=== PATIENT | female | born 1935 | race Caucasian/White ===

== ENCOUNTER 2019-02-26 06:39 | Day surgery (SDC) | payer MEDICARE, OTHER ==
[2019-02-26] MEDS ORDERED: MIDAZOLAM 2 MG/2 ML VIAL IVP ONE (06:40)
[2019-02-26] MEDS ORDERED: LACTATED RINGERS 500 ML IV ONE (06:55)
[2019-02-26] MEDS ORDERED: KETOROLAC 0.45% OPHTH DROPS RIGHTEYE ONE (07:00)
[2019-02-26] MEDS ORDERED: PROPARACAINE 0.5% OPHTH DROPS 15 ML RIGHTEYE ONE (07:00)
[2019-02-26] MEDS ORDERED: CYCLOPENTOLATE 1% OPHTH DROPS 2 ML RIGHTEYE ONE (07:00)
[2019-02-26] MEDS ORDERED: PHENYLEPHRINE 2.5% OPHTH 2 ML DROPS RIGHTEYE ONE (07:00)
[2019-02-26] MEDS ORDERED: KETOROLAC 0.45% OPHTH DROPS ONE (07:04)
[2019-02-26] MEDS ORDERED: CYCLOPENTOLATE 1% OPHTH DROPS 2 ML ONE (07:04)
[2019-02-26] MEDS ORDERED: PROPARACAINE 0.5% OPHTH DROPS 15 ML ONE (07:04)
[2019-02-26] MEDS ORDERED: PHENYLEPHRINE 2.5% OPHTH 2 ML DROPS ONE (07:04)
[2019-02-26] MEDS ORDERED: EPINEPHrine 1 MG/ML AMP ONE (07:25)
[2019-02-26] MEDS ORDERED: TRIAMCIN/MOXIFLOX OPHTHALMIC 0.6 ML VIAL IO ONE ×2 (07:25→09:46)
[2019-02-26] MEDS ORDERED: VANCOMYCIN OPHTHALMI 8MG/0.8ML 8 MG/0.8 ML SYRINGE IO ONE ×2 (07:26→09:47)
[2019-02-26] MEDS ORDERED: TIMOLOL 0.5% OPHTH DROPS ONE (07:26)
[2019-02-26] MEDS ORDERED: BRIMONIDINE 0.2% OPHTH DROPS 5 ML ONE (07:26)
[2019-02-26] MEDS ORDERED: BSS/LIDOCAINE/EPINEPHRINE 1 ML SYRINGE ONE (07:26)
--- NOTE | 2019-02-26 08:58 | ANESTHESIA ---
Pre-Anesthesia VS, & Labs - Diagnosis Right senile combined cataract - Procedure Right phaco with IOL implant Vital Signs: Temp Pulse Resp BP Pulse Ox 36.7 C 94 18 160/96 H 96 02/26/19 06:58 02/26/19 06:58 02/26/19 06:58 02/26/19 06:58 02/26/19 06:58 Height 5 ft 2 in Weight (kg) 92.5 kg - NPO >8 hours - Is Patient ?: Not Applicable - Lab Results Current Lab Results: Laboratory Tests 02/26/19 07:09: POC Whole Bld Glucose 129 H Lab results reviewed: No Home Medications and Allergies Home Medications: Ambulatory Orders Enalapril Maleate [Vasotec] 20 mg PO DAILY 02/25/19 Glipizide 5 mg PO BID 02/25/19 Metoprolol Succinate [Toprol Xl] 150 mg PO DAILY 02/25/19 Warfarin [Coumadin] 2 mg PO DAILY 02/25/19 Enalapril Maleate [Vasotec] 20 mg PO DAILY 02/25/19 Glipizide 5 mg PO BID 02/25/19 Metoprolol Succinate [Toprol Xl] 150 mg PO DAILY 02/25/19 Warfarin [Coumadin] 2 mg PO DAILY 02/25/19 Allergies/Adverse Reactions: Allergies Allergy/AdvReac Type Severity Reaction Status Date / Time aspirin AdvReac Unknown Verified 02/25/19 15:27 calcium carbonate AdvReac Unknown Verified 02/25/19 15:27 [From Bufferin] lidocaine AdvReac Rash Verified 02/25/19 15:27 magnesium [From Bufferin] AdvReac Unknown Verified 02/25/19 15:27 Anes History & Medical History - Anesthetic History Anesthesia Complications: reports: No previous complications Family history of Anesthesia Complications: Denies Family history of Malignant Hyperthermia: Denies - Medical History Cardiovascular: reports: Hypertension, High cholesterol, Atrial fibrillation Pulmonary: reports: None Gastrointestinal: reports: None Urinary: reports: Incontinence Neuro: reports: None Musculoskeletal: reports: Osteoarthritis Endocrine/Autoimmune: reports: Type 2 diabetes Blood Disorders: reports: None Skin: reports: None Smoking Status: Never smoker Psychosocial: reports: No issues indicated - Surgical History Eyes Ears Nose Throat (EENT): Cataracts, Tonsil/Adenoidectomy Exam General: Alert, Oriented x3 Dental: WNL Mouth Opening: Greater than 4 Fingerbreadths Neck Mobility: Normal Mallampati classification: II Thyromental Distance: greater than 6 cm Respiratory: Lungs clear Cardiovascular: Other (Irregular) Mental/Cognitive Status: Alert/Oriented X3 Cognitive Status: Within normal limits Plan Anesthesia Type: MAC Consent for Procedure(s) Verified and Reviewed: Yes Code Status: Attempt Resuscitation ASA classification: 3-Severe systemic disease Is this case an emergency?: No
[2019-02-26] MEDS ORDERED: EPINEPHrine 1 MG/ML AMP IVP ONE (09:45)
[2019-02-26] MEDS ORDERED: BRIMONIDINE 0.2% OPHTH DROPS 5 ML OPTH ONE (09:45)
[2019-02-26] MEDS ORDERED: BSS/LIDOCAINE/EPINEPHRINE 1 ML SYRINGE IO ONE (09:46)
[2019-02-26] MEDS ORDERED: TIMOLOL 0.5% OPHTH DROPS OPTH ONE (09:46)
[2019-02-26] MEDS ORDERED: CHONDR SULF/HYALURONATE SYRINGE IO ONE (09:46)
[2019-02-26 10:03] VITALS: BP 141/61
--- NOTE | 2019-02-26 10:43 | OPERATIVE REPORT ---
DATE OF SERVICE: 02/26/2019 Physician: Alen Ames MD PREOPERATIVE DIAGNOSIS: Visually significant cataract, right eye. Cataract surgery was performed on the left eye in 2018 elsewhere. POSTOPERATIVE DIAGNOSIS: Visually significant cataract, right eye. Cataract surgery was performed o n the left eye in 2018 elsewhere. PROCEDURE: Phacoemulsification with posterior chamber intraocular lens implant, right eye. SURGEON: Alen Ames MD ANESTHESIA: Monitored anesthesia care. COMPLICATIONS: None. OPERATIVE INDICATIONS: This is an 83-year-old woman with progressive vision loss in the right eye du e to 3-4+ nuclear sclerotic and 2+ cortical cataract. Best corrected visual acuity was 20/50 with gl are to 20/500 in the right eye. Indications for surgery are overall decrease in vision per patient. She was consented at length concerning risks and benefits of cataract surgery, after which she expre ssed a desire to proceed with surgery. OPERATIVE PROCEDURE: Patient was taken to OR #3 and placed under monitored anesthesia care. Surgica l timeout was conducted confirming correct patient, correct procedure, and correct surgical site. e was given topical anesthesia, and prepped and draped in the usual sterile fashion. The eye was ent ered at the 12 and 9 o'clock positions. Intracameral Shugarcaine was injected into the anterior nader kyaw, followed by Viscoat. A continuous-tear curvilinear capsulorrhexis was performed. The nucleus w as hydrodissected and phacoemulsified. The cortex was evacuated using automated infusion and aspirat ion. Provisc was injected in the capsular bag, and a 22.5 diopter intraocular lens inserted in the b ag. Approximately 0.8 mL of a mixture of triamcinolone, moxifloxacin and vancomycin was injected sub conjunctivally in the superior quadrant for infection and inflammation prophylaxis. I and A, was use d to evacuate the viscoelastic materials. The eye was inflated to physiologic pressure using balance d salt solution and found to be watertight. Patient was taken from the operating room in good condit ion and given postoperative instructions. TD: 02/26/2019 10:06
== END 2019-02-26 06:40 | disposition home or self-care (01) ==
LOC: SDS 06:39
PROVIDERS: ATTEND Ophthalmology
PROC: 08RJ3JZ Replacement of Right Lens with Synthetic Substitute, Percutaneous Approach (ICD-10-PCS; principal; 2019-02-26 08:00)
DX: H25.811 Combined forms of age-related cataract, right eye (principal); E11.9 Type 2 diabetes mellitus without complications; I10 Essential (primary) hypertension; I48.91 Unspecified atrial fibrillation
CPT/HCPCS: 66984; A9270; J3490; V2632

== ENCOUNTER 2021-06-15 11:49 | Outpatient (CLI) | payer MEDICARE | END 2021-06-15 11:50 | disposition EMS.NT | LOC: EMS 11:49 | DX: R53.1 Weakness (principal) ==

== ENCOUNTER 2021-07-01 12:44 | Outpatient (CLI) | payer MEDICARE ==
--- NOTE | 2021-07-01 13:55 | CT Report ---
PROCEDURE: HEAD WO INDICATIONS: ALTERED MENTAL STATUS TECHNIQUE: Noncontrast 4.5 mm thick angled axial sections acquired from the foramen magnum to the vertex. For r adiation dose reduction, the following was used: automated exposure control, adjustment of mA and/or kV according to patient size. COMPARISON: None. FINDINGS: Image quality: Excellent. CSF spaces: Basal cisterns are patent. No extra-axial fluid collections. Ventricles are normal in size and shape. Brain: No midline shift. No intracranial hemorrhage. In the region of the inferior medial right cere bellum, there may either be artifact or subtly calcified parenchyma or a mildly hyperdense mass measu ring approximately 2.0 x 2.5 cm. There is no associated vasogenic edema and no significant mass effec t. Henderson-white matter interface is otherwise normal. Skull and face: Calvarium and visualized facial bones are intact, without suspicious lesions. Sinuses: Visualized sinuses and mastoids are clear. IMPRESSION: 1. No evidence acute stroke or hemorrhage. 2. In the inferior medial right cerebellum, there may be artifact versus subtle parenchymal calcifica tions versus a mildly hyperdense mass measuring 2.0 x 2.5 cm. Comment: Recommend brain MRI with and without contrast for further evaluation. If the patient has a p acemaker, would recommend CT head with contrast. Reviewed by: Damian Morelos MD on 07/01/2021 1:54 PM PST Approved by: Damian Morelos MD on 07/01/2021 1:54 PM PST Station ID: [id number]
== END 2021-07-01 12:45 | disposition home or self-care (01) ==
LOC: DI 12:44
PROVIDERS: ATTEND Student in an Organized Health Care Education/Training Program
DX: R41.82 Altered mental status, unspecified (principal); R90.89 Other abnormal findings on diagnostic imaging of central nervous system

== ENCOUNTER 2021-08-07 12:33 | Outpatient (CLI) | payer MEDICARE, OTHER ==
[2021-08-07 13:56] LABS: ALBUMIN 3.7 g/dL (3.2-5.5); ALBUMIN/GLOBULIN RATIO 0.9 (1.0-2.2); BILIRUBIN,TOTAL 1.1 mg/dL (0.2-1.0); CALCIUM 9.1 mg/dL (8.5-10.3); CREATININE 1.3 mg/dL (0.4-1.0); POTASSIUM 4.4 mmol/L (3.5-5.0); TOTAL PROTEIN 7.6 g/dL (6.7-8.2)
[2021-08-07] MEDS ORDERED: GADOBUTROL 10 MMOL/10 ML VIAL ONE (14:45)
[2021-08-07] MEDS ORDERED: GADOBUTROL 10 MMOL/10 ML VIAL IVP ONE (16:20)
--- NOTE | 2021-08-07 17:10 | MRI Report ---
PROCEDURE: Brain W/WO INDICATIONS: AMS CONTRAST: IV CONTRAST: Gadavist ml: 8.1 TECHNIQUE: Noncontrast axial T1 spin echo, axial T2 fast spin echo, sagittal and axial FLAIR, coronal T2 fast sp in echo, axial gradient echo, axial diffusion and ADC through the brain. After the administration of contrast, axial and coronal T1 spin echo with fat saturation through the brain. COMPARISON: CT head dated 07/01/2021. FINDINGS: Image quality: Excellent. CSF spaces: Basal cisterns are patent. No extra-axial fluid collections. Ventricles are normal in size and shape. Brain: No midline shift. No intracranial bleeds or masses. No abnormal intracranial enhancement. There is cerebral volume loss for age. There is periventricular white matter chronic small vessel is chemic change. The brainstem appears normal. Diffusion-weighted images demonstrate no acute ischemi c insults. No chronic ischemic insults. Age-related volume loss and mild small vessel ischemic monroe e. The area in the inferior medial right cerebellum noted on CT represents artifact and not a subtle mass. There is no abnormal enhancement with gadolinium. Normal intravascular flow voids are present. Skull and face: Calvarial marrow is normal in signal. Orbits appear normal. Sinuses: Sinuses and mastoids appear clear. IMPRESSION: 1. On the previous CT, there is a question of artifact versus mass involving the inferior right cereb ellum. There is no evidence of a mass on brain MRI with and without contrast. This is felt to represe nt artifact. 2. Age-related volume loss and mild small vessel ischemic change. Reviewed by: Damian Morelos MD on 08/07/2021 5:08 PM PST Approved by: Damian Morelos MD on 08/07/2021 5:08 PM PST Station ID: [id number]
== END 2021-08-07 12:34 | disposition home or self-care (01) ==
LOC: DI 12:33
PROVIDERS: ATTEND Student in an Organized Health Care Education/Training Program
DX: R41.82 Altered mental status, unspecified (principal)
CPT/HCPCS: 36415; 70553; 80053; A9585

== ENCOUNTER 2021-08-23 10:01 | Outpatient (CLI) | payer MEDICARE, OTHER | END 2021-08-23 10:02 | disposition home or self-care (01) | LOC: DI 10:01 | PROVIDERS: ATTEND Student in an Organized Health Care Education/Training Program | DX: R06.00 Dyspnea, unspecified (principal); I48.91 Unspecified atrial fibrillation; I34.0 Nonrheumatic mitral (valve) insufficiency; I07.1 Rheumatic tricuspid insufficiency; I87.8 Other specified disorders of veins | CPT/HCPCS: 93306 ==

== ENCOUNTER 2022-12-01 23:15 | Outpatient (CLI) | payer MEDICARE, OTHER | END 2022-12-01 23:59 | disposition critical access hospital (66) | LOC: EMS 23:15 | DX: R41.0 Disorientation, unspecified (principal); R09.89 Other specified symptoms and signs involving the circulatory and respiratory systems; W19.XXXA Unspecified fall, initial encounter; Y92.003 Bedroom of unspecified non-institutional (private) residence as the place of occurrence of the external cause | CPT/HCPCS: A0425; A0429 ==

== ENCOUNTER 2022-12-01 23:29 | Inpatient (IN) | payer MEDICARE, OTHER ==
[2022-12-02] MEDS ORDERED: iohexoL-300 100 ML VIAL ONE (00:04)
[2022-12-02] MEDS ORDERED: SODIUM CHLORIDE 0.9% 500 ML IV STA ×2 (00:06→00:21)
[2022-12-02 00:07] LABS: BASOPHILS % (AUTO) 0.5 %; EOSINOPHILS % (AUTO) 4.3 %; HCT - HEMATOCRIT 38.5 % (37.0-47.0); HGB - HEMOGLOBIN 12.1 g/dL (12.0-16.0); LYMPHOCYTES % (AUTO) 4.5 %; MEAN CORPUSCULAR HEMOGLOBIN 28.2 pg (27.0-31.0); MEAN CORPUSCULAR HGB CONC 31.4 g/dL (32.0-36.0); MEAN CORPUSCULAR VOLUME 89.7 fL (81.0-99.0); MEAN PLATELET VOLUME 11.9 fL (7.9-10.8); MONOCYTES % (AUTO) 4.4 %; NEUTROPHILS % (AUTO) 85.4 %; PLT - PLATELET COUNT 128 10^3/uL (130-450); RED BLOOD COUNT 4.29 10^6/uL (4.20-5.40); RED CELL DISTRIBUTION WIDTH 15.1 % (12.0-15.0); WHITE BLOOD COUNT 10.1 x10^3/uL (4.8-10.8)
[2022-12-02 00:09] LABS: ABNORMAL LYMPHS % (MANUAL) 0 %
[2022-12-02 00:13] LABS: ALBUMIN 3.3 g/dL (3.2-5.5); ALBUMIN/GLOBULIN RATIO 0.8 (1.0-2.2); CALCIUM 8.8 mg/dL (8.5-10.3); CREATININE 1.9 mg/dL (0.4-1.0); POTASSIUM 3.7 mmol/L (3.5-5.0); TOTAL PROTEIN 7.4 g/dL (6.7-8.2)
[2022-12-02 00:14] LABS: PT - PROTHROMBIN TIME 30.5 secs (9.9-12.6)
[2022-12-02 00:32] LABS: BAND NEUTROPHILS % (MANUAL) 22 %; DIFFERENTIAL COMMENT MANUAL DIFFERENTIAL; LYMPHOCYTES # (MANUAL) 0.4 10^3/uL (1.5-3.5); LYMPHOCYTES % (MANUAL) 4 %; MONOCYTES # (MANUAL) 0.4 10^3/uL (0.0-1.0); NEUTROPHILS # (MANUAL) 9.3 10^3/uL (1.5-6.6); PLATELET ESTIMATE, MANUAL NORMAL (130-450,000) (NORMAL); RBC MORPHOLOGY (MULTIPLE) NORMAL APPEARANCE (NORMAL)
--- NOTE | 2022-12-02 00:42 | ED Physician Documentation ---
History of Present Illness - Stated complaint Stated Complaint: GLF FOUND DOWN - Chief complaint Chief Complaint: Trauma Abd - History obtained from History obtained from: Patient, Family - Additonal information Additional information: Patient is an 87-year-old female presenting for evaluation after an unwitnessed fall. Per family members they last spoke to her yesterday evening. This evening they went to check on her around 5 PM and found her laying on the ground. They thought her blood sugar was low and so went to the store to get her things to eat. However they noted that she seemed to be more confused than usual and thus called EMS. They were able to help her stand and ambulate with her walker which is what she normally does at baseline. She had reported to them that she was having some nausea and vomiting and abdominal pain the day prior. Per the daughter she is on warfarin for history of A-fib. Daughter denies that the patient has ever had any abdominal surgeries. Patient is oriented to person only. Review of Systems Unable to obtain: AMS PD PAST MEDICAL HISTORY - Past Medical History Cardiovascular: Hypertension, High cholesterol, Atrial fibrillation Respiratory: None Neuro: None Endocrine/Autoimmune: Type 2 diabetes GI: None : Incontinence HEENT: Chronic hearing loss Psych: None Musculoskeletal: Osteoarthritis Derm: None - Past Surgical History HEENT: Cataracts, Tonsil/Adenoidectomy - Present Medications Home Medications: Ambulatory Orders Medication Instructions Recorded Confirmed Enalapril Maleate [Vasotec] 20 mg PO DAILY 02/25/19 01/13/21 Metoprolol Succinate [Toprol Xl] 150 mg PO DAILY 02/25/19 01/13/21 Warfarin [Coumadin] 2 mg PO DAILY 02/25/19 01/13/21 glipiZIDE [Glipizide] 5 mg PO BID 02/25/19 01/13/21 - Allergies Allergies/Adverse Reactions: Allergies Allergy/AdvReac Type Severity Reaction Status Date / Time aspirin AdvReac Unknown Verified 12/01/22 23:39 calcium carbonate AdvReac Unknown Verified 12/01/22 23:39 [From Bufferin] lidocaine AdvReac Rash Verified 12/01/22 23:39 magnesium [From Bufferin] AdvReac Unknown Verified 12/01/22 23:39 - Social History Smoking Status: Never smoker PD ED PE NORMAL - General General: No acute distress, Well developed/nourished. 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 No: Alert and oriented X 3 Eye Opening: Spontaneous Motor: Obeys Commands Verbal: Confused GCS Score: 14 Results - Vitals Vitals: Vital Signs - 24 hr 12/01/22 12/02/22 12/02/22 23:34 00:06 01:00 Temperature 37.0 C Heart Rate 131 H 127 H 113 H Respiratory 28 H 28 H 34 H Rate Blood Pressure 161/112 H 171/82 H 185/116 H O2 Saturation 94 94 93 If not protocol : Oxygen Flow, liters/minute 12/02/22 12/02/22 12/02/22 02:49 02:50 02:56 Temperature Heart Rate 120 H 96 Respiratory 33 H 22 28 H Rate Blood Pressure 158/81 H 150/86 H O2 Saturation 86 L 96 93 If not protocol 2 : Oxygen Flow, liters/minute 12/02/22 12/02/22 03:03 03:09 Temperature Heart Rate 93 101 H Respiratory 27 H Rate Blood Pressure 151/72 H 165/77 H O2 Saturation 96 96 If not protocol 2 2 : Oxygen Flow, liters/minute Oxygen O2 Source Nasal cannula - EKG (time done) 1204 EKG releavant findings:: EKG personally interpreted by author of this note. Relevant findings are: Rate 121, atrial fibrillation, no STEMI, Right bundle branch block, no prior for comparison Rate: Rate (enter#) (121) Rhythm: Atrial fibrillation Intervals: RBBB Ischemia: T wave inversion Compare to prior EKG: Old EKG unavailable - Labs Labs: Laboratory Tests 12/01/22 12/01/22 12/01/22 23:41 23:41 23:41 WBC 10.1 RBC 4.29 Hgb 12.1 Hct 38.5 MCV 89.7 MCH 28.2 MCHC 31.4 L RDW 15.1 H Plt Count 128 L MPV 11.9 H Neut # (Auto) Not Reportable Lymph # (Auto) Not Reportable Dolores # (Auto) Not Reportable Eos # (Auto) Not Reportable Baso # (Auto) Not Reportable Absolute Nucleated RBC Not Reportable Total Counted 100 Band Neuts % (Manual) 22 H Abnorm Lymph % (Manual) 0 Nucleated RBC % Not Reportable Neutrophils # (Manual) 9.3 H Lymphocytes # (Manual) 0.4 L Monocytes # (Manual) 0.4 Eosinophils # (Manual) 0.0 Basophils # (Manual) 0.0 Differential Comment MANUAL DIFFERENTIAL Platelet Estimate NORMAL (130-450,000) RBC Morph Micro Appear NORMAL APPEARANCE PT 30.5 H INR 3.0 H Sodium 132 L Potassium 3.7 Chloride 99 L Carbon Dioxide 22 Anion Gap 11.0 BUN 51 H Creatinine 1.9 H Estimated GFR (MDRD) 25 L Glucose 228 H POC Whole Bld Glucose Lactic Acid Calcium 8.8 Total Bilirubin 3.0 H AST 28 ALT 19 Alkaline Phosphatase 77 Total Creatine Kinase 199 Troponin I High Sens Total Protein 7.4 Albumin 3.3 Globulin 4.1 Albumin/Globulin Ratio 0.8 L Lipase 18 L Urine Color Urine Clarity Urine pH Ur Specific [place] Urine Protein Urine Glucose (UA) Urine Ketones Urine Occult Blood Urine Nitrite Urine Bilirubin Urine Urobilinogen Ur Leukocyte Esterase Urine RBC Urine WBC Ur Squamous Epith Cells Urine Bacteria Urine Casts Ur Microscopic Review Urine Culture Comments 12/01/22 12/01/22 12/01/22 23:41 23:41 23:59 WBC RBC Hgb Hct MCV MCH MCHC RDW Plt Count MPV Neut # (Auto) Lymph # (Auto) Dolores # (Auto) Eos # (Auto) Baso # (Auto) Absolute Nucleated RBC Total Counted Band Neuts % (Manual) Abnorm Lymph % (Manual) Nucleated RBC % Neutrophils # (Manual) Lymphocytes # (Manual) Monocytes # (Manual) Eosinophils # (Manual) Basophils # (Manual) Differential Comment Platelet Estimate RBC Morph Micro Appear PT INR Sodium Potassium Chloride Carbon Dioxide Anion Gap BUN Creatinine Estimated GFR (MDRD) Glucose POC Whole Bld Glucose 214 H Lactic Acid 2.3 H Calcium Total Bilirubin AST ALT Alkaline Phosphatase Total Creatine Kinase Troponin I High Sens 77.2 H* Total Protein Albumin Globulin Albumin/Globulin Ratio Lipase Urine Color Urine Clarity Urine pH Ur Specific [place] Urine Protein Urine Glucose (UA) Urine Ketones Urine Occult Blood Urine Nitrite Urine Bilirubin Urine Urobilinogen Ur Leukocyte Esterase Urine RBC Urine WBC Ur Squamous Epith Cells Urine Bacteria Urine Casts Ur Microscopic Review Urine Culture Comments 12/02/22 12/02/22 12/02/22 00:53 00:53 01:22 WBC RBC Hgb Hct MCV MCH MCHC RDW Plt Count MPV Neut # (Auto) Lymph # (Auto) Dolores # (Auto) Eos # (Auto) Baso # (Auto) Absolute Nucleated RBC Total Counted Band Neuts % (Manual) Abnorm Lymph % (Manual) Nucleated RBC % Neutrophils # (Manual) Lymphocytes # (Manual) Monocytes # (Manual) Eosinophils # (Manual) Basophils # (Manual) Differential Comment Platelet Estimate RBC Morph Micro Appear PT INR Sodium Potassium Chloride Carbon Dioxide Anion Gap BUN Creatinine Estimated GFR (MDRD) Glucose POC Whole Bld Glucose Lactic Acid Calcium Total Bilirubin AST ALT Alkaline Phosphatase Total Creatine Kinase 192 Troponin I High Sens 69.5 H* Total Protein Albumin Globulin Albumin/Globulin Ratio Lipase Urine Color DARK YELLOW Urine Clarity HAZY Urine pH 5.0 Ur Specific [place] >=1.030 H Urine Protein 100 H Urine Glucose (UA) NEGATIVE Urine Ketones TRACE Urine Occult Blood MODERATE H Urine Nitrite NEGATIVE Urine Bilirubin SMALL H Urine Urobilinogen 1 (NORMAL) Ur Leukocyte Esterase NEGATIVE Urine RBC 0-5 Urine WBC 0-3 Ur Squamous Epith Cells RARE Squamous Urine Bacteria Rare Urine Casts 3-5 Hyaline Casts Ur Microscopic Review INDICATED Urine Culture Comments NOT INDICATED PD Medical Decision Making - ED course Complexity details: reviewed results, re-evaluated patient, d/w patient, d/w family ED course: Patient presenting for evaluation of unwitnessed fall versus syncope and altered mental status. She is noted to be tachycardic and in A-fib with RVR. Patient does have a history of this and is anticoagulated on warfarin. Due to unclear history regarding the fall head CT was obtained along with a cervical spine CT. These were reviewed by me and I do not see signs of any acute injuries. Labs obtained including CBC, lactic, chemistries, troponin, urine analysis were all reviewed.Significant for elevated bands of 22%, creatinine of 1.9 (previously 1.3 last year), lactic greater than 2, bilirubin 3. INR is therapeutic at 3.Chest x-ray reveals left-sided pneumonia. A CT scan of the abdomen pelvis was also obtained due to reported history of nausea and vomiting. No acute findings in the abdomen and pelvis but again pneumonia is seen. Urine analysis does not suggest infection.Patient was started on azithromycin and Rocephin. She was given 1 dose of IV diltiazem for A-fib and also 1 L of IV fluids with improvement in her rate. She did desaturate to 86% on room air which improved with oxygen via nasal cannula.Discussed the case with hospitalist who will admit the patient for further management. Daughter had been at the bedside and was also updated regarding the plan of care. Departure - Departure Disposition: 66 [facility] DC/Xfer Clinical Impression: CAP (community acquired pneumonia), Atrial fibrillation with RVR, LOYDA (acute kidney injury), Hypoxia, AMS (altered mental status) Condition: Stable
--- NOTE | 2022-12-02 01:10 | XRAY Report ---
PROCEDURE: Chest 1 View X-Ray INDICATIONS: syncope TECHNIQUE: One view of the chest was acquired. COMPARISON: None. FINDINGS: Limited by rotation. Dense left upper lobe infiltrate present. Pleural spaces are clear. Heart size is enlarged, there is mild vascular congestion present. Osseous structures unremarkable. IMPRESSION: Left upper pulmonary infiltrate, consistent with pneumonia. Cardiomegaly and mild vascular congestion Reviewed by: Fidel Vazquez MD on 12/02/2022 12:09 AM ELGIN Approved by: Fidel Vazquez MD on 12/02/2022 12:09 AM AKDT Station ID: [id number]
--- NOTE | 2022-12-02 01:26 | CT Report ---
PROCEDURE: CT brain without contrast INDICATIONS: fall on warfarin TECHNIQUE: Noncontrast 4.5 mm thick angled axial sections acquired from the foramen magnum to the vertex. For r adiation dose reduction, the following was used: automated exposure control, adjustment of mA and/or kV according to patient size. COMPARISON: None. FINDINGS: Image quality: Excellent. CSF spaces: Basal cisterns are patent. No extra-axial fluid collections. Ventricles are normal in size and shape. Brain: No midline shift. No intracranial masses or hemorrhage. Henderson-white matter interface is norm al. Moderate atrophy and multifocal white matter chronic ischemic change noted. Atherosclerotic vasc ular calcification noted in the cavernous segments of both internal carotid arteries as well as the i ntradural vertebral arteries. Skull and face: Calvarium and visualized facial bones are intact, without suspicious lesions. Sinuses: Visualized sinuses and mastoids are clear. IMPRESSION: Atrophy and chronic ischemic change without acute hemorrhage or mass effect Reviewed by: Fidel Vazquez MD on 12/02/2022 12:24 AM AKDT Approved by: Fidel Vazquez MD on 12/02/2022 12:24 AM AKDT Station ID: [id number]
--- NOTE | 2022-12-02 01:31 | CT Report ---
PROCEDURE: CERVICAL SPINE WO INDICATIONS: fall/confusion TECHNIQUE: Noncontrast 3 mm thick sections acquired from the skull base to the T4 level. Sagittal and coronal r eformats were then constructed. For radiation dose reduction, the following was used: automated exp osure control, adjustment of mA and/or kV according to patient size. COMPARISON: None. FINDINGS: Image quality: Excellent. Bones: No fractures or dislocations. Visualized superior ribs are intact. Disc space narrowing and hypertrophic facet joints noted at the C2-3 sulci lower cervical spine. Soft tissues: Prevertebral soft tissues are normal in thickness. No paravertebral hematomas. Partia lly imaged left upper lobe pulmonary infiltrate or contusion IMPRESSION: Degenerative disc disease and arthropathy without fracture or traumatic malalignment. Partially imaged left upper lobe pulmonary infiltrate or contusion. No pneumothorax Reviewed by: Fidel Vazquez MD on 12/02/2022 12:29 AM AKDT Approved by: Fidel Vazquez MD on 12/02/2022 12:29 AM AKDT Station ID: [id number]
--- NOTE | 2022-12-02 01:36 | CT Report ---
PROCEDURE: CT abdomen and pelvis without contrast INDICATIONS: abd pain/vomiting/syncope TECHNIQUE: A CT scan of the abdomen and pelvis was performed without the use of intravenous contrast. Images we re recorded and evaluated at appropriate window settings. Reformats: coronal and sagittal. For radiat ion dose reduction, the following was used: automated exposure control, adjustment of mA and/or kV ac cording to patient size. COMPARISON: None. FINDINGS: Image quality: Excellent. Lung bases and heart: Left lower lobe pulmonary infiltrate with consolidation. Right lung base clear Liver: No solid mass. Gallbladder and biliary tree: Cholecystectomy Spleen: Calcified splenic granulomas Pancreas: No pancreatic ductal dilation. Adrenals: No adrenal nodule. Kidneys and ureters: Left renal atrophy. No hydronephrosis bilaterally. Bowel and peritoneum: No bowel distension. No pathologic free fluid. Lymph nodes: No central or retroperitoneal adenopathy. Vessels: Aortic atherosclerotic vascular calcification without aneurysm PELVIS Reproductive organs: Calcified uterine fibroid Bladder: No wall thickness, accounting for underdistention. Pelvic lymph nodes: No pelvic adenopathy by size criteria. Bones: No aggressive osseous abnormality. Other: No significant ventral or inguinal hernia. IMPRESSION: Left lower lobe pulmonary infiltrate with consolidation. No acute CT findings in the abdomen and pelvis Reviewed by: Fidel Vazquez MD on 12/02/2022 12:35 AM ELGIN Approved by: Fidel Vazquez MD on 12/02/2022 12:35 AM AKDT Station ID: [id number]
[2022-12-02 01:47] LABS: GLUCOSE, URINE (UA) NEGATIVE (NEGATIVE); KETONES,URINE (UA) TRACE mg/dL (NEGATIVE); LEUKOCYTE ESTERASE, URINE NEGATIVE (NEGATIVE); NITRITE,URINE NEGATIVE (NEGATIVE); OCCULT BLOOD,URINE MODERATE (NEGATIVE); PROTEIN,URINE 100 mg/dL (NEGATIVE); UROBILINOGEN,URINE 1 (NORMAL) E.U./dL (NORMAL)
[2022-12-02 01:52] LABS: BILIRUBIN,URINE SMALL (NEGATIVE); CLARITY,URINE HAZY (CLEAR); ICTOTEST,URINE POSITIVE
[2022-12-02 01:54] LABS: WBC,URINE 0-3 /HPF (0-5)
[2022-12-02 01:55] LABS: BACTERIA,URINE Rare /HPF (None Seen); RBC,URINE 0-5 /HPF (0-5); SQUAMOUS EPITHELIAL CELL,UR RARE Squamous (<= Few)
[2022-12-02] MEDS ORDERED: diltiaZEM INJ 5 MG/ML VIAL IVP STA (02:14)
[2022-12-02] MEDS ORDERED: AZITHROMYCIN INJ 500 MG in SODIUM CHLORIDE 0.9% 250 ML IV STA (02:15)
[2022-12-02] MEDS ORDERED: cefTRIAXone 1 GM in SODIUM CHLORIDE 0.9% MINIBAG 100 ML IV STA (02:15)
[2022-12-02] MEDS ORDERED: cefTRIAXone 1 GM VIAL ONE (02:50)
[2022-12-02] MEDS ORDERED: SODIUM CHLORIDE FLUSH 0.9% 10 ML SYRINGE IVP PRN (03:20)
--- NOTE | 2022-12-02 03:34 | HISTORY & PHYSICAL EXAMINATION ---
History of Present Illness - History of Present Illness HPI Comment/Other: 87 Y old female with PMH HTN, DM2, Atrial fib on coumadin BIBA due to AMS. Pt is confused so most of history is from the daughter present at bed side. As per pt, patient had nausea and she vomitied yesterday. Patient was found on the floor at about 4 pm yesterday. Daughter helped her and she waspatient was able to walk with the walker. As per daughter, her mom was breathing hard. Denies chest pain, fever, CORRIGAN, symptoms On presentaion, she was afebrile, hypoxic. Her Sao2 dropped to 86% while in the ER. Labs showed normal WBC , bands 22 INR 3.0, Vegetable Tier 1.9 CXR showed left lung infiltrate CT head and c spine showed no acute abnormalities IN ER, she was given IVF, Cardizem 10 mg IVP X 1 and IV rocephin and zithromax Patient is admitted due to PNA, AMS, Acute encephalopathy, dehydartion, LOYDA History - Past Medical History Cardiovascular: reports: Hypertension, High cholesterol, Atrial fibrillation Respiratory: reports: None Neuro: reports: None Endocrine/Autoimmune: reports: Type 2 diabetes GI: reports: None : reports: Incontinence HEENT: reports: Chronic hearing loss Psych: reports: None Musculoskeletal: reports: Osteoarthritis Derm: reports: None MRSA Hx?: No - Past Surgical History HEENT: reports: Cataracts, Tonsil/Adenoidectomy - Substance History Use: Uses substance without health or social issues: NONE Meds/Allgy - Home Medications Home Medications: Ambulatory Orders Medication Instructions Recorded Confirmed Enalapril Maleate [Vasotec] 20 mg PO DAILY 02/25/19 01/13/21 Metoprolol Succinate [Toprol Xl] 150 mg PO DAILY 02/25/19 01/13/21 Warfarin [Coumadin] 2 mg PO DAILY 02/25/19 01/13/21 glipiZIDE [Glipizide] 5 mg PO BID 02/25/19 01/13/21 - Allergies Allergies/Adverse Reactions: Allergies Allergy/AdvReac Type Severity Reaction Status Date / Time aspirin AdvReac Unknown Verified 12/01/22 23:39 calcium carbonate AdvReac Unknown Verified 12/01/22 23:39 [From Bufferin] lidocaine AdvReac Rash Verified 06/24/23 23:39 magnesium [From Bufferin] AdvReac Unknown Verified 12/01/22 23:39 Review of Systems - Constitutional Constitutional: reports: Weakness (10 point systems were reviewed and were negat chad except mentioned in HPI) Exam - Vital Signs Vital Signs: Vital Signs x48h Temp Pulse Resp BP Pulse Ox O2 Flow Rate 12/02/22 03:09 101 H 165/77 H 96 2 12/02/22 03:03 93 27 H 151/72 H 96 2 12/02/22 02:56 96 28 H 150/86 H 93 2 12/02/22 02:50 120 H 22 158/81 H 96 12/02/22 02:49 33 H 86 L 12/02/22 01:00 113 H 34 H 185/116 H 93 12/02/22 00:06 127 H 28 H 171/82 H 94 12/01/22 23:34 37.0 C 131 H 28 H 161/112 H 94 - Physical Exam General Appearance: positive: No acute distress, Alert Eyes Bilateral: positive: Normal inspection ENT: positive: ENT inspection nml Respiratory: positive: No respiratory distress, Breath sounds nml Cardiovascular: positive: Irregularly irregular Conclusion/Plan - Lab Results Fish Bones: 12/01/22 23:41 12/01/22 23:41 - Other Other Results/Comments: A: AMS acute encephalopathy pneumonia hypoxia bandemia LOYDA HTN DM2 Atrial fib on coumadin Plan; Admit in tele NPO Swallow eval NS @ 100 cc/h monitor mental status neurochecks q4h follow cx start iv rocephin and zithromax duo nebs q6h oxygen via NC to keep Sao2 > 95% Monitor i/o, electrolytes check CPK metoprolol 50 mg po bid cont coumadin monitor PT/INR Sliding scale insulin DVT prophylaxic: on coumadin SCD Full code patient is admitted as inpatient as more than 2 midnight stay is expected
[2022-12-02] MEDS: SODIUM CHLORIDE 0.9% 1,000 ML IV SCH ×2 (04:58→15:48)
[2022-12-02] MEDS ORDERED: IPRATROPIUM/ALBUTEROL 3 ML NEB INH SCH (07:00)
[2022-12-02] MEDS: INSULIN LISPRO 300 UNIT/3 ML PEN SUBQ SCH ×4 (08:09→21:27)
[2022-12-02] MEDS: METOPROLOL TARTRATE 50 MG TABLET PO SCH ×2 (08:18→21:21)
[2022-12-02] MEDS: SODIUM CHLORIDE FLUSH 0.9% 10 ML SYRINGE IVP SCH ×2 (08:19→17:05)
[2022-12-02] MEDS: NYSTATIN POWDER 15 GM TOP SCH ×2 (08:24→21:27)
[2022-12-02] MEDS: NYSTATIN CREAM 15 GM TUBE TOP SCH ×2 (08:24→21:27)
[2022-12-02 08:38] LABS: BASOPHILS % (AUTO) 0.8 %; EOSINOPHILS % (AUTO) 3.2 %; HCT - HEMATOCRIT 36.5 % (37.0-47.0); HGB - HEMOGLOBIN 11.8 g/dL (12.0-16.0); LYMPHOCYTES % (AUTO) 3.8 %; MEAN CORPUSCULAR HGB CONC 32.3 g/dL (32.0-36.0); MEAN CORPUSCULAR VOLUME 89.7 fL (81.0-99.0); MEAN PLATELET VOLUME 11.4 fL (7.9-10.8); MONOCYTES % (AUTO) 6.7 %; NEUTROPHILS % (AUTO) 85.2 %; PLT - PLATELET COUNT 108 10^3/uL (130-450); RED BLOOD COUNT 4.07 10^6/uL (4.20-5.40); WHITE BLOOD COUNT 6.3 x10^3/uL (4.8-10.8)
[2022-12-02 08:43] LABS: CALCIUM 8.2 mg/dL (8.5-10.3); CREATININE 1.6 mg/dL (0.4-1.0); POTASSIUM 3.5 mmol/L (3.5-5.0)
[2022-12-02 08:44] LABS: ABNORMAL LYMPHS % (MANUAL) 0 %
[2022-12-02 08:54] LABS: BAND NEUTROPHILS % (MANUAL) 27 %; LYMPHOCYTES # (MANUAL) 0.3 10^3/uL (1.5-3.5); LYMPHOCYTES % (MANUAL) 4 %; METAMYELOCYTES % (MANUAL) 1 %; MONOCYTES # (MANUAL) 0.4 10^3/uL (0.0-1.0); NEUTROPHILS # (MANUAL) 5.6 10^3/uL (1.5-6.6)
[2022-12-02 08:55] LABS: DIFFERENTIAL COMMENT MANUAL DIFFERENTIAL; PLATELET ESTIMATE, MANUAL DECREASED (<130,000) (NORMAL); PLATELET MORPHOLOGY NORMAL APPEARANCE (NORMAL); RBC MORPHOLOGY (MULTIPLE) NORMAL APPEARANCE (NORMAL)
--- NOTE | 2022-12-02 10:40 | XRAY Report ---
PROCEDURE: Knee 2 View LT INDICATIONS: fall at home, painful, can't wt bear TECHNIQUE: 2 views of the left knee(s) were acquired. COMPARISON: None. FINDINGS: Bones: No fractures or dislocations. No suspicious bony lesions. Soft tissues: No knee joint effusion. No suspicious soft tissue calcifications or masses. IMPRESSION: No acute fracture. No osseous lesion. If symptoms and/or clinical suspicion for pathology continue, f urther assessment with repeat plain films, or advanced imaging (e.g., CT, MRI, or bone scan) is recom mended for further assessment. Reviewed by: Ricky Manuel MD on 12/02/2022 10:39 AM PDT Approved by: Ricky Manuel MD on 12/02/2022 10:39 AM PDT Station ID: [id number]
--- NOTE | 2022-12-02 12:08 | PHARMACY PROGRESS NOTE ---
- Best Possible Medication History Admit Date and Time: 12/02/22 0320 Processed by: Pharmacy Medication History completed: Yes Patient Interview: Pt unable to participate Secondary Source(s): Pharmacy records, Insurance records As the person ultimately responsible for medication therapy, providers are able to order a medication from an existing home medication list in [facility] via the "Reconcile Routine" prior to Confirmation of that medication by customer support associate. Such practice is discouraged except when the physician, in their clinical judgment, deems that a medical need exists for a medication without regard to previous use.
[2022-12-02] MEDS: DICLOFENAC SODIUM 1% GEL 50 GM TUBE TOP PRN (13:05)
[2022-12-02 13:25] LABS: ESTIMATED AVERAGE GLUCOSE 146 mg/dL (70-100); HEMOGLOBIN A1c% 6.7 % (4.27-6.07)
[2022-12-02] MEDS: WARFARIN 1 MG TABLET PO SCH (15:48)
--- NOTE | 2022-12-02 16:47 | PROVIDER PROGRESS NOTE ---
Hospitalist Cross-cover Note - Cross-Cover Note Cross-Cover Note: Patient was admitted in the [facility] hours. H&P done at 330. She has been admitted for acute encephalopathy due to pneumonia and hypoxemia. This patient is described as alert, oriented, still able to take care of herself at her assisted living facility. She still even drives. What I am seeing is at a confused elderly female who can even remember where she was born and raised. She does not know why she is here. But she is valiantly trying to be cheerful and cooperative. Her main complaint is left knee pain. She cannot remember if she fell and hit her knee. She does remember that she fell against the metal bed railings in her room and she hit herself somehow. She just appears very weak, frail, slightly tremulous. Lungs have coarse upper airway sounds with rhonchi and a very slight cough that is nonproductive. No shortness of breath. The left knee that hurts does not have redness or heat. But she does not want it to be flexed or extended. She says it hurts too much. Medications are azithromycin, ceftriaxone, sliding scale insulin, metoprolol 50 twice daily, nystatin, normal saline at 100 an hour and her Coumadin. White cell count was 10.3 in the ER last night, 6.3 this morning. Creatinine was 1.9 in the ER and is now 1.6. BUN was 51 and is now 47. A1c is 6.7%. INR 3.0 Blood cultures were done and are pending Assessment/plan 1. Community-acquired pneumonia in an elderly female who lives at an assisted living facility. Continue antibiotics for 3 days of azithromycin, 5 days of Rocephin and then reassess. Adjust on the basis of blood culture results if they become positive. 2. Left knee pain. No history of trauma. Check knee films 3. Chronic atrial fibrillation for which she is on Coumadin. Pharmacy and I discussed and it is okay for her to get her Coumadin today. But she is on antibiotics and her INR will need to be watched carefully to make sure it does not get too prolonged.
[2022-12-02] MEDS: cefTRIAXone 1 GM in SODIUM CHLORIDE 0.9% MINIBAG 100 ML IV SCH (21:21)
[2022-12-02] MEDS: AZITHROMYCIN INJ 500 MG in SODIUM CHLORIDE 0.9% 250 ML IV SCH (22:06)
[2022-12-03] MEDS: SODIUM CHLORIDE FLUSH 0.9% 10 ML SYRINGE IVP SCH ×3 (01:06→17:23)
[2022-12-03] MEDS: SODIUM CHLORIDE 0.9% 1,000 ML IV SCH ×2 (03:30→12:04)
[2022-12-03 06:03] LABS: BASOPHILS % (AUTO) 0.7 %; EOSINOPHILS % (AUTO) 0.9 %; HCT - HEMATOCRIT 33.5 % (37.0-47.0); HGB - HEMOGLOBIN 10.7 g/dL (12.0-16.0); LYMPHOCYTES % (AUTO) 4.6 %; MEAN CORPUSCULAR HGB CONC 31.9 g/dL (32.0-36.0); MEAN CORPUSCULAR VOLUME 90.8 fL (81.0-99.0); MEAN PLATELET VOLUME 12.8 fL (7.9-10.8); MONOCYTES % (AUTO) 9.1 %; NEUTROPHILS % (AUTO) 84.3 %; PLT - PLATELET COUNT 111 10^3/uL (130-450); RED BLOOD COUNT 3.69 10^6/uL (4.20-5.40); RED CELL DISTRIBUTION WIDTH 15.2 % (12.0-15.0); WHITE BLOOD COUNT 7.4 x10^3/uL (4.8-10.8)
[2022-12-03 06:07] LABS: CALCIUM 8.2 mg/dL (8.5-10.3); CREATININE 1.5 mg/dL (0.4-1.0); POTASSIUM 3.8 mmol/L (3.5-5.0)
[2022-12-03 06:13] LABS: ABNORMAL LYMPHS % (MANUAL) 0 %
[2022-12-03 06:22] LABS: BAND NEUTROPHILS % (MANUAL) 8 %; DIFFERENTIAL COMMENT MANUAL DIFFERENTIAL; LYMPHOCYTES # (MANUAL) 0.4 10^3/uL (1.5-3.5); LYMPHOCYTES % (MANUAL) 5 %; MONOCYTES # (MANUAL) 0.5 10^3/uL (0.0-1.0); NEUTROPHILS # (MANUAL) 6.5 10^3/uL (1.5-6.6); PLATELET ESTIMATE, MANUAL DECREASED (<130,000) (NORMAL); PLATELET MORPHOLOGY NORMAL APPEARANCE (NORMAL); RBC MORPHOLOGY (MULTIPLE) NORMAL APPEARANCE (NORMAL); WBC MORPHOLOGY (MULTIPLE) NORMAL APPEARANCE (NORMAL)
[2022-12-03] MEDS: METOPROLOL TARTRATE 50 MG TABLET PO SCH ×2 (07:43→20:49)
[2022-12-03] MEDS: NYSTATIN CREAM 15 GM TUBE TOP SCH ×2 (07:44→20:48)
[2022-12-03] MEDS: DICLOFENAC SODIUM 1% GEL 50 GM TUBE TOP PRN ×3 (07:45→20:48)
[2022-12-03] MEDS: INSULIN LISPRO 300 UNIT/3 ML PEN SUBQ SCH ×4 (07:45→20:48)
[2022-12-03] MEDS: NYSTATIN POWDER 15 GM TOP SCH ×2 (07:45→20:48)
--- NOTE | 2022-12-03 08:23 | PROVIDER PROGRESS NOTE ---
Subjective - Prog Note Date Prog Note Date: 12/03/22 Prog Note Time: 08:21 - Subjective Pt reports feeling: Improved Subjective: She feels better but she feels "weak as a noodle". The hardest part is to get up out of bed. And to get back in bed. When she is going she is okay. The limiting factor is mild shortness of breath but more than anything except left knee pain. I done a left knee film yesterday and there is no acute fracture. I started her on Voltaren cream for it. Mental status seems to be returning. Some word finding difficulties, still with memory issues but improved from yesterday Current Medications - Current Medications Current Medications: Active Medications Diclofenac Sodium (Diclofenac Sodium 1% Gel 50 Gm Tube) 2 gm TOP QID PRN PRN Reason: Mild Pain (Level 1-3) Last Admin: 12/03/22 07:45 Dose: 2 gm Sodium Chloride (Normal Saline 0.9%) 1,000 mls @ 100 mls/hr IV .Q10H [facility] Last Admin: 12/03/22 03:30 Dose: 100 mls/hr Ceftriaxone Sodium 1 gm/ (Sodium Chloride) 100 mls @ 200 mls/hr IV HS [facility] Last Infusion: 12/02/22 21:51 Dose: Infused Azithromycin 500 mg/ Sodium (Chloride) 250 mls @ 250 mls/hr IV [facility] Last Infusion: 12/02/22 23:06 Dose: Infused Insulin Human Lispro (Insulin Lispro 300 Unit/3 Ml Pen) 1 - 5 unit SUBQ 0800,1200,1700,2100 [facility]; Protocol Last Admin: 12/03/22 07:45 Dose: Not Given Metoprolol Tartrate (Metoprolol Tartrate 50 Mg Tablet) 50 mg PO BID [facility] Last Admin: 12/03/22 07:43 Dose: 50 mg Nystatin (Nystatin Cream 15 Gm Tube) 1 applic TOP BID [facility] Last Admin: 12/03/22 07:44 Dose: 1 applic Nystatin (Nystatin Powder 15 Gm) 1 applic TOP BID [facility] Last Admin: 12/03/22 07:45 Dose: 1 applic Sodium Chloride (Sodium Chloride Flush 0.9% 10 Ml Syringe) 10 ml IVP PRN PRN PRN Reason: NEEDED PER PROVIDER ORDERS Sodium Chloride (Sodium Chloride Flush 0.9% 10 Ml Syringe) 10 ml IVP 0100,0900,1700 [facility] Last Admin: 12/03/22 07:45 Dose: 10 ml Warfarin Sodium (Warfarin 1 Mg Tablet) 2 mg PO QDWARFARIN [facility] Last Admin: 12/02/22 15:48 Dose: 2 mg Enalapril Maleate [Vasotec] 20 mg PO DAILY 02/25/19 Metoprolol Succinate [Toprol Xl] 150 mg PO DAILY 02/25/19 Warfarin [Coumadin] 2 mg PO SUMOTUWETHFR 02/25/19 glipiZIDE [Glipizide] 5 mg PO BID 02/25/19 Warfarin Sodium [Coumadin] 1 mg PO SA 12/02/22 metFORMIN [Glucophage] 500 mg PO DAILY 12/02/22 Objective - Vital Signs/Intake & Output Reviewed Vital Signs: Yes Vital Signs: Vital Signs x48h Temp Pulse Resp BP BP Pulse Ox O2 Flow Rate 12/03/22 07:43 139/67 H 12/03/22 07:32 35 C L 92 18 139/67 H 99 1.5 12/03/22 02:00 20 Intake & Output: Intake & Output 11/30/22 12/01/22 12/02/22 12/03/22 23:59 23:59 23:59 23:59 Intake Total 2690 1125 Output Total 150 150 Balance 2540 975 - Objective General Appearance: positive: No acute distress, Alert, Other (Elderly white f emale, sitting up in her chair, feeding herself breakfast, and watching the news) Eyes Bilateral: positive: PERRL, EOMI ENT: positive: No signs of dehydration Neck: positive: No JVD. negative: Stiff neck Respiratory: positive: No respiratory distress, Rhonchi. negative: Wheezes, Rales Cardiovascular: positive: Irregularly irregular, Systolic murmur Abdomen: positive: Non-tender, No organomegaly, Nml bowel sounds, No distention Extremities: positive: Pedal edema. negative: Full ROM (She cannot flex or fully extend her left knee. It is boggy, slightly warm but there is no redness or heat.) Neurologic/Psychiatric: positive: CN's nml (2-12), Motor nml (Motor restriction is because of the left knee pain. Otherwise moving all extremities without focal deficit. She is using her hands to bring food to her mouth. Nursing got the tray ready and put the pepper on her eggs.), Disoriented to time - Lab Results Fish Bones: 12/03/22 04:49 12/03/22 04:49 Other Labs: Lab Results x24hrs 12/03/22 12/03/22 12/03/22 Range/Units 07:45 04:49 04:49 WBC 7.4 (4.8-10.8) x10^3/uL RBC 3.69 L (4.20-5.40) 10^6/uL Hgb 10.7 L (12.0-16.0) g/dL Hct 33.5 L (37.0-47.0) % MCV 90.8 (81.0-99.0) fL MCH 29.0 (27.0-31.0) pg MCHC 31.9 L (32.0-36.0) g/dL RDW 15.2 H (12.0-15.0) % Plt Count 111 L (130-450) 10^3/uL MPV 12.8 H (7.9-10.8) fL Neut # (Auto) Not Reportable Lymph # (Auto) Not Reportable [place]kin # (Auto) Not Reportable Eos # (Auto) Not Reportable Baso # (Auto) Not Reportable Absolute Nucleated RBC Not Reportable Total Counted 100 Band Neuts % (Manual) 8 (0 - 10) % Abnorm Lymph % (Manual) 0 % Metamyelocytes % ( - 0) % Nucleated RBC % Not Reportable Neutrophils # (Manual) 6.5 (1.5-6.6) 10^3/uL Lymphocytes # (Manual) 0.4 L (1.5-3.5) 10^3/uL Monocytes # (Manual) 0.5 (0.0-1.0) 10^3/uL Eosinophils # (Manual) 0.0 (0-0.7) 10^3/uL Basophils # (Manual) 0.0 (0-0.1) 10^3/uL Differential Comment MANUAL DIFFERENTIAL WBC Morphology NORMAL APPEARANCE (NORMAL) Platelet Estimate DECREASED (<130,000) (NORMAL) Platelet Morphology NORMAL APPEARANCE (NORMAL) RBC Morph Micro Appear NORMAL APPEARANCE (NORMAL) Sodium 139 (135-145) mmol/L Potassium 3.8 (3.5-5.0) mmol/L Chloride 105 (101-111) mmol/L Carbon Dioxide 26 (21-32) mmol/L Anion Gap 8.0 (6-13) BUN 48 H (6-20) mg/dL Creatinine 1.5 H (0.4-1.0) mg/dL Estimated GFR (MDRD) 33 L (>89) Glucose 123 H (70-100) mg/dL POC Whole Bld Glucose 113 H (70 - 100) mg/dL Estimat Average Glucose (70-100) mg/dL Hemoglobin A1c % (4.27-6.07) % Calcium 8.2 L (8.5-10.3) mg/dL 12/02/22 12/02/22 12/02/22 Range/Units 20:13 16:52 11:23 WBC (4.8-10.8) x10^3/uL RBC (4.20-5.40) 10^6/uL Hgb (12.0-16.0) g/dL Hct (37.0-47.0) % MCV (81.0-99.0) fL MCH (27.0-31.0) pg MCHC (32.0-36.0) g/dL RDW (12.0-15.0) % Plt Count (130-450) 10^3/uL MPV (7.9-10.8) fL Neut # (Auto) Lymph # (Auto) L[place]kin # (Auto) Eos # (Auto) Baso # (Auto) Absolute Nucleated RBC Total Counted Band Neuts % (Manual) (0 - 10) % Abnorm Lymph % (Manual) % Metamyelocytes % ( - 0) % Nucleated RBC % Neutrophils # (Manual) (1.5-6.6) 10^3/uL Lymphocytes # (Manual) (1.5-3.5) 10^3/uL Monocytes # (Manual) (0.0-1.0) 10^3/uL Eosinophils # (Manual) (0-0.7) 10^3/uL Basophils # (Manual) (0-0.1) 10^3/uL Differential Comment WBC Morphology (NORMAL) Platelet Estimate (NORMAL) Platelet Morphology (NORMAL) RBC Morph Micro Appear (NORMAL) Sodium (135-145) mmol/L Potassium (3.5-5.0) mmol/L Chloride (101-111) mmol/L Carbon Dioxide (21-32) mmol/L Anion Gap (6-13) BUN (6-20) mg/dL Creatinine (0.4-1.0) mg/dL Estimated GFR (MDRD) (>89) Glucose (70-100) mg/dL POC Whole Bld Glucose 149 H 173 H 85 (70 - 100) mg/dL Estimat Average Glucose (70-100) mg/dL Hemoglobin A1c % (4.27-6.07) % Calcium (8.5-10.3) mg/dL 12/02/22 12/02/22 12/02/22 Range/Units 08:29 08:29 08:29 WBC 6.3 (4.8-10.8) x10^3/uL RBC 4.07 L (4.20-5.40) 10^6/uL Hgb 11.8 L (12.0-16.0) g/dL Hct 36.5 L (37.0-47.0) % MCV 89.7 (81.0-99.0) fL MCH 29.0 (27.0-31.0) pg MCHC 32.3 (32.0-36.0) g/dL RDW 15.0 (12.0-15.0) % Plt Count 108 L (130-450) 10^3/uL MPV 11.4 H (7.9-10.8) fL Neut # (Auto) Not Reportable Lymph # (Auto) Not Reportable [place] # (Auto) Not Reportable Eos # (Auto) Not Reportable Baso # (Auto) Not Reportable Absolute Nucleated RBC Not Reportable Total Counted 100 Band Neuts % (Manual) 27 H (0 - 10) % Abnorm Lymph % (Manual) 0 % Metamyelocytes % 1 H ( - 0) % Nucleated RBC % Not Reportable Neutrophils # (Manual) 5.6 (1.5-6.6) 10^3/uL Lymphocytes # (Manual) 0.3 L (1.5-3.5) 10^3/uL Monocytes # (Manual) 0.4 (0.0-1.0) 10^3/uL Eosinophils # (Manual) 0.0 (0-0.7) 10^3/uL Basophils # (Manual) 0.0 (0-0.1) 10^3/uL Differential Comment MANUAL DIFFERENTIAL WBC Morphology (NORMAL) Platelet Estimate DECREASED (<130,000) (NORMAL) Platelet Morphology NORMAL APPEARANCE (NORMAL) RBC Morph Micro Appear NORMAL APPEARANCE (NORMAL) Sodium 136 (135-145) mmol/L Potassium 3.5 (3.5-5.0) mmol/L Chloride 104 (101-111) mmol/L Carbon Dioxide 24 (21-32) mmol/L Anion Gap 8.0 (6-13) BUN 47 H (6-20) mg/dL Creatinine 1.6 H (0.4-1.0) mg/dL Estimated GFR (MDRD) 31 L (>89) Glucose 105 H (70-100) mg/dL POC Whole Bld Glucose (70 - 100) mg/dL Estimat Average Glucose 146 H (70-100) mg/dL Hemoglobin A1c % 6.7 H (4.27-6.07) % Calcium 8.2 L (8.5-10.3) mg/dL ABX Reporting Has patient been on IV antibiotics over the past 48 hours?: Yes Assessment/Plan - Problem List (1) CAP (community acquired pneumonia) Impression: Elderly female who lives in an assisted living facility, at an [facility]. Presents with cough, confusion and chest x-ray shows left upper lobe pneumonia. She does not have an elevated white cell count. She has not had a fever here. Her main manifestation has been confusion and hypoxia. She was needing 2 L nasal cannula since admission. Starting around 10 this morning she has been able to come off oxygen and have an O2 sat of 95% on room air. However she still coughing, fatigue. Not moving well. Blood cultures positive for haemophilus influenza. Says she has a new diagnosis of haemophilus influenza bacteremia. Plan: Today's day #2. Continue antibiotics for 3 days of azithromycin, 7 days of Rocephin Since the blood cultures are positive. Stop IV fluids. Qualifiers: Laterality: unspecified laterality Qualified Code(s): J18.9 - Pneumonia, unspecified organism (2) LOYDA (acute kidney injury) Impression: On admission she appeared dehydrated. Baseline creatinine is 1.3 and she was 1.9. After hydration and antibiotics today's creatinine is 1.5. Continue to monitor, avoid nephrotoxic drugs, avoid fluid overload (3) Hypoxia Impression: Present on admission. As of today, down to room air. Continue to monitor O2 sats, encourage incentive spirometry, and aim for Saturations over 90%. If she needs oxygen again we will resume it (4) Left knee pain Impression: She thinks is because she hit her knee on the metal stand of the bed when she rolled out of bed and hit the floor. Knee x-ray done last night shows no acute fracture, no osseous lesions. She does not have an effusion. I started Voltaren cream yesterday. She says helps a little bit. Since her mobility is markedly limited because of the left knee pain, I am asking PT and OT to see her in evaluation. I will add Tylenol. It is interesting that her pneumonia is not was knocking her down or her hypoxia. Is the knee pain. [facility] in [facility] in an assisted living facility. Her status is changed and will need to be reevaluated to return to the facility. My suspicion is that she will need rehab to get stronger to be ab le to return to the [facility]. We are going to ask local nursing homes to evaluate her for transfer when she is done with her acute care stay. Qualifiers: Chronicity: acute Qualified Code(s): M25.562 - Pain in left knee (5) AMS (altered mental status) Impression: She was confused, and illness superimposed on chronic baseline cognitive deficits is the problem. She is actually been clearing for the last 2 days. Very calm, lucid lady this morning. I had initially ordered a swallow eval uation on admission. I will discontinue that today since she is demonstrated good swallowing. Qualifiers: Altered mental status type: delirium Qualified Code(s): R41.0 - Disorientation, unspecified (6) Chronic atrial fibrillation Impression: Heart rate is 105 today. 108-110 yesterday. At home she is on metoprolol. We resume that here. She is on 50 mg p.o. twice daily. Will increase metoprolol to 75 mg p.o. twice daily She is on Coumadin, chronic anticoagulation. I will order daily INRs. Adjust on the basis of the results. Keeping in mind that antibiotic therapy usually prolongs INR in patients. (7) Hypertension Impression: Home meds are metoprolol XL 150 a day, and Vasotec 20 mg a day. She is with elevated blood pressures of 140s to 150s. I will increase her metoprolol to 75 twice daily and resume An TAMIKA inhibitor. Our formulary does not have Vasotec so I will substitute lisinopril 20 mg a day
[2022-12-03] MEDS: polyethylene glycoL 3350 17 GM PACKET PO SCH (12:13)
[2022-12-03] MEDS: WARFARIN 1 MG TABLET PO SCH (13:40)
[2022-12-03] MEDS: MULTIVITAMIN W/MINERALS TABLET PO SCH (17:23)
[2022-12-03] MEDS: cefTRIAXone 1 GM in SODIUM CHLORIDE 0.9% MINIBAG 100 ML IV SCH (20:47)
[2022-12-03] MEDS: lisinopriL 20 MG TABLET PO SCH (21:02)
[2022-12-03] MEDS: AZITHROMYCIN INJ 500 MG in SODIUM CHLORIDE 0.9% 250 ML IV SCH (21:35)
[2022-12-03] MEDS: ACETAMINOPHEN 325 MG TABLET PO PRN (22:44)
[2022-12-04] MEDS: SODIUM CHLORIDE FLUSH 0.9% 10 ML SYRINGE IVP SCH ×4 (00:29→21:24)
[2022-12-04 05:51] LABS: BASOPHILS # (AUTO) 0.1 10^3/uL (0.0-0.1); BASOPHILS % (AUTO) 0.7 %; EOSINOPHILS % (AUTO) 0.1 %; HCT - HEMATOCRIT 34.5 % (37.0-47.0); HGB - HEMOGLOBIN 10.8 g/dL (12.0-16.0); LYMPHOCYTES # (AUTO) 0.4 10^3/uL (1.5-3.5); LYMPHOCYTES % (AUTO) 3.9 %; MEAN CORPUSCULAR HEMOGLOBIN 28.1 pg (27.0-31.0); MEAN CORPUSCULAR HGB CONC 31.3 g/dL (32.0-36.0); MEAN CORPUSCULAR VOLUME 89.8 fL (81.0-99.0); MEAN PLATELET VOLUME 12.7 fL (7.9-10.8); MONOCYTES % (AUTO) 9.1 %; NEUTROPHILS # (AUTO) 8.9 10^3/uL (1.5-6.6); NEUTROPHILS % (AUTO) 85.2 %; NRBC ABSOLUTE COUNT (AUTO) 0.03 x10^3/uL; NUCLEATED RED BLOOD CELLS AUTO 0.3 /100WBC; PLT - PLATELET COUNT 127 10^3/uL (130-450); RED BLOOD COUNT 3.84 10^6/uL (4.20-5.40); RED CELL DISTRIBUTION WIDTH 15.1 % (12.0-15.0); WHITE BLOOD COUNT 10.4 x10^3/uL (4.8-10.8)
[2022-12-04 05:56] LABS: INR 4.2 (0.8-1.2); PT - PROTHROMBIN TIME 42.2 secs (9.9-12.6)
[2022-12-04 06:05] LABS: CALCIUM 8.3 mg/dL (8.5-10.3); CREATININE 1.3 mg/dL (0.4-1.0); POTASSIUM 3.7 mmol/L (3.5-5.0)
[2022-12-04] MEDS: lisinopriL 20 MG TABLET PO SCH (07:44)
[2022-12-04] MEDS: METOPROLOL TARTRATE 50 MG TABLET PO SCH ×2 (07:44→21:23)
[2022-12-04] MEDS: NYSTATIN POWDER 15 GM TOP SCH ×2 (07:45→21:21)
[2022-12-04] MEDS: INSULIN LISPRO 300 UNIT/3 ML PEN SUBQ SCH ×4 (07:45→22:04)
[2022-12-04] MEDS: MULTIVITAMIN W/MINERALS TABLET PO SCH (07:45)
[2022-12-04] MEDS: polyethylene glycoL 3350 17 GM PACKET PO SCH (07:46)
[2022-12-04] MEDS: NYSTATIN CREAM 15 GM TUBE TOP SCH ×2 (07:57→21:21)
[2022-12-04] MEDS ORDERED: WARFARIN 1 MG TABLET PO SCH (08:12)
--- NOTE | 2022-12-04 10:44 | PROVIDER PROGRESS NOTE ---
Assessment/Plan - Problem List (1) CAP (community acquired pneumonia) Qualifiers: Laterality: unspecified laterality Qualified Code(s): J18.9 - Pneumonia, unspecified organism Assessment/Plan: Elderly female who lives in an assisted living facility, at an [facility]. Presented with cough, confusion and chest x-ray shows left upper lobe pneumonia. She did not have an elevated white cell count. She has not had a fever here. Her main manifestation has been confusion and hypoxia. She was needing 2 L nasal cannula since admission. She still coughing, fatigue. Not moving well. Blood cultures returned positive for haemophilus influenza. Plan: Today is day #3 of antibx. Continue antibiotics for 3 days of azithromycin, and plan 7 days of Rocephin since the blood cultures are positive. Stop IV fluids. Qualifiers: Laterality: unspecified laterality Qualified Code(s): J18.9 - Pneumonia, unspecified organism (2) Bacteremia Impression: Her bld cx grew Haemophilus influenza A. Today is day #3 of antibx. Plan: 7 days of IV antibiotics as planned since the blood cultures are positive. (3) LOYDA (acute kidney injury) Impression: On admission she appeared dehydrated. Baseline creatinine is 1.3 and she was 1.9. After hydration and antibiotics today's creatinine is 1.3. All labs were reviewed. Plan: Continue to monitor, avoid nephrotoxic drugs, avoid fluid overload (4) Fall at home Impression: She was admitted after a fall at home and also had AMS, hypoxia and pneumonia. The patient does have diabetes and takes both glipizide and metformin. It could be that she is hypoglycemic which could be adding to the falls, since her A1c came back low at 6.7 Plan: Will order orthostatic vital sign checks Because her A1c came back low at 6.7, I will stop glipizide as she is being discharged. Here she is just getting sliding scale insulin coverage and we are following her her serum glucoses closely. (5) Left knee pain Impression: She thinks is because she hit her knee on the metal stand of the bed when she r olled out of bed and hit the floor. Knee x-ray done last night shows no acute fracture, no osseous lesions. She does not have an effusion. We started Voltaren cream which helps she said. Plan; Since her mobility is markedly limited because of the left knee pain, I am asking PT and OT to see her in evaluation. I will add Tylenol. It is interesting that her pneumonia is not was knocking her down or her hypoxia. Is the knee pain. [place] [facility]. Her status is changed and will need to be reevaluated to return to the facility. My suspicion is that she will need rehab to get stronger to be able to [place] [facility] We are going to ask local nursing homes to evaluate her for transfer when she is done with her acute care stay. Qualifiers: Chronicity: acute Qualified Code(s): M25.562 - Pain in left knee (6) DM Type 2 Impression: Because her A1c came back low at 6.7, we will stop glipizide as she is being discharged. Here she is just getting sliding scale insulin coverage and we are following her her serum glucose is closely. (7) Chronic atrial fibrillation Impression: Heart rate is 105 today. 108-110 yesterday. At home she is on metoprolol. We resume that here. She is on 50 mg p.o. twice daily. Plan: Will increase metoprolol to 75 mg p.o. twice daily Cont Coumadin chronic anticoagulation. Hold if INR>3 Follow daily INRs. Adjust on the basis of the results. Keeping in mind that antibiotic therapy usually prolongs INR in patients. (8) Hypertension Impression: Home meds are metoprolol XL 150 a day, and Vasotec 20 mg a day. She had el evated blood pressures here. Plan: B-willard dose being adjusted and we resumed an TAMIKA inhibitor. Our formulary does not have Vasotec so we substituted lisinopril 20 mg a day (9) Hypoxia Impression: Present on admission. As of 12/03 she is down to room air. Plan: Continue to monitor O2 sats, encourage incentive spirometry, and aim for Saturations over 90%. If she needs oxygen again we will resume it (10) AMS (altered mental status) Impression: She was confused, and illness superimposed on chronic baseline cognitive deficits is the problem. She has been improving slowly for the last 2 days. Very calm, lucid lady now Qualifiers: Altered mental status type: delirium Qualified Code(s): R41.0 - Disorientation, unspecified - Current Meds Current Meds: Current Medications Generic Name Dose Route Start Last Admin Trade Name Freq PRN Reason Stop Dose Admin Acetaminophen 650 mg 12/03/22 12:33 12/03/22 22:44 Acetaminophen 325 Mg Tablet PO 650 mg Q4HR PRN Administration Pain or Fever > 38C (100.4F) Diclofenac Sodium 2 gm 12/02/22 12:55 12/03/22 20:48 Diclofenac Sodium 1% Gel 50 Gm Tube TOP 2 gm QID PRN Administration Mild Pain (Level 1-3) Ceftriaxone Sodium 1 gm/ 100 mls @ 200 mls/hr 12/02/22 21:00 12/03/22 21:20 Sodium Chloride IV Infused HS IWONA Infusion Azithromycin 500 mg/ Sodium 250 mls @ 250 mls/hr 12/02/22 21:00 12/03/22 22:35 Chloride IV Infused HS IWONA Infusion Insulin Human Lispro 1 - 5 unit 12/02/22 08:00 12/04/22 07:45 Insulin Lispro 300 Unit/3 Ml Pen SUBQ 1 unit 0800,1200,1700,2100 IWONA Administration Protocol Lisinopril 20 mg 12/03/22 09:00 12/04/22 07:44 Lisinopril 20 Mg Tablet PO 20 mg DAILY IWONA Administration Metoprolol Tartrate 50 mg 12/02/22 09:00 12/04/22 07:44 Metoprolol Tartrate 50 Mg Tablet PO 50 mg BID IWONA Administration Multivitamins/Minerals 1 tab 12/03/22 17:00 12/04/22 07:45 Multivitamin W/Minerals Tablet PO 1 tab DAILYWM IWONA Administration Nystatin 1 applic 12/02/22 09:00 12/04/22 07:57 Nystatin Cream 15 Gm Tube TOP 1 applic BID I[facility]ONA Administration Nystatin 1 applic 12/02/22 09:00 12/04/22 07:45 Nystatin Powder 15 Gm TOP 1 applic BID IWONA Administration Polyethylene Glycol 17 gm 12/03/22 12:00 12/04/22 07:46 Polyethylene Glycol 3350 17 Gm Packet PO Not Given DAILY IWONA Sodium Chloride 10 ml 12/02/22 09:00 12/04/22 07:46 Sodium Chloride Flush 0.9% 10 Ml Syringe IVP 10 ml 0100,0900,1700 IWONA Administration - Lab Result Fish Bone Diagrams: 12/04/22 04:44 12/04/22 04:44 - Additional Planning My Orders: My Active Orders 12/04/22 14:00 Warfarin [Coumadin] 2 mg PO QDWARFARIN Subjective - Subjective Patient Reports: Resting Comfortably Objective Vital Signs: Vital Signs - 24 hr 12/03/22 12/03/22 12/03/22 12:32 12:34 15:44 Temperature 36.0 C L Heart Rate [ 105 H 105 H Activity] Heart Rate [ 100 Brachial] Heart Rate [ 98 98 Sitting] Respiratory 18 Rate Blood Pressure Blood Pressure 151/85 H 151/85 H [Activity] Blood Pressure 149/85 H [Right Brachial artery] Blood Pressure 134/67 H 134/67 H [Sitting] O2 Saturation 94 O2 Saturation [ 97 Activity] O2 Saturation [ 92 Sitting] If not protocol : Oxygen Flow, liters/minute 12/03/22 12/04/22 12/04/22 20:49 00:00 00:34 Temperature 36.6 C Heart Rate [ Activity] Heart Rate [ 98 Brachial] Heart Rate [ Sitting] Respiratory 20 Rate Blood Pressure 173/92 H Blood Pressure [Activity] Blood Pressure 129/86 H [Right Brachial artery] Blood Pressure [Sitting] O2 Saturation 92 99 O2 Saturation [ Activity] O2 Saturation [ Sitting] If not protocol 2 : Oxygen Flow, liters/minute 12/04/22 12/04/22 07:28 07:44 Temperature Heart Rate [ Activity] Heart Rate [ 90 Brachial] Heart Rate [ Sitting] Respiratory 18 Rate Blood Pressure 148/89 H Blood Pressure [Activity] Blood Pressure 148/89 H [Right Brachial artery] Blood Pressure [Sitting] O2 Saturation 98 O2 Saturation [ Activity] O2 Saturation [ Sitting] If not protocol 1.5 : Oxygen Flow, liters/minute Oxygen O2 Source Nasal cannula I&O (Last 24 Hrs): Intake and Output Totals x24h 12/02/22 12/03/22 12/04/22 23:59 23:59 23:59 Intake Total 2690 3535 450 Output Total 150 150 50 Balance 2540 3385 400 General: Alert, Oriented x3 HEENT: Mucous membr. moist/pink Neck: Supple Neuro: Alert Cardiovascular: No murmurs Respiratory: No respiratory distress Abdomen: No tenderness Extremities: No clubbing - Results Results: Laboratory Results WBC 10.4 x10^3/uL (4.8-10.8) 12/04/22 04:44 RBC 3.84 10^6/uL (4.20-5.40) L 12/04/22 04:44 Hgb 10.8 g/dL (12.0-16.0) L 12/04/22 04:44 Hct 34.5 % (37.0-47.0) L 12/04/22 04:44 MCV 89.8 fL (81.0-99.0) 12/04/22 04:44 MCH 28.1 pg (27.0-31.0) 12/04/22 04:44 MCHC 31.3 g/dL (32.0-36.0) L 12/04/22 04:44 RDW 15.1 % (12.0-15.0) H 12/04/22 04:44 Plt Count 127 10^3/uL (130-450) L 12/04/22 04:44 MPV 12.7 fL (7.9-10.8) H 12/04/22 04:44 Neut # (Auto) 8.9 10^3/uL (1.5-6.6) H 12/04/22 04:44 Lymph # (Auto) 0.4 10^3/uL (1.5-3.5) L 12/04/22 04:44 [place] # (Auto) 1.0 10^3/uL (0.0-1.0) 12/04/22 04:44 Eos # (Auto) 0.0 10^3/uL (0.0-0.7) 12/04/22 04:44 Baso # (Auto) 0.1 10^3/uL (0.0-0.1) 12/04/22 04:44 Absolute Nucleated RBC 0.03 x10^3/uL 12/04/22 04:44 Total Counted 100 12/03/22 04:49 Band Neuts % (Manual) 8 % (0-10) 12/03/22 04:49 Abnorm Lymph % (Manual) 0 % 12/03/22 04:49 Metamyelocytes % 1 % (-0) H 12/02/22 08:29 Nucleated RBC % 0.3 /100WBC 12/04/22 04:44 Neutrophils # (Manual) 6.5 10^3/uL (1.5-6.6) 12/03/22 04:49 Lymphocytes # (Manual) 0.4 10^3/uL (1.5-3.5) L 12/03/22 04:49 Monocytes # (Manual) 0.5 10^3/uL (0.0-1.0) 12/03/22 04:49 Eosinophils # (Manual) 0.0 10^3/uL (0-0.7) 12/03/22 04:49 Basophils # (Manual) 0.0 10^3/uL (0-0.1) 12/03/22 04:49 Differential Comment MANUAL DIFFERENTIAL 12/03/22 04:49 WBC Morphology NORMAL APPEARANCE (NORMAL) 12/03/22 04:49 Platelet Estimate DECREASED (<130,000) (NORMAL) 12/03/22 04:49 Platelet Morphology NORMAL APPEARANCE (NORMAL) 12/03/22 04:49 RBC Morph Micro Appear NORMAL APPEARANCE (NORMAL) 12/03/22 04:49 PT 42.2 secs (9.9-12.6) H 12/04/22 04:44 INR 4.2 (0.8-1.2) H 12/04/22 04:44 Sodium 138 mmol/L (135-145) 12/04/22 04:44 Potassium 3.7 mmol/L (3.5-5.0) 12/04/22 04:44 Chloride 107 mmol/L (101-111) 12/04/22 04:44 Carbon Dioxide 24 mmol/L (21-32) 12/04/22 04:44 Anion Gap 7.0 (6-13) 12/04/22 04:44 BUN 51 mg/dL (6-20) H 12/04/22 04:44 Creatinine 1.3 mg/dL (0.4-1.0) H 12/04/22 04:44 Estimated GFR (MDRD) 39 (>89) L 12/04/22 04:44 Glucose 167 mg/dL (70-100) H 12/04/22 04:44 POC Whole Bld Glucose 146 mg/dL (70 - 100) H 12/04/22 07:39 Estimat Average Glucose 146 mg/dL (70-100) H 12/02/22 08:29 Hemoglobin A1c % 6.7 % (4.27-6.07) H 12/02/22 08:29 Lactic Acid 2.3 mmol/L (0.5-2.2) H 12/01/22 23:41 Calcium 8.3 mg/dL (8.5-10.3) L 12/04/22 04:44 Total Bilirubin 3.0 mg/dL (0.2-1.0) H 12/01/22 23:41 AST 28 IU/L (10-42) 12/01/22 23:41 ALT 19 IU/L (10-60) 12/01/22 23:41 Alkaline Phosphatase 77 IU/L (42-121) 12/01/22 23:41 Total Creatine Kinase 192 IU/L (22-269) 12/02/22 00:53 Troponin I High Sens 69.5 ng/L (2.3-14.8) H* 12/02/22 00:53 Total Protein 7.4 g/dL (6.7-8.2) 12/01/22 23:41 Albumin 3.3 g/dL (3.2-5.5) 12/01/22 23:41 Globulin 4.1 g/dL (2.1-4.2) 12/01/22 23:41 Albumin/Globulin Ratio 0.8 (1.0-2.2) L 12/01/22 23:41 Lipase 18 U/L (22-51) L 12/01/22 23:41 Vitamin B12 1216 pg/mL (180-914) H 12/04/22 04:44 Urine Color DARK YELLOW 12/02/22 01:22 Urine Clarity HAZY (CLEAR) 12/02/22 01:22 Urine pH 5.0 PH (5.0-7.5) 12/02/22 01:22 Ur Specific [place] >=1.030 (1.002-1.030) H 12/02/22 01:22 Urine Protein 100 mg/dL (NEGATIVE) H 12/02/22 01:22 Urine Glucose (UA) NEGATIVE mg/dL (NEGATIVE) 12/02/22 01:22 Urine Ketones TRACE mg/dL (NEGATIVE) 12/02/22 01:22 Urine Occult Blood MODERATE (NEGATIVE) H 12/02/22 01:22 Urine Nitrite NEGATIVE (NEGATIVE) 12/02/22 01:22 Urine Bilirubin SMALL (NEGATIVE) H 12/02/22 01:22 Urine Urobilinogen 1 (NORMAL) E.U./dL (NORMAL) 12/02/22 01:22 Ur Leukocyte Esterase NEGATIVE (NEGATIVE) 12/02/22 01:22 Urine RBC 0-5 /HPF (0-5) 12/02/22 01:22 Urine WBC 0-3 /HPF (0-5) 12/02/22 01:22 Ur Squamous Epith Cells RARE Squamous (<= Few) 12/02/22 01:22 Urine Bacteria Rare /HPF (None Seen) 12/02/22 01:22 Urine Casts 6-10 Course Granular /LPF3-5 Hyaline Casts /LPF 12/02/22 01:22 Urine Casts 6-10 Course Granular /LPF3-5 Hyaline Casts /LPF 12/02/22 01:22 Ur Microscopic Review INDICATED 12/02/22 01:22 Urine Culture Comments NOT INDICATED 12/02/22 01:22 - Procedures Procedures: Procedures REPLACEMENT OF RIGHT LENS WITH SYNTH SUB, PERC APPROACH (02/26/19)
[2022-12-04] MEDS: cefTRIAXone 1 GM in SODIUM CHLORIDE 0.9% MINIBAG 100 ML IV SCH (21:15)
[2022-12-04] MEDS: AZITHROMYCIN INJ 500 MG in SODIUM CHLORIDE 0.9% 250 ML IV SCH (22:03)
[2022-12-05 05:55] LABS: BASOPHILS # (AUTO) 0.1 10^3/uL (0.0-0.1); BASOPHILS % (AUTO) 0.5 %; EOSINOPHILS # (AUTO) 0.1 10^3/uL (0.0-0.7); EOSINOPHILS % (AUTO) 0.5 %; HCT - HEMATOCRIT 35.2 % (37.0-47.0); HGB - HEMOGLOBIN 11.1 g/dL (12.0-16.0); LYMPHOCYTES # (AUTO) 0.4 10^3/uL (1.5-3.5); MEAN CORPUSCULAR HEMOGLOBIN 28.6 pg (27.0-31.0); MEAN CORPUSCULAR HGB CONC 31.5 g/dL (32.0-36.0); MEAN CORPUSCULAR VOLUME 90.7 fL (81.0-99.0); MEAN PLATELET VOLUME 11.6 fL (7.9-10.8); MONOCYTES # (AUTO) 1.3 10^3/uL (0.0-1.0); MONOCYTES % (AUTO) 13.2 %; NEUTROPHILS # (AUTO) 7.7 10^3/uL (1.5-6.6); NEUTROPHILS % (AUTO) 79.6 %; NRBC ABSOLUTE COUNT (AUTO) 0.03 x10^3/uL; NUCLEATED RED BLOOD CELLS AUTO 0.3 /100WBC; PLT - PLATELET COUNT 132 10^3/uL (130-450); RED BLOOD COUNT 3.88 10^6/uL (4.20-5.40); RED CELL DISTRIBUTION WIDTH 15.4 % (12.0-15.0); WHITE BLOOD COUNT 9.7 x10^3/uL (4.8-10.8)
[2022-12-05 06:03] LABS: CALCIUM 8.4 mg/dL (8.5-10.3); CREATININE 1.1 mg/dL (0.4-1.0); POTASSIUM 3.8 mmol/L (3.5-5.0)
[2022-12-05 06:06] LABS: INR 6.5 (0.8-1.2)
[2022-12-05] MEDS: MULTIVITAMIN W/MINERALS TABLET PO SCH (07:51)
[2022-12-05] MEDS: METOPROLOL TARTRATE 50 MG TABLET PO SCH ×2 (07:51→20:55)
[2022-12-05] MEDS: NYSTATIN CREAM 15 GM TUBE TOP SCH ×2 (07:51→21:04)
[2022-12-05] MEDS: lisinopriL 20 MG TABLET PO SCH (07:51)
[2022-12-05] MEDS: SODIUM CHLORIDE FLUSH 0.9% 10 ML SYRINGE IVP SCH ×3 (07:51→23:38)
[2022-12-05] MEDS: DICLOFENAC SODIUM 1% GEL 50 GM TUBE TOP PRN ×2 (07:52→16:00)
[2022-12-05] MEDS: NYSTATIN POWDER 15 GM TOP SCH ×2 (07:52→21:04)
[2022-12-05] MEDS: INSULIN LISPRO 300 UNIT/3 ML PEN SUBQ SCH ×4 (07:54→20:54)
[2022-12-05] MEDS: polyethylene glycoL 3350 17 GM PACKET PO SCH (07:56)
[2022-12-05] MEDS ORDERED: WARFARIN 1 MG TABLET PO SCH (14:00)
--- NOTE | 2022-12-05 16:54 | PROVIDER PROGRESS NOTE ---
Assessment/Plan - Problem List (1) CAP (community acquired pneumonia) Qualifiers: Laterality: unspecified laterality Qualified Code(s): J18.9 - Pneumonia, unspecified organism Assessment/Plan: Elderly female who lives in an assisted living facility, at an [facility]. Presented with cough, confusion and chest x-ray shows left upper lobe pneumonia. She did not have an elevated white cell count. She has not had a fever here. Her main manifestation has been confusion and hypoxia. She was needing 2 L nasal cannula since admission. She still coughing, fatigue. Blood cultures returned positive for haemophilus influenza. Plan: Today is day #4 of antibx. Continue antibiotics for 3 days of azithromycin, and plan 7 days of Rocephin since the blood cultures are positive. Stop IV fluids. Qualifiers: Laterality: unspecified laterality Qualified Code(s): J18.9 - Pneumonia, unspecified organism (2) Haemophilus influenza infection Impression: Her bld cx grew Haemophilus influenza A. Today is day #4 of antibx. Plan: 7 days of IV antibiotics as planned since the blood cultures are positive. (3) LOYDA (acute kidney injury) Impression: On admission she appeared dehydrated. Baseline creatinine is 1.3 and she was 1.9. After hydration and antibiotics today's creatinine is 1.3. All labs were reviewed. Plan: Continue to monitor, avoid nephrotoxic drugs, avoid fluid overload (4) Fall at home Impression: She was admitted after a fall at home and also had AMS, hypoxia and pneumonia. The patient does have diabetes and takes both glipizide and metformin. It could be that she is hypoglycemic which could be adding to the falls, since her A1c came back low at 6.7 Plan: Will order orthostatic vital sign checks Because her A1c came back low at 6.7, I will stop glipizide as she is being discharged. Here she is just getting sliding scale insulin coverage and we are following her her serum glucoses closely. (5) Left knee pain Impression: She thinks is because she hit her knee on the metal stand of the bed when she rolled out of bed and hit the floor. Knee x-ray done showed no acute fracture, no osseous lesions. She does not have an effusion. We started Voltaren cream which helps she said. Plan; Since her mobility is markedly limited because of the left knee pain, I am asking PT and OT to see her in evaluation. I will add Tylenol. It is interesting that her pneumonia is not was knocking her down or her hypoxia, it is her knee pain. [place] [facility] [place]. Her status is changed and will need to be reevaluated to return to the facility. We suspect that she will need rehab to get stronger to be able to return to the [place] [facility]. Will choice her for a SNF. Qualifiers: Chronicity: acute Qualified Code(s): M25.562 - Pain in left knee (6) DM Type 2 Impression: Because her A1c came back low at 6.7, we will stop glipizide as she is being discharged. Here she is just getting sliding scale insulin coverage and we are following her her serum glucose is closely. (7) Chronic atrial fibrillation Impression: Heart rate is 105 today. 108-110 yesterday. At home she is on metoprolol. We resume that here. She is on 50 mg p.o. twice daily. Plan: Will increase metoprolol to 75 mg p.o. twice daily Cont Coumadin chronic anticoagulation. Hold if INR>3 Follow daily INRs. Adjust on the basis of the results. Keeping in mind that antibiotic therapy usually prolongs INR in patients. (8) Supratherapeutic INR Her INR today came back at 6.3. This is likely from being on antibiotics Plan: The telemedicine doctor already stopped the daily warfarin dose entirely (9) Hypertension Impression: Home meds are metoprolol XL 150 a day, and Vasotec 20 mg a day. She had elevated blood pressures here. Plan: B-willard dose being adjusted and we resumed an TAMIKA inhibitor. Our formulary does not have Vasotec so we substituted lisinopril 20 mg a day (10) Hypoxia Impression: Present on admission. As of 12/03 she is down to room air. Plan: Continue to monitor O2 sats, encourage incentive spirometry, and aim for Saturations over 90%. If she needs oxygen again we will resume it (11) AMS (altered mental status) Impression: RESOLVED She was confused, and illness superimposed on chronic baseline cognitive deficits is the problem. She has been improving slowly for the last 2 days. Very calm, lucid lady now Qualifiers: Altered mental status type: delirium Qualified Code(s): R41.0 - Disorientation, unspecified - Current Meds Current Meds: Current Medications Generic Name Dose Route Start Last Admin Trade Name Freeliana PRN Reason Stop Dose Admin Acetaminophen 650 mg 12/03/22 12:33 12/03/22 22:44 Acetaminophen 325 Mg Tablet PO 650 mg Q4HR PRN Administration Pain or Fever > 38C (100.4F) Diclofenac Sodium 2 gm 12/02/22 12:55 12/05/22 16:00 Diclofenac Sodium 1% Gel 50 Gm Tube TOP 2 gm QID PRN Administration Mild Pain (Level 1-3) Ceftriaxone Sodium 1 gm/ 100 mls @ 200 mls/hr 12/02/22 21:00 12/04/22 22:07 Sodium Chloride IV Infused HS IWONA Infusion Azithromycin 500 mg/ Sodium 250 mls @ 250 mls/hr 12/02/22 21:00 12/04/22 23:07 Chloride IV Infused HS I[facility]ONA Infusion Insulin Human Lispro 1 - 9 unit 12/04/22 21:00 12/05/22 12:06 Insulin Lispro 300 Unit/3 Ml Pen SUBQ 7 unit 0800,1200,1700,2100 IWONA Administration Protocol Lisinopril 20 mg 12/03/22 09:00 12/05/22 07:51 Lisinopril 20 Mg Tablet PO 20 mg DAILY IWONA Administration Metoprolol Tartrate 50 mg 12/02/22 09:00 12/05/22 07:51 Metoprolol Tartrate 50 Mg Tablet PO 50 mg BID IWONA Administration Multivitamins/Minerals 1 tab 12/03/22 17:00 12/05/22 07:51 Multivitamin W/Minerals Tablet PO 1 tab DAILYWM I[facility]ONA Administration Nystatin 1 applic 12/02/22 09:00 12/05/22 07:51 Nystatin Cream 15 Gm Tube TOP 1 applic BID IWONA Administration Nystatin 1 applic 12/02/22 09:00 12/05/22 07:52 Nystatin Powder 15 Gm TOP 1 applic BID IWONA Administration Polyethylene Glycol 17 gm 12/03/22 12:00 12/05/22 07:56 Polyethylene Glycol 3350 17 Gm Packet PO Not Given DAILY IWONA Sodium Chloride 10 ml 12/02/22 09:00 12/05/22 07:51 Sodium Chloride Flush 0.9% 10 Ml Syringe IVP 10 ml 0100,0900,1700 IWONA Administration - Lab Result Fish Bone Diagrams: 12/07/22 06:12 07/01/23 04:56 - Additional Planning My Orders: My Active Orders 12/04/22 Dinner Soft Mechanical Diet [DIET] 12/05/22 17:00 metFORMIN [Glucophage] 500 mg PO BIDWM Subjective - Subjective Patient Reports: Resting Comfortably, No Complaints Nursing Reports: Other (Progressing with PT, less O2 need per RN) Objective Vital Signs: Vital Signs - 24 hr 12/04/22 12/04/22 12/04/22 19:35 21:23 21:24 Temperature Heart Rate [ 115 H Brachial] Respiratory 20 Rate Blood Pressure 161/78 H Blood Pressure 161/78 H [Left Brachial artery] Blood Pressure [Right Brachial artery] O2 Saturation 99 If not protocol 1 1 : Oxygen Flow, liters/minute 12/05/22 12/05/22 12/05/22 00:44 07:34 07:51 Temperature 36.7 C 36.6 C Heart Rate [ 97 105 H Brachial] Respiratory 24 20 Rate Blood Pressure 148/66 H Blood Pressure [Left Brachial artery] Blood Pressure 132/68 H 148/66 H [Right Brachial artery] O2 Saturation 96 98 If not protocol 1.5 1 : Oxygen Flow, liters/minute Oxygen O2 Source Nasal cannula I&O (Last 24 Hrs): Intake and Output Totals x24h 12/03/22 12/04/22 12/05/22 23:59 23:59 23:59 Intake Total 3535 2230 790 Output Total 150 250 201 Balance 3385 5449 589 General: Other (Lethargic, awakens and is alert and oriented) HEENT: Mucous membr. moist/pink, Other (Obese) Neck: Supple, No JVD Neuro: Alert, Non Focal Cardiovascular: No murmurs Respiratory: No respiratory distress, Breath sounds nml Abdomen: Soft Extremities: No clubbing, No edema - Results Results: Laboratory Results WBC 9.7 x10^3/uL (4.8-10.8) 12/05/22 05:24 RBC 3.88 10^6/uL (4.20-5.40) L 12/05/22 05:24 Hgb 11.1 g/dL (12.0-16.0) L 12/05/22 05:24 Hct 35.2 % (37.0-47.0) L 12/05/22 05:24 MCV 90.7 fL (81.0-99.0) 12/05/22 05:24 MCH 28.6 pg (27.0-31.0) 12/05/22 05:24 MCHC 31.5 g/dL (32.0-36.0) L 12/05/22 05:24 RDW 15.4 % (12.0-15.0) H 12/05/22 05:24 Plt Count 132 10^3/uL (130-450) 12/05/22 05:24 MPV 11.6 fL (7.9-10.8) H 12/05/22 05:24 Neut # (Auto) 7.7 10^3/uL (1.5-6.6) H 12/05/22 05:24 Lymph # (Auto) 0.4 10^3/uL (1.5-3.5) L 12/05/22 05:24 [place] # (Auto) 1.3 10^3/uL (0.0-1.0) H 12/05/22 05:24 Eos # (Auto) 0.1 10^3/uL (0.0-0.7) 12/05/22 05:24 Baso # (Auto) 0.1 10^3/uL (0.0-0.1) 12/05/22 05:24 Absolute Nucleated RBC 0.03 x10^3/uL 12/05/22 05:24 Total Counted 100 12/03/22 04:49 Band Neuts % (Manual) 8 % (0-10) 12/03/22 04:49 Abnorm Lymph % (Manual) 0 % 12/03/22 04:49 Metamyelocytes % 1 % (-0) H 12/02/22 08:29 Nucleated RBC % 0.3 /100WBC 12/05/22 05:24 Neutrophils # (Manual) 6.5 10^3/uL (1.5-6.6) 12/03/22 04:49 Lymphocytes # (Manual) 0.4 10^3/uL (1.5-3.5) L 12/03/22 04:49 Monocytes # (Manual) 0.5 10^3/uL (0.0-1.0) 12/03/22 04:49 Eosinophils # (Manual) 0.0 10^3/uL (0-0.7) 12/03/22 04:49 Basophils # (Manual) 0.0 10^3/uL (0-0.1) 12/03/22 04:49 Differential Comment MANUAL DIFFERENTIAL 12/03/22 04:49 WBC Morphology NORMAL APPEARANCE (NORMAL) 12/03/22 04:49 Platelet Estimate DECREASED (<130,000) (NORMAL) 12/03/22 04:49 Platelet Morphology NORMAL APPEARANCE (NORMAL) 12/03/22 04:49 RBC Morph Micro Appear NORMAL APPEARANCE (NORMAL) 12/03/22 04:49 PT 63.0 secs (9.9-12.6) H 12/05/22 05:24 INR 6.5 (0.8-1.2) H* 12/05/22 05:24 Sodium 140 mmol/L (135-145) 12/05/22 05:24 Potassium 3.8 mmol/L (3.5-5.0) 12/05/22 05:24 Chloride 107 mmol/L (101-111) 12/05/22 05:24 Carbon Dioxide 27 mmol/L (21-32) 12/05/22 05:24 Anion Gap 6.0 (6-13) 12/05/22 05:24 BUN 37 mg/dL (6-20) H 12/05/22 05:24 Creatinine 1.1 mg/dL (0.4-1.0) H 12/05/22 05:24 Estimated GFR (MDRD) 47 (>89) L 12/05/22 05:24 Glucose 163 mg/dL (70-100) H 12/05/22 05:24 POC Whole Bld Glucose 211 mg/dL (70 - 100) H 12/05/22 16:29 Estimat Average Glucose 146 mg/dL (70-100) H 12/02/22 08:29 Hemoglobin A1c % 6.7 % (4.27-6.07) H 12/02/22 08:29 Lactic Acid 2.3 mmol/L (0.5-2.2) H 12/01/22 23:41 Calcium 8.4 mg/dL (8.5-10.3) L 12/05/22 05:24 Total Bilirubin 3.0 mg/dL (0.2-1.0) H 12/01/22 23:41 AST 28 IU/L (10-42) 12/01/22 23:41 ALT 19 IU/L (10-60) 12/01/22 23:41 Alkaline Phosphatase 77 IU/L (42-121) 12/01/22 23:41 Total Creatine Kinase 192 IU/L (22-269) 12/02/22 00:53 Troponin I High Sens 69.5 ng/L (2.3-14.8) H* 12/02/22 00:53 Total Protein 7.4 g/dL (6.7-8.2) 12/01/22 23:41 Albumin 3.3 g/dL (3.2-5.5) 12/01/22 23:41 Globulin 4.1 g/dL (2.1-4.2) 12/01/22 23:41 Albumin/Globulin Ratio 0.8 (1.0-2.2) L 12/01/22 23:41 Lipase 18 U/L (22-51) L 12/01/22 23:41 Vitamin B12 1216 pg/mL (180-914) H 12/04/22 04:44 Urine Color DARK YELLOW 12/02/22 01:22 Urine Clarity HAZY (CLEAR) 12/02/22 01:22 Urine pH 5.0 PH (5.0-7.5) 12/02/22 01:22 Ur Specific [place] >=1.030 (1.002-1.030) H 12/02/22 01:22 Urine Protein 100 mg/dL (NEGATIVE) H 12/02/22 01:22 Urine Glucose (UA) NEGATIVE mg/dL (NEGATIVE) 12/02/22 01:22 Urine Ketones TRACE mg/dL (NEGATIVE) 12/02/22 01:22 Urine Occult Blood MODERATE (NEGATIVE) H 12/02/22 01:22 Urine Nitrite NEGATIVE (NEGATIVE) 12/02/22 01:22 Urine Bilirubin SMALL (NEGATIVE) H 12/02/22 01:22 Urine Urobilinogen 1 (NORMAL) E.U./dL (NORMAL) 12/02/22 01:22 Ur Leukocyte Esterase NEGATIVE (NEGATIVE) 12/02/22 01:22 Urine RBC 0-5 /HPF (0-5) 12/02/22 01:22 Urine WBC 0-3 /HPF (0-5) 12/02/22 01:22 Ur Squamous Epith Cells RARE Squamous (<= Few) 12/02/22 01:22 Urine Bacteria Rare /HPF (None Seen) 12/02/22 01:22 Urine Casts 6-10 Course Granular /LPF3-5 Hyaline Casts /LPF 12/02/22 01:22 Urine Casts 6-10 Course Granular /LPF3-5 Hyaline Casts /LPF 12/02/22 01:22 Ur Microscopic Review INDICATED 12/02/22 01:22 Urine Culture Comments NOT INDICATED 12/02/22 01:22 - Procedures Procedures: Procedures REPLACEMENT OF RIGHT LENS WITH SYNTH SUB, PERC APPROACH (02/26/19)
[2022-12-05] MEDS: metFORMIN 500 MG TABLET PO SCH (16:59)
[2022-12-05] MEDS: cefTRIAXone 1 GM in SODIUM CHLORIDE 0.9% MINIBAG 100 ML IV SCH (20:55)
[2022-12-05] MEDS: ACETAMINOPHEN 325 MG TABLET PO PRN (21:11)
[2022-12-05] MEDS: AZITHROMYCIN INJ 500 MG in SODIUM CHLORIDE 0.9% 250 ML IV SCH (21:45)
[2022-12-06 05:48] LABS: BASOPHILS % (AUTO) 0.4 %; EOSINOPHILS # (AUTO) 0.1 10^3/uL (0.0-0.7); EOSINOPHILS % (AUTO) 1.3 %; HCT - HEMATOCRIT 35.2 % (37.0-47.0); HGB - HEMOGLOBIN 11.1 g/dL (12.0-16.0); LYMPHOCYTES # (AUTO) 0.4 10^3/uL (1.5-3.5); LYMPHOCYTES % (AUTO) 5.5 %; MEAN CORPUSCULAR HEMOGLOBIN 28.7 pg (27.0-31.0); MEAN CORPUSCULAR HGB CONC 31.5 g/dL (32.0-36.0); MONOCYTES % (AUTO) 12.2 %; NEUTROPHILS # (AUTO) 6.1 10^3/uL (1.5-6.6); PLT - PLATELET COUNT 149 10^3/uL (130-450); RED BLOOD COUNT 3.87 10^6/uL (4.20-5.40); RED CELL DISTRIBUTION WIDTH 15.6 % (12.0-15.0)
[2022-12-06 05:56] LABS: PT - PROTHROMBIN TIME 58.3 secs (9.9-12.6)
[2022-12-06 06:00] LABS: CALCIUM 8.2 mg/dL (8.5-10.3); CREATININE 1.1 mg/dL (0.4-1.0); POTASSIUM 3.7 mmol/L (3.5-5.0)
[2022-12-06 06:06] LABS: INR 5.8 (0.8-1.2)
[2022-12-06] MEDS: INSULIN LISPRO 300 UNIT/3 ML PEN SUBQ SCH ×4 (08:41→20:48)
[2022-12-06] MEDS: MULTIVITAMIN W/MINERALS TABLET PO SCH (08:50)
[2022-12-06] MEDS: lisinopriL 20 MG TABLET PO SCH (08:50)
[2022-12-06] MEDS: NYSTATIN CREAM 15 GM TUBE TOP SCH ×2 (08:50→20:44)
[2022-12-06] MEDS: NYSTATIN POWDER 15 GM TOP SCH ×2 (08:50→20:44)
[2022-12-06] MEDS: METOPROLOL TARTRATE 50 MG TABLET PO SCH ×2 (08:51→20:43)
[2022-12-06] MEDS: polyethylene glycoL 3350 17 GM PACKET PO SCH (08:51)
[2022-12-06] MEDS: SODIUM CHLORIDE FLUSH 0.9% 10 ML SYRINGE IVP SCH ×2 (08:51→20:43)
[2022-12-06] MEDS: metFORMIN 500 MG TABLET PO SCH ×2 (08:51→17:17)
--- NOTE | 2022-12-06 16:09 | PROVIDER PROGRESS NOTE ---
Assessment/Plan - Problem List (1) CAP (community acquired pneumonia) Qualifiers: Laterality: unspecified laterality Qualified Code(s): J18.9 - Pneumonia, unspecified organism Assessment/Plan: Elderly female who lives in an assisted living facility, at an [facility]. Presented with cough, confusion and chest x-ray shows left upper lobe pneumonia. She did not have an elevated white cell count. She has not had a fever here. Her main manifestation has been confusion and hypoxia. She was needing 2 L nasal cannula, which has decreased down to room air, at rest. She has less coughing, but is fatigued. She finished 3 days of azithromycin . Blood cultures returned positive for Haemophilus influenza. The Rocephin that was started for her pneumonia covers this Haemophilus Plan: Today is day #5 of antibx. Continue 7 days of Rocephin since the blood cultures are positive. Qualifiers: Laterality: unspecified laterality Qualified Code(s): J18.9 - Pneumonia, unspecified organism (2) Haemophilus influenza infection Impression: Her bld cx grew Haemophilus influenza A. Today is day #5 of antibx. Plan: 7 days of IV antibiotics as planned since the blood cultures are positive. (3) LOYDA (acute kidney injury) Impression: On admission she appeared dehydrated. Baseline creatinine is 1.3 and she was 1.9. After hydration and antibiotics creatinine has improved. All labs were reviewed. Plan: Continue to monitor, avoid nephrotoxic drugs, avoid fluid overload (4) Fall at home Impression: She was admitted after a fall at home and also had AMS, hypoxia and pneumonia. The patient does have diabetes and takes both glipizide and metformin. It could be that she is hypoglycemic which could be adding to the falls, since her A1c came back low at 6.7 Plan: Monitor orthostatic vital sign checks Because her A1c came back low at 6.7, I will stop glipizide as she is being discharged. Here she is just getting sliding scale insulin coverage and we are following her her serum glucoses closely. (5) Left knee pain Impression: She thinks is because she hit her knee on the metal stand of the bed when she rolled out of bed and hit the floor. Knee x-ray done showed no acute fracture, no osseous lesions. She does not have an effusion. We started Voltaren cream which helps she said. I also added Tylenol. Plan; Since her mobility is markedly limited because of the left knee pain, I am asking PT and OT to see her in evaluation. It is interesting that her pneumonia is not was knocking her down or her hypoxia, it is her knee pain. She [place] in [place] [facility] [place] living [place]. Her status is changed and will need to be reevaluated to return to the facility. We suspected that she will need rehab to get stronger to be able to return to the [place] [facility]. Plan will be to go to a SNF. Cont pain meds Qualifiers: Chronicity: acute Qualified Code(s): M25.562 - Pain in left knee (6) DM Type 2 Impression: Because her A1c came back low at 6.7, we will stop glipizide as she is being discharged. Here she is just getting sliding scale insulin coverage and we are following her her serum glucose is closely. (7) Chronic atrial fibrillation Impression: Heart rate has improved on higher dose Metoprolol. HR was 100-110 yesterday. At home she was on metoprolol 50 mg p.o. twice daily. Plan: Cont the increased metoprolol to 75 mg p.o. twice daily Cont Coumadin chronic anticoagulation. Hold if INR>3 Follow daily INRs. Adjust on the basis of the results. Keeping in mind that antibiotic therapy usually prolongs INR in patients. (8) Supratherapeutic INR Her INR today came back at >3 again. This is likely from being on antibiotics Plan: The telemedicine doctor already stopped the daily warfarin dose entirely (9) Hypertension Impression: Home meds were metoprolol XL 150 a day, and Vasotec 20 mg a day. She had elevated blood pressures here. Plan: B-willard dose being adjusted and we resumed an TAMIKA inhibitor. Our formulary does not have Vasotec so we substituted lisinopril 20 mg a day (10) Hypoxia Impression: RESOLVED Present on admission. As of 12/03 she is down to room air at rest. Plan: Continue to monitor O2 sats, encourage incentive spirometry, and aim for Saturations over 90%. If she needs oxygen again we will resume it (11) AMS (altered mental status) Impression: RESOLVED She was confused, and illness superimposed on chronic baseline cognitive deficits is the problem. She has been improving slowly for the last 2 days. Very calm, lucid lady now Qualifiers: Altered mental status type: delirium Qualified Code(s): R41.0 - Diso rientation, unspecified - Current Meds Current Meds: Current Medications Generic Name Dose Route Start Last Admin Trade Name Freq PRN Reason Stop Dose Admin Acetaminophen 650 mg 12/03/22 12:33 12/05/22 21:11 Acetaminophen 325 Mg Tablet PO 650 mg Q4HR PRN Administration Pain or Fever > 38C (100.4F) Diclofenac Sodium 2 gm 12/02/22 12:55 12/05/22 16:00 Diclofenac Sodium 1% Gel 50 Gm Tube TOP 2 gm QID PRN Administration Mild Pain (Level 1-3) Ceftriaxone Sodium 1 gm/ 100 mls @ 200 mls/hr 12/02/22 21:00 12/05/22 21:25 Sodium Chloride IV Infused HS I[facility]ONA Infusion Azithromycin 500 mg/ Sodium 250 mls @ 250 mls/hr 12/02/22 21:00 12/05/22 22:52 Chloride IV Infused HS I[facility]ONA Infusion Insulin Human Lispro 2 - 10 unit 12/06/22 08:00 12/06/22 12:06 Insulin Lispro 300 Unit/3 Ml Pen SUBQ 6 unit 0800,1200,1700,2100 IWONA Administration Protocol Lisinopril 20 mg 12/03/22 09:00 12/06/22 08:50 Lisinopril 20 Mg Tablet PO 20 mg DAILY IWONA Administration Metformin HCl 500 mg 12/05/22 17:00 12/06/22 08:51 Metformin 500 Mg Tablet PO 500 mg BIDWM IWONA Administration Metoprolol Tartrate 50 mg 12/02/22 09:00 12/06/22 08:51 Metoprolol Tartrate 50 Mg Tablet PO 50 mg BID I[facility]ONA Administration Multivitamins/Minerals 1 tab 12/03/22 17:00 12/06/22 08:50 Multivitamin W/Minerals Tablet PO 1 tab DAILYWM I[facility]ONA Administration Nystatin 1 applic 12/02/22 09:00 12/06/22 08:50 Nystatin Cream 15 Gm Tube TOP 1 applic BID I[facility]ONA Administration Nystatin 1 applic 12/02/22 09:00 12/06/22 08:50 Nystatin Powder 15 Gm TOP 1 applic BID I[facility]ONA Administration Polyethylene Glycol 17 gm 12/03/22 12:00 12/06/22 08:51 Polyethylene Glycol 3350 17 Gm Packet PO 17 gm DAILY IWONA Administration Sodium Chloride 10 ml 06/25/23 09:00 12/06/22 08:51 Sodium Chloride Flush 0.9% 10 Ml Syringe IVP 10 ml 0100,0900,1700 IWONA Administration - Lab Result Fish Bone Diagrams: 12/07/22 06:12 12/08/22 04:56 - Additional Planning My Orders: My Active Orders 12/05/22 17:00 metFORMIN [Glucophage] 500 mg PO BIDWM Subjective - Subjective Patient Reports: Pain (Has severe pain in both hips when working with PT and when standing at sink brushing teeth with OT) Objective Vital Signs: Vital Signs - 24 hr 12/05/22 12/05/22 12/05/22 20:55 22:30 23:36 Temperature 36.4 C L Heart Rate [ 90 Brachial] Respiratory 20 Rate Blood Pressure 147/75 H Blood Pressure 125/62 [Right Brachial artery] O2 Saturation 97 If not protocol 1 1.5 : Oxygen Flow, liters/minute 12/06/22 12/06/22 12/06/22 07:00 07:13 08:51 Temperature 36.4 C L Heart Rate [ 101 H Brachial] Respiratory 21 Rate Blood Pressure 148/74 H Blood Pressure 145/65 H [Right Brachial artery] O2 Saturation 99 If not protocol 2 1.5 : Oxygen Flow, liters/minute 12/06/22 12/06/22 12/06/22 08:55 10:09 16:00 Temperature 36.3 C L Heart Rate [ 104 H 107 H Brachial] Respiratory 18 24 Rate Blood Pressure Blood Pressure 148/74 H 150/91 H [Right Brachial artery] O2 Saturation 96 95 If not protocol 1 : Oxygen Flow, liters/minute Oxygen O2 Source Room air I&O (Last 24 Hrs): Intake and Output Totals x24h 12/04/22 12/05/22 12/06/22 23:59 23:59 23:59 Intake Total 2230 1760 990 Output Total 250 401 100 Balance 1980 1359 890 General: Alert, Oriented x3 HEENT: Mucous membr. moist/pink, Other (Obese) Neck: Supple, No JVD Neuro: Alert, Non Focal Cardiovascular: No murmurs Respiratory: No respiratory distress, Breath sounds nml Abdomen: Soft, No tenderness Extremities: No clubbing, No edema - Results Results: Laboratory Results WBC 8.0 x10^3/uL (4.8-10.8) 12/06/22 05:34 RBC 3.87 10^6/uL (4.20-5.40) L 12/06/22 05:34 Hgb 11.1 g/dL (12.0-16.0) L 12/06/22 05:34 Hct 35.2 % (37.0-47.0) L 12/06/22 05:34 MCV 91.0 fL (81.0-99.0) 12/06/22 05:34 MCH 28.7 pg (27.0-31.0) 12/06/22 05:34 MCHC 31.5 g/dL (32.0-36.0) L 12/06/22 05:34 RDW 15.6 % (12.0-15.0) H 12/06/22 05:34 Plt Count 149 10^3/uL (130-450) 12/06/22 05:34 MPV 11.0 fL (7.9-10.8) H 12/06/22 05:34 Neut # (Auto) 6.1 10^3/uL (1.5-6.6) 12/06/22 05:34 Lymph # (Auto) 0.4 10^3/uL (1.5-3.5) L 12/06/22 05:34 [place] # (Auto) 1.0 10^3/uL (0.0-1.0) 12/06/22 05:34 Eos # (Auto) 0.1 10^3/uL (0.0-0.7) 12/06/22 05:34 Baso # (Auto) 0.0 10^3/uL (0.0-0.1) 12/06/22 05:34 Absolute Nucleated RBC 0.00 x10^3/uL 12/06/22 05:34 Total Counted 100 12/03/22 04:49 Band Neuts % (Manual) 8 % (0-10) 12/03/22 04:49 Abnorm Lymph % (Manual) 0 % 12/03/22 04:49 Metamyelocytes % 1 % (-0) H 12/02/22 08:29 Nucleated RBC % 0.0 /100WBC 12/06/22 05:34 Neutrophils # (Manual) 6.5 10^3/uL (1.5-6.6) 12/03/22 04:49 Lymphocytes # (Manual) 0.4 10^3/uL (1.5-3.5) L 12/03/22 04:49 Monocytes # (Manual) 0.5 10^3/uL (0.0-1.0) 12/03/22 04:49 Eosinophils # (Manual) 0.0 10^3/uL (0-0.7) 12/03/22 04:49 Basophils # (Manual) 0.0 10^3/uL (0-0.1) 12/03/22 04:49 Differential Comment MANUAL DIFFERENTIAL 12/03/22 04:49 WBC Morphology NORMAL APPEARANCE (NORMAL) 12/03/22 04:49 Platelet Estimate DECREASED (<130,000) (NORMAL) 12/03/22 04:49 Platelet Morphology NORMAL APPEARANCE (NORMAL) 12/03/22 04:49 RBC Morph Micro Appear NORMAL APPEARANCE (NORMAL) 12/03/22 04:49 PT 58.3 secs (9.9-12.6) H 12/06/22 05:34 INR 5.8 (0.8-1.2) H* 12/06/22 05:34 Sodium 140 mmol/L (135-145) 12/06/22 05:34 Potassium 3.7 mmol/L (3.5-5.0) 12/06/22 05:34 Chloride 105 mmol/L (101-111) 12/06/22 05:34 Carbon Dioxide 29 mmol/L (21-32) 12/06/22 05:34 Anion Gap 6.0 (6-13) 12/06/22 05:34 BUN 31 mg/dL (6-20) H 12/06/22 05:34 Creatinine 1.1 mg/dL (0.4-1.0) H 12/06/22 05:34 Estimated GFR (MDRD) 47 (>89) L 12/06/22 05:34 Glucose 165 mg/dL (70-100) H 12/06/22 05:34 POC Whole Bld Glucose 241 mg/dL (70 - 100) H 12/06/22 11:32 Estimat Average Glucose 146 mg/dL (70-100) H 12/02/22 08:29 Hemoglobin A1c % 6.7 % (4.27-6.07) H 12/02/22 08:29 Lactic Acid 2.3 mmol/L (0.5-2.2) H 12/01/22 23:41 Calcium 8.2 mg/dL (8.5-10.3) L 12/06/22 05:34 Total Bilirubin 3.0 mg/dL (0.2-1.0) H 12/01/22 23:41 AST 28 IU/L (10-42) 12/01/22 23:41 ALT 19 IU/L (10-60) 12/01/22 23:41 Alkaline Phosphatase 77 IU/L (42-121) 12/01/22 23:41 Total Creatine Kinase 192 IU/L (22-269) 12/02/22 00:53 Troponin I High Sens 69.5 ng/L (2.3-14.8) H* 12/02/22 00:53 Total Protein 7.4 g/dL (6.7-8.2) 12/01/22 23:41 Albumin 3.3 g/dL (3.2-5.5) 12/01/22 23:41 Globulin 4.1 g/dL (2.1-4.2) 12/01/22 23:41 Albumin/Globulin Ratio 0.8 (1.0-2.2) L 12/01/22 23:41 Lipase 18 U/L (22-51) L 12/01/22 23:41 Vitamin B12 1216 pg/mL (180-914) H 12/04/22 04:44 Urine Color DARK YELLOW 12/02/22 01:22 Urine Clarity HAZY (CLEAR) 12/02/22 01:22 Urine pH 5.0 PH (5.0-7.5) 12/02/22 01:22 Ur Specific [place] >=1.030 (1.002-1.030) H 12/02/22 01:22 Urine Protein 100 mg/dL (NEGATIVE) H 12/02/22 01:22 Urine Glucose (UA) NEGATIVE mg/dL (NEGATIVE) 12/02/22 01:22 Urine Ketones TRACE mg/dL (NEGATIVE) 12/02/22 01:22 Urine Occult Blood MODERATE (NEGATIVE) H 12/02/22 01:22 Urine Nitrite NEGATIVE (NEGATIVE) 12/02/22 01:22 Urine Bilirubin SMALL (NEGATIVE) H 12/02/22 01:22 Urine Urobilinogen 1 (NORMAL) E.U./dL (NORMAL) 12/02/22 01:22 Ur Leukocyte Esterase NEGATIVE (NEGATIVE) 12/02/22 01:22 Urine RBC 0-5 /HPF (0-5) 12/02/22 01:22 Urine WBC 0-3 /HPF (0-5) 12/02/22 01:22 Ur Squamous Epith Cells RARE Squamous (<= Few) 12/02/22 01:22 Urine Bacteria Rare /HPF (None Seen) 12/02/22 01:22 Urine Casts 6-10 Course Granular /LPF3-5 Hyaline Casts /LPF 12/02/22 01:22 Urine Casts 6-10 Course Granular /LPF3-5 Hyaline Casts /LPF 12/02/22 01:22 Ur Microscopic Review INDICATED 12/02/22 01:22 Urine Culture Comments NOT INDICATED 12/02/22 01:22 - Procedures Procedures: Procedures REPLACEMENT OF RIGHT LENS WITH SYNTH SUB, PERC APPROACH (02/26/19)
[2022-12-06] MEDS: cefTRIAXone 1 GM in SODIUM CHLORIDE 0.9% MINIBAG 100 ML IV SCH (20:43)
[2022-12-06] MEDS: AZITHROMYCIN INJ 500 MG in SODIUM CHLORIDE 0.9% 250 ML IV SCH (21:36)
[2022-12-07] MEDS: SODIUM CHLORIDE FLUSH 0.9% 10 ML SYRINGE IVP SCH ×4 (00:16→21:21)
[2022-12-07 06:19] LABS: BASOPHILS % (AUTO) 0.3 %; EOSINOPHILS # (AUTO) 0.1 10^3/uL (0.0-0.7); EOSINOPHILS % (AUTO) 1.2 %; HCT - HEMATOCRIT 35.8 % (37.0-47.0); HGB - HEMOGLOBIN 11.1 g/dL (12.0-16.0); LYMPHOCYTES # (AUTO) 0.6 10^3/uL (1.5-3.5); LYMPHOCYTES % (AUTO) 6.7 %; MEAN CORPUSCULAR HEMOGLOBIN 28.2 pg (27.0-31.0); MEAN CORPUSCULAR VOLUME 91.1 fL (81.0-99.0); MEAN PLATELET VOLUME 10.9 fL (7.9-10.8); MONOCYTES # (AUTO) 0.9 10^3/uL (0.0-1.0); MONOCYTES % (AUTO) 9.6 %; NEUTROPHILS # (AUTO) 7.3 10^3/uL (1.5-6.6); NEUTROPHILS % (AUTO) 77.8 %; PLT - PLATELET COUNT 186 10^3/uL (130-450); RED BLOOD COUNT 3.93 10^6/uL (4.20-5.40); RED CELL DISTRIBUTION WIDTH 15.7 % (12.0-15.0); WHITE BLOOD COUNT 9.4 x10^3/uL (4.8-10.8)
[2022-12-07 06:29] LABS: CALCIUM 8.1 mg/dL (8.5-10.3); POTASSIUM 3.7 mmol/L (3.5-5.0)
[2022-12-07 06:36] LABS: PT - PROTHROMBIN TIME 48.1 secs (9.9-12.6)
[2022-12-07 06:52] LABS: INR 4.9 (0.8-1.2)
[2022-12-07] MEDS: polyethylene glycoL 3350 17 GM PACKET PO SCH (08:02)
[2022-12-07] MEDS: METOPROLOL TARTRATE 50 MG TABLET PO SCH ×2 (08:03→21:20)
[2022-12-07] MEDS: MULTIVITAMIN W/MINERALS TABLET PO SCH (08:03)
[2022-12-07] MEDS: metFORMIN 500 MG TABLET PO SCH ×2 (08:04→16:56)
[2022-12-07] MEDS: lisinopriL 20 MG TABLET PO SCH (08:04)
[2022-12-07] MEDS: INSULIN LISPRO 300 UNIT/3 ML PEN SUBQ SCH ×4 (08:04→21:20)
[2022-12-07] MEDS: NYSTATIN POWDER 15 GM TOP SCH ×2 (08:05→21:21)
[2022-12-07] MEDS: NYSTATIN CREAM 15 GM TUBE TOP SCH ×2 (08:05→21:21)
--- NOTE | 2022-12-07 13:36 | PROVIDER PROGRESS NOTE ---
Assessment/Plan - Problem List (1) Hip pain, bilateral Assessment/Plan: Yesterday and today the patient reports worse hip pain. She can also hear a pop when she moves the hip and this was witnessed by the OT and the LINUX SYSTEM ENGINEER. She presented after an unwitnessed fall. She had CT spine and head but only had images of the pelvis at admission, not the hips. Plan: We will obtain 23 views of left and right hips with pelvis. If these are negative we will proceed to a CT scan to assure there is no fracture. Continue to give pain meds as needed (2) Haemophilus influenza infection Impression: Her bld cx grew Haemophilus influenza A. Today is day #6 of antibx. Plan: 7 days of IV antibiotics as planned since the blood cultures are positive. (3) CAP (community acquired pneumonia) Qualifiers: Laterality: unspecified laterality Qualified Code(s): J18.9 - Pneumonia, unspecified organism Assessment/Plan: Elderly female who lives in an assisted living facility, at an [facility]. Presented with cough, confusion and chest x-ray shows left upper lobe pneumonia. She did not have an elevated white cell count. She has not had a fever here. Her main manifestation has been confusion and hypoxia. She was needing 2 L nasal cannula, which has decreased down to room air, at rest. She has less coughing, but is fatigued. She finished 3 days of azithromycin . Blood cultures returned positive for Haemophilus influenza. The Rocephin that was started for her pneumonia covers this Haemophilus Plan: Today is day #6 of antibx. Continue 7 days of Rocephin because her blood cultures were positive. Qualifiers: Laterality: unspecified laterality Qualified Code(s): J18.9 - Pneumonia, unspecified organism (4) LOYDA (acute kidney injury) Impression: On admission she appeared dehydrated. Baseline creatinine is 1.3 and she was 1.9. After hydration and antibiotics creatinine has improved to 1.0 All labs were reviewed. Plan: Continue to monitor, avoid nephrotoxic drugs, avoid fluid overload (5) Fall at home Impression: She was admitted after a fall at home and also had AMS, hypoxia and pneumonia. The patient does have diabetes and takes both glipizide and metformin. It could be that she is hypoglycemic which could be adding to the falls, since her A1c came back low at 6.7 Plan: Monitor orthostatic vital sign checks Because her A1c came back low at 6.7, I will stop glipizide as she is being discharged. Here she is just getting sliding scale insulin coverage and we are following her her serum glucoses closely. (6) Left knee pain Impression: She thinks is because she hit her knee on the metal stand of the bed when she rolled out of bed and hit the floor. Knee x-ray done showed no acute fracture, no osseous lesions. She does not have an effusion. We started Voltaren cream which helps she said. I also added Tylenol. Plan; Since her mobility is markedly limited because of the left knee pain, I am asking PT and OT to see her in evaluation. It is interesting that her pneumonia is not was knocking her down or her hypoxia, it is her knee pain. She lives in a [facility] in an assisted living facility. Her status is changed and will need to be reevaluated to return to [facility] facility. We suspected that she will need rehab to get stronger to be able to return to the independent [facility]. Plan will be to go to a SNF. Cont pain meds Qualifiers: Chronicity: acute Qualified Code(s): M25.562 - Pain in left knee (7) DM Type 2 Impression: Because her A1c came back low at 6.7, we will stop glipizide as she is being discharged. Here she is just getting sliding scale insulin coverage and we are following her her serum glucose is closely. (8) Chronic atrial fibrillation Impression: Heart rate has improved, but is still not at 60 at rest, on higher dose Metoprolol. VS were reviewed. At home she was not on metoprolol 50 mg p.o. twice daily, it was metoprolol XL 150 a day. Plan: I will further increase the metoprolol BID and switch back to her dose tomorrow Cont Coumadin chronic anticoagulation. Hold if INR>3 Follow daily INRs. Adjust on the basis of the results, realizing that antibiotic therapy usually prolongs INR in patients. (9) Supratherapeutic INR Her INR today came back at >3 again. This is likely from being on antibiotics Plan: The telemedicine doctor already stopped the daily warfarin dose entirely several days ago (10) Hypertension Impression: Home meds were metoprolol XL 150 a day, and Vasotec 20 mg a day. She had elevated blood pressures here. Plan: B-willard dose being adjusted and we resumed an TAMIKA inhibitor. Our formulary does not have Vasotec so we substituted lisinopril 20 mg a day (11) Hypoxia Impression: RESOLVED Present on admission. As of 12/03 she is down to room air at rest. As of today, her O2 sat with activity was 95% on room air. Plan: Continue to monitor O2 sats, encourage incentive spirometry, and aim for Saturations over 90%. If she needs oxygen again we will resume it (12) AMS (altered mental status) Impression: RESOLVED She was confused, and illness superimposed on chronic baseline cognitive deficits is the problem. She has been improving slowly for the last 2 days. Very calm, lucid lady now Qualifiers: Altered mental status type: delirium Qualified Code(s): R41.0 - Disorientation, unspecified - Current Meds Current Meds: Current Medications Generic Name Dose Route Start Last Admin Trade Name Freq PRN Reason Stop Dose Admin Acetaminophen 650 mg 12/03/22 12:33 12/05/22 21:11 Acetaminophen 325 Mg Tablet PO 650 mg Q4HR PRN Administration Pain or Fever > 38C (100.4F) Diclofenac Sodium 2 gm 12/02/22 12:55 12/05/22 16:00 Diclofenac Sodium 1% Gel 50 Gm Tube TOP 2 gm QID PRN Administration Mild Pain (Level 1-3) Ceftriaxone Sodium 1 gm/ 100 mls @ 200 mls/hr 12/02/22 21:00 12/06/22 21:20 Sodium Chloride IV Infused HS IWONA Infusion Insulin Human Lispro 2 - 10 unit 12/06/22 08:00 12/07/22 12:10 Insulin Lispro 300 Unit/3 Ml Pen SUBQ 4 unit 0800,1200,1700,2100 IWONA Administration Protocol Lisinopril 20 mg 12/03/22 09:00 12/07/22 08:04 Lisinopril 20 Mg Tablet PO 20 mg DAILY IWONA Administration Metformin HCl 500 mg 12/05/22 17:00 12/07/22 08:04 Metformin 500 Mg Tablet PO 500 mg BIDWM IWONA Administration Metoprolol Tartrate 50 mg 12/02/22 09:00 12/07/22 08:03 Metoprolol Tartrate 50 Mg Tablet PO 50 mg BID IWONA Administration Multivitamins/Minerals 1 tab 12/03/22 17:00 12/07/22 08:03 Multivitamin W/Minerals Tablet PO 1 tab DAILYWM IWONA Administration Nystatin 1 applic 12/02/22 09:00 12/07/22 08:05 Nystatin Cream 15 Gm Tube TOP 1 applic BID IWONA Administration Nystatin 1 applic 12/02/22 09:00 12/07/22 08:05 Nystatin Powder 15 Gm TOP 1 applic BID IWONA Administration Polyethylene Glycol 17 gm 12/03/22 12:00 12/07/22 08:02 Polyethylene Glycol 3350 17 Gm Packet PO 17 gm DAILY IWONA Administration Sodium Chloride 10 ml 12/02/22 09:00 12/07/22 08:03 Sodium Chloride Flush 0.9% 10 Ml Syringe IVP 10 ml 0100,0900,1700 IWONA Administration - Lab Result Fish Bone Diagrams: 12/07/22 06:12 12/08/22 04:56 - Additional Planning My Orders: My Active Orders 12/07/22 13:32 Hip w/Pelvis 2-3V LT [XR] Stat Hip w/Pelvis 2-3V RT [XR] Stat 12/08/22 05:00 BMP - BASIC METABOLIC PANEL [CHEM] DAILYLAB Subjective - Subjective Patient Reports: Pain (LINUX SYSTEM ENGINEER and PT reported that she had severe pain in both hipswhen upright and with walking, and hears popping in her hips) Objective Vital Signs: Vital Signs - 24 hr 12/06/22 12/06/22 12/07/22 16:00 20:43 00:12 Temperature 36.3 C L 36.6 C Heart Rate [ 107 H Brachial] Respiratory 24 16 Rate Blood Pressure 141/69 H Blood Pressure 150/91 H 144/61 H [Right Brachial artery] O2 Saturation 95 95 12/07/22 12/07/22 08:00 08:03 Temperature 36.4 C L Heart Rate [ 116 H Brachial] Respiratory 18 Rate Blood Pressure 141/59 H Blood Pressure 141/59 H [Right Brachial artery] O2 Saturation 94 Oxygen O2 Source Room air I&O (Last 24 Hrs): Intake and Output Totals x24h 12/05/22 12/06/22 12/07/22 23:59 23:59 23:59 Intake Total 1760 1790 195 Output Total 401 100 300 Balance 1359 1690 -105 General: Alert, Oriented x3 HEENT: Mucous membr. moist/pink, Other (obese) Neck: Supple Neuro: Alert, Non Focal Cardiovascular: No murmurs Respiratory: No respiratory distress, Breath sounds nml Abdomen: Soft, No tenderness Extremities: No clubbing, No edema - Results Results: Laboratory Results WBC 9.4 x10^3/uL (4.8-10.8) 12/07/22 06:12 RBC 3.93 10^6/uL (4.20-5.40) L 12/07/22 06:12 Hgb 11.1 g/dL (12.0-16.0) L 12/07/22 06:12 Hct 35.8 % (37.0-47.0) L 12/07/22 06:12 MCV 91.1 fL (81.0-99.0) 12/07/22 06:12 MCH 28.2 pg (27.0-31.0) 12/07/22 06:12 MCHC 31.0 g/dL (32.0-36.0) L 12/07/22 06:12 RDW 15.7 % (12.0-15.0) H 12/07/22 06:12 Plt Count 186 10^3/uL (130-450) 12/07/22 06:12 MPV 10.9 fL (7.9-10.8) H 12/07/22 06:12 Neut # (Auto) 7.3 10^3/uL (1.5-6.6) H 12/07/22 06:12 Lymph # (Auto) 0.6 10^3/uL (1.5-3.5) L 12/07/22 06:12 [place] # (Auto) 0.9 10^3/uL (0.0-1.0) 12/07/22 06:12 Eos # (Auto) 0.1 10^3/uL (0.0-0.7) 12/07/22 06:12 Baso # (Auto) 0.0 10^3/uL (0.0-0.1) 12/07/22 06:12 Absolute Nucleated RBC 0.00 x10^3/uL 12/07/22 06:12 Total Counted 100 12/03/22 04:49 Band Neuts % (Manual) 8 % (0-10) 12/03/22 04:49 Abnorm Lymph % (Manual) 0 % 12/03/22 04:49 Metamyelocytes % 1 % (-0) H 12/02/22 08:29 Nucleated RBC % 0.0 /100WBC 12/07/22 06:12 Neutrophils # (Manual) 6.5 10^3/uL (1.5-6.6) 12/03/22 04:49 Lymphocytes # (Manual) 0.4 10^3/uL (1.5-3.5) L 12/03/22 04:49 Monocytes # (Manual) 0.5 10^3/uL (0.0-1.0) 12/03/22 04:49 Eosinophils # (Manual) 0.0 10^3/uL (0-0.7) 12/03/22 04:49 Basophils # (Manual) 0.0 10^3/uL (0-0.1) 12/03/22 04:49 Differential Comment MANUAL DIFFERENTIAL 12/03/22 04:49 WBC Morphology NORMAL APPEARANCE (NORMAL) 12/03/22 04:49 Platelet Estimate DECREASED (<130,000) (NORMAL) 12/03/22 04:49 Platelet Morphology NORMAL APPEARANCE (NORMAL) 12/03/22 04:49 RBC Morph Micro Appear NORMAL APPEARANCE (NORMAL) 12/03/22 04:49 PT 48.1 secs (9.9-12.6) H 12/07/22 06:12 INR 4.9 (0.8-1.2) H* 12/07/22 06:12 Sodium 137 mmol/L (135-145) 12/07/22 06:12 Potassium 3.7 mmol/L (3.5-5.0) 12/07/22 06:12 Chloride 102 mmol/L (101-111) 12/07/22 06:12 Carbon Dioxide 28 mmol/L (21-32) 12/07/22 06:12 Anion Gap 7.0 (6-13) 12/07/22 06:12 BUN 26 mg/dL (6-20) H 12/07/22 06:12 Creatinine 1.0 mg/dL (0.4-1.0) 12/07/22 06:12 Estimated GFR (MDRD) 53 (>89) L 12/07/22 06:12 Glucose 122 mg/dL (70-100) H 12/07/22 06:12 POC Whole Bld Glucose 197 mg/dL (70 - 100) H 12/07/22 11:43 Estimat Average Glucose 146 mg/dL (70-100) H 12/02/22 08:29 Hemoglobin A1c % 6.7 % (4.27-6.07) H 12/02/22 08:29 Lactic Acid 2.3 mmol/L (0.5-2.2) H 12/01/22 23:41 Calcium 8.1 mg/dL (8.5-10.3) L 12/07/22 06:12 Total Bilirubin 3.0 mg/dL (0.2-1.0) H 12/01/22 23:41 AST 28 IU/L (10-42) 12/01/22 23:41 ALT 19 IU/L (10-60) 12/01/22 23:41 Alkaline Phosphatase 77 IU/L (42-121) 12/01/22 23:41 Total Creatine Kinase 192 IU/L (22-269) 12/02/22 00:53 Troponin I High Sens 69.5 ng/L (2.3-14.8) H* 12/02/22 00:53 Total Protein 7.4 g/dL (6.7-8.2) 12/01/22 23:41 Albumin 3.3 g/dL (3.2-5.5) 12/01/22 23:41 Globulin 4.1 g/dL (2.1-4.2) 12/01/22 23:41 Albumin/Globulin Ratio 0.8 (1.0-2.2) L 12/01/22 23:41 Lipase 18 U/L (22-51) L 12/01/22 23:41 Vitamin B12 1216 pg/mL (180-914) H 12/04/22 04:44 Urine Color DARK YELLOW 12/02/22 01:22 Urine Clarity HAZY (CLEAR) 12/02/22 01:22 Urine pH 5.0 PH (5.0-7.5) 12/02/22 01:22 Ur Specific [place] >=1.030 (1.002-1.030) H 12/02/22 01:22 Urine Protein 100 mg/dL (NEGATIVE) H 12/02/22 01:22 Urine Glucose (UA) NEGATIVE mg/dL (NEGATIVE) 12/02/22 01:22 Urine Ketones TRACE mg/dL (NEGATIVE) 12/02/22 01:22 Urine Occult Blood MODERATE (NEGATIVE) H 12/02/22 01:22 Urine Nitrite NEGATIVE (NEGATIVE) 12/02/22 01:22 Urine Bilirubin SMALL (NEGATIVE) H 12/02/22 01:22 Urine Urobilinogen 1 (NORMAL) E.U./dL (NORMAL) 12/02/22 01:22 Ur Leukocyte Esterase NEGATIVE (NEGATIVE) 12/02/22 01:22 Urine RBC 0-5 /HPF (0-5) 12/02/22 01:22 Urine WBC 0-3 /HPF (0-5) 12/02/22 01:22 Ur Squamous Epith Cells RARE Squamous (<= Few) 12/02/22 01:22 Urine Bacteria Rare /HPF (None Seen) 12/02/22 01:22 Urine Casts 6-10 Course Granular /LPF3-5 Hyaline Casts /LPF 12/02/22 01:22 Urine Casts 6-10 Course Granular /LPF3-5 Hyaline Casts /LPF 12/02/22 01:22 Ur Microscopic Review INDICATED 12/02/22 01:22 Urine Culture Comments NOT INDICATED 12/02/22 01:22 - Procedures Procedures: Procedures REPLACEMENT OF RIGHT LENS WITH SYNTH SUB, PERC APPROACH (02/26/19)
[2022-12-07] MEDS: ACETAMINOPHEN 325 MG TABLET PO PRN (13:57)
--- NOTE | 2022-12-07 14:23 | XRAY Report ---
PROCEDURE: Hips 2V BILAT INDICATIONS: Fell sev days ago, now pain "popping" in hip TECHNIQUE: An AP view the pelvis and lateral views of the bilateral hips were acquired. COMPARISON: None. FINDINGS: Bones: No fractures or dislocations. No suspicious bony lesions. 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 Mild right hip degenerative change. Soft tissues: No suspicious soft tissue calcifications or masses. Incidental note made of calcifie d uterine fibroid. IMPRESSION: 1. 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 2. No fractures identified. If clinically suspect occult fracture, consider CT Reviewed by: Damian Morelos MD on 12/07/2022 2:22 PM PDT Approved by: Damian Morelos MD on 12/07/2022 2:22 PM PDT Station ID: [id number]
--- NOTE | 2022-12-07 19:10 | CT Report ---
PROCEDURE: Lower Extremity Bilat W/O INDICATIONS: Recent fall, worsening pain "popping" both hips TECHNIQUE: CT imaging of the pelvis. This spans from above the iliac crests to the level of the proxi mal thighs. Coronal and sagittal reformats were performed. Additionally reformats were performed of b oth hips. COMPARISON: Hip radiographs performed earlier today. CT abdomen pelvis 12/02/2022. FINDINGS: No fracture or dislocation. Severe end-stage left hip DJD. Moderate right hip DJD. No suspicious lesi on. Calcified fibroid. Anteverted uterus. Arteriovascular calcifications. Subcutaneous edema at the lower flanks. Diverticulosis. No free fluid. IMPRESSION: No fracture or dislocation. Severe left hip DJD. Reviewed by: Dimitris Aviles MD on 12/07/2022 7:08 PM PDT Approved by: Dimitris Aviles MD on 12/07/2022 7:08 PM PDT Station ID: [id number]
[2022-12-07] MEDS: cefTRIAXone 1 GM in SODIUM CHLORIDE 0.9% MINIBAG 100 ML IV SCH (21:20)
[2022-12-08 05:35] LABS: INR 3.5 (0.8-1.2); PT - PROTHROMBIN TIME 36.2 secs (9.9-12.6)
[2022-12-08 05:40] LABS: CALCIUM 8.5 mg/dL (8.5-10.3); POTASSIUM 4.2 mmol/L (3.5-5.0)
[2022-12-08] MEDS: INSULIN LISPRO 300 UNIT/3 ML PEN SUBQ SCH ×4 (09:02→21:20)
[2022-12-08] MEDS: METOPROLOL TARTRATE 50 MG TABLET PO SCH (09:03)
[2022-12-08] MEDS: MULTIVITAMIN W/MINERALS TABLET PO SCH (09:03)
[2022-12-08] MEDS: lisinopriL 20 MG TABLET PO SCH (09:03)
[2022-12-08] MEDS: NYSTATIN POWDER 15 GM TOP SCH ×2 (09:04→20:00)
[2022-12-08] MEDS: metFORMIN 500 MG TABLET PO SCH ×2 (09:04→17:07)
[2022-12-08] MEDS: polyethylene glycoL 3350 17 GM PACKET PO SCH (09:04)
[2022-12-08] MEDS: NYSTATIN CREAM 15 GM TUBE TOP SCH ×2 (09:04→20:00)
[2022-12-08] MEDS: SODIUM CHLORIDE FLUSH 0.9% 10 ML SYRINGE IVP SCH ×3 (09:04→23:41)
[2022-12-08] MEDS: ACETAMINOPHEN 325 MG TABLET PO SCH ×2 (10:22→21:19)
[2022-12-08] MEDS ORDERED: METOPROLOL SUCCINATE 50 MG TABLET PO ONE (12:00)
[2022-12-08] MEDS: IBUPROFEN 600 MG TABLET PO SCH ×2 (12:39→17:07)
--- NOTE | 2022-12-08 14:30 | PROVIDER PROGRESS NOTE ---
Assessment/Plan - Problem List (1) Arthritis pain of hip Assessment/Plan: For the last 2 days the patient reported worse bilateral hip pain. She can also hear a pop when she moves the hip and this was witnessed by the OT and the AIR BRAKE MECHANIC. She presented after an unwitnessed fall. She had CT spine and head but only had images of the pelvis at admission, not the hips. On 12/07 I obtained 23 views of left and right hips with pelvis and these showed DJD, no frature or dislocation. Since these were negative, we got a CT scan to assure there is no fracture. There was no fracture. 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 I reported the results of the hip pain work-up to the patient today. We also discussed use of NSAIDs to help with this. (The patient had an aspirin allergy listed so she has not gotten any NSAIDs. When asked about her allergic reaction to aspirin, she said this was her daughter who had the allergy not her. The pt disclosed that her youngest daughter has the exact same name as her, creating mistakes elsewhere too). Plan: I made Tylenol scheduled twice daily not as needed The patient had an aspirin allergy listed so she has not gotten any NSAIDs. When asked about her allergic reaction to aspirin, she said this was her daughter who had the allergy not her. (She also told me that her youngest daughter has the exact same name as her, creating mistakes elsewhere too). Therefore Motrin 600 3 times daily with meals will be ordered. I will plan to give this as scheduled treatment for 1 week, and then just use Motrin as needed Plan will be to go to a SNF tomorrow for PT and OT rehab. (2) Haemophilus influenza infection Impression: Her bld cx grew Haemophilus influenza A. Today is day #7 of antibx. Plan: 7 days of IV antibiotics as planned since the blood cultures are positive. Our plan is for her to be discharged tomorrow to SNF (3) CAP (community acquired pneumonia) Qualifiers: Laterality: unspecified laterality Qualified Code(s): J18.9 - Pneumonia, unspecified organism Assessment/Plan: Elderly female who lives in an assisted living facility, at an [facility]. Presented with cough, confusion and chest x-ray shows left upper lobe pneumonia. She did not have an elevated white cell count. She has not had a fever here. Her main manifestation has been confusion and hypoxia. She was needing 2 L nasal cannula, which has decreased down to room air, at rest. She has less coughing, but is fatigued. She already finished 3 days of azithromycin . Blood cultures returned positive for Haemophilus influenza. The Rocephin that was started for her pneumonia covers this Haemophilus Plan: Today is day #7 of Ceftriaxone antibx. Continue 7 days of Rocephin because her blood cultures were positive. Qualifiers: Laterality: unspecified laterality Qualified Code(s): J18.9 - Pneumonia, unspecified organism (4) LOYDA (acute kidney injury) Impression: On admission she appeared dehydrated. Baseline creatinine is 1.3 and she was 1.9. After hydration and antibiotics creatinine has improved to 1.0 yesterday and today. All labs were reviewed. Plan: Continue to avoid nephrotoxic drugs, avoid fluid overload (5) Fall at home Impression: She was admitted after a fall at home and also had AMS, hypoxia and pneumonia. The patient does have diabetes and takes both glipizide and metformin. It could be that she is hypoglycemic which could be adding to the falls, since her A1c came back low at 6.7. Orthostatic vital signs have been normal for this patient Plan: Because her A1c came back low at 6.7, I will stop glipizide as she is being discharged. Here she is just getting sliding scale insulin coverage and we are following her her serum glucoses closely. (6) Left knee pain Impression: She thinks is because she hit her knee on the metal stand of the bed when she rolled out of bed and hit the floor. Knee x-ray done showed no acute fracture, no osseous lesions. She does not have an effusion. We started Voltaren cream which helps she said. I also added Tylenol. Plan; Since her mobility is markedly limited because of the left knee pain, I am asking PT and OT to see her in evaluation. It is interesting that her pneumonia is not was knocking her down or her hypoxia, it is her knee pain. She lives in a [facility] in an assisted living facility. Her status is changed and will need to be reevaluated to return to the facility. We suspected that she will need rehab to get stronger to be able to return to the independent [facility]. Plan will be to go to a SNF. Cont pain meds Qualifiers: Chronicity: acute Qualified Code(s): M25.562 - Pain in left knee (7) DM Type 2 Impression: Because her A1c came back low at 6.7, we will stop glipizide as she is being discharged. Here she is just getting sliding scale insulin coverage and we are following her her serum glucose is closely. (8) Chronic atrial fibrillation Impression: Heart rate has improved, but is still not at 60 at rest, on higher dose Metoprolol. VS were reviewed. At home she was not on metoprolol 50 mg p.o. twice daily, it was metoprolol XL 150 a day. Plan: I will further increase the metoprolol BID and switch back to her usual dose tomorrow Cont Coumadin chronic anticoagulation. Hold if INR>3 Follow daily INRs. Adjust on the basis of the results, realizing that antibiotic therapy usually prolongs INR in patients. (9) Supratherapeutic INR Her INR today came back at >3 again. This is likely from being on antibiotics Plan: The telemedicine doctor already stopped the daily warfarin dose entirely several days ago (10) Hypertension Impression: Home meds were metoprolol XL 150 a day, and Vasotec 20 mg a day. She had elevated blood pressures here. Plan: B-willard dose being adjusted and we resumed an TAMIKA inhibitor. Our formulary does not have Vasotec so we substituted lisinopril 20 mg a day (11) Hypoxia Impression: RESOLVED Present on admission. As of 12/03 she is down to room air at rest. As of today, her O2 sat with activity was 95% on room air. Plan: Continue to monitor O2 sats, encourage incentive spirometry, and aim for Saturations over 90%. If she needs oxygen again we will resume it (12) AMS (altered mental status) Impression: RESOLVED She was confused, and illness superimposed on chronic baseline cognitive de ficits is the problem. She has been improving slowly for the last 2 days. Very calm, lucid lady now Qualifiers: Altered mental status type: delirium Qualified Code(s): R41.0 - Disorientation, unspecified - Current Meds Current Meds: Current Medications Generic Name Dose Route Start Last Admin Trade Name Freq PRN Reason Stop Dose Admin Acetaminophen 650 mg 12/08/22 09:26 12/08/22 10:22 Acetaminophen 325 Mg Tablet PO 650 mg BID IWONA Administration Diclofenac Sodium 2 gm 12/02/22 12:55 12/05/22 16:00 Diclofenac Sodium 1% Gel 50 Gm Tube TOP 2 gm QID PRN Administration Mild Pain (Level 1-3) Ceftriaxone Sodium 1 gm/ 100 mls @ 200 mls/hr 12/02/22 21:00 12/07/22 21:52 Sodium Chloride IV Infused HS IWONA Infusion Ibuprofen 600 mg 12/08/22 12:03 12/08/22 12:39 Ibuprofen 600 Mg Tablet PO 600 mg TIDWM IWONA Administration Insulin Human Lispro 2 - 10 unit 12/06/22 08:00 12/08/22 11:27 Insulin Lispro 300 Unit/3 Ml Pen SUBQ 6 unit 0800,1200,1700,2100 IWONA Administration Protocol Lisinopril 20 mg 12/03/22 09:00 12/08/22 09:03 Lisinopril 20 Mg Tablet PO 20 mg DAILY IWONA Administration Metformin HCl 500 mg 12/05/22 17:00 12/08/22 09:04 Metformin 500 Mg Tablet PO 500 mg BIDWM IWONA Administration Multivitamins/Minerals 1 tab 12/03/22 17:00 12/08/22 09:03 Multivitamin W/Minerals Tablet PO 1 tab DAILYWM IWONA Administration Nystatin 1 applic 12/02/22 09:00 12/08/22 09:04 Nystatin Cream 15 Gm Tube TOP 1 applic BID IWONA Administration Nystatin 1 applic 12/02/22 09:00 12/08/22 09:04 Nystatin Powder 15 Gm TOP 1 applic BID IWONA Administration Polyethylene Glycol 17 gm 12/03/22 12:00 12/08/22 09:04 Polyethylene Glycol 3350 17 Gm Packet PO Not Given DAILY IWONA Sodium Chloride 10 ml 12/02/22 09:00 12/08/22 09:04 Sodium Chloride Flush 0.9% 10 Ml Syringe IVP 10 ml 0100,0900,1700 IWONA Administration - Lab Result Fish Bone Diagrams: 12/07/22 06:12 12/08/22 04:56 - Additional Planning My Orders: My Active Orders 12/08/22 09:26 Acetaminophen [Tylenol] 650 mg PO BID 12/08/22 12:03 Ibuprofen [Motrin] 600 mg PO TIDWM 12/08/22 20:00 Metoprolol Succinate [Toprol Xl] 25 mg PO ONCE ONE 12/09/22 09:00 Metoprolol Succinate [Toprol Xl] 150 mg PO DAILY Subjective - Subjective Patient Reports: Feeling Better (Not as fatigued), Resting Comfortably, Pain (Scheduled Tylenol helped her pain) Objective Vital Signs: Vital Signs - 24 hr 12/07/22 12/07/22 12/08/22 15:49 21:20 00:00 Temperature 36.4 C L 36.3 C L Heart Rate [ 99 86 Brachial] Respiratory 18 16 Rate Blood Pressure 151/81 H Blood Pressure 163/80 H 148/76 H [Right Brachial artery] O2 Saturation 95 94 12/08/22 12/08/22 07:21 09:03 Temperature 36.8 C Heart Rate [ 107 H Brachial] Respiratory 20 Rate Blood Pressure 149/68 H Blood Pressure 149/68 H [Right Brachial artery] O2 Saturation 93 Oxygen O2 Source Room air I&O (Last 24 Hrs): Intake and Output Totals x24h 12/06/22 12/07/22 12/08/22 23:59 23:59 23:59 Intake Total 1790 1625 560 Output Total 100 300 500 Balance 1690 1325 60 General: Alert, Oriented x3 HEENT: Mucous membr. moist/pink Neck: Supple, No JVD Neuro: Alert, Non Focal Cardiovascular: No murmurs Respiratory: No respiratory distress, Breath sounds nml Abdomen: Soft Extremities: No clubbing, No edema - Results Results: Laboratory Results WBC 9.4 x10^3/uL (4.8-10.8) 12/07/22 06:12 RBC 3.93 10^6/uL (4.20-5.40) L 12/07/22 06:12 Hgb 11.1 g/dL (12.0-16.0) L 12/07/22 06:12 Hct 35.8 % (37.0-47.0) L 12/07/22 06:12 MCV 91.1 fL (81.0-99.0) 12/07/22 06:12 MCH 28.2 pg (27.0-31.0) 12/07/22 06:12 MCHC 31.0 g/dL (32.0-36.0) L 12/07/22 06:12 RDW 15.7 % (12.0-15.0) H 12/07/22 06:12 Plt Count 186 10^3/uL (130-450) 12/07/22 06:12 MPV 10.9 fL (7.9-10.8) H 12/07/22 06:12 Neut # (Auto) 7.3 10^3/uL (1.5-6.6) H 12/07/22 06:12 Lymph # (Auto) 0.6 10^3/uL (1.5-3.5) L 12/07/22 06:12 [place] # (Auto) 0.9 10^3/uL (0.0-1.0) 12/07/22 06:12 Eos # (Auto) 0.1 10^3/uL (0.0-0.7) 12/07/22 06:12 Baso # (Auto) 0.0 10^3/uL (0.0-0.1) 12/07/22 06:12 Absolute Nucleated RBC 0.00 x10^3/uL 12/07/22 06:12 Total Counted 100 12/03/22 04:49 Band Neuts % (Manual) 8 % (0-10) 12/03/22 04:49 Abnorm Lymph % (Manual) 0 % 12/03/22 04:49 Metamyelocytes % 1 % (-0) H 12/02/22 08:29 Nucleated RBC % 0.0 /100WBC 12/07/22 06:12 Neutrophils # (Manual) 6.5 10^3/uL (1.5-6.6) 12/03/22 04:49 Lymphocytes # (Manual) 0.4 10^3/uL (1.5-3.5) L 12/03/22 04:49 Monocytes # (Manual) 0.5 10^3/uL (0.0-1.0) 12/03/22 04:49 Eosinophils # (Manual) 0.0 10^3/uL (0-0.7) 12/03/22 04:49 Basophils # (Manual) 0.0 10^3/uL (0-0.1) 12/03/22 04:49 Differential Comment MANUAL DIFFERENTIAL 12/03/22 04:49 WBC Morphology NORMAL APPEARANCE (NORMAL) 12/03/22 04:49 Platelet Estimate DECREASED (<130,000) (NORMAL) 12/03/22 04:49 Platelet Morphology NORMAL APPEARANCE (NORMAL) 12/03/22 04:49 RBC Morph Micro Appear NORMAL APPEARANCE (NORMAL) 12/03/22 04:49 PT 36.2 secs (9.9-12.6) H 12/08/22 04:56 INR 3.5 (0.8-1.2) H 12/08/22 04:56 Sodium 139 mmol/L (135-145) 12/08/22 04:56 Potassium 4.2 mmol/L (3.5-5.0) 12/08/22 04:56 Chloride 102 mmol/L (101-111) 12/08/22 04:56 Carbon Dioxide 30 mmol/L (21-32) 12/08/22 04:56 Anion Gap 7.0 (6-13) 12/08/22 04:56 BUN 26 mg/dL (6-20) H 12/08/22 04:56 Creatinine 1.0 mg/dL (0.4-1.0) 12/08/22 04:56 Estimated GFR (MDRD) 53 (>89) L 12/08/22 04:56 Glucose 190 mg/dL (70-100) H 12/08/22 04:56 POC Whole Bld Glucose 254 mg/dL (70 - 100) H 12/08/22 11:04 Estimat Average Glucose 146 mg/dL (70-100) H 12/02/22 08:29 Hemoglobin A1c % 6.7 % (4.27-6.07) H 12/02/22 08:29 Lactic Acid 2.3 mmol/L (0.5-2.2) H 12/01/22 23:41 Calcium 8.5 mg/dL (8.5-10.3) 12/08/22 04:56 Total Bilirubin 3.0 mg/dL (0.2-1.0) H 12/01/22 23:41 AST 28 IU/L (10-42) 12/01/22 23:41 ALT 19 IU/L (10-60) 12/01/22 23:41 Alkaline Phosphatase 77 IU/L (42-121) 12/01/22 23:41 Total Creatine Kinase 192 IU/L (22-269) 12/02/22 00:53 Troponin I High Sens 69.5 ng/L (2.3-14.8) H* 12/02/22 00:53 Total Protein 7.4 g/dL (6.7-8.2) 12/01/22 23:41 Albumin 3.3 g/dL (3.2-5.5) 12/01/22 23:41 Globulin 4.1 g/dL (2.1-4.2) 12/01/22 23:41 Albumin/Globulin Ratio 0.8 (1.0-2.2) L 12/01/22 23:41 Lipase 18 U/L (22-51) L 12/01/22 23:41 Vitamin B12 1216 pg/mL (180-914) H 12/04/22 04:44 Urine Color DARK YELLOW 12/02/22 01:22 Urine Clarity HAZY (CLEAR) 12/02/22 01:22 Urine pH 5.0 PH (5.0-7.5) 12/02/22 01:22 Ur Specific [place] >=1.030 (1.002-1.030) H 12/02/22 01:22 Urine Protein 100 mg/dL (NEGATIVE) H 12/02/22 01:22 Urine Glucose (UA) NEGATIVE mg/dL (NEGATIVE) 12/02/22 01:22 Urine Ketones TRACE mg/dL (NEGATIVE) 12/02/22 01:22 Urine Occult Blood MODERATE (NEGATIVE) H 12/02/22 01:22 Urine Nitrite NEGATIVE (NEGATIVE) 12/02/22 01:22 Urine Bilirubin SMALL (NEGATIVE) H 12/02/22 01:22 Urine Urobilinogen 1 (NORMAL) E.U./dL (NORMAL) 12/02/22 01:22 Ur Leukocyte Esterase NEGATIVE (NEGATIVE) 12/02/22 01:22 Urine RBC 0-5 /HPF (0-5) 12/02/22 01:22 Urine WBC 0-3 /HPF (0-5) 12/02/22 01:22 Ur Squamous Epith Cells RARE Squamous (<= Few) 12/02/22 01:22 Urine Bacteria Rare /HPF (None Seen) 12/02/22 01:22 Urine Casts 6-10 Course Granular /LPF3-5 Hyaline Casts /LPF 12/02/22 01:22 Urine Casts 6-10 Course Granular /LPF3-5 Hyaline Casts /LPF 12/02/22 01:22 Ur Microscopic Review INDICATED 06/25/23 01:22 Urine Culture Comments NOT INDICATED 12/02/22 01:22 - Procedures Procedures: Procedures REPLACEMENT OF RIGHT LENS WITH SYNTH SUB, PERC APPROACH (02/26/19)
[2022-12-08] MEDS ORDERED: METOPROLOL SUCCINATE 25 MG TABLET PO ONE (20:00)
[2022-12-08] MEDS: cefTRIAXone 1 GM in SODIUM CHLORIDE 0.9% MINIBAG 100 ML IV SCH (21:16)
--- NOTE | 2022-12-09 07:56 | Discharge Plan ---
"Discharge Plan for SNF / [facility] - Discharge Plan And Transition Orders Problem Reviewed?: Yes Disposition: 03 SNF DC/Xfer Condition: Stable Allergies and Adverse Reactions: Allergies Allergy/AdvReac Type Severity Reaction Status Date / Time calcium carbonate AdvReac Unknown Verified 12/01/22 23:39 [From Bufferin] lidocaine AdvReac Rash Verified 12/01/22 23:39 magnesium [From Bufferin] AdvReac Unknown Verified 12/01/22 23:39 Health Concerns: The patient was hospitalized to treat pneumonia and we found she had bacteremia growing haemophilus influenza. She needed 7 days of IV antibiotics. She had presented with weakness which caused her to fall. X-ray showed no fractures anywhere. Her main pain is in both hips and knees. This is from DJD. The patient is being discharged to SNF for more PT and OT rehab before returning to live in her [place] in [facility]. She initially had aspirin written as an allergy. The patient corrected this and said that the aspirin allergy is for her DAUGHTER who HAS THE EXACT SAME NAME THIS PATIENT. Please be aware of this. Therefore, aspirin is not this patient's allergy. She is able to take Motrin. The plan is to have her take Motrin 3 times daily with meals, for about a week, and then Motrin as needed. Plan of Treatment: Daily or twice daily PT and OT rehab. Care Goals: Improvement in symptoms and stabilization are the goals. Assessment: The patient understands and is agreeable with the plan. - SNF / [facility] Transition Orders Admit to (Facility): [facility] Under the care of (Name): CHIOMA De Paz Discharge Diagnosis: (1) Haemophilus influenza infection Entire course of iv antibiotics was completed while here. (2) CAP (community acquired pneumonia) Course of antibiotics completed while here. (3) LOYDA (acute kidney injury) Resolved with iv fluids (4) Fall at home Unwitnessed fall. Probably related to her infection and being dehydrated. Orthostatic vital signs are normal. (5) Left knee pain She thinks she hit her knee when she rolled out of bed and hit the floor. X- Rays showed no fracture or effusion. Voltaren cream helps. (6) Arthritis pain of hip No fractures on XRay or CT imaging. New Motrin started. (7) DM Type 2 Her A1c came back low at 6.7. We stopped her Glipizide but continued Metformin. (8) Chronic atrial fibrillation She is on a B-willard and on normally is on Coumadin (9) Supratherapeutic INR Her INR has been supratherapeutic during her entire hospitalization, due to being on antibiotics. She needs daily INRs checked until they are stable between 23, then weekly or monthly INRs. (10) Hypertension Stable BP on meds (11) Hypoxia Resolved with treatment of the pneumonia (12) AMS (altered mental status) Resolved with treatment of the pneumonia Medicare Certification Statement: I certify that [facility] care is medically necessary on a continuing basis for any of the conditions for which she/he is receiving care during hospitalization. Notify PCP of admission and forward orders to primary provider for signature. Weight on admission and: Weekly Call PCP immediately if weight increases by: 5 kg Other Notification Orders: Call PCP immediately if patient develops dyspnea, chest pain/tightness or edema. House Bowel Program: Yes Additional Bowel Program Orders: If no BM after 2 days, nurse may give M.O.M. 30ml PO PRN and/or ducolax Supp 1 ID and/or TAN 250mg P.O., and/or senna 1-2 tabs PO. On day 3 nurse may give repeat above order until residents constipation is resolved. Annual Influenza Vaccine (between Feb 08 and September 07): Yes Two-step PPD per [facility] [id number] or approved exception documents: Yes Treatments & Other Orders: Daily or twice daily PT and OT Lab Tests or X-ray Orders: Daily INR. Target INR is 2-3. Once her INR is in that range, INR is can be checked weekly or monthly. Medication Orders: PLEASE REFER TO THE DISCHARGE MEDICATION LIST. Insulin Orders?: No - Medications New Prescriptions: metFORMIN [Glucophage] 500 mg PO BID #60 tab Ibuprofen [Motrin] 600 mg PO TIDWM PRN #30 tab PRN Reason: As Needed Per Provider Orders Diclofenac Sodium 1% Gel [Voltaren Gel] 2 gm TOP QID PRN #1 each PRN Reason: Mild Pain (Level 1-3) - Diet Type: Geriatric (Diabetic diet) Texture: Regular Liquids: Thin May have monthly special meal: Yes - Therapies | Activity Therapy: Evaluation | Treat if indicated: PT, OT Rehabilitation Potential: Maximize functional status Activity: Activity as Tolerated Weight Bearing: Full Weight Assistance Devices: Walker Follow Up: See PCP after discharge from SNF."
[2022-12-09] MEDS: metFORMIN 500 MG TABLET PO SCH (08:07)
[2022-12-09] MEDS: MULTIVITAMIN W/MINERALS TABLET PO SCH (08:07)
[2022-12-09] MEDS: INSULIN LISPRO 300 UNIT/3 ML PEN SUBQ SCH (08:07)
[2022-12-09] MEDS: IBUPROFEN 600 MG TABLET PO SCH (08:10)
[2022-12-09] MEDS: ACETAMINOPHEN 325 MG TABLET PO SCH (08:11)
[2022-12-09] MEDS: NYSTATIN POWDER 15 GM TOP SCH (08:11)
[2022-12-09] MEDS: lisinopriL 20 MG TABLET PO SCH (08:11)
[2022-12-09] MEDS: SODIUM CHLORIDE FLUSH 0.9% 10 ML SYRINGE IVP SCH (08:11)
[2022-12-09] MEDS: NYSTATIN CREAM 15 GM TUBE TOP SCH (08:11)
[2022-12-09] MEDS: polyethylene glycoL 3350 17 GM PACKET PO SCH (08:11)
[2022-12-09] MEDS ORDERED: metFORMIN 500 MG TABLET PO SCH (09:00)
[2022-12-09] MEDS ORDERED: METOPROLOL SUCCINATE 50 MG TABLET PO SCH (09:00)
--- NOTE | 2022-12-09 09:24 | DISCHARGE SUMMARY ---
Discharge Summary Admit Date: 12/02/22 Discharge Date: 12/09/22 Discharging Provider: Dr Shi Burnett Primary Care Provider: CHIOMA De Paz Condition at Discharge: Stable Discharge Disposition: SNF DC/Xfer Discharge Facility Name: [facility] History of Present Illness: 87 Y old female, lives alone in [place], with PMH HTN, DM2, Atrial fib on coumadin, BIBA due to AMS. Pt is confused so most of history is from the daughter present at bed side. As per pt, patient had nausea and she vomitied yesterday. Patient was found on the floor at about 4 pm yesterday. Daughter helped her and she said patient was able to walk with the walker. As per daughter, her mom was "breathing hard". Denies chest pain, fever, CORRIGAN, symptoms On presentaion, she was tachycardic at 121 in Afib, afebrile, hypoxic. Her Sao2 dropped to 86% while in the ER. Obtunded female, BMI 34. Labs showed normal WBC of 10.1, but had Bandemia of 22%, INR 3.0, Commercial Artist 1.9 (baseline creat is 1). CXR showed left lung infiltrate. CT head and c spine showed no acute abnormalities. IN ER, she was given IVF, Cardizem 10 mg IVP X 1 and IV rocephin and iv zithromax aftyer culture drawn. Patient is admitted due to PNA, AMS, Acute encephalopathy, dehydration, LOYDA, Afib with RVR. - HOSPITAL COURSE Hospital Course: (1) CAP (community acquired pneumonia) She was put on supplemental oxygen, Mucinex, IV Zithromax and IV ceftriaxone. She completed her course of antibiotics while here. (2) Hypoxia She was given supplemental O2 via nasal cannula. Her hypoxia resolved with treatment of the pneumonia (3) Haemophilus influenza infection The blood culture drawn in ER quickly grew H. Influenza. She was given her entire course of 7 days of iv antibiotic Ceftriaxione while here. (4) AMS (altered mental status) Resolved with treatment of the pneumonia and bacteremia. She started working with PT and OT. It was advised she have more PT and OT rehab at SNF, to where she was discharged. (5) LOYDA (acute kidney injury) The elevated BUN/creat of 51/1.9 resolved with iv fluids. Her BUN/creat were 26/1.0, on the day before discharge. (6) Fall at home Unwitnessed fall. Probably related to her infection and being dehydrated. Orthostatic vital signs were normal. (7) Left knee pain She thought she hit her knee when she described rolling out of bed and hit the floor. X-Rays showed no fracture or effusion. Voltaren cream helped and was continued. (8) Arthritis pain of hip As she started working with PT and OT daily, she developed worsening daily bilateral hip pain and could hear "popping". She had imaging with XRay and CT imaging, and no fractures or dislocation seen. Severe DJD was reported. New Motrin TID with meals was started. (9) DM Type 2 Her A1c came back low at 6.7. We stopped her Glipizide but continued Metformin. (10) Chronic atrial fibrillation Her rapid A-fib required adjustment of her beta-willard. She was normally on Coumadin. Throughout her hospitalization, her INR was greater than 3, due to being on antibiotics. The Coumadin was put on hold. She was ordered to get daily INR's when at the SNF, and to treat with Coumadin again to achieve a target ONR of 2-3. (11) Supratherapeutic INR Her INR has been supratherapeutic during her entire hospitalization, due to being on antibiotics. She needs daily INRs checked until INR is stable between 23, then weekly or monthly INRs. (12) Hypertension Stable BP on meds - ALLERGIES Allergies/Adverse Reactions: Allergies Allergy/AdvReac Type Severity Reaction Status Date / Time calcium carbonate AdvReac Unknown Verified 12/01/22 23:39 [From Bufferin] lidocaine AdvReac Rash Verified 12/01/22 23:39 magnesium [From Bufferin] AdvReac Unknown Verified 12/01/22 23:39 - MEDICATIONS Home Medications: Ambulatory Orders Medication Instructions Recorded Confirmed Enalapril Maleate [Vasotec] 20 mg PO DAILY 02/25/19 12/02/22 Metoprolol Succinate [Toprol Xl] 150 mg PO DAILY 02/25/19 12/02/22 Warfarin [Coumadin] 2 mg PO SUMOTUWETHFR 02/25/19 01/13/21 Warfarin Sodium [Coumadin] 1 mg PO SA 12/02/22 12/02/22 Acetaminophen [Tylenol] 650 mg PO BID tab 12/09/22 Diclofenac Sodium 1% Gel [Voltaren 2 gm TOP QID PRN #1 each 12/09/22 Gel] Ibuprofen [Motrin] 600 mg PO TIDWM PRN #30 tab 12/09/22 metFORMIN [Glucophage] 500 mg PO BID #60 tab 12/09/22 - PHYSICAL EXAM AT DISCHARGE General Appearance: positive: No acute distress, Alert (Sleepy) Eyes Bilateral: positive: Normal inspection, EOMI ENT: positive: ENT inspection nml, No signs of dehydration Neck: positive: Nml inspection, No JVD Respiratory: positive: No respiratory distress, Breath sounds nml Cardiovascular: positive: No murmur (Distant heart sounds due to obesity), Irregularly irregular Abdomen: positive: Non-tender, No distention, Other (Obese with a pannus) Skin: positive: Warm, Dry Extremities: positive: No pedal edema Neurologic/Psychiatric: positive: Oriented x3, Motor nml - LABS Result Diagrams: 12/07/22 06:12 12/08/22 04:56 - DIAGNOSTIC IMAGING Diagnostic Imaging Results: Final report reviewed - FOLLOW UP Follow Up: See PCP after discharge from SNF. - TIME SPENT Time Spent in Discharge (Minutes): 50
[2022-12-09 11:20] VITALS: BP 150/77
== END 2022-12-09 12:46 | DRG 194 ==
LOC: EDBD → EDUNIT# → ED 23:29 → MS2 12-02 03:20
PROVIDERS: ADMIT Internal Medicine; ATTEND Internal Medicine
DX: J18.9 Pneumonia, unspecified organism (principal); G93.40 Encephalopathy, unspecified; I48.20 Chronic atrial fibrillation, unspecified; I45.10 Unspecified right bundle-branch block; I48.91 Unspecified atrial fibrillation; N17.9 Acute kidney failure, unspecified; R78.81 Bacteremia; I10 Essential (primary) hypertension; E11.9 Type 2 diabetes mellitus without complications; R55 Syncope and collapse; E66.9 Obesity, unspecified; E78.00 Pure hypercholesterolemia, unspecified; E86.0 Dehydration; M16.0 Bilateral primary osteoarthritis of hip; M25.562 Pain in left knee; H91.90 Unspecified hearing loss, unspecified ear; R09.02 Hypoxemia; R11.2 Nausea with vomiting, unspecified; R32 Unspecified urinary incontinence; R41.82 Altered mental status, unspecified; Z68.34 Body mass index [BMI] 34.0-34.9, adult; Z79.01 Long term (current) use of anticoagulants; Z79.84 Long term (current) use of oral hypoglycemic drugs; Z79.899 Other long term (current) drug therapy; Z91.81 History of falling
CPT/HCPCS: 36415; 51701; 70450; 71045; 72125; 73521; 73560; 73700; 74176; 80048; 80053; 81001; 82550; 82607; 83036; 83605; 83690; 84484; 85025; 85610; 87040; 87150; 93005; 96361; 96365; 96375; 97110; 97116; 97162; 97166; 97530; 97535; 99285; A9270; 81003; 87086

== ENCOUNTER 2022-12-09 12:22 | Outpatient (CLI) | payer MEDICARE, OTHER | END 2022-12-09 23:59 | disposition home or self-care (01) | LOC: EMS 12:22 | PROVIDERS: ATTEND Internal Medicine | DX: R53.1 Weakness (principal); M19.90 Unspecified osteoarthritis, unspecified site; E11.9 Type 2 diabetes mellitus without complications; Z74.01 Bed confinement status | CPT/HCPCS: A0425; A0428 ==

== ENCOUNTER 2023-01-01 12:52 | Outpatient (CLI) | payer MEDICARE, OTHER | END 2023-01-01 12:53 | disposition home or self-care (01) | LOC: LAB.R 12:52 | PROVIDERS: ATTEND Registered Nurse | DX: Z53.9 Procedure and treatment not carried out, unspecified reason (principal) | CPT/HCPCS: 85610 ==

== ENCOUNTER 2023-04-17 06:56 | Outpatient (CLI) | payer MEDICARE, OTHER | END 2023-04-17 06:57 | disposition critical access hospital (66) | LOC: EMS 06:56 | DX: M25.552 Pain in left hip (principal); W18.39XA Other fall on same level, initial encounter; Y92.013 Bedroom of single-family (private) house as the place of occurrence of the external cause; Z79.01 Long term (current) use of anticoagulants | CPT/HCPCS: A0425; A0429 ==

== ENCOUNTER 2023-04-17 07:11 | Inpatient (IN) | payer MEDICARE, OTHER ==
[2023-04-17] MEDS ORDERED: ONDANSETRON 4 MG/2 ML VIAL IVP STA (07:30)
[2023-04-17] MEDS ORDERED: MORPHINE 2 MG/ML CARPUJECT IVP STA (07:30)
[2023-04-17] MEDS ORDERED: SODIUM CHLORIDE 0.9% 500 ML IV STA ×2 (07:30→08:02)
[2023-04-17 07:45] LABS: BASOPHILS % (AUTO) 0.5 %; EOSINOPHILS # (AUTO) 0.1 10^3/uL (0.0-0.7); EOSINOPHILS % (AUTO) 1.6 %; HCT - HEMATOCRIT 39.1 % (37.0-47.0); HGB - HEMOGLOBIN 11.9 g/dL (12.0-16.0); LYMPHOCYTES # (AUTO) 0.5 10^3/uL (1.5-3.5); LYMPHOCYTES % (AUTO) 6.8 %; MEAN CORPUSCULAR HEMOGLOBIN 29.8 pg (27.0-31.0); MEAN CORPUSCULAR HGB CONC 30.4 g/dL (32.0-36.0); MEAN CORPUSCULAR VOLUME 97.8 fL (81.0-99.0); MEAN PLATELET VOLUME 10.1 fL (7.9-10.8); MONOCYTES # (AUTO) 0.8 10^3/uL (0.0-1.0); NEUTROPHILS # (AUTO) 5.9 10^3/uL (1.5-6.6); NEUTROPHILS % (AUTO) 79.8 %; PLT - PLATELET COUNT 140 10^3/uL (130-450); RED CELL DISTRIBUTION WIDTH 18.6 % (12.0-15.0); WHITE BLOOD COUNT 7.4 x10^3/uL (4.8-10.8)
[2023-04-17 07:48] LABS: INR 3.5 (0.8-1.2); PT - PROTHROMBIN TIME 35.1 secs (9.9-12.6)
[2023-04-17 07:51] LABS: ALBUMIN 3.6 g/dL (3.2-5.5)
[2023-04-17 07:54] LABS: CALCIUM 9.3 mg/dL (8.5-10.3); CREATININE 2.4 mg/dL (0.6-1.3); POTASSIUM 4.4 mmol/L (3.5-4.5); TOTAL PROTEIN 7.2 g/dL (6.4-8.9)
--- NOTE | 2023-04-17 08:11 | ED Physician Documentation ---
History of Present Illness - Stated complaint Stated Complaint: HIP PX/FALL - Chief complaint Chief Complaint: Trauma Ext - History obtained from History obtained from: Patient, EMS - Additonal information Additional information: Patient is an 87-year-old female with a history of A-fib on warfarin presenting for evaluation of a ground-level fall this morning around 130. Patient states that she was getting up to go to get a drink of water when her left knee gave out on her and she fell. She states that she did hit her head but there was no LOC. She reports pain primarily to the left hip which she does have a history of chronic pain in it. Denies feeling weak, dizzy, having chest pain or shortness of air. Review of Systems Constitutional: denies: Fever Cardiac: denies: Chest pain / pressure Respiratory: denies: Dyspnea GI: denies: Abdominal Pain Musculoskeletal: reports: Extremity pain Neurologic: reports: Head injury. denies: Syncope PD PAST MEDICAL HISTORY - Past Medical History Cardiovascular: Hypertension, High cholesterol, Atrial fibrillation Respiratory: None Neuro: Tremors Endocrine/Autoimmune: Type 1 diabetes, Type 2 diabetes GI: None : Incontinence HEENT: Chronic hearing loss Psych: None Musculoskeletal: Osteoarthritis Derm: None - Past Surgical History Past Surgical History: Yes HEENT: Cataracts, Detached retina repair, Tonsil/Adenoidectomy Derm: Debridement - Present Medications Home Medications: Ambulatory Orders Medication Instructions Recorded Confirmed Enalapril Maleate [Vasotec] 20 mg PO DAILY 02/25/19 04/17/23 Metoprolol Succinate [Toprol Xl] 150 mg PO DAILY 02/25/19 04/17/23 Warfarin [Coumadin] 2 mg PO [id number] 02/25/19 04/17/23 Warfarin Sodium [Coumadin] 1 mg PO SA 12/02/22 04/17/23 metFORMIN [Glucophage] 500 mg PO BID #60 tab 12/09/22 04/17/23 - Allergies Allergies/Adverse Reactions: Allergies Allergy/AdvReac Type Severity Reaction Status Date / Time calcium carbonate AdvReac Unknown Verified 12/01/22 23:39 [From Bufferin] lidocaine AdvReac Rash Verified 12/01/22 23:39 magnesium [From Bufferin] AdvReac Unknown Verified 12/01/22 23:39 - Social History Does the pt smoke?: No Smoking Status: Never smoker PD ED PE NORMAL - General General: Alert and oriented X 3, No acute distress, Well developed/nourished - HEENT HEENT: Atraumatic, Moist mucous membranes, Pharynx benign - Neck Neck: Supple, no meningeal sign, Other (Cervical collar left in place) - Cardiac Cardiac: Other (Tachycardic in the low 100s, irregularly irregular) - Respiratory Respiratory: No respiratory distress, Clear bilaterally - Abdomen Abdomen: Soft, Non tender, Non distended - Extremities Extremities: No deformity, Other (Tenderness to left hip with no visible deformity or leg shortening, pain to left knee) - Neuro Neuro: Alert and oriented X 3, wash test checker 2-12 intact, No motor deficit, No sensory deficit, Normal speech Eye Opening: Spontaneous Motor: Obeys Commands Verbal: Oriented GCS Score: 15 Results - Vitals Vitals: Vital Signs - 24 hr 04/17/23 04/17/23 07:19 10:00 Temperature 36.6 C Heart Rate 110 H 105 H Respiratory 20 14 Rate Blood Pressure 157/92 H 141/88 H O2 Saturation 99 96 Oxygen O2 Source Room air - EKG (time done) 0803 EKG releavant findings:: EKG personally interpreted by author of this note. Relevant findings are: Rate 104, atrial fibrillation, right bundle branch block, inverted T waves and depressions in several leads which is similar to prior EKG from December 02, 2022 - Labs Labs: Laboratory Tests 04/17/23 04/17/23 04/17/23 07:19 07:32 07:32 WBC 7.4 RBC 4.00 L Hgb 11.9 L Hct 39.1 MCV 97.8 MCH 29.8 MCHC 30.4 L RDW 18.6 H Plt Count 140 MPV 10.1 Neut # (Auto) 5.9 Lymph # (Auto) 0.5 L [place] # (Auto) 0.8 Eos # (Auto) 0.1 Baso # (Auto) 0.0 Absolute Nucleated RBC 0.00 Nucleated RBC % 0.0 PT 35.1 H INR 3.5 H Sodium Potassium Chloride Carbon Dioxide Anion Gap BUN Creatinine Estimated GFR (MDRD) Glucose POC Whole Bld Glucose 129 H Calcium Total Bilirubin AST ALT Alkaline Phosphatase Total Protein Albumin Globulin Albumin/Globulin Ratio Urine Color Urine Clarity Urine pH Ur Specific [place] Urine Protein Urine Glucose (UA) Urine Ketones Urine Occult Blood Urine Nitrite Urine Bilirubin Urine Urobilinogen Ur Leukocyte Esterase Urine RBC Urine WBC Urine WBC Clumps Ur Squamous Epith Cells Urine Bacteria Ur Microscopic Review Urine Culture Comments 04/17/23 04/17/23 07:32 09:50 WBC RBC Hgb Hct MCV MCH MCHC RDW Plt Count MPV Neut # (Auto) Lymph # (Auto) [place] # (Auto) Eos # (Auto) Baso # (Auto) Absolute Nucleated RBC Nucleated RBC % PT INR Sodium 143 Potassium 4.4 Chloride 109 Carbon Dioxide 25 Anion Gap 9.0 BUN 81 H* Creatinine 2.4 H Estimated GFR (MDRD) 19 L Glucose 131 H POC Whole Bld Glucose Calcium 9.3 Total Bilirubin 2.0 H AST 21 ALT 17 Alkaline Phosphatase 105 Total Protein 7.2 Albumin 3.6 Globulin 3.6 Albumin/Globulin Ratio 1.0 Urine Color RED/BLOODY Urine Clarity CLOUDY Urine pH 5.0 Ur Specific [place] 1.020 Urine Protein >=300 H Urine Glucose (UA) NEGATIVE Urine Ketones TRACE Urine Occult Blood LARGE H Urine Nitrite POSITIVE H Urine Bilirubin NEGATIVE Urine Urobilinogen 2 H Ur Leukocyte Esterase LARGE H Urine RBC TNTC H Urine WBC >25 H Urine WBC Clumps PRESENT Ur Squamous Epith Cells NONE SEEN Urine Bacteria Moderate H Ur Microscopic Review INDICATED Urine Culture Comments INDICATED PD Medical Decision Making - ED course Complexity details: reviewed results, re-evaluated patient, d/w patient, d/w family ED course: Patient is an 87-year-old female with a history of A-fib on warfarin presenting for evaluation after a fall. Reports feeling weak and her leg gave out on her. She did hit her head but there was no LOC. CT head and cervical spine were obtained and without any significant findings. Chest x-ray, left hip x-ray, left knee x-ray were also reviewed and without findings of acute injury. CT of the abdomen and pelvis was also obtained in part to evaluate for causes of her LOYDA as well as another evaluation of her left hip pain. There is no fracture. No obstructive process. In review of her labs she does have baseline mild anemia which is unchanged. She does have significant elevation in her renal function with a creatinine of 2.4. Prior labs from the summer show a creatinine around 1 when she was admitted in November. Per primary nurse when they cathed for her urine and there was pus as well as blood that came out with a straight cath. Her urine is concerning for an infection. I started her on IV antibiotics. She also received IV morphine for pain control for left hip pain. She does have significant osteoarthritis to this left hip. Given her renal impairment I do think she warrants admission to the hospital and have discussed with Dr. Rodriguez who will place admission orders. Departure - Departure Disposition: [facility] DC/Xfer Clinical Impression: LOYDA (acute kidney injury), UTI (urinary tract infection), Anticoagulant long- term use, Chronic atrial fibrillation, Left hip pain Condition: Stable Discharge Date/Time: 04/17/23 12:07
--- NOTE | 2023-04-17 08:29 | XRAY Report ---
PROCEDURE: Chest 1 View X-Ray INDICATIONS: fall on warfarin TECHNIQUE: One view of the chest was acquired. COMPARISON: None. FINDINGS: Surgical changes and devices: None. Lungs and pleura: No pleural effusions or pneumothorax. Lungs are clear. Cephalized pulmonary ves sels. Mediastinum: Mediastinal contours appear normal. Heart size is mildly enlarged. Bones and chest wall: No suspicious bony lesions. Overlying soft tissues appear unremarkable. IMPRESSION: Cephalized pulmonary vessels, suggestive of mild pulmonary edema. Reviewed by: Silverio Walker on 04/17/2023 8:28 AM [facility] Approved by: Silverio Walker on 04/17/2023 8:28 AM [facility] Station ID: [id number]
--- NOTE | 2023-04-17 08:31 | XRAY Report ---
PROCEDURE: Hip w/Pelvis 2-3V LT INDICATIONS: fall on warfarin TECHNIQUE: AP pelvis with lateral view(s) of the left hip(s). COMPARISON: None. FINDINGS: Bones: No fractures or dislocations. No suspicious bony lesions. Nonuniform joint space narrowing of the left hip, with subchondral cystic change, early bony deformity and osteophytosis. Soft tissues: No suspicious soft tissue calcifications or masses. Calcified fibroids. IMPRESSION: No acute bony abnormality. If there remains a high clinical concern for fracture, including inability to bear weight, consider cross-sectional imaging to exclude an occult fracture. Findings are concordant with preliminary interpretation provided by [facility]. Reviewed by: Silverio Walker on 04/17/2023 8:30 AM [facility] Approved by: Silverio Walker on 04/17/2023 8:30 AM [facility] Station ID: [id number]
--- NOTE | 2023-04-17 08:32 | XRAY Report ---
PROCEDURE: Knee 3 View LT INDICATIONS: fall on warfarin TECHNIQUE: 3 views of the knee(s) were acquired. COMPARISON: None. FINDINGS: Bones: No fractures or dislocations. No suspicious bony lesions. Tricompartmental joint space saurabh rowing with associated osteophytosis. Soft tissues: Moderate knee joint effusion. No suspicious soft tissue calcifications or masses. IMPRESSION: Moderate knee joint effusion, without acute bony abnormality. If there remains a high clinical concer n for fracture, including inability to bear weight, consider cross-sectional imaging to exclude an oc cult fracture. Reviewed by: Silverio Walker on 04/17/2023 8:31 AM [facility] Approved by: Silverio Walker on 04/17/2023 8:31 AM [facility] Station ID: [id number]
--- NOTE | 2023-04-17 09:03 | CT Report ---
PROCEDURE: HEAD WO INDICATIONS: fall on warfarin TECHNIQUE: Noncontrast 4.5 mm thick angled axial sections acquired from the foramen magnum to the vertex. For r adiation dose reduction, the following was used: automated exposure control, adjustment of mA and/or kV according to patient size. COMPARISON: CT head 12/02/2022 FINDINGS: Image quality: Excellent. The ventricular system and cortical sulci demonstrate atrophy, consistent for patient's stated age. There are areas of hypodensity in the periventricular and subcortical white matter. There is no acut e intra or extra-axial fluid collection. No acute hemorrhage, mass lesion or midline shift. Brainst em is unremarkable. Globes are symmetrical. Sinuses demonstrate trace scattered mucosal thickening. Osseous structures ar e intact. IMPRESSION: 1. No acute intracranial process. 2. Moderate atrophy and chronic microvascular ischemic changes. Reviewed by: Delia Clement MD on 04/17/2023 9:01 AM PST Approved by: Delia Clement MD on 04/17/2023 9:01 AM PST Station ID: [id number]
--- NOTE | 2023-04-17 09:05 | CT Report ---
PROCEDURE: CERVICAL SPINE WO INDICATIONS: fall on warfarin TECHNIQUE: Noncontrast 3 mm thick sections acquired from the skull base to the T4 level. Sagittal and coronal r eformats were then constructed. For radiation dose reduction, the following was used: automated exp osure control, adjustment of mA and/or kV according to patient size. COMPARISON: CT cervical spine 12/02/2022 FINDINGS: Image quality: Excellent. Bones: No fractures or dislocations. Visualized superior ribs are intact. There is trace retrolist hesis of C2 on C3 as well as trace anterolisthesis of C4 on C5. These are unchanged. Multilevel degen erative disc space narrowing and anterior osteophytes are present most severe from C5 through C7. Soft tissues: Prevertebral soft tissues are normal in thickness. No paravertebral hematomas. No ap ical pneumothoraces. Minimal right effusion. IMPRESSION: Multilevel degenerative changes without visualized fracture. Reviewed by: Delia Clement MD on 04/17/2023 9:04 AM PST Approved by: Delia Clement MD on 04/17/2023 9:04 AM PST Station ID: [id number]
--- NOTE | 2023-04-17 09:17 | CT Report ---
PROCEDURE: ABDOMEN/PELVIS WO INDICATIONS: LOYDA / L hip pain TECHNIQUE: A CT scan of the abdomen and pelvis was performed without the use of intravenous contrast. Images we re recorded and evaluated at appropriate window settings. Reformats: coronal and sagittal. For radiat ion dose reduction, the following was used: automated exposure control, adjustment of mA and/or kV ac cording to patient size. COMPARISON: CT abdomen pelvis 01/01/2023 FINDINGS: Image quality: Excellent. Lung bases and heart: Mild right effusion. Liver: No solid mass. There is a very slight scalloped appearance of the liver margins. Gallbladder and biliary tree: Not visualized Spleen: Splenic calcifications are present. Pancreas: Prominent pancreatic atrophy. Adrenals: No adrenal nodule. Kidneys and ureters: No hydronephrosis. No renal cystic lesion which requires follow up. No solid mas s. Bilateral renal atrophy. Bowel and peritoneum: No bowel distension. Mild perihepatic and perisplenic fluid are present. In add ition, scattered ascites is noted within the abdomen and pelvis. Colonic diverticula are present with out visualized inflammatory change. Lymph nodes: No central or retroperitoneal adenopathy. Vessels: No infrarenal aortic aneurysm. PELVIS Reproductive organs: 3.1 cm calcification is present along the superior margin of the uterus suggesti ve of pedunculated calcified fibroid. Bladder: No wall thickness, accounting for underdistention. Pelvic lymph nodes: No pelvic adenopathy by size criteria. Bones: No aggressive osseous abnormality. Prominent arthritic changes are present bilaterally. It is most severe on the left with subchondral sclerosis and periarticular osteophytes. Other: No significant ventral or inguinal hernia. IMPRESSION: Abdominal and pelvic ascites with slight scalloped appearance of the liver suggestive of potential ea rly cirrhosis. Mild right effusion. Diverticulosis. Prominent left hip arthritic change. Reviewed by: Delia Clement MD on 04/17/2023 9:16 AM [facility] Approved by: Delia Clement MD on 04/17/2023 9:16 AM PST Station ID: [id number]
[2023-04-17 10:06] LABS: GLUCOSE, URINE (UA) NEGATIVE (NEGATIVE); KETONES,URINE (UA) TRACE mg/dL (NEGATIVE); LEUKOCYTE ESTERASE, URINE LARGE (NEGATIVE); NITRITE,URINE POSITIVE (NEGATIVE); OCCULT BLOOD,URINE LARGE (NEGATIVE); PROTEIN,URINE >=300 mg/dL (NEGATIVE); UROBILINOGEN,URINE 2 E.U./dL (NORMAL)
[2023-04-17 10:26] LABS: CLARITY,URINE CLOUDY (CLEAR)
[2023-04-17 10:27] LABS: BACTERIA,URINE Moderate /HPF (None Seen); RBC,URINE TNTC /HPF (0-5); SQUAMOUS EPITHELIAL CELL,UR NONE SEEN (<= Few); WBC CLUMPS,URINE PRESENT; WBC,URINE >25 /HPF (0-5)
[2023-04-17 10:28] LABS: BILIRUBIN,URINE NEGATIVE (NEGATIVE); ICTOTEST,URINE NEGATIVE
[2023-04-17] MEDS ORDERED: cefTRIAXone 1 GM in SODIUM CHLORIDE 0.9% MINIBAG 100 ML IV STA (10:28)
[2023-04-17] MEDS ORDERED: ONDANSETRON ODT 4 MG TABLET TL PRN (11:31)
[2023-04-17] MEDS ORDERED: SODIUM CHLORIDE FLUSH 0.9% 10 ML SYRINGE IVP PRN (11:31)
--- NOTE | 2023-04-17 12:34 | PHARMACY PROGRESS NOTE ---
- Best Possible Medication History Admit Date and Time: 04/17/23 1131 Processed by: Pharmacy Medication History completed: Yes Patient Interview: Completed Secondary Source(s): Other family member, Pharmacy records, Insurance records As the person ultimately responsible for medication therapy, providers are able to order a medication from an existing home medication list in [facility] via the "Reconcile Routine" prior to Confirmation of that medication by cryptologic support specialist. Such practice is discouraged except when the physician, in their clinical judgment, deems that a medical need exists for a medication without regard to previous use.
[2023-04-17] MEDS: LACTATED RINGERS 1,000 ML IV SCH ×2 (12:35→23:12)
--- NOTE | 2023-04-17 13:27 | HISTORY & PHYSICAL EXAMINATION ---
Chief Complaint - Chief Complaint Chief Complaint: Fall History of Present Illness - Admitted From Admitted From:: ED - History Obtained From Records Reviewed: Yes History obtained from: Patient and family Exam Limitations: None - History of Present Illness HPI Comment/Other: Patient is an 87-year-old female with a past medical history of chronic atrial fibrillation on warfarin, type 2 diabetes, hypertension, and arthritis who presented to the ED after sustaining a fall at home early this morning. Patient reports that her fall was mechanical in nature and that she was getting up to go get a drink of water and her left knee gave out resulting in a fall with head strike and no loss of consciousness. Upon presentation to the ED, she was noted to have a supratherapeutic INR of 3.5. CT head was performed showing no evidence of an intracranial bleed. There was evidence of chronic microvascular ischemic changes. X-rays were also performed of her knee and pelvis which did not show any obvious fractures. CT abdomen/pelvis did show evidence of potential early cirrhosis without any hip fractures. Lab work also showed an LOYDA with a creatinine of 2.4 with her baseline being near 1 as well as a UA suggestive of UTI. She was given a dose of IV ceftriaxone and IV fluids. During my evaluation, patient was nontoxic-appearing. Her daughter was at bedside. We did discuss CODE STATUS and she was listed as DNR. She denied any fever or chills. She states she has been having a lower appetite. No chest pain or shortness of breath. History - Past Medical History Cardiovascular: reports: Hypertension, High cholesterol, Atrial fibrillation Respiratory: reports: None Neuro: reports: Tremors Endocrine/Autoimmune: reports: Type 2 diabetes GI: reports: None : reports: Incontinence HEENT: reports: Chronic hearing loss Psych: reports: None Musculoskeletal: reports: Osteoarthritis Derm: reports: None MRSA Hx?: No - Past Surgical History HEENT: reports: Cataracts, Detached retina repair, Tonsil/Adenoidectomy Derm: reports: Debridement - Substance History Use: Uses substance without health or social issues: NONE Meds/Allgy - Home Medications Home Medications: Ambulatory Orders Medication Instructions Recorded Confirmed Enalapril Maleate [Vasotec] 20 mg PO DAILY 02/25/19 04/17/23 Metoprolol Succinate [Toprol Xl] 150 mg PO DAILY 02/25/19 04/17/23 Warfarin [Coumadin] 2 mg PO UD 02/25/19 04/17/23 Warfarin Sodium [Coumadin] 0.5 mg PO UD 12/02/22 04/17/23 metFORMIN [Glucophage] 500 mg PO BID #60 tab 12/09/22 04/17/23 Acetaminophen with Codeine 1 tab PO DAILY PRN 04/17/23 04/17/23 [Acetaminophen-Cod #3 Tablet] Ibuprofen [Motrin] 400 mg PO Q6H 04/17/23 04/17/23 glipiZIDE [Glucotrol] 5 mg PO BID 04/17/23 04/17/23 - Allergies Allergies/Adverse Reactions: Allergies Allergy/AdvReac Type Severity Reaction Status Date / Time calcium carbonate AdvReac Unknown Verified 12/01/22 23:39 [From Bufferin] lidocaine AdvReac Rash Verified 12/01/22 23:39 magnesium [From Bufferin] AdvReac Unknown Verified 12/01/22 23:39 Review of Systems - All Other Systems All Other Systems: reports: Reviewed and negative Prior Level of Functionality: Independent at home. Exam - Vital Signs Reviewed Vital Signs: Yes Vital Signs: Vital Signs x48h Temp Pulse Pulse Resp BP BP Pulse Ox 04/17/23 12:43 115 H 18 122/58 L 99 04/17/23 10:00 105 H 14 141/88 H 96 04/17/23 07:19 36.6 C 110 H 20 157/92 H 99 - Physical Exam General Appearance: positive: No acute distress, Alert, Mild distress Eyes Bilateral: positive: Normal inspection, PERRL ENT: positive: ENT inspection nml, Pharynx nml, No signs of dehydration Neck: positive: Nml inspection, Thyroid nml, No JVD, Trachea midline Respiratory: positive: Chest non-tender, No respiratory distress, Breath sounds nml Cardiovascular: positive: No murmur, No gallop, Irregularly irregular Peripheral Pulses: positive: 2+ Abdomen: positive: Non-tender, No organomegaly, Nml bowel sounds, No distention Back: positive: Nml inspection Skin: positive: Color nml, No rash, Warm, Dry Extremities: positive: Non-tender, Full ROM, Nml appearance Neurologic/Psychiatric: positive: Oriented x3, Mood/affect nml Comments/Other: Mild tenderness to palpation of left hip. Sepsis Event Note (H) - Evaluation Current Stage of Sepsis: Ruled out Conclusion/Plan - Problem List (1) UTI (urinary tract infection) Conclusion/Plan: --Continue with IV ceftriaxone. --Blood and urine cultures pending. (2) LOYDA (acute kidney injury) Conclusion/Plan: --Baseline creatinine is near 1. We will continue with IV fluids. CT abdomen/p marii did not show any evidence of obstruction. This is likely prerenal in nature. -- Holding all nephrotoxic agents including home enalapril and metformin. Can likely resume when renal function returns to normal. (3) Anticoagulant long-term use Conclusion/Plan: --INR is elevated at 3.5. Patient reports that she does not check her INR regularly. We will consult pharmacy to help manage her warfarin. Goal INR is between 2 and 3 for chronic atrial fibrillation. (4) Chronic atrial fibrillation Conclusion/Plan: --Continue home metoprolol for chronic atrial fibrillation. As mentioned above her INR is supratherapeutic. We will bring down to a goal of 2-3. (5) Left hip pain Conclusion/Plan: --CT abdomen/pelvis not show any evidence of fracture. We will consult physical therapy and Occupational Therapy given patient had a fall at home. (6) Cirrhosis Conclusion/Plan: --Unclear exact etiology. CT abdomen/pelvis does show evidence of early cirrhosis which is not present on previous abdominal imaging studies. Patient does not have a history of alcohol use. Possibly related to metabolic disease given her type 2 diabetes. (7) Type 2 diabetes mellitus Conclusion/Plan: -- A1c is currently pending. -- We will start her on sliding scale insulin. --Glipizide and metformin have been held while inpatient. - Lab Results Lab results reviewed: Yes Fish Bones: 04/17/23 07:32 04/17/23 07:32 - Diagnostic Imaging Results Diagnostic Imaging Results: positive: Final report reviewed Core Measures - DVT/VTE - Prophylaxis VTE/DVT Device ordered at admit?: No Not Ordered - Medical Reason: Not indicated (Already on Warfarin)
[2023-04-17] MEDS: HYDROcod/ACETAM 5/325 MG TABLET PO PRN (14:15)
[2023-04-17] MEDS: INSULIN LISPRO 300 UNIT/3 ML PEN SUBQ SCH ×2 (19:00→21:44)
[2023-04-17] MEDS: SODIUM CHLORIDE FLUSH 0.9% 10 ML SYRINGE IVP SCH (19:02)
[2023-04-17] MEDS: HEPARIN 5,000 UNIT/ML VIAL SUBQ SCH (21:44)
[2023-04-17] MEDS: NYSTATIN CREAM 15 GM TUBE TOP SCH (21:48)
[2023-04-18 05:17] LABS: BASOPHILS % (AUTO) 0.7 %; EOSINOPHILS # (AUTO) 0.2 10^3/uL (0.0-0.7); EOSINOPHILS % (AUTO) 2.7 %; HCT - HEMATOCRIT 35.7 % (37.0-47.0); HGB - HEMOGLOBIN 10.8 g/dL (12.0-16.0); LYMPHOCYTES # (AUTO) 0.5 10^3/uL (1.5-3.5); LYMPHOCYTES % (AUTO) 8.3 %; MEAN CORPUSCULAR HGB CONC 30.3 g/dL (32.0-36.0); MEAN CORPUSCULAR VOLUME 99.2 fL (81.0-99.0); MEAN PLATELET VOLUME 10.4 fL (7.9-10.8); MONOCYTES # (AUTO) 0.7 10^3/uL (0.0-1.0); MONOCYTES % (AUTO) 11.9 %; NEUTROPHILS # (AUTO) 4.5 10^3/uL (1.5-6.6); NEUTROPHILS % (AUTO) 76.1 %; PLT - PLATELET COUNT 114 10^3/uL (130-450); RED CELL DISTRIBUTION WIDTH 19.3 % (12.0-15.0); WHITE BLOOD COUNT 5.9 x10^3/uL (4.8-10.8)
[2023-04-18 05:38] LABS: CALCIUM 8.7 mg/dL (8.5-10.3); CREATININE 2.4 mg/dL (0.6-1.3); POTASSIUM 4.6 mmol/L (3.5-4.5)
[2023-04-18] MEDS: SODIUM CHLORIDE FLUSH 0.9% 10 ML SYRINGE IVP SCH ×3 (05:53→16:38)
[2023-04-18] MEDS: INSULIN LISPRO 300 UNIT/3 ML PEN SUBQ SCH ×4 (08:26→21:59)
[2023-04-18] MEDS: METOPROLOL SUCCINATE 50 MG TABLET PO SCH (08:28)
[2023-04-18] MEDS: SODIUM CHLORIDE 0.9% 1,000 ML IV SCH ×2 (08:38→20:17)
[2023-04-18] MEDS: cefTRIAXone 2 GM in SODIUM CHLORIDE 0.9% MINIBAG 100 ML IV SCH (08:38)
[2023-04-18] MEDS: HEPARIN 5,000 UNIT/ML VIAL SUBQ SCH ×2 (08:49→20:37)
--- NOTE | 2023-04-18 11:13 | PROVIDER PROGRESS NOTE ---
Assessment/Plan - Problem List (1) UTI (urinary tract infection) Assessment/Plan: (1) UTI (urinary tract infection) Conclusion/Plan: --Continue with IV ceftriaxone. --Urine culture showing E. coli (2) LOYDA (acute kidney injury) Conclusion/Plan: --Baseline creatinine is near 1. We will continue with IV fluids. CT abdomen/pelvis did not show any evidence of obstruction. This is likely prerenal in nature. -- Holding all nephrotoxic agents including home enalapril and metformin. Can likely resume when renal function returns to normal. --Low UOP overnight. Bladder scan showed 90 mL. She is oliguric thus far. (3) Anticoagulant long-term use Conclusion/Plan: --INR is elevated at 3.5. Patient reports that she does not check her INR regularly. We will consult pharmacy to help manage her warfarin. Goal INR is between 2 and 3 for chronic atrial fibrillation. (4) Chronic atrial fibrillation Conclusion/Plan: --Continue home metoprolol for chronic atrial fibrillation. As mentioned above her INR is supratherapeutic. We will bring down to a goal of 2-3. (5) Left hip pain Conclusion/Plan: --CT abdomen/pelvis not show any evidence of fracture. We will consult physical therapy and Occupational Therapy given patient had a fall at home. (6) Cirrhosis Conclusion/Plan: --Unclear exact etiology. CT abdomen/pelvis does show evidence of early cirrhosis which is not present on previous abdominal imaging studies. Patient does not have a history of alcohol use. Possibly related to metabolic disease given her type 2 diabetes. (7) Type 2 diabetes mellitus Conclusion/Plan: -- A1c is currently pending. -- We will start her on sliding scale insulin. --Glipizide and metformin have been held while inpatient. (8) Blister Assessment/Plan: --Blistering on the bottom of her feet. This was wrapped. Will arrange for an outpatient wound care referral on discharge. - Current Meds Current Meds: Current Medications Generic Name Dose Route Start Last Admin Trade Name Freq PRN Reason Stop Dose Admin Hydrocodone Bitart/Acetaminophen 1 tab 04/17/23 11:31 04/17/23 14:15 Hydrocod/Acetam 5/325 Mg Tablet PO 1 tab Q4HR PRN Administration Pain 5 to 7 Heparin Sodium (Porcine) 5,000 unit 04/17/23 21:00 11/09/23 08:49 Heparin 5,000 Unit/Ml Vial SUBQ 5,000 unit BID IWONA Administration Ceftriaxone Sodium 2 gm/ 100 mls @ 200 mls/hr 04/18/23 09:00 04/18/23 11:09 Sodium Chloride IV 04/21/23 09:29 Infused DAILY IWONA Infusion Sodium Chloride 1,000 mls @ 100 mls/hr 04/18/23 08:00 04/18/23 08:38 Normal Saline 0.9% IV 04/18/23 19:59 100 mls/hr .Q10H IWONA Administration Insulin Human Lispro 1 - 5 unit 04/17/23 17:00 04/18/23 11:10 Insulin Lispro 300 Unit/3 Ml Pen SUBQ Not Given 0800,1200,1700,2100 [facility] Protocol Metoprolol Succinate 150 mg 04/18/23 09:00 04/18/23 08:28 Metoprolol Succinate 50 Mg Tablet PO 150 mg DAILY IWONA Administration Nystatin 1 applic 04/17/23 21:00 04/17/23 21:48 Nystatin Cream 15 Gm Tube TOP 1 applic BID IWONA Administration Sodium Chloride 10 ml 04/17/23 17:00 04/18/23 08:28 Sodium Chloride Flush 0.9% 10 Ml Syringe IVP 10 ml 0100,0900,1700 IWONA Administration - Lab Result Fish Bone Diagrams: 04/18/23 04:46 04/18/23 04:46 - Additional Planning My Orders: My Active Orders 04/17/23 Lunch Regular Diet [DIET] 04/17/23 11:31 Activity Orders [RC] Q2HR IO [RC] IOSHIFT Initiate Bowel Care Protocol [RC] .protocol Initiate Line Care Protocol [RC] QSHIFT Initiate Personal Care Protoco [RC] .protocol Vital Signs [RC] 0800,1600,0000 Acetaminophen [Tylenol] 650 mg PO Q4HR PRN HYDROcod/ACETAM 5/325 [[place] 5/325] 1 tab PO Q4HR PRN Ondansetron Odt [Zofran Odt] 4 mg TL Q6HR PRN Sodium Chloride Flush 0.9% [Normal Saline Flush 0.9%] 10 ml IVP PRN PRN Code Status [OTHERS] Routine Condition of Patient [OTHERS] Routine DVT Prophylaxis [OTHERS] Routine 04/17/23 11:33 Evaluate and Treat OT [OT] Routine Evaluate and Treat PT [PT] Routine 04/17/23 11:54 CULTURE, BLOOD #1 [RM] Stat 04/17/23 11:56 CULTURE, BLOOD #2 [RM] Stat 04/17/23 12:55 Blood Glucose Checks - Eating [RC] 0800,1200,1700,2100 Initiate Hypoglycemia Protocol [RC] .protocol 04/17/23 13:12 Code Status [OTHERS] Routine 04/17/23 17:00 Insulin Lispro [Humalog Kwikpen U-100] 1 - 5 unit SUBQ 0800,1200,1700,2100 Sodium Chloride Flush 0.9% [Normal Saline Flush 0.9%] 10 ml IVP 0100,0900,1700 04/17/23 21:00 Heparin [Heparin Sodium (Porcine)] 5,000 unit SUBQ BID Nystatin Cream [Mycostatin Cream] 1 applic TOP BID 04/18/23 07:20 Bladder Scan [RC] ONCE 04/18/23 08:00 Sodium Chloride 0.9% [Normal Saline 0.9%] 1,000 ml IV 100 mls/hr 04/18/23 09:00 Metoprolol Succinate [Toprol Xl] 150 mg PO DAILY cefTRIAXone [Rocephin] 2 gm Sodium Chloride 0.9% Minibag [Normal Saline 0.9% Minibag] 100 ml IV DAILY 04/19/23 05:00 BMP - BASIC METABOLIC PANEL [CHEM] DAILYLAB CBC [CBC - COMP BLD CT W/AUTO DIFF] [HEME] DAILYLAB 04/20/23 05:00 BMP - BASIC METABOLIC PANEL [CHEM] DAILYLAB CBC [CBC - COMP BLD CT W/AUTO DIFF] [HEME] DAILYLAB 04/21/23 05:00 BMP - BASIC METABOLIC PANEL [CHEM] DAILYLAB CBC [CBC - COMP BLD CT W/AUTO DIFF] [HEME] DAILYLAB 04/22/23 05:00 BMP - BASIC METABOLIC PANEL [CHEM] DAILYLAB CBC [CBC - COMP BLD CT W/AUTO DIFF] [HEME] DAILYLAB Subjective - Subjective Patient Reports: Feeling Better, Resting Comfortably, No Complaints (Low urine output. We did a bladder scan for 90 mL. She was able to urinate however likely needs continued IV hydration. No fever or chills.) Objective Vital Signs: Vital Signs - 24 hr 04/17/23 04/17/23 04/17/23 12:43 14:57 15:00 Temperature Heart Rate [ 140 H 140 H Activity] Heart Rate [ Brachial] Heart Rate [ 115 H Monitoring electrodes] Heart Rate [ 93 93 Supine] Respiratory 18 Rate Blood Pressure 151/129 H 151/129 H [Activity] Blood Pressure 122/58 L [Right Brachial artery] Blood Pressure 129/55 L 129/55 L [Supine] O2 Saturation 99 O2 Saturation [ 95 Activity] O2 Saturation [ 96 Supine] 04/17/23 04/17/23 04/18/23 21:33 23:47 04:20 Temperature 36.3 C L 36.4 C L 36.4 C L Heart Rate [ Activity] Heart Rate [ 110 H 115 H Brachial] Heart Rate [ 115 H Monitoring electrodes] Heart Rate [ Supine] Respiratory 22 18 20 Rate Blood Pressure [Activity] Blood Pressure 175/64 H 145/54 H 136/57 H [Right Brachial artery] Blood Pressure [Supine] O2 Saturation 97 97 95 O2 Saturation [ Activity] O2 Saturation [ Supine] 04/18/23 07:30 Temperature 36.3 C L Heart Rate [ Activity] Heart Rate [ 123 H Brachial] Heart Rate [ Monitoring electrodes] Heart Rate [ Supine] Respiratory 18 Rate Blood Pressure [Activity] Blood Pressure 134/52 H [Right Brachial artery] Blood Pressure [Supine] O2 Saturation 97 O2 Saturation [ Activity] O2 Saturation [ Supine] Oxygen O2 Source Room air I&O (Last 24 Hrs): Intake and Output Totals x24h 04/16/23 04/17/23 04/18/23 23:59 23:59 23:59 Intake Total 3180 220 Output Total 200 60 Balance 2980 160 General: Alert, Oriented x3, Cooperative, No acute distress Neuro: Alert, CN 2-12 Grossly Intact, Oriented Times 3 Cardiovascular: Normal S1, Normal S2, No murmurs Respiratory: Chest non-tender, No respiratory distress, Breath sounds nml Abdomen: Normal bowel sounds, Soft, No tenderness, No hepatospenomegaly, No masses Skin: No rashes (Blistering on her feet. They are wrapped.) - Results Results: Laboratory Results WBC 5.9 x10^3/uL (4.8-10.8) 04/18/23 04:46 RBC 3.60 10^6/uL (4.20-5.40) L 04/18/23 04:46 Hgb 10.8 g/dL (12.0-16.0) L 04/18/23 04:46 Hct 35.7 % (37.0-47.0) L 04/18/23 04:46 MCV 99.2 fL (81.0-99.0) H 04/18/23 04:46 MCH 30.0 pg (27.0-31.0) 04/18/23 04:46 MCHC 30.3 g/dL (32.0-36.0) L 04/18/23 04:46 RDW 19.3 % (12.0-15.0) H 04/18/23 04:46 Plt Count 114 10^3/uL (130-450) L 04/18/23 04:46 MPV 10.4 fL (7.9-10.8) 04/18/23 04:46 Neut # (Auto) 4.5 10^3/uL (1.5-6.6) 04/18/23 04:46 Lymph # (Auto) 0.5 10^3/uL (1.5-3.5) L 04/18/23 04:46 [place] # (Auto) 0.7 10^3/uL (0.0-1.0) 04/18/23 04:46 Eos # (Auto) 0.2 10^3/uL (0.0-0.7) 04/18/23 04:46 Baso # (Auto) 0.0 10^3/uL (0.0-0.1) 04/18/23 04:46 Absolute Nucleated RBC 0.00 x10^3/uL 04/18/23 04:46 Nucleated RBC % 0.0 /100WBC 04/18/23 04:46 PT 35.1 secs (9.9-12.6) H 04/17/23 07:32 INR 3.5 (0.8-1.2) H 04/17/23 07:32 Sodium 141 mmol/L (135-145) 04/18/23 04:46 Potassium 4.6 mmol/L (3.5-4.5) H 04/18/23 04:46 Chloride 111 mmol/L (101-111) 04/18/23 04:46 Carbon Dioxide 23 mmol/L (21-32) 04/18/23 04:46 Anion Gap 7.0 (6-13) 04/18/23 04:46 BUN 82 mg/dL (6-20) H* 04/18/23 04:46 Creatinine 2.4 mg/dL (0.6-1.3) H 04/18/23 04:46 Estimated GFR (MDRD) 19 (>89) L 04/18/23 04:46 Glucose 106 mg/dL (74-104) H 04/18/23 04:46 POC Whole Bld Glucose 114 mg/dL (70 - 100) H 04/18/23 11:02 Calcium 8.7 mg/dL (8.5-10.3) 04/18/23 04:46 Total Bilirubin 2.0 mg/dL (0.2-1.0) H 04/17/23 07:32 AST 21 IU/L (10-42) 04/17/23 07:32 ALT 17 IU/L (10-60) 04/17/23 07:32 Alkaline Phosphatase 105 IU/L (42-121) 04/17/23 07:32 Total Protein 7.2 g/dL (6.4-8.9) 04/17/23 07:32 Albumin 3.6 g/dL (3.2-5.5) 04/17/23 07:32 Globulin 3.6 g/dL (2.1-4.2) 04/17/23 07:32 Albumin/Globulin Ratio 1.0 (1.0-2.2) 04/17/23 07:32 Urine Color RED/BLOODY 04/17/23 09:50 Urine Clarity CLOUDY (CLEAR) 04/17/23 09:50 Urine pH 5.0 PH (5.0-7.5) 04/17/23 09:50 Ur Specific [place] 1.020 (1.002-1.030) 04/17/23 09:50 Urine Protein >=300 mg/dL (NEGATIVE) H 04/17/23 09:50 Urine Glucose (UA) NEGATIVE mg/dL (NEGATIVE) 04/17/23 09:50 Urine Ketones TRACE mg/dL (NEGATIVE) 04/17/23 09:50 Urine Occult Blood LARGE (NEGATIVE) H 04/17/23 09:50 Urine Nitrite POSITIVE (NEGATIVE) H 04/17/23 09:50 Urine Bilirubin NEGATIVE (NEGATIVE) 04/17/23 09:50 Urine Urobilinogen 2 E.U./dL (NORMAL) H 04/17/23 09:50 Ur Leukocyte Esterase LARGE (NEGATIVE) H 04/17/23 09:50 Urine RBC TNTC /HPF (0-5) H 04/17/23 09:50 Urine WBC >25 /HPF (0-5) H 04/17/23 09:50 Urine WBC Clumps PRESENT 04/17/23 09:50 Ur Squamous Epith Cells NONE SEEN (<= Few) 04/17/23 09:50 Urine Bacteria Moderate /HPF (None Seen) H 04/17/23 09:50 Ur Microscopic Review INDICATED 04/17/23 09:50 Urine Culture Comments INDICATED 04/17/23 09:50 - Procedures Procedures: Procedures REPLACEMENT OF RIGHT LENS WITH SYNTH SUB, PERC APPROACH (02/26/19) Sepsis Event Note (H) - Evaluation Current Stage of Sepsis: Ruled out Current Medications - Current Medications Current Medications: Active Medications Generic Name Dose Route Start Last Admin Trade Name Freq PRN Reason Stop Dose Admin Acetaminophen 650 mg 04/17/23 11:31 Acetaminophen 325 Mg Tablet PO Q4HR PRN Pain 1 to 4, or Fever Hydrocodone Bitart/Acetaminophen 1 tab 04/17/23 11:31 04/17/23 14:15 Hydrocod/Acetam 5/325 Mg Tablet PO 1 tab Q4HR PRN Administration Pain 5 to 7 Heparin Sodium (Porcine) 5,000 unit 04/17/23 21:00 04/18/23 08:49 Heparin 5,000 Unit/Ml Vial SUBQ 5,000 unit BID IWONA Administration Ceftriaxone Sodium 2 gm/ 100 mls @ 200 mls/hr 04/18/23 09:00 04/18/23 11:09 Sodium Chloride IV 04/21/23 09:29 Infused DAILY IWONA Infusion Sodium Chloride 1,000 mls @ 100 mls/hr 04/18/23 08:00 04/18/23 08:38 Normal Saline 0.9% IV 04/18/23 19:59 100 mls/hr .Q10H IWONA Administration Insulin Human Lispro 1 - 5 unit 04/17/23 17:00 04/18/23 11:10 Insulin Lispro 300 Unit/3 Ml Pen SUBQ Not Given 0800,1200,1700,2100 [facility] Protocol Metoprolol Succinate 150 mg 04/18/23 09:00 04/18/23 08:28 Metoprolol Succinate 50 Mg Tablet PO 150 mg DAILY IWONA Administration Nystatin 1 applic 04/17/23 21:00 04/17/23 21:48 Nystatin Cream 15 Gm Tube TOP 1 applic BID IWONA Administration Ondansetron HCl 4 mg 04/17/23 11:31 Ondansetron Odt 4 Mg Tablet TL Q6HR PRN Nausea / Vomiting Sodium Chloride 10 ml 04/17/23 11:31 Sodium Chloride Flush 0.9% 10 Ml Syringe IVP PRN PRN NEEDED PER PROVIDER ORDERS Sodium Chloride 10 ml 04/17/23 17:00 04/18/23 08:28 Sodium Chloride Flush 0.9% 10 Ml Syringe IVP 10 ml 0100,0900,1700 IWONA Administration Enalapril Maleate [Vasotec] 20 mg PO DAILY 02/25/19 Metoprolol Succinate [Toprol Xl] 150 mg PO DAILY 02/25/19 Warfarin [Coumadin] 2 mg PO UD 02/25/19 Warfarin Sodium [Coumadin] 0.5 mg PO UD 12/02/22 Acetaminophen with Codeine [Acetaminophen-Cod #3 Tablet] 1 tab PO DAILY PRN 04/17/23 Ibuprofen [Motrin] 400 mg PO Q6H 04/17/23 glipiZIDE [Glucotrol] 5 mg PO BID 04/17/23
[2023-04-18] MEDS: NYSTATIN CREAM 15 GM TUBE TOP SCH ×2 (14:49→20:38)
[2023-04-18] MEDS: MULTIVITAMIN W/MINERALS TABLET PO SCH (16:38)
[2023-04-18] MEDS: ACETAMINOPHEN 325 MG TABLET PO PRN (20:37)
[2023-04-19] MEDS: SODIUM CHLORIDE FLUSH 0.9% 10 ML SYRINGE IVP SCH ×3 (01:16→16:55)
[2023-04-19 05:05] LABS: BASOPHILS # (AUTO) 0.1 10^3/uL (0.0-0.1); BASOPHILS % (AUTO) 0.9 %; EOSINOPHILS # (AUTO) 0.2 10^3/uL (0.0-0.7); EOSINOPHILS % (AUTO) 3.1 %; HCT - HEMATOCRIT 37.9 % (37.0-47.0); HGB - HEMOGLOBIN 11.3 g/dL (12.0-16.0); LYMPHOCYTES # (AUTO) 0.5 10^3/uL (1.5-3.5); LYMPHOCYTES % (AUTO) 9.2 %; MEAN CORPUSCULAR HEMOGLOBIN 30.1 pg (27.0-31.0); MEAN CORPUSCULAR HGB CONC 29.8 g/dL (32.0-36.0); MEAN CORPUSCULAR VOLUME 101.1 fL (81.0-99.0); MEAN PLATELET VOLUME 10.4 fL (7.9-10.8); MONOCYTES # (AUTO) 0.8 10^3/uL (0.0-1.0); MONOCYTES % (AUTO) 13.8 %; NEUTROPHILS % (AUTO) 72.6 %; NRBC ABSOLUTE COUNT (AUTO) 0.02 x10^3/uL; NUCLEATED RED BLOOD CELLS AUTO 0.4 /100WBC; PLT - PLATELET COUNT 109 10^3/uL (130-450); RED BLOOD COUNT 3.75 10^6/uL (4.20-5.40); RED CELL DISTRIBUTION WIDTH 19.3 % (12.0-15.0); WHITE BLOOD COUNT 5.5 x10^3/uL (4.8-10.8)
[2023-04-19 05:31] LABS: CALCIUM 8.4 mg/dL (8.5-10.3); CREATININE 2.5 mg/dL (0.6-1.3)
[2023-04-19] MEDS ORDERED: SODIUM ZIRCONIUM CYCLOSILICATE 5 GM PACKET PO ONE (08:00)
[2023-04-19] MEDS: INSULIN LISPRO 300 UNIT/3 ML PEN SUBQ SCH ×4 (08:00→21:36)
[2023-04-19] MEDS: MULTIVITAMIN W/MINERALS TABLET PO SCH (09:36)
[2023-04-19] MEDS: cefTRIAXone 2 GM in SODIUM CHLORIDE 0.9% MINIBAG 100 ML IV SCH (09:36)
[2023-04-19] MEDS: SODIUM CHLORIDE 0.9% 1,000 ML IV SCH ×2 (09:36→21:47)
[2023-04-19] MEDS: METOPROLOL SUCCINATE 50 MG TABLET PO SCH (09:37)
[2023-04-19] MEDS: NYSTATIN CREAM 15 GM TUBE TOP SCH ×2 (09:40→21:42)
[2023-04-19] MEDS: HEPARIN 5,000 UNIT/ML VIAL SUBQ SCH ×2 (09:40→21:36)
[2023-04-19 11:02] LABS: INR 3.3 (0.8-1.2); PT - PROTHROMBIN TIME 33.8 secs (9.9-12.6)
--- NOTE | 2023-04-19 17:28 | PROVIDER PROGRESS NOTE ---
Assessment/Plan - Problem List (1) UTI (urinary tract infection) Assessment/Plan: (1) UTI (urinary tract infection) Assessment/Plan: (1) UTI (urinary tract infection) Conclusion/Plan: --Continue with IV ceftriaxone. --Urine culture showing pansensitive E. coli (2) LOYDA (acute kidney injury) Conclusion/Plan: --Baseline creatinine is near 1. We will continue with IV fluids. CT abdomen/pelvis did not show any evidence of obstruction. This is likely prerenal in nature. -- Holding all nephrotoxic agents including home enalapril and metformin. Can likely resume when renal function returns to normal. (3) Anticoagulant long-term use Conclusion/Plan: --INR is elevated at 3.5. Patient reports that she does not check her INR regularly. We will consult pharmacy to help manage her warfarin. Goal INR is between 2 and 3 for chronic atrial fibrillation. (4) Chronic atrial fibrillation Conclusion/Plan: --Continue home metoprolol for chronic atrial fibrillation. As mentioned above her INR is supratherapeutic. We will bring down to a goal of 2-3. (5) Left hip pain Conclusion/Plan: --CT abdomen/pelvis not show any evidence of fracture. --PT/OT recommending SNF. She would like to go to [facility]. (6) Cirrhosis Conclusion/Plan: --Unclear exact etiology. CT abdomen/pelvis does show evidence of early cirrhosis which is not present on previous abdominal imaging studies. Patient does not have a history of alcohol use. Possibly related to metabolic disease given her type 2 diabetes. (7) Type 2 diabetes mellitus Conclusion/Plan: -- A1c is currently pending. -- We will start her on sliding scale insulin. --Glipizide and metformin have been held while inpatient. (8) Blister Assessment/Plan: --Blistering on the bottom of her feet. This was wrapped. Will arrange for an outpatient wound care referral on discharge. - Current Meds Current Meds: Current Medications Generic Name Dose Route Start Last Admin Trade Name Freq PRN Reason Stop Dose Admin Acetaminophen 650 mg 04/17/23 11:31 04/18/23 20:37 Acetaminophen 325 Mg Tablet PO 650 mg Q4HR PRN Administration Pain 1 to 4, or Fever Hydrocodone Bitart/Acetaminophen 1 tab 04/17/23 11:31 04/17/23 14:15 Hydrocod/Acetam 5/325 Mg Tablet PO 1 tab Q4HR PRN Administration Pain 5 to 7 Heparin Sodium (Porcine) 5,000 unit 04/17/23 21:00 04/19/23 09:40 Heparin 5,000 Unit/Ml Vial SUBQ 5,000 unit BID IWONA Administration Ceftriaxone Sodium 2 gm/ 100 mls @ 200 mls/hr 04/18/23 09:00 04/19/23 10:10 Sodium Chloride IV 04/21/23 09:29 Infused DAILY IWONA Infusion Sodium Chloride 1,000 mls @ 83.333 mls/hr 04/19/23 08:00 04/19/23 14:21 Normal Saline 0.9% IV 83.3 mls/hr .Q12H IWONA Infusion Insulin Human Lispro 1 - 5 unit 04/17/23 17:00 04/19/23 16:55 Insulin Lispro 300 Unit/3 Ml Pen SUBQ Not Given 0800,1200,1700,2100 [facility] Protocol Metoprolol Succinate 150 mg 04/18/23 09:00 04/19/23 09:37 Metoprolol Succinate 50 Mg Tablet PO 150 mg DAILY IWONA Administration Multivitamins/Minerals 1 tab 04/18/23 15:00 04/19/23 09:36 Multivitamin W/Minerals Tablet PO 1 tab DAILYWM IWONA Administration Nystatin 1 applic 04/17/23 21:00 04/19/23 09:40 Nystatin Cream 15 Gm Tube TOP 1 applic BID IWONA Administration Sodium Chloride 10 ml 04/17/23 17:00 04/19/23 16:55 Sodium Chloride Flush 0.9% 10 Ml Syringe IVP 10 ml 0100,0900,1700 IWONA Administration - Lab Result Fish Bone Diagrams: 04/19/23 04:52 04/19/23 04:52 - Additional Planning My Orders: My Active Orders 04/19/23 08:00 Sodium Chloride 0.9% [Normal Saline 0.9%] 1,000 ml IV 83.333 mls/hr 04/20/23 05:00 BMP - BASIC METABOLIC PANEL [CHEM] DAILYLAB CBC [CBC - COMP BLD CT W/AUTO DIFF] [HEME] DAILYLAB 04/21/23 05:00 BMP - BASIC METABOLIC PANEL [CHEM] DAILYLAB CBC [CBC - COMP BLD CT W/AUTO DIFF] [HEME] DAILYLAB 04/22/23 05:00 BMP - BASIC METABOLIC PANEL [CHEM] DAILYLAB CBC [CBC - COMP BLD CT W/AUTO DIFF] [HEME] DAILYLAB Subjective - Subjective Patient Reports: No Complaints (She denies any abdominal pain , fever, chills. Urine output remains a little low. Will continue IV fluids through the night.), Fatigue Objective Vital Signs: Vital Signs - 24 hr 04/19/23 04/19/23 04/19/23 01:18 07:30 09:34 Temperature 36.2 C L 36.2 C L Heart Rate [ 85 94 87 Brachial] Respiratory 17 16 Rate Blood Pressure 114/57 L 139/99 H 127/69 [Left Brachial artery] O2 Saturation 97 98 04/19/23 15:24 Temperature 33.6 C L Heart Rate [ 82 Brachial] Respiratory 16 Rate Blood Pressure 130/62 [Left Brachial artery] O2 Saturation 100 Oxygen O2 Source Room air I&O (Last 24 Hrs): Intake and Output Totals x24h 04/17/23 04/18/23 04/19/23 23:59 23:59 23:59 Intake Total 3180 1910 1161.527 Output Total 200 260 325 Balance 2980 1650 836.527 General: Alert, Oriented x3, Cooperative, No acute distress Neuro: Alert, CN 2-12 Grossly Intact, Oriented Times 3 Cardiovascular: Regular rate, Normal S1, Normal S2, No murmurs Respiratory: Chest non-tender, No respiratory distress, Breath sounds nml Abdomen: Normal bowel sounds, Soft, No tenderness, No hepatospenomegaly, No masses - Results Results: Laboratory Results WBC 5.5 x10^3/uL (4.8-10.8) 04/19/23 04:52 RBC 3.75 10^6/uL (4.20-5.40) L 04/19/23 04:52 Hgb 11.3 g/dL (12.0-16.0) L 04/19/23 04:52 Hct 37.9 % (37.0-47.0) 04/19/23 04:52 MCV 101.1 fL (81.0-99.0) H 04/19/23 04:52 MCH 30.1 pg (27.0-31.0) 04/19/23 04:52 MCHC 29.8 g/dL (32.0-36.0) L 04/19/23 04:52 RDW 19.3 % (12.0-15.0) H 04/19/23 04:52 Plt Count 109 10^3/uL (130-450) L 04/19/23 04:52 MPV 10.4 fL (7.9-10.8) 04/19/23 04:52 Neut # (Auto) 4.0 10^3/uL (1.5-6.6) 04/19/23 04:52 Lymph # (Auto) 0.5 10^3/uL (1.5-3.5) L 04/19/23 04:52 [place] # (Auto) 0.8 10^3/uL (0.0-1.0) 04/19/23 04:52 Eos # (Auto) 0.2 10^3/uL (0.0-0.7) 04/19/23 04:52 Baso # (Auto) 0.1 10^3/uL (0.0-0.1) 04/19/23 04:52 Absolute Nucleated RBC 0.02 x10^3/uL 04/19/23 04:52 Nucleated RBC % 0.4 /100WBC 04/19/23 04:52 PT 33.8 secs (9.9-12.6) H 04/19/23 10:50 INR 3.3 (0.8-1.2) H 04/19/23 10:50 Sodium 138 mmol/L (135-145) 04/19/23 04:52 Potassium 5.0 mmol/L (3.5-4.5) H 04/19/23 04:52 Chloride 111 mmol/L (101-111) 04/19/23 04:52 Carbon Dioxide 20 mmol/L (21-32) L 04/19/23 04:52 Anion Gap 7.0 (6-13) 04/19/23 04:52 BUN 81 mg/dL (6-20) H* 04/19/23 04:52 Creatinine 2.5 mg/dL (0.6-1.3) H 04/19/23 04:52 Estimated GFR (MDRD) 18 (>89) L 04/19/23 04:52 Glucose 87 mg/dL (74-104) 04/19/23 04:52 POC Whole Bld Glucose 137 mg/dL (70 - 100) H 04/19/23 16:45 Calcium 8.4 mg/dL (8.5-10.3) L 04/19/23 04:52 Total Bilirubin 2.0 mg/dL (0.2-1.0) H 04/17/23 07:32 AST 21 IU/L (10-42) 04/17/23 07:32 ALT 17 IU/L (10-60) 04/17/23 07:32 Alkaline Phosphatase 105 IU/L (42-121) 04/17/23 07:32 Total Protein 7.2 g/dL (6.4-8.9) 04/17/23 07:32 Albumin 3.6 g/dL (3.2-5.5) 04/17/23 07:32 Globulin 3.6 g/dL (2.1-4.2) 04/17/23 07:32 Albumin/Globulin Ratio 1.0 (1.0-2.2) 04/17/23 07:32 Urine Color RED/BLOODY 04/17/23 09:50 Urine Clarity CLOUDY (CLEAR) 04/17/23 09:50 Urine pH 5.0 PH (5.0-7.5) 04/17/23 09:50 Ur Specific [place] 1.020 (1.002-1.030) 04/17/23 09:50 Urine Protein >=300 mg/dL (NEGATIVE) H 04/17/23 09:50 Urine Glucose (UA) NEGATIVE mg/dL (NEGATIVE) 04/17/23 09:50 Urine Ketones TRACE mg/dL (NEGATIVE) 04/17/23 09:50 Urine Occult Blood LARGE (NEGATIVE) H 04/17/23 09:50 Urine Nitrite POSITIVE (NEGATIVE) H 04/17/23 09:50 Urine Bilirubin NEGATIVE (NEGATIVE) 04/17/23 09:50 Urine Urobilinogen 2 E.U./dL (NORMAL) H 04/17/23 09:50 Ur Leukocyte Esterase LARGE (NEGATIVE) H 04/17/23 09:50 Urine RBC TNTC /HPF (0-5) H 04/17/23 09:50 Urine WBC >25 /HPF (0-5) H 04/17/23 09:50 Urine WBC Clumps PRESENT 04/17/23 09:50 Ur Squamous Epith Cells NONE SEEN (<= Few) 04/17/23 09:50 Urine Bacteria Moderate /HPF (None Seen) H 04/17/23 09:50 Ur Microscopic Review INDICATED 04/17/23 09:50 Urine Culture Comments INDICATED 04/17/23 09:50 - Procedures Procedures: Procedures REPLACEMENT OF RIGHT LENS WITH SYNTH SUB, PERC APPROACH (02/26/19) Sepsis Event Note (H) - Evaluation Current Stage of Sepsis: Ruled out Current Medications - Current Medications Current Medications: Active Medications Generic Name Dose Route Start Last Admin Trade Name Freq PRN Reason Stop Dose Admin Acetaminophen 650 mg 04/17/23 11:31 04/18/23 20:37 Acetaminophen 325 Mg Tablet PO 650 mg Q4HR PRN Administration Pain 1 to 4, or Fever Hydrocodone Bitart/Acetaminophen 1 tab 04/17/23 11:31 04/17/23 14:15 Hydrocod/Acetam 5/325 Mg Tablet PO 1 tab Q4HR PRN Administration Pain 5 to 7 Heparin Sodium (Porcine) 5,000 unit 04/17/23 21:00 04/19/23 09:40 Heparin 5,000 Unit/Ml Vial SUBQ 5,000 unit BID IWONA Administration Ceftriaxone Sodium 2 gm/ 100 mls @ 200 mls/hr 04/18/23 09:00 04/19/23 10:10 Sodium Chloride IV 04/21/23 09:29 Infused DAILY IWONA Infusion Sodium Chloride 1,000 mls @ 83.333 mls/hr 04/19/23 08:00 04/19/23 14:21 Normal Saline 0.9% IV 83.3 mls/hr .Q12H IWONA Infusion Insulin Human Lispro 1 - 5 unit 04/17/23 17:00 04/19/23 16:55 Insulin Lispro 300 Unit/3 Ml Pen SUBQ Not Given 0800,1200,1700,2100 [facility] Protocol Metoprolol Succinate 150 mg 04/18/23 09:00 04/19/23 09:37 Metoprolol Succinate 50 Mg Tablet PO 150 mg DAILY IWONA Administration Multivitamins/Minerals 1 tab 04/18/23 15:00 04/19/23 09:36 Multivitamin W/Minerals Tablet PO 1 tab DAILYWM IWONA Administration Nystatin 1 applic 04/17/23 21:00 04/19/23 09:40 Nystatin Cream 15 Gm Tube TOP 1 applic BID IWONA Administration Ondansetron HCl 4 mg 04/17/23 11:31 Ondansetron Odt 4 Mg Tablet TL Q6HR PRN Nausea / Vomiting Sodium Chloride 10 ml 04/17/23 11:31 Sodium Chloride Flush 0.9% 10 Ml Syringe IVP PRN PRN NEEDED PER PROVIDER ORDERS Sodium Chloride 10 ml 04/17/23 17:00 04/19/23 16:55 Sodium Chloride Flush 0.9% 10 Ml Syringe IVP 10 ml 0100,0900,1700 IWONA Administration Enalapril Maleate [Vasotec] 20 mg PO DAILY 02/25/19 Metoprolol Succinate [Toprol Xl] 150 mg PO DAILY 02/25/19 Warfarin [Coumadin] 2 mg PO UD 02/25/19 Warfarin Sodium [Coumadin] 0.5 mg PO UD 12/02/22 Acetaminophen with Codeine [Acetaminophen-Cod #3 Tablet] 1 tab PO DAILY PRN 04/17/23 Ibuprofen [Motrin] 400 mg PO Q6H 04/17/23 glipiZIDE [Glucotrol] 5 mg PO BID 04/17/23
[2023-04-20] MEDS: SODIUM CHLORIDE FLUSH 0.9% 10 ML SYRINGE IVP SCH ×4 (00:50→23:31)
[2023-04-20] MEDS: ACETAMINOPHEN 325 MG TABLET PO PRN ×2 (01:54→20:55)
[2023-04-20] MEDS: HYDROcod/ACETAM 5/325 MG TABLET PO PRN (03:04)
[2023-04-20 05:39] LABS: BASOPHILS # (AUTO) 0.1 10^3/uL (0.0-0.1); BASOPHILS % (AUTO) 0.9 %; EOSINOPHILS # (AUTO) 0.1 10^3/uL (0.0-0.7); EOSINOPHILS % (AUTO) 2.5 %; HCT - HEMATOCRIT 36.4 % (37.0-47.0); HGB - HEMOGLOBIN 11.1 g/dL (12.0-16.0); LYMPHOCYTES # (AUTO) 0.6 10^3/uL (1.5-3.5); LYMPHOCYTES % (AUTO) 10.3 %; MEAN CORPUSCULAR HGB CONC 30.5 g/dL (32.0-36.0); MEAN CORPUSCULAR VOLUME 98.4 fL (81.0-99.0); MEAN PLATELET VOLUME 10.7 fL (7.9-10.8); MONOCYTES # (AUTO) 0.7 10^3/uL (0.0-1.0); MONOCYTES % (AUTO) 13.1 %; NEUTROPHILS % (AUTO) 72.5 %; PLT - PLATELET COUNT 123 10^3/uL (130-450); RED CELL DISTRIBUTION WIDTH 19.2 % (12.0-15.0); WHITE BLOOD COUNT 5.5 x10^3/uL (4.8-10.8)
[2023-04-20 07:05] LABS: CALCIUM 8.6 mg/dL (8.5-10.3); CREATININE 2.4 mg/dL (0.6-1.3); POTASSIUM 4.9 mmol/L (3.5-4.5)
[2023-04-20] MEDS: INSULIN LISPRO 300 UNIT/3 ML PEN SUBQ SCH ×4 (09:09→21:01)
[2023-04-20] MEDS: SODIUM CHLORIDE 0.9% 1,000 ML IV SCH ×2 (09:10→21:01)
[2023-04-20] MEDS: METOPROLOL SUCCINATE 50 MG TABLET PO SCH (09:11)
[2023-04-20] MEDS: cefTRIAXone 2 GM in SODIUM CHLORIDE 0.9% MINIBAG 100 ML IV SCH (09:12)
[2023-04-20] MEDS: MULTIVITAMIN W/MINERALS TABLET PO SCH (09:15)
[2023-04-20] MEDS: HEPARIN 5,000 UNIT/ML VIAL SUBQ SCH ×2 (09:17→20:55)
[2023-04-20 11:44] LABS: CREATININE,URINE 85.8 mg/dL; PROTEIN/CREATININE RATIO,URINE 0.3 (<=0.2)
[2023-04-20] MEDS: NYSTATIN CREAM 15 GM TUBE TOP SCH ×2 (12:21→21:01)
--- NOTE | 2023-04-20 12:25 | PROVIDER PROGRESS NOTE ---
Assessment/Plan - Problem List (1) UTI (urinary tract infection) Assessment/Plan: (1) UTI (urinary tract infection) Conclusion/Plan: --Continue with IV ceftriaxone. --Urine culture showing pansensitive E. coli (2) LOYDA (acute kidney injury) Conclusion/Plan: --Baseline creatinine is near 1. We will continue with IV fluids. CT abdomen/pelvis did not show any evidence of obstruction. This is likely pr erenal in nature. -- Holding all nephrotoxic agents including home enalapril and metformin. Can likely resume when renal function returns to normal. --Urine microalbumin:cr ratio ordered to evaluate for nephrotic syndrome. (3) Anticoagulant long-term use Conclusion/Plan: --INR is elevated at 3.5. Patient reports that she does not check her INR regularly. We will consult pharmacy to help manage her warfarin. Goal INR is between 2 and 3 for chronic atrial fibrillation. (4) Chronic atrial fibrillation Conclusion/Plan: --Continue home metoprolol for chronic atrial fibrillation. As mentioned above her INR is supratherapeutic. We will bring down to a goal of 2-3. (5) Left hip pain Conclusion/Plan: --CT abdomen/pelvis not show any evidence of fracture. --PT/OT recommending SNF. She would like to go to [facility]. (6) Cirrhosis Conclusion/Plan: --Unclear exact etiology. CT abdomen/pelvis does show evidence of early cirrhosis which is not present on previous abdominal imaging studies. Patient does not have a history of alcohol use. Possibly related to metabolic disease given her type 2 diabetes. (7) Type 2 diabetes mellitus Conclusion/Plan: -- A1c is currently pending. -- We will start her on sliding scale insulin. --Glipizide and metformin have been held while inpatient. (8) Blister Assessment/Plan: --Blistering on the bottom of her feet. This was wrapped. Will arrange for an outpatient wound care referral on discharge. - Current Meds Current Meds: Current Medications Generic Name Dose Route Start Last Admin Trade Name Freq PRN Reason Stop Dose Admin Acetaminophen 650 mg 04/17/23 11:31 04/20/23 01:54 Acetaminophen 325 Mg Tablet PO 650 mg Q4HR PRN Administration Pain 1 to 4, or Fever Hydrocodone Bitart/Acetaminophen 1 tab 04/17/23 11:31 04/20/23 03:04 Hydrocod/Acetam 5/325 Mg Tablet PO 1 tab Q4HR PRN Administration Pain 5 to 7 Heparin Sodium (Porcine) 5,000 unit 04/17/23 21:00 04/20/23 09:17 Heparin 5,000 Unit/Ml Vial SUBQ 5,000 unit BID IWONA Administration Ceftriaxone Sodium 2 gm/ 100 mls @ 200 mls/hr 04/18/23 09:00 04/20/23 09:12 Sodium Chloride IV 04/21/23 09:29 200 mls/hr DAILY IWONA Administration Sodium Chloride 1,000 mls @ 100 mls/hr 04/20/23 08:00 04/20/23 09:10 Normal Saline 0.9% IV 100 mls/hr .Q10H IWONA Administration Insulin Human Lispro 1 - 5 unit 04/17/23 17:00 04/20/23 09:09 Insulin Lispro 300 Unit/3 Ml Pen SUBQ Not Given 0800,1200,1700,2100 [facility] Protocol Metoprolol Succinate 150 mg 04/18/23 09:00 04/20/23 09:11 Metoprolol Succinate 50 Mg Tablet PO 150 mg DAILY IWONA Administration Multivitamins/Minerals 1 tab 04/18/23 15:00 04/20/23 09:15 Multivitamin W/Minerals Tablet PO 1 tab DAILYWM [facility] Administration Nystatin 1 applic 04/17/23 21:00 04/19/23 21:42 Nystatin Cream 15 Gm Tube TOP Not Given BID IWONA Sodium Chloride 10 ml 04/17/23 17:00 04/20/23 09:16 Sodium Chloride Flush 0.9% 10 Ml Syringe IVP Not Given 0100,0900,1700 I[facility] - Lab Result Fish Bone Diagrams: 04/20/23 05:06 04/20/23 05:06 - Diagnostic Imaging Results Diagnostic Imaging Results: Final report reviewed - Additional Planning Condition/Complexity: Stable My Orders: My Active Orders 04/20/23 05:06 HEMOGLOBIN A1c% [CHEM] DAILYLAB 04/20/23 08:00 Sodium Chloride 0.9% [Normal Saline 0.9%] 1,000 ml IV 100 mls/hr 04/21/23 05:00 BMP - BASIC METABOLIC PANEL [CHEM] DAILYLAB CBC [CBC - COMP BLD CT W/AUTO DIFF] [HEME] DAILYLAB PT WITH INR [COAG] DAILYLAB 04/22/23 05:00 BMP - BASIC METABOLIC PANEL [CHEM] DAILYLAB CBC [CBC - COMP BLD CT W/AUTO DIFF] [HEME] DAILYLAB PT WITH INR [COAG] DAILYLAB 04/23/23 05:00 PT WITH INR [COAG] DAILYLAB 04/24/23 05:00 PT WITH INR [COAG] DAILYLAB 04/25/23 05:00 PT WITH INR [COAG] DAILYLAB Subjective - Subjective Patient Reports: Feeling Better, Resting Comfortably, No Complaints Objective Vital Signs: Vital Signs - 24 hr 04/19/23 04/19/23 04/20/23 15:24 22:16 00:51 Temperature 33.6 C L 36.4 C L 36.4 C L Heart Rate [ 82 80 Brachial] Respiratory 16 18 Rate Blood Pressure 130/62 143/92 H [Left Brachial artery] O2 Saturation 100 100 04/20/23 07:39 Temperature 36.4 C L Heart Rate [ 73 Brachial] Respiratory 20 Rate Blood Pressure 143/71 H [Left Brachial artery] O2 Saturation 100 Oxygen O2 Source Room air I&O (Last 24 Hrs): Intake and Output Totals x24h 04/18/23 04/19/23 04/20/23 23:59 23:59 23:59 Intake Total 1910 1840.724 Output Total 260 750 400 Balance 1650 1090.724 -400 General: Alert, Oriented x3, Cooperative, No acute distress Neuro: Alert, CN 2-12 Grossly Intact, Oriented Times 3 Cardiovascular: Regular rate, Normal S1, Normal S2, No murmurs Respiratory: Chest non-tender, No respiratory distress, Breath sounds nml Abdomen: Normal bowel sounds, Soft, No tenderness, No hepatospenomegaly, No masses - Results Results: Laboratory Results WBC 5.5 x10^3/uL (4.8-10.8) 04/20/23 05:06 RBC 3.70 10^6/uL (4.20-5.40) L 04/20/23 05:06 Hgb 11.1 g/dL (12.0-16.0) L 04/20/23 05:06 Hct 36.4 % (37.0-47.0) L 04/20/23 05:06 MCV 98.4 fL (81.0-99.0) 04/20/23 05:06 MCH 30.0 pg (27.0-31.0) 04/20/23 05:06 MCHC 30.5 g/dL (32.0-36.0) L 04/20/23 05:06 RDW 19.2 % (12.0-15.0) H 04/20/23 05:06 Plt Count 123 10^3/uL (130-450) L 04/20/23 05:06 MPV 10.7 fL (7.9-10.8) 04/20/23 05:06 Neut # (Auto) 4.0 10^3/uL (1.5-6.6) 04/20/23 05:06 Lymph # (Auto) 0.6 10^3/uL (1.5-3.5) L 04/20/23 05:06 [place] # (Auto) 0.7 10^3/uL (0.0-1.0) 04/20/23 05:06 Eos # (Auto) 0.1 10^3/uL (0.0-0.7) 04/20/23 05:06 Baso # (Auto) 0.1 10^3/uL (0.0-0.1) 04/20/23 05:06 Absolute Nucleated RBC 0.00 x10^3/uL 04/20/23 05:06 Nucleated RBC % 0.0 /100WBC 04/20/23 05:06 PT 33.8 secs (9.9-12.6) H 04/19/23 10:50 INR 3.3 (0.8-1.2) H 04/19/23 10:50 Sodium 139 mmol/L (135-145) 04/20/23 05:06 Potassium 4.9 mmol/L (3.5-4.5) H 04/20/23 05:06 Chloride 110 mmol/L (101-111) 04/20/23 05:06 Carbon Dioxide 23 mmol/L (21-32) 04/20/23 05:06 Anion Gap 6.0 (6-13) 04/20/23 05:06 BUN 78 mg/dL (6-20) H 04/20/23 05:06 Creatinine 2.4 mg/dL (0.6-1.3) H 04/20/23 05:06 Estimated GFR (MDRD) 19 (>89) L 04/20/23 05:06 Glucose 97 mg/dL (74-104) 04/20/23 05:06 POC Whole Bld Glucose 87 mg/dL (70 - 100) 04/20/23 11:49 Calcium 8.6 mg/dL (8.5-10.3) 04/20/23 05:06 Total Bilirubin 2.0 mg/dL (0.2-1.0) H 04/17/23 07:32 AST 21 IU/L (10-42) 04/17/23 07:32 ALT 17 IU/L (10-60) 04/17/23 07:32 Alkaline Phosphatase 105 IU/L (42-121) 04/17/23 07:32 Total Protein 7.2 g/dL (6.4-8.9) 04/17/23 07:32 Albumin 3.6 g/dL (3.2-5.5) 04/17/23 07:32 Globulin 3.6 g/dL (2.1-4.2) 04/17/23 07:32 Albumin/Globulin Ratio 1.0 (1.0-2.2) 04/17/23 07:32 Urine Color RED/BLOODY 04/17/23 09:50 Urine Clarity CLOUDY (CLEAR) 04/17/23 09:50 Urine pH 5.0 PH (5.0-7.5) 04/17/23 09:50 Ur Specific [place] 1.020 (1.002-1.030) 04/17/23 09:50 Urine Protein >=300 mg/dL (NEGATIVE) H 04/17/23 09:50 Urine Glucose (UA) NEGATIVE mg/dL (NEGATIVE) 04/17/23 09:50 Urine Ketones TRACE mg/dL (NEGATIVE) 04/17/23 09:50 Urine Occult Blood LARGE (NEGATIVE) H 04/17/23 09:50 Urine Nitrite POSITIVE (NEGATIVE) H 04/17/23 09:50 Urine Bilirubin NEGATIVE (NEGATIVE) 04/17/23 09:50 Urine Urobilinogen 2 E.U./dL (NORMAL) H 04/17/23 09:50 Ur Leukocyte Esterase LARGE (NEGATIVE) H 04/17/23 09:50 Urine RBC TNTC /HPF (0-5) H 04/17/23 09:50 Urine WBC >25 /HPF (0-5) H 04/17/23 09:50 Urine WBC Clumps PRESENT 04/17/23 09:50 Ur Squamous Epith Cells NONE SEEN (<= Few) 04/17/23 09:50 Urine Bacteria Moderate /HPF (None Seen) H 04/17/23 09:50 Ur Microscopic Review INDICATED 04/17/23 09:50 Urine Culture Comments INDICATED 04/17/23 09:50 Urine Creatinine 85.8 mg/dL 04/20/23 10:40 Ur Total Protein Timed 28 mg/dL 04/20/23 10:40 Protein/Creatinin Ratio 0.3 (<=0.2) H 04/20/23 10:40 - Procedures Procedures: Procedures REPLACEMENT OF RIGHT LENS WITH SYNTH SUB, PERC APPROACH (02/26/19) Sepsis Event Note (H) - Evaluation Current Stage of Sepsis: Ruled out Current Medications - Current Medications Current Medications: Active Medications Generic Name Dose Route Start Last Admin Trade Name Freq PRN Reason Stop Dose Admin Acetaminophen 650 mg 04/17/23 11:31 04/20/23 01:54 Acetaminophen 325 Mg Tablet PO 650 mg Q4HR PRN Administration Pain 1 to 4, or Fever Hydrocodone Bitart/Acetaminophen 1 tab 04/17/23 11:31 04/20/23 03:04 Hydrocod/Acetam 5/325 Mg Tablet PO 1 tab Q4HR PRN Administration Pain 5 to 7 Heparin Sodium (Porcine) 5,000 unit 04/17/23 21:00 04/20/23 09:17 Heparin 5,000 Unit/Ml Vial SUBQ 5,000 unit BID IWONA Administration Ceftriaxone Sodium 2 gm/ 100 mls @ 200 mls/hr 04/18/23 09:00 04/20/23 09:12 Sodium Chloride IV 04/21/23 09:29 200 mls/hr DAILY IWONA Administration Sodium Chloride 1,000 mls @ 100 mls/hr 04/20/23 08:00 04/20/23 09:10 Normal Saline 0.9% IV 100 mls/hr .Q10H IWONA Administration Insulin Human Lispro 1 - 5 unit 04/17/23 17:00 04/20/23 12:20 Insulin Lispro 300 Unit/3 Ml Pen SUBQ Not Given 0800,1200,1700,2100 [facility] Protocol Metoprolol Succinate 150 mg 04/18/23 09:00 04/20/23 09:11 Metoprolol Succinate 50 Mg Tablet PO 150 mg DAILY IWONA Administration Multivitamins/Minerals 1 tab 04/18/23 15:00 04/20/23 09:15 Multivitamin W/Minerals Tablet PO 1 tab DAILYWM I[facility] Administration Nystatin 1 applic 04/17/23 21:00 04/20/23 12:21 Nystatin Cream 15 Gm Tube TOP 1 applic BID IWONA Administration Ondansetron HCl 4 mg 04/17/23 11:31 Ondansetron Odt 4 Mg Tablet TL Q6HR PRN Nausea / Vomiting Sodium Chloride 10 ml 04/17/23 11:31 Sodium Chloride Flush 0.9% 10 Ml Syringe IVP PRN PRN NEEDED PER PROVIDER ORDERS Sodium Chloride 10 ml 04/17/23 17:00 04/20/23 09:16 Sodium Chloride Flush 0.9% 10 Ml Syringe IVP Not Given 0100,0900,1700 [facility] Enalapril Maleate [Vasotec] 20 mg PO DAILY 02/25/19 Metoprolol Succinate [Toprol Xl] 150 mg PO DAILY 02/25/19 Warfarin [Coumadin] 2 mg PO UD 02/25/19 Warfarin Sodium [Coumadin] 0.5 mg PO UD 12/02/22 Acetaminophen with Codeine [Acetaminophen-Cod #3 Tablet] 1 tab PO DAILY PRN 04/17/23 Ibuprofen [Motrin] 400 mg PO Q6H 04/17/23 glipiZIDE [Glucotrol] 5 mg PO BID 04/17/23
[2023-04-20] MEDS: LACTULOSE 10 GM /15 ML UDC PO SCH ×2 (16:50→22:47)
[2023-04-21 05:36] LABS: BASOPHILS % (AUTO) 0.6 %; EOSINOPHILS # (AUTO) 0.1 10^3/uL (0.0-0.7); EOSINOPHILS % (AUTO) 1.3 %; HCT - HEMATOCRIT 40.4 % (37.0-47.0); HGB - HEMOGLOBIN 11.9 g/dL (12.0-16.0); LYMPHOCYTES # (AUTO) 0.4 10^3/uL (1.5-3.5); LYMPHOCYTES % (AUTO) 8.2 %; MEAN CORPUSCULAR HEMOGLOBIN 29.8 pg (27.0-31.0); MEAN CORPUSCULAR HGB CONC 29.5 g/dL (32.0-36.0); MEAN CORPUSCULAR VOLUME 101.3 fL (81.0-99.0); MEAN PLATELET VOLUME 10.9 fL (7.9-10.8); MONOCYTES # (AUTO) 0.6 10^3/uL (0.0-1.0); MONOCYTES % (AUTO) 10.5 %; NEUTROPHILS # (AUTO) 4.2 10^3/uL (1.5-6.6); NEUTROPHILS % (AUTO) 79.2 %; NRBC ABSOLUTE COUNT (AUTO) 0.02 x10^3/uL; NUCLEATED RED BLOOD CELLS AUTO 0.4 /100WBC; PLT - PLATELET COUNT 147 10^3/uL (130-450); RED BLOOD COUNT 3.99 10^6/uL (4.20-5.40); RED CELL DISTRIBUTION WIDTH 19.3 % (12.0-15.0); WHITE BLOOD COUNT 5.3 x10^3/uL (4.8-10.8)
[2023-04-21 05:56] LABS: CALCIUM 8.7 mg/dL (8.5-10.3); POTASSIUM 4.5 mmol/L (3.5-4.5)
[2023-04-21] MEDS: LACTULOSE 10 GM /15 ML UDC PO SCH ×3 (05:58→21:12)
[2023-04-21 06:09] LABS: INR 3.2 (0.8-1.2); PT - PROTHROMBIN TIME 32.1 secs (9.9-12.6)
[2023-04-21] MEDS: INSULIN LISPRO 300 UNIT/3 ML PEN SUBQ SCH ×4 (07:58→21:27)
[2023-04-21] MEDS: HEPARIN 5,000 UNIT/ML VIAL SUBQ SCH ×2 (07:59→21:11)
[2023-04-21] MEDS: MULTIVITAMIN W/MINERALS TABLET PO SCH (07:59)
[2023-04-21] MEDS: SODIUM CHLORIDE FLUSH 0.9% 10 ML SYRINGE IVP SCH ×3 (08:00→23:26)
[2023-04-21] MEDS: NYSTATIN CREAM 15 GM TUBE TOP SCH ×2 (08:00→21:11)
[2023-04-21] MEDS: METOPROLOL SUCCINATE 50 MG TABLET PO SCH (08:00)
[2023-04-21] MEDS: cefTRIAXone 2 GM in SODIUM CHLORIDE 0.9% MINIBAG 100 ML IV SCH (08:01)
[2023-04-21] MEDS: SODIUM CHLORIDE 0.9% 1,000 ML IV SCH ×3 (11:18→22:46)
--- NOTE | 2023-04-21 11:51 | PROVIDER PROGRESS NOTE ---
Assessment/Plan - Problem List (1) UTI (urinary tract infection) Assessment/Plan: (1) UTI (urinary tract infection) Assessment/Plan: (1) UTI (urinary tract infection) Conclusion/Plan: --Completed ceftriaxone on 04/21 --Urine culture showing pansensitive E. coli (2) LOYDA (acute kidney injury) Conclusion/Plan: --Baseline creatinine is near 1. We will continue with IV fluids. CT abdomen/pelvis did not show any evidence of obstruction. This is likely prerenal in nature. -- Holding all nephrotoxic agents including home enalapril and metformin. Can likely resume when renal function returns to normal. --Urine microalbumin:cr ratio mildly elevated. She is on an ARB at home which is currently being held in setting of LOYDA. --Some improvement in renal function overnight. I/O not accurate. (3) Anticoagulant long-term use Conclusion/Plan: --Patient reports that she does not check her INR regularly. We will consult pharmacy to help manage her warfarin. Goal INR is between 2 and 3 for chronic atrial fibrillation. --New diagnosis of cirrhosis which may be elevating INR. Will likely require re-dosing of her warfarin prior to discharge. Thus far into the hospitalization she has not received any warfarin. (4) Chronic atrial fibrillation Conclusion/Plan: --Continue home metoprolol for chronic atrial fibrillation. As mentioned above her INR is supratherapeutic. We will bring down to a goal of 2-3. (5) Left hip pain Conclusion/Plan: --CT abdomen/pelvis not show any evidence of fracture. --PT/OT recommending SNF. She would like to go to [facility]. (6) Cirrhosis Conclusion/Plan: --Unclear exact etiology. CT abdomen/pelvis does show evidence of early cirrhosis which is not present on previous abdominal imaging studies. Patient does not have a history of alcohol use. Possibly related to metabolic disease given her type 2 diabetes. --Concern for hepatic encephalopathy. Her ammonia was unremarkable however he speech is slowed. Started on lactulose 20 g TID, titrate to 2-3 BM daily. (7) Type 2 diabetes mellitus Conclusion/Plan: -- A1c is currently pending. -- We will start her on sliding scale insulin. --Glipizide and metformin have been held while inpatient. (8) Blister Assessment/Plan: --Blistering on the bottom of her feet. This was wrapped. Will arrange for an outpatient wound care referral on discharge. - Current Meds Current Meds: Current Medications Generic Name Dose Route Start Last Admin Trade Name Anh PRN Reason Stop Dose Admin Acetaminophen 650 mg 04/17/23 11:31 04/20/23 20:55 Acetaminophen 325 Mg Tablet PO 650 mg Q4HR PRN Administration Pain 1 to 4, or Fever Heparin Sodium (Porcine) 5,000 unit 04/17/23 21:00 04/21/23 07:59 Heparin 5,000 Unit/Ml Vial SUBQ 5,000 unit BID IWONA Administration Sodium Chloride 1,000 mls @ 100 mls/hr 04/20/23 08:00 04/21/23 11:18 Normal Saline 0.9% IV 100 mls/hr .Q10H IWONA Administration Insulin Human Lispro 1 - 5 unit 04/17/23 17:00 04/21/23 07:58 Insulin Lispro 300 Unit/3 Ml Pen SUBQ Not Given 0800,1200,1700,2100 [facility] Protocol Lactulose 20 gm 04/20/23 16:00 04/21/23 05:58 Lactulose 10 Gm /15 Ml Udc PO 20 gm TID IWONA Administration Metoprolol Succinate 150 mg 04/18/23 09:00 04/21/23 08:00 Metoprolol Succinate 50 Mg Tablet PO 150 mg DAILY IWONA Administration Multivitamins/Minerals 1 tab 04/18/23 15:00 04/21/23 07:59 Multivitamin W/Minerals Tablet PO 1 tab DAILYWM I[facility] Administration Nystatin 1 applic 04/17/23 21:00 04/21/23 08:00 Nystatin Cream 15 Gm Tube TOP 1 applic BID IWONA Administration Sodium Chloride 10 ml 04/17/23 17:00 04/21/23 08:00 Sodium Chloride Flush 0.9% 10 Ml Syringe IVP 10 ml 0100,0900,1700 I[facility] Administration - Lab Result Fish Bone Diagrams: 04/21/23 05:00 04/21/23 05:00 - Additional Planning My Orders: My Active Orders 04/20/23 16:00 Lactulose [Enulose] 20 gm PO TID 04/22/23 05:00 BMP - BASIC METABOLIC PANEL [CHEM] DAILYLAB CBC [CBC - COMP BLD CT W/AUTO DIFF] [HEME] DAILYLAB PT WITH INR [COAG] DAILYLAB 04/23/23 05:00 PT WITH INR [COAG] DAILYLAB 04/24/23 05:00 PT WITH INR [COAG] DAILYLAB 04/25/23 05:00 PT WITH INR [COAG] DAILYLAB Subjective - Subjective Patient Reports: Resting Comfortably (Pulled her IV out overnight. Anesthesia did replace this. She is confused, asking for a dozen eggs this morning. Had a BM, our goal is 2-3 daily. Renal function improving.) Objective Vital Signs: Vital Signs - 24 hr 04/20/23 04/20/23 04/21/23 16:15 23:35 08:00 Temperature 36.2 C L 36.0 C L Heart Rate [ 77 70 90 Brachial] Respiratory 18 20 16 Rate Blood Pressure 148/85 H 151/79 H [Left Brachial artery] Blood Pressure 137/73 H [Right Brachial artery] O2 Saturation 99 99 89 L Oxygen O2 Source Room air I&O (Last 24 Hrs): Intake and Output Totals x24h 04/19/23 04/20/23 04/21/23 23:59 23:59 23:59 Intake Total 5350.162 6305 1350 Output Total 750 700 100 Balance 0072.833 1392 1250 General: Alert, Cooperative, No acute distress Neuro: Alert, Disoriented Cardiovascular: Regular rate, Normal S1, Normal S2, No murmurs Respiratory: Chest non-tender, No respiratory distress, Breath sounds nml Abdomen: Normal bowel sounds, Soft, No tenderness, No hepatospenomegaly, No masses Extremities: No clubbing, No cyanosis, No edema, Normal pulses, No tenderness/swelling - Results Results: Laboratory Results WBC 5.3 x10^3/uL (4.8-10.8) 04/21/23 05:00 RBC 3.99 10^6/uL (4.20-5.40) L 04/21/23 05:00 Hgb 11.9 g/dL (12.0-16.0) L 04/21/23 05:00 Hct 40.4 % (37.0-47.0) 04/21/23 05:00 MCV 101.3 fL (81.0-99.0) H 04/21/23 05:00 MCH 29.8 pg (27.0-31.0) 04/21/23 05:00 MCHC 29.5 g/dL (32.0-36.0) L 04/21/23 05:00 RDW 19.3 % (12.0-15.0) H 04/21/23 05:00 Plt Count 147 10^3/uL (130-450) 04/21/23 05:00 MPV 10.9 fL (7.9-10.8) H 04/21/23 05:00 Neut # (Auto) 4.2 10^3/uL (1.5-6.6) 04/21/23 05:00 Lymph # (Auto) 0.4 10^3/uL (1.5-3.5) L 04/21/23 05:00 [place] # (Auto) 0.6 10^3/uL (0.0-1.0) 04/21/23 05:00 Eos # (Auto) 0.1 10^3/uL (0.0-0.7) 04/21/23 05:00 Baso # (Auto) 0.0 10^3/uL (0.0-0.1) 04/21/23 05:00 Absolute Nucleated RBC 0.02 x10^3/uL 04/21/23 05:00 Nucleated RBC % 0.4 /100WBC 04/21/23 05:00 PT 32.1 secs (9.9-12.6) H 04/21/23 05:00 INR 3.2 (0.8-1.2) H 04/21/23 05:00 Sodium 139 mmol/L (135-145) 04/21/23 05:00 Potassium 4.5 mmol/L (3.5-4.5) 04/21/23 05:00 Chloride 111 mmol/L (101-111) 04/21/23 05:00 Carbon Dioxide 22 mmol/L (21-32) 04/21/23 05:00 Anion Gap 6.0 (6-13) 04/21/23 05:00 BUN 70 mg/dL (6-20) H 04/21/23 05:00 Creatinine 2.0 mg/dL (0.6-1.3) H 04/21/23 05:00 Estimated GFR (MDRD) 24 (>89) L 04/21/23 05:00 Glucose 131 mg/dL (74-104) H 04/21/23 05:00 POC Whole Bld Glucose 106 mg/dL (70 - 100) H 04/21/23 11:33 Calcium 8.7 mg/dL (8.5-10.3) 04/21/23 05:00 Total Bilirubin 2.0 mg/dL (0.2-1.0) H 04/17/23 07:32 AST 21 IU/L (10-42) 04/17/23 07:32 ALT 17 IU/L (10-60) 04/17/23 07:32 Alkaline Phosphatase 105 IU/L (42-121) 04/17/23 07:32 Ammonia 71.8 umol/L (18-72) 04/20/23 15:51 Total Protein 7.2 g/dL (6.4-8.9) 04/17/23 07:32 Albumin 3.6 g/dL (3.2-5.5) 04/17/23 07:32 Globulin 3.6 g/dL (2.1-4.2) 04/17/23 07:32 Albumin/Globulin Ratio 1.0 (1.0-2.2) 04/17/23 07:32 Urine Color RED/BLOODY 04/17/23 09:50 Urine Clarity CLOUDY (CLEAR) 04/17/23 09:50 Urine pH 5.0 PH (5.0-7.5) 04/17/23 09:50 Ur Specific [place] 1.020 (1.002-1.030) 04/17/23 09:50 Urine Protein >=300 mg/dL (NEGATIVE) H 04/17/23 09:50 Urine Glucose (UA) NEGATIVE mg/dL (NEGATIVE) 04/17/23 09:50 Urine Ketones TRACE mg/dL (NEGATIVE) 04/17/23 09:50 Urine Occult Blood LARGE (NEGATIVE) H 04/17/23 09:50 Urine Nitrite POSITIVE (NEGATIVE) H 04/17/23 09:50 Urine Bilirubin NEGATIVE (NEGATIVE) 04/17/23 09:50 Urine Urobilinogen 2 E.U./dL (NORMAL) H 04/17/23 09:50 Ur Leukocyte Esterase LARGE (NEGATIVE) H 04/17/23 09:50 Urine RBC TNTC /HPF (0-5) H 04/17/23 09:50 Urine WBC >25 /HPF (0-5) H 04/17/23 09:50 Urine WBC Clumps PRESENT 04/17/23 09:50 Ur Squamous Epith Cells NONE SEEN (<= Few) 04/17/23 09:50 Urine Bacteria Moderate /HPF (None Seen) H 04/17/23 09:50 Ur Microscopic Review INDICATED 04/17/23 09:50 Urine Culture Comments INDICATED 04/17/23 09:50 Urine Creatinine 85.8 mg/dL 04/20/23 10:40 Ur Total Protein Timed 28 mg/dL 04/20/23 10:40 Protein/Creatinin Ratio 0.3 (<=0.2) H 04/20/23 10:40 - Procedures Procedures: Procedures REPLACEMENT OF RIGHT LENS WITH SYNTH SUB, PERC APPROACH (02/26/19) Sepsis Event Note (H) - Evaluation Current Stage of Sepsis: Ruled out Current Medications - Current Medications Current Medications: Active Medications Generic Name Dose Route Start Last Admin Trade Name Freq PRN Reason Stop Dose Admin Acetaminophen 650 mg 04/17/23 11:31 04/20/23 20:55 Acetaminophen 325 Mg Tablet PO 650 mg Q4HR PRN Administration Pain 1 to 4, or Fever Heparin Sodium (Porcine) 5,000 unit 04/17/23 21:00 04/21/23 07:59 Heparin 5,000 Unit/Ml Vial SUBQ 5,000 unit BID IWONA Administration Sodium Chloride 1,000 mls @ 100 mls/hr 04/20/23 08:00 04/21/23 11:18 Normal Saline 0.9% IV 100 mls/hr .Q10H [facility] Administration Insulin Human Lispro 1 - 5 unit 04/17/23 17:00 04/21/23 07:58 Insulin Lispro 300 Unit/3 Ml Pen SUBQ Not Given 0800,1200,1700,2100 [facility] Protocol Lactulose 20 gm 04/20/23 16:00 04/21/23 05:58 Lactulose 10 Gm /15 Ml Udc PO 20 gm TID [facility] Administration Metoprolol Succinate 150 mg 04/18/23 09:00 04/21/23 08:00 Metoprolol Succinate 50 Mg Tablet PO 150 mg DAILY [facility] Administration Multivitamins/Minerals 1 tab 04/18/23 15:00 04/21/23 07:59 Multivitamin W/Minerals Tablet PO 1 tab DAILYWM [facility] Administration Nystatin 1 applic 04/17/23 21:00 04/21/23 08:00 Nystatin Cream 15 Gm Tube TOP 1 applic BID [facility] Administration Ondansetron HCl 4 mg 04/17/23 11:31 Ondansetron Odt 4 Mg Tablet TL Q6HR PRN Nausea / Vomiting Sodium Chloride 10 ml 04/17/23 11:31 Sodium Chloride Flush 0.9% 10 Ml Syringe IVP PRN PRN NEEDED PER PROVIDER ORDERS Sodium Chloride 10 ml 04/17/23 17:00 04/21/23 08:00 Sodium Chloride Flush 0.9% 10 Ml Syringe IVP 10 ml 0100,0900,1700 [facility] Administration Enalapril Maleate [Vasotec] 20 mg PO DAILY 02/25/19 Metoprolol Succinate [Toprol Xl] 150 mg PO DAILY 02/25/19 Warfarin [Coumadin] 2 mg PO UD 02/25/19 Warfarin Sodium [Coumadin] 0.5 mg PO UD 12/02/22 Acetaminophen with Codeine [Acetaminophen-Cod #3 Tablet] 1 tab PO DAILY PRN 04/17/23 Ibuprofen [Motrin] 400 mg PO Q6H 04/17/23 glipiZIDE [Glucotrol] 5 mg PO BID 04/17/23
[2023-04-22] MEDS: ACETAMINOPHEN 325 MG TABLET PO PRN ×2 (04:22→21:51)
[2023-04-22] MEDS: LACTULOSE 10 GM /15 ML UDC PO SCH ×5 (05:07→21:52)
[2023-04-22 05:31] LABS: BASOPHILS % (AUTO) 0.5 %; EOSINOPHILS # (AUTO) 0.1 10^3/uL (0.0-0.7); EOSINOPHILS % (AUTO) 0.8 %; HCT - HEMATOCRIT 40.6 % (37.0-47.0); HGB - HEMOGLOBIN 12.2 g/dL (12.0-16.0); LYMPHOCYTES # (AUTO) 0.5 10^3/uL (1.5-3.5); LYMPHOCYTES % (AUTO) 9.1 %; MEAN CORPUSCULAR HEMOGLOBIN 29.8 pg (27.0-31.0); MEAN CORPUSCULAR VOLUME 99.3 fL (81.0-99.0); MEAN PLATELET VOLUME 10.8 fL (7.9-10.8); MONOCYTES # (AUTO) 0.7 10^3/uL (0.0-1.0); MONOCYTES % (AUTO) 12.4 %; NEUTROPHILS # (AUTO) 4.6 10^3/uL (1.5-6.6); NEUTROPHILS % (AUTO) 76.7 %; NRBC ABSOLUTE COUNT (AUTO) 0.03 x10^3/uL; NUCLEATED RED BLOOD CELLS AUTO 0.5 /100WBC; PLT - PLATELET COUNT 152 10^3/uL (130-450); RED BLOOD COUNT 4.09 10^6/uL (4.20-5.40); RED CELL DISTRIBUTION WIDTH 19.6 % (12.0-15.0)
[2023-04-22 07:06] LABS: CALCIUM 9.1 mg/dL (8.5-10.3); CREATININE 1.8 mg/dL (0.6-1.3)
[2023-04-22 07:52] LABS: ESTIMATED AVERAGE GLUCOSE 128 mg/dL (70-100); HEMOGLOBIN A1c% 6.1 % (4.27-6.07)
[2023-04-22] MEDS ORDERED: fentaNYL 100 MCG/2 ML VIAL IVP SCH (08:00)
[2023-04-22] MEDS ORDERED: SODIUM ZIRCONIUM CYCLOSILICATE 5 GM PACKET PO ONE (08:00)
[2023-04-22 08:15] LABS: INR 3.7 (0.8-1.2); PT - PROTHROMBIN TIME 37.8 secs (9.9-12.6)
[2023-04-22] MEDS: INSULIN LISPRO 300 UNIT/3 ML PEN SUBQ SCH ×4 (08:40→21:32)
[2023-04-22] MEDS: SODIUM CHLORIDE FLUSH 0.9% 10 ML SYRINGE IVP SCH ×2 (09:06→17:00)
[2023-04-22] MEDS: MULTIVITAMIN W/MINERALS TABLET PO SCH (09:07)
[2023-04-22] MEDS: HEPARIN 5,000 UNIT/ML VIAL SUBQ SCH ×2 (09:07→21:52)
[2023-04-22] MEDS: METOPROLOL SUCCINATE 50 MG TABLET PO SCH (09:07)
[2023-04-22] MEDS: NYSTATIN CREAM 15 GM TUBE TOP SCH ×2 (09:08→21:52)
[2023-04-22] MEDS: SODIUM CHLORIDE 0.9% 1,000 ML IV SCH (11:10)
--- NOTE | 2023-04-22 12:21 | CT Report ---
PROCEDURE: CT brain without contrast INDICATIONS: Acute encephalopathy TECHNIQUE: Helical axial CT of the brain was obtained without contrast and reformatted in multiple p lanes. Radiation dose reduction was achieved using automated exposure control or adjustment of mA and /or kV according to patient size. COMPARISON: None FINDINGS: CSF spaces: Ventricles are appropriate in size and position. No hydrocephalus. Basal cisterns unre markable. Brain: No midline shift. No intracranial masses or hemorrhage. [place]-white matter interface is norm al. Moderate atrophy and multifocal white matter chronic ischemic change noted. Atherosclerotic vasc ular calcification noted in the cavernous segments of both internal carotid arteries. Skull and face: Calvarium and skull base are unremarkable without suspicious lesion. Bilateral intr aocular lens replacements noted. Sinuses: Visualized sinuses and mastoids are clear. IMPRESSION: Atrophy and chronic ischemic change without intracranial hemorrhage or mass effect. No change from th e prior exam Reviewed by: Fidel Vazquez MD on 04/22/2023 11:20 AM [facility] Approved by: Fidel Vazquez MD on 04/22/2023 11:20 AM [facility] Station ID: [id number]
--- NOTE | 2023-04-22 13:22 | PROVIDER PROGRESS NOTE ---
Assessment/Plan - Problem List (1) Acute metabolic encephalopathy Assessment/Plan: --Exactly etiology of encephalopathy is unknown however it is significantly worse today. --UTI has been adequately treated with 5 days of IV ceftriaxone. --CT head showing chronic changes without acute findings. --Ammonia was negative, however her slowed speech is concerning for hepatic encephalopathy. Increased her lactulose to 40 g QID to promote 2-3 BM daily. Added rifaximin 550 mg BID. --Non pharmacologic measures - she is very hard of hearing and needs her hearing aid in at all times. (2) UTI (urinary tract infection) Assessment/Plan: (1) UTI (urinary tract infection) Assessment/Plan: (1) UTI (urinary tract infection) Conclusion/Plan: --Completed ceftriaxone on 04/21 --Urine culture showing pansensitive E. coli (2) LOYDA (acute kidney injury) Conclusion/Plan: --Baseline creatinine is near 1. CT abdomen/pelvis did not show any evidence of obstruction. This is likely prerenal in nature. -- Holding all nephrotoxic agents including home enalapril and metformin. Can likely resume when renal function returns to normal. --Urine microalbumin:cr ratio mildly elevated. She is on an ARB at home which is currently being held in setting of LOYDA. --Some improvement in renal function overnight. I/O not accurate. --Will hold IV fluids for a day as she appears to be edematous. --Qshift bladder scan. (3) Anticoagulant long-term use Conclusion/Plan: --Patient reports that she does not check her INR regularly. We will consult pharmacy to help manage her warfarin. Goal INR is between 2 and 3 for chronic atrial fibrillation. --New diagnosis of cirrhosis which may be elevating INR. Will likely require re-dosing of her warfarin prior to discharge. Thus far into the hospitalization she has not received any warfarin. (4) Chronic atrial fibrillation Conclusion/Plan: --Continue home metoprolol for chronic atrial fibrillation. As mentioned above her INR is supratherapeutic. We will bring down to a goal of 2-3. (5) Left hip pain Conclusion/Plan: --CT abdomen/pelvis not show any evidence of fracture. --PT/OT recommending SNF. She would like to go to [facility]. (6) Cirrhosis Conclusion/Plan: --Unclear exact etiology. CT abdomen/pelvis does show evidence of early cirrhosis which is not present on previous abdominal imaging studies. Patient does not have a history of alcohol use. Possibly related to metabolic disease given her type 2 diabetes. --Concern for hepatic encephalopathy. Her ammonia was unremarkable however he speech is slowed and she is becoming more delirious. Increasing her lactulose to 30 mg QID and adding Rifaximin 550 mg. (7) Type 2 diabetes mellitus Conclusion/Plan: -- A1c is currently pending. -- We will start her on sliding scale insulin. --Glipizide and metformin have been held while inpatient. (8) Blister Assessment/Plan: --Blistering on the bottom of her feet. This was wrapped. Will arrange for an outpatient wound care referral on discharge. - Current Meds Current Meds: Current Medications Generic Name Dose Route Start Last Admin Trade Name Freq PRN Reason Stop Dose Admin Acetaminophen 650 mg 04/17/23 11:31 04/22/23 04:22 Acetaminophen 325 Mg Tablet PO 650 mg Q4HR PRN Administration Pain 1 to 4, or Fever Heparin Sodium (Porcine) 5,000 unit 04/17/23 21:00 04/22/23 09:07 Heparin 5,000 Unit/Ml Vial SUBQ 5,000 unit BID [facility] Administration Sodium Chloride 1,000 mls @ 100 mls/hr 04/20/23 08:00 04/22/23 11:10 Normal Saline 0.9% IV 100 mls/hr .Q10H [facility] Administration Insulin Human Lispro 1 - 5 unit 04/17/23 17:00 04/22/23 12:11 Insulin Lispro 300 Unit/3 Ml Pen SUBQ Not Given 0800,1200,1700,2100 [facility] Protocol Lactulose 20 gm 04/20/23 16:00 04/22/23 05:07 Lactulose 10 Gm /15 Ml Udc PO 20 gm TID [facility] Administration Metoprolol Succinate 150 mg 04/18/23 09:00 04/22/23 09:07 Metoprolol Succinate 50 Mg Tablet PO 150 mg DAILY [facility] Administration Multivitamins/Minerals 1 tab 04/18/23 15:00 04/22/23 09:07 Multivitamin W/Minerals Tablet PO 1 tab DAILYWM [facility] Administration Nystatin 1 applic 04/17/23 21:00 04/22/23 09:08 Nystatin Cream 15 Gm Tube TOP 1 applic BID [facility] Administration Sodium Chloride 10 ml 04/17/23 17:00 04/22/23 09:06 Sodium Chloride Flush 0.9% 10 Ml Syringe IVP 10 ml 0100,0900,1700 [facility] Administration - Lab Result Fish Bone Diagrams: 04/22/23 04:30 04/22/23 04:30 - Additional Planning My Orders: My Active Orders 04/22/23 21:00 QUEtiapine [SEROquel] 25 mg PO QPM 04/23/23 05:00 HEMOGLOBIN A1c% [CHEM] DAILYLAB PT WITH INR [COAG] DAILYLAB 04/24/23 05:00 PT WITH INR [COAG] DAILYLAB 04/25/23 05:00 PT WITH INR [COAG] DAILYLAB Subjective - Subjective Patient Reports: Other (Remains encephalopathic. She woke up at 3am at night and was restless. She is redirectable and can follow some directions. She is AOx1 (person). I believe her being hard of hearing is contributing.) Objective Vital Signs: Vital Signs - 24 hr 04/21/23 04/21/23 04/22/23 16:31 16:35 00:29 Temperature 36.2 C L Heart Rate [ 92 78 Brachial] Respiratory 20 18 Rate Blood Pressure [Left Brachial artery] Blood Pressure 135/62 H 138/70 H [Right Brachial artery] O2 Saturation 100 100 04/22/23 04/22/23 04/22/23 01:41 03:16 07:34 Temperature 34.6 C L 34.7 C L 36.2 C L Heart Rate [ 98 Brachial] Respiratory 20 Rate Blood Pressure 138/70 H [Left Brachial artery] Blood Pressure [Right Brachial artery] O2 Saturation 100 Oxygen O2 Source Room air I&O (Last 24 Hrs): Intake and Output Totals x24h 04/20/23 04/21/23 04/22/23 23:59 23:59 23:59 Intake Total 2220 2350 1756 Output Total 700 200 Balance 1520 2150 1756 General: Alert, Oriented x3, Cooperative, No acute distress Neuro: Disoriented Cardiovascular: Regular rate, Normal S1, Normal S2 Respiratory: Chest non-tender, No respiratory distress, Breath sounds nml Abdomen: Normal bowel sounds, Soft, No tenderness - Results Results: Laboratory Results WBC 6.0 x10^3/uL (4.8-10.8) 04/22/23 04:30 RBC 4.09 10^6/uL (4.20-5.40) L 04/22/23 04:30 Hgb 12.2 g/dL (12.0-16.0) 04/22/23 04:30 Hct 40.6 % (37.0-47.0) 04/22/23 04:30 MCV 99.3 fL (81.0-99.0) H 04/22/23 04:30 MCH 29.8 pg (27.0-31.0) 04/22/23 04:30 MCHC 30.0 g/dL (32.0-36.0) L 04/22/23 04:30 RDW 19.6 % (12.0-15.0) H 04/22/23 04:30 Plt Count 152 10^3/uL (130-450) 04/22/23 04:30 MPV 10.8 fL (7.9-10.8) 04/22/23 04:30 Neut # (Auto) 4.6 10^3/uL (1.5-6.6) 04/22/23 04:30 Lymph # (Auto) 0.5 10^3/uL (1.5-3.5) L 04/22/23 04:30 [place] # (Auto) 0.7 10^3/uL (0.0-1.0) 04/22/23 04:30 Eos # (Auto) 0.1 10^3/uL (0.0-0.7) 04/22/23 04:30 Baso # (Auto) 0.0 10^3/uL (0.0-0.1) 04/22/23 04:30 Absolute Nucleated RBC 0.03 x10^3/uL 04/22/23 04:30 Nucleated RBC % 0.5 /100WBC 04/22/23 04:30 PT 37.8 secs (9.9-12.6) H 04/22/23 04:30 INR 3.7 (0.8-1.2) H 04/22/23 04:30 Sodium 142 mmol/L (135-145) 04/22/23 04:30 Potassium 5.0 mmol/L (3.5-4.5) H 04/22/23 04:30 Chloride 113 mmol/L (101-111) H 04/22/23 04:30 Carbon Dioxide 18 mmol/L (21-32) L 04/22/23 04:30 Anion Gap 11.0 (6-13) 04/22/23 04:30 BUN 65 mg/dL (6-20) H 04/22/23 04:30 Creatinine 1.8 mg/dL (0.6-1.3) H 04/22/23 04:30 Estimated GFR (MDRD) 27 (>89) L 04/22/23 04:30 Glucose 103 mg/dL (74-104) 04/22/23 04:30 POC Whole Bld Glucose 87 mg/dL (70 - 100) 04/22/23 11:13 Estimat Average Glucose 128 mg/dL (70-100) H 04/20/23 05:06 Hemoglobin A1c % 6.1 % (4.27-6.07) H 04/20/23 05:06 Calcium 9.1 mg/dL (8.5-10.3) 04/22/23 04:30 Total Bilirubin 2.0 mg/dL (0.2-1.0) H 04/17/23 07:32 AST 21 IU/L (10-42) 04/17/23 07:32 ALT 17 IU/L (10-60) 04/17/23 07:32 Alkaline Phosphatase 105 IU/L (42-121) 04/17/23 07:32 Ammonia 71.8 umol/L (18-72) 04/20/23 15:51 Total Protein 7.2 g/dL (6.4-8.9) 04/17/23 07:32 Albumin 3.6 g/dL (3.2-5.5) 04/17/23 07:32 Globulin 3.6 g/dL (2.1-4.2) 04/17/23 07:32 Albumin/Globulin Ratio 1.0 (1.0-2.2) 04/17/23 07:32 Urine Color RED/BLOODY 04/17/23 09:50 Urine Clarity CLOUDY (CLEAR) 04/17/23 09:50 Urine pH 5.0 PH (5.0-7.5) 04/17/23 09:50 Ur Specific [place] 1.020 (1.002-1.030) 04/17/23 09:50 Urine Protein >=300 mg/dL (NEGATIVE) H 04/17/23 09:50 Urine Glucose (UA) NEGATIVE mg/dL (NEGATIVE) 04/17/23 09:50 Urine Ketones TRACE mg/dL (NEGATIVE) 04/17/23 09:50 Urine Occult Blood LARGE (NEGATIVE) H 04/17/23 09:50 Urine Nitrite POSITIVE (NEGATIVE) H 04/17/23 09:50 Urine Bilirubin NEGATIVE (NEGATIVE) 04/17/23 09:50 Urine Urobilinogen 2 E.U./dL (NORMAL) H 04/17/23 09:50 Ur Leukocyte Esterase LARGE (NEGATIVE) H 04/17/23 09:50 Urine RBC TNTC /HPF (0-5) H 04/17/23 09:50 Urine WBC >25 /HPF (0-5) H 04/17/23 09:50 Urine WBC Clumps PRESENT 04/17/23 09:50 Ur Squamous Epith Cells NONE SEEN (<= Few) 04/17/23 09:50 Urine Bacteria Moderate /HPF (None Seen) H 04/17/23 09:50 Ur Microscopic Review INDICATED 04/17/23 09:50 Urine Culture Comments INDICATED 04/17/23 09:50 Urine Creatinine 85.8 mg/dL 04/20/23 10:40 Ur Total Protein Timed 28 mg/dL 04/20/23 10:40 Protein/Creatinin Ratio 0.3 (<=0.2) H 04/20/23 10:40 - Procedures Procedures: Procedures REPLACEMENT OF RIGHT LENS WITH SYNTH SUB, PERC APPROACH (02/26/19) Sepsis Event Note (H) - Evaluation Current Stage of Sepsis: Ruled out ABX Reporting Has patient been on IV antibiotics over the past 48 hours?: Yes Current Medications - Current Medications Current Medications: Active Medications Generic Name Dose Route Start Last Admin Trade Name Freq PRN Reason Stop Dose Admin Acetaminophen 650 mg 04/17/23 11:31 04/22/23 04:22 Acetaminophen 325 Mg Tablet PO 650 mg Q4HR PRN Administration Pain 1 to 4, or Fever Heparin Sodium (Porcine) 5,000 unit 04/17/23 21:00 04/22/23 09:07 Heparin 5,000 Unit/Ml Vial SUBQ 5,000 unit BID IW[facility] Administration Sodium Chloride 1,000 mls @ 100 mls/hr 04/20/23 08:00 04/22/23 11:10 Normal Saline 0.9% IV 100 mls/hr .Q10H I[facility] Administration Insulin Human Lispro 1 - 5 unit 04/17/23 17:00 04/22/23 12:11 Insulin Lispro 300 Unit/3 Ml Pen SUBQ Not Given 0800,1200,1700,2100 [facility] Protocol Lactulose 30 gm 04/22/23 15:00 Lactulose 10 Gm/15 Ml Bottle PO QID [facility] Metoprolol Succinate 150 mg 04/18/23 09:00 04/22/23 09:07 Metoprolol Succinate 50 Mg Tablet PO 150 mg DAILY [facility] Administration Multivitamins/Minerals 1 tab 04/18/23 15:00 04/22/23 09:07 Multivitamin W/Minerals Tablet PO 1 tab DAILYWM [facility] Administration Nystatin 1 applic 04/17/23 21:00 04/22/23 09:08 Nystatin Cream 15 Gm Tube TOP 1 applic BID [facility] Administration Ondansetron HCl 4 mg 04/17/23 11:31 Ondansetron Odt 4 Mg Tablet TL Q6HR PRN Nausea / Vomiting Quetiapine Fumarate 25 mg 04/22/23 21:00 Quetiapine 25 Mg Tablet PO QPM [facility] Rifaximin 550 mg 04/22/23 21:00 Rifaximin 550 Mg Tablet PO BID [facility] Sodium Chloride 10 ml 04/17/23 11:31 Sodium Chloride Flush 0.9% 10 Ml Syringe IVP PRN PRN NEEDED PER PROVIDER ORDERS Sodium Chloride 10 ml 04/17/23 17:00 04/22/23 09:06 Sodium Chloride Flush 0.9% 10 Ml Syringe IVP 10 ml 0100,0900,1700 [facility] Administration Enalapril Maleate [Vasotec] 20 mg PO DAILY 02/25/19 Metoprolol Succinate [Toprol Xl] 150 mg PO DAILY 02/25/19 Warfarin [Coumadin] 2 mg PO UD 02/25/19 Warfarin Sodium [Coumadin] 0.5 mg PO UD 12/02/22 Acetaminophen with Codeine [Acetaminophen-Cod #3 Tablet] 1 tab PO DAILY PRN 04/17/23 Ibuprofen [Motrin] 400 mg PO Q6H 04/17/23 glipiZIDE [Glucotrol] 5 mg PO BID 04/17/23
[2023-04-22] MEDS ORDERED: LACTULOSE 10 GM/15 ML BOTTLE PO SCH (15:00)
[2023-04-22] MEDS ORDERED: QUEtiapine 25 MG TABLET PO SCH (21:00)
[2023-04-22] MEDS: rifAXIMin 550 MG TABLET PO SCH (21:51)
--- NOTE | 2023-04-22 23:50 | PROVIDER PROGRESS NOTE ---
Electrical Tech Note - Electrical Tech Note Electrical Tech Note: Called by RN stating patient unable to void and has > 350 ml on bladder scan have ordered for straight cath x one and can be done Q 6 hrs as needed x 2 more times if Bladder scan hows residual of > 350 ml discussed with EZIO Ferguson
[2023-04-23] MEDS: SODIUM CHLORIDE FLUSH 0.9% 10 ML SYRINGE IVP SCH ×4 (00:56→23:48)
[2023-04-23 05:40] LABS: INR 4.4 (0.8-1.2); PT - PROTHROMBIN TIME 43.5 secs (9.9-12.6)
[2023-04-23 09:16] LABS: ESTIMATED AVERAGE GLUCOSE 126 mg/dL (70-100)
[2023-04-23] MEDS: INSULIN LISPRO 300 UNIT/3 ML PEN SUBQ SCH ×4 (09:28→21:50)
[2023-04-23] MEDS: METOPROLOL SUCCINATE 50 MG TABLET PO SCH ×2 (09:56→14:22)
[2023-04-23] MEDS: MULTIVITAMIN W/MINERALS TABLET PO SCH ×2 (09:56→14:22)
[2023-04-23] MEDS: rifAXIMin 550 MG TABLET PO SCH ×3 (09:56→21:50)
[2023-04-23] MEDS: LACTULOSE 10 GM /15 ML UDC PO SCH ×3 (09:57→21:50)
[2023-04-23] MEDS: NYSTATIN CREAM 15 GM TUBE TOP SCH ×2 (09:57→21:58)
[2023-04-23] MEDS: HEPARIN 5,000 UNIT/ML VIAL SUBQ SCH ×2 (09:58→21:58)
--- NOTE | 2023-04-23 12:17 | PROVIDER PROGRESS NOTE ---
Assessment/Plan - Problem List (1) Acute metabolic encephalopathy Assessment/Plan: Exactly etiology of encephalopathy is unknown however it is significantly worse today so even more than yesterday. UTI has been adequately treated with 5 days of IV ceftriaxone. CT head showed chronic changes without acute findings. Probably hepatic encephalopathy. Ammonia was elevated, and yesterday the Hospitalist increased her lactulose to 40 g QID to promote 2-3 BM daily. Also he added rifaximin 550 mg BID. She had 3 BMs after those changes. Non pharmacologic - she is very hard of hearing and needs her hearing aid in at all times. Last night she was started on Seroquel and got 25 mg po, which may add to somn olence. Today she could not swallow her a.m. meds due to somnolence Plan: Start D5 NS since she is not swallowing De-escalate diet to clear liquids Swallow eval by RN Decrease nightly Seroquel dose Decrease back to TID Lactulose Follow ammonia level daily (2) E coli UTI (urinary tract infection) Assessment/Plan: Urine culture showing pansensitive E. coli She completed ceftriaxone on 04/21 (3) Acute urinary retention Assessment/Plan: She had >500 cc on bladder scan over night and a str cath was done. Again this a.m. has 536 cc on scanning Straight cath was re-ordered. 3 nurses tried and could not get cath into bladder after a flash of urine only was achieved I spoke to Radiologist and he looked at last CT which showed no obstruction in that area Plan: I spoke to Radiologist about what image to get to eval>> will obtain US and if no findings to explain blockage, will get CT [place] also ordered after CT (4) LOYDA (acute kidney injury) Assessment/Plan: Baseline creatinine is near 1. CT abdomen/pelvis did not show any evidence of obstruction. This is likely prerenal in nature. Urine microalbumin:cr ratio mildly elevated. She is on an ARB at home which is currently being held in setting of LOYDA. I/O not accurate. Her iv fluids were stopped yesterday due to anasarca Today concern about post-obstructive LOYDA Plan: Holding all nephrotoxic agents including home enalapril and metformin. Can likely resume when renal function returns to normal. Follow BMP daily (5) Cirrhosis Conclusion/Plan: Unclear exact etiology. CT abdomen/pelvis does show evidence of early cirrhosis which is not present on previous abdominal imaging studies. Patient does not have a history of alcohol use. Possibly related to metabolic disease given her type 2 diabetes. Concern for hepatic encephalopathy. Her ammonia was >50 but <70, however he spe ech is slowed and she is becoming more delirious. Yesterday her Lactulose was increased from TID to 30 mg QID and added Rifaximin 550 mg. Plan: Decrease back to TID Lactulose Follow ammonia level daily (6) Type 2 diabetes mellitus Conclusion/Plan: A1c came back at 6.0, indicating excessively tight glu control Plan: Cont her on sliding scale insulin. Diet to be de-escalated since we cannot swallow. Will start iv fluid with D5 Glipizide and metformin are on hold while inpatient. (7) Supratherapeutic INR Conclusion/Plan: Patient reported that she does not check her INR regularly. Pharmacy helping to help manage her warfarin. Goal INR is between 2 and 3 for chronic atrial fibrillation. New diagnosis of cirrhosis which may be elevating INR. Will likely require re- dosing of her warfarin prior to discharge. Thus far into the hospitalization she has not received any warfarin. Plan: We will hold Coumadin until INR is down to a goal of 2-3. (8) Chronic atrial fibrillation Conclusion/Plan: Plan: Continue home metoprolol for chronic atrial fibrillation. As mentioned above her INR is supratherapeutic. We will hold Coumadin until INR is down to a goal of 2-3. (9) Blister Assessment/Plan: Blistering on the bottom of her feet and toes. This was wrapped. Plan: Will arrange for an outpatient wound care referral on discharge. (10) Left hip pain Conclusion/Plan: CT abdomen/pelvis not show any evidence of fracture. Plan: PT/OT recommended SNF. She would like to go to [facility]. - Current Meds Current Meds: Current Medications Generic Name Dose Route Start Last Admin Trade Name Freq PRN Reason Stop Dose Admin Acetaminophen 650 mg 04/17/23 11:31 04/22/23 21:51 Acetaminophen 325 Mg Tablet PO 650 mg Q4HR PRN Administration Pain 1 to 4, or Fever Heparin Sodium (Porcine) 5,000 unit 04/17/23 21:00 04/23/23 09:58 Heparin 5,000 Unit/Ml Vial SUBQ 5,000 unit BID [facility] Administration Insulin Human Lispro 1 - 5 unit 04/17/23 17:00 04/23/23 09:28 Insulin Lispro 300 Unit/3 Ml Pen SUBQ Not Given 0800,1200,1700,2100 [facility] Protocol Lactulose 30 gm 04/22/23 15:30 04/23/23 09:57 Lactulose 10 Gm /15 Ml Udc PO Not Given QID [facility] Metoprolol Succinate 150 mg 04/18/23 09:00 04/22/23 09:07 Metoprolol Succinate 50 Mg Tablet PO 150 mg DAILY [facility] Administration Multivitamins/Minerals 1 tab 04/18/23 15:00 04/22/23 09:07 Multivitamin W/Minerals Tablet PO 1 tab DAILYWM [facility] Administration Nystatin 1 applic 04/17/23 21:00 04/23/23 09:57 Nystatin Cream 15 Gm Tube TOP 1 applic BID [facility] Administration Rifaximin 550 mg 04/22/23 21:00 04/22/23 21:51 Rifaximin 550 Mg Tablet PO 550 mg BID [facility] Administration Sodium Chloride 10 ml 04/17/23 17:00 04/23/23 09:57 Sodium Chloride Flush 0.9% 10 Ml Syringe IVP 10 ml 0100,0900,1700 [facility] Administration - Lab Result Fish Bone Diagrams: 04/24/23 05:49 04/24/23 05:49 - Additional Planning My Orders: My Active Orders 04/23/23 BMP - BASIC METABOLIC PANEL [CHEM] Urgent CBC - COMP BLD CT W/AUTO DIFF [HEME] Urgent 04/23/23 11:55 Straight Catheter Insertion [RC] ONCE 04/23/23 11:56 Swallow Screen - Nursing [RC] ONCE 04/23/23 Dinner Clear Liquid Diet [DIET] 04/23/23 21:00 QUEtiapine [SEROquel] 12.5 mg PO QPM 04/24/23 05:00 BMP - BASIC METABOLIC PANEL [CHEM] DAILYLAB CBC - COMP BLD CT W/AUTO DIFF [HEME] DAILYLAB 04/25/23 05:00 BMP - BASIC METABOLIC PANEL [CHEM] DAILYLAB CBC - COMP BLD CT W/AUTO DIFF [HEME] DAILYLAB 04/26/23 05:00 BMP - BASIC METABOLIC PANEL [CHEM] DAILYLAB CBC - COMP BLD CT W/AUTO DIFF [HEME] DAILYLAB 04/27/23 05:00 BMP - BASIC METABOLIC PANEL [CHEM] DAILYLAB CBC - COMP BLD CT W/AUTO DIFF [HEME] DAILYLAB Subjective - Subjective Nursing Reports: Confused, Other (Lethargic, cannot swallow pills) Objective Vital Signs: Vital Signs - 24 hr 04/22/23 04/23/23 04/23/23 16:00 00:55 07:28 Temperature 36.4 C L 36.2 C L 36.3 C L Heart Rate [ 84 91 93 Brachial] Respiratory 20 20 18 Rate Blood Pressure 150/98 H 116/63 110/52 L [Left Brachial artery] Blood Pressure [Right Brachial artery] O2 Saturation 99 100 100 04/23/23 11:52 Temperature Heart Rate [ Brachial] Respiratory Rate Blood Pressure [Left Brachial artery] Blood Pressure 118/62 [Right Brachial artery] O2 Saturation Oxygen O2 Source Room air I&O (Last 24 Hrs): Intake and Output Totals x24h 04/21/23 04/22/23 04/23/23 23:59 23:59 23:59 Intake Total 2350 2266 Output Total 200 0 300 Balance 2150 2266 -300 General: Other (Lethargic, awakens but falls asleep) HEENT: Mucous membr. moist/pink Neck: Supple Neuro: Other (lethargic, moves all extrem) Cardiovascular: Regular rate Respiratory: No respiratory distress Abdomen: Soft, Other (Obese) Extremities: Other (1+ edema) - Results Results: Laboratory Results WBC 6.0 x10^3/uL (4.8-10.8) 04/22/23 04:30 RBC 4.09 10^6/uL (4.20-5.40) L 04/22/23 04:30 Hgb 12.2 g/dL (12.0-16.0) 04/22/23 04:30 Hct 40.6 % (37.0-47.0) 04/22/23 04:30 MCV 99.3 fL (81.0-99.0) H 04/22/23 04:30 MCH 29.8 pg (27.0-31.0) 04/22/23 04:30 MCHC 30.0 g/dL (32.0-36.0) L 04/22/23 04:30 RDW 19.6 % (12.0-15.0) H 04/22/23 04:30 Plt Count 152 10^3/uL (130-450) 04/22/23 04:30 MPV 10.8 fL (7.9-10.8) 04/22/23 04:30 Neut # (Auto) 4.6 10^3/uL (1.5-6.6) 04/22/23 04:30 Lymph # (Auto) 0.5 10^3/uL (1.5-3.5) L 04/22/23 04:30 [place] # (Auto) 0.7 10^3/uL (0.0-1.0) 04/22/23 04:30 Eos # (Auto) 0.1 10^3/uL (0.0-0.7) 04/22/23 04:30 Baso # (Auto) 0.0 10^3/uL (0.0-0.1) 04/22/23 04:30 Absolute Nucleated RBC 0.03 x10^3/uL 04/22/23 04:30 Nucleated RBC % 0.5 /100WBC 04/22/23 04:30 PT 43.5 secs (9.9-12.6) H 04/23/23 04:56 INR 4.4 (0.8-1.2) H 04/23/23 04:56 Sodium 142 mmol/L (135-145) 04/22/23 04:30 Potassium 5.0 mmol/L (3.5-4.5) H 04/22/23 04:30 Chloride 113 mmol/L (101-111) H 04/22/23 04:30 Carbon Dioxide 18 mmol/L (21-32) L 04/22/23 04:30 Anion Gap 11.0 (6-13) 04/22/23 04:30 BUN 65 mg/dL (6-20) H 04/22/23 04:30 Creatinine 1.8 mg/dL (0.6-1.3) H 04/22/23 04:30 Estimated GFR (MDRD) 27 (>89) L 04/22/23 04:30 Glucose 103 mg/dL (74-104) 04/22/23 04:30 POC Whole Bld Glucose 96 mg/dL (70 - 100) 04/23/23 11:16 Estimat Average Glucose 126 mg/dL (70-100) H 04/23/23 04:56 Hemoglobin A1c % 6.0 % (4.27-6.07) 04/23/23 04:56 Calcium 9.1 mg/dL (8.5-10.3) 04/22/23 04:30 Total Bilirubin 2.0 mg/dL (0.2-1.0) H 04/17/23 07:32 AST 21 IU/L (10-42) 04/17/23 07:32 ALT 17 IU/L (10-60) 04/17/23 07:32 Alkaline Phosphatase 105 IU/L (42-121) 04/17/23 07:32 Ammonia 71.8 umol/L (18-72) 04/20/23 15:51 Total Protein 7.2 g/dL (6.4-8.9) 04/17/23 07:32 Albumin 3.6 g/dL (3.2-5.5) 04/17/23 07:32 Globulin 3.6 g/dL (2.1-4.2) 04/17/23 07:32 Albumin/Globulin Ratio 1.0 (1.0-2.2) 04/17/23 07:32 Urine Color RED/BLOODY 04/17/23 09:50 Urine Clarity CLOUDY (CLEAR) 04/17/23 09:50 Urine pH 5.0 PH (5.0-7.5) 04/17/23 09:50 Ur Specific [place] 1.020 (1.002-1.030) 04/17/23 09:50 Urine Protein >=300 mg/dL (NEGATIVE) H 04/17/23 09:50 Urine Glucose (UA) NEGATIVE mg/dL (NEGATIVE) 04/17/23 09:50 Urine Ketones TRACE mg/dL (NEGATIVE) 04/17/23 09:50 Urine Occult Blood LARGE (NEGATIVE) H 04/17/23 09:50 Urine Nitrite POSITIVE (NEGATIVE) H 04/17/23 09:50 Urine Bilirubin NEGATIVE (NEGATIVE) 04/17/23 09:50 Urine Urobilinogen 2 E.U./dL (NORMAL) H 04/17/23 09:50 Ur Leukocyte Esterase LARGE (NEGATIVE) H 04/17/23 09:50 Urine RBC TNTC /HPF (0-5) H 04/17/23 09:50 Urine WBC >25 /HPF (0-5) H 04/17/23 09:50 Urine WBC Clumps PRESENT 04/17/23 09:50 Ur Squamous Epith Cells NONE SEEN (<= Few) 04/17/23 09:50 Urine Bacteria Moderate /HPF (None Seen) H 04/17/23 09:50 Ur Microscopic Review INDICATED 04/17/23 09:50 Urine Culture Comments INDICATED 04/17/23 09:50 Urine Creatinine 85.8 mg/dL 04/20/23 10:40 Ur Total Protein Timed 28 mg/dL 04/20/23 10:40 Protein/Creatinin Ratio 0.3 (<=0.2) H 04/20/23 10:40 - Procedures Procedures: Procedures REPLACEMENT OF RIGHT LENS WITH SYNTH SUB, PERC APPROACH (02/26/19) Sepsis Event Note (H) - Evaluation Current Stage of Sepsis: Ruled out
[2023-04-23] MEDS ORDERED: DEXTROSE 5%-0.9% NACL 1,000 ML IV SCH (13:00)
[2023-04-23 13:06] LABS: BASOPHILS % (AUTO) 0.3 %; EOSINOPHILS # (AUTO) 0.1 10^3/uL (0.0-0.7); EOSINOPHILS % (AUTO) 0.8 %; HCT - HEMATOCRIT 38.8 % (37.0-47.0); HGB - HEMOGLOBIN 11.7 g/dL (12.0-16.0); LYMPHOCYTES # (AUTO) 0.4 10^3/uL (1.5-3.5); LYMPHOCYTES % (AUTO) 6.2 %; MEAN CORPUSCULAR HEMOGLOBIN 30.1 pg (27.0-31.0); MEAN CORPUSCULAR HGB CONC 30.2 g/dL (32.0-36.0); MEAN CORPUSCULAR VOLUME 99.7 fL (81.0-99.0); MEAN PLATELET VOLUME 10.1 fL (7.9-10.8); MONOCYTES # (AUTO) 0.6 10^3/uL (0.0-1.0); MONOCYTES % (AUTO) 8.9 %; NEUTROPHILS # (AUTO) 5.9 10^3/uL (1.5-6.6); NEUTROPHILS % (AUTO) 83.4 %; NRBC ABSOLUTE COUNT (AUTO) 0.04 x10^3/uL; NUCLEATED RED BLOOD CELLS AUTO 0.6 /100WBC; PLT - PLATELET COUNT 142 10^3/uL (130-450); RED BLOOD COUNT 3.89 10^6/uL (4.20-5.40); RED CELL DISTRIBUTION WIDTH 20.2 % (12.0-15.0); WHITE BLOOD COUNT 7.1 x10^3/uL (4.8-10.8)
[2023-04-23 13:06] LABS: GLUCOSE, URINE (UA) NEGATIVE (NEGATIVE); KETONES,URINE (UA) TRACE mg/dL (NEGATIVE); OCCULT BLOOD,URINE TRACE-INTA (NEGATIVE); PH,URINE 5.5 PH (5.0-7.5)
[2023-04-23 13:08] LABS: CLARITY,URINE SL. CLOUDY (CLEAR)
[2023-04-23 13:11] LABS: SLIDE REVIEW? Indicated
[2023-04-23 13:11] LABS: BILIRUBIN,URINE NEGATIVE (NEGATIVE); ICTOTEST,URINE NEGATIVE
[2023-04-23 13:19] LABS: CREATININE 2.1 mg/dL (0.6-1.3); POTASSIUM 4.6 mmol/L (3.5-4.5)
[2023-04-23 13:19] LABS: BACTERIA,URINE Few /HPF (None Seen); MUCUS,URINE Few Strands; RBC,URINE 0-5 /HPF (0-5); SQUAMOUS EPITHELIAL CELL,UR MANY Squamous (<= Few)
[2023-04-23 13:50] LABS: PLATELET ESTIMATE, MANUAL NORMAL (130-450,000) (NORMAL); PLATELET MORPHOLOGY NORMAL APPEARANCE (NORMAL)
[2023-04-23 13:51] LABS: RBC MORPHOLOGY (MULTIPLE) 2+ ANISOCYTOSIS (NORMAL); WBC MORPHOLOGY (MULTIPLE) NORMAL APPEARANCE (NORMAL)
--- NOTE | 2023-04-23 15:57 | Ultrasound Report ---
PROCEDURE: Retroperitoneal Limited INDICATIONS: Cannot insert cath into bladder, eval for obstruct TECHNIQUE: Real-time scanning was performed of the retroperitoneal organs, with image documentation. COMPARISON: None. FINDINGS: Bladder: Pre-void bladder volume is 555 mL. Post-void was not obtained. Pre-void images demonstrat e no intraluminal masses or stones. Miscellaneous: No free abdominal fluid. IMPRESSION: Marked bladder distention. No definitively identified source of obstruction. Reviewed by: Delia Clement MD on 04/23/2023 3:56 PM PST Approved by: Delia Clement MD on 04/23/2023 3:56 PM PST Station ID: [id number]
[2023-04-23] MEDS ORDERED: QUEtiapine 25 MG TABLET PO SCH ×2 (21:00)
--- NOTE | 2023-04-23 22:07 | CT Report ---
PROCEDURE: PELVIS WO INDICATIONS: Mass in urinary bladder obstructing urine outflow TECHNIQUE: Noncontrast 3 mm axial sections acquired through the bony pelvis, with coronal and sagittal reformatt ing. For radiation dose reduction, the following was used: automated exposure control, adjustment of mA and/or kV according to patient size. COMPARISON: None. FINDINGS: Image quality: Excellent. Bones: Marked left hip osteoarthritis, with subchondral cystic change, osteophytosis. Mild right hip osteophytosis. No displaced fractures. Soft tissues: Markedly enlarged body habitus, with anasarca. Pedunculated, calcified fibroid at the fundus of the uterus measuring 3.3 cm. Small volume ascites. Urinary bladder is mildly distended. No definite mass within the nonopacified lumen. IMPRESSION: Mildly distended urinary bladder, without mass visualized. Note: This exam is not tailored for evalua tion of bladder masses. Consider CT cystography or cystoscopy. Evidence of third spacing of fluids, with anasarca and small volume ascites. Marked left hip osteoarthritis. Reviewed by: Silverio Walker on 04/23/2023 10:06 PM PST Approved by: Silverio Wakler on 04/23/2023 10:06 PM PST Station ID: [id number]
[2023-04-24] MEDS: LACTULOSE 10 GM /15 ML UDC PO SCH ×3 (06:01→22:14)
[2023-04-24 06:02] LABS: BASOPHILS % (AUTO) 0.4 %; EOSINOPHILS # (AUTO) 0.1 10^3/uL (0.0-0.7); EOSINOPHILS % (AUTO) 1.2 %; HCT - HEMATOCRIT 39.3 % (37.0-47.0); HGB - HEMOGLOBIN 11.6 g/dL (12.0-16.0); LYMPHOCYTES # (AUTO) 0.4 10^3/uL (1.5-3.5); LYMPHOCYTES % (AUTO) 4.5 %; MEAN CORPUSCULAR HEMOGLOBIN 29.9 pg (27.0-31.0); MEAN CORPUSCULAR HGB CONC 29.5 g/dL (32.0-36.0); MEAN CORPUSCULAR VOLUME 101.3 fL (81.0-99.0); MONOCYTES # (AUTO) 0.7 10^3/uL (0.0-1.0); MONOCYTES % (AUTO) 7.9 %; NEUTROPHILS # (AUTO) 7.6 10^3/uL (1.5-6.6); NEUTROPHILS % (AUTO) 85.6 %; NRBC ABSOLUTE COUNT (AUTO) 0.04 x10^3/uL; NUCLEATED RED BLOOD CELLS AUTO 0.4 /100WBC; PLT - PLATELET COUNT 160 10^3/uL (130-450); RED BLOOD COUNT 3.88 10^6/uL (4.20-5.40); RED CELL DISTRIBUTION WIDTH 20.8 % (12.0-15.0); WHITE BLOOD COUNT 8.9 x10^3/uL (4.8-10.8)
[2023-04-24 06:12] LABS: CALCIUM 9.1 mg/dL (8.5-10.3); CREATININE 2.3 mg/dL (0.6-1.3); POTASSIUM 4.9 mmol/L (3.5-4.5)
[2023-04-24 06:13] LABS: INR 3.2 (0.8-1.2)
[2023-04-24 06:16] LABS: SLIDE REVIEW? Indicated
[2023-04-24 06:38] LABS: PLATELET ESTIMATE, MANUAL NORMAL (130-450,000) (NORMAL)
[2023-04-24] MEDS ORDERED: DEXTROSE 5%-0.9% NACL 1,000 ML IV SCH ×2 (07:48→17:28)
[2023-04-24] MEDS: INSULIN LISPRO 300 UNIT/3 ML PEN SUBQ SCH ×4 (08:06→22:13)
[2023-04-24] MEDS: MULTIVITAMIN W/MINERALS TABLET PO SCH (08:06)
[2023-04-24] MEDS: rifAXIMin 550 MG TABLET PO SCH ×2 (08:07→22:09)
[2023-04-24] MEDS: METOPROLOL SUCCINATE 50 MG TABLET PO SCH (08:07)
[2023-04-24] MEDS: SODIUM CHLORIDE FLUSH 0.9% 10 ML SYRINGE IVP SCH ×2 (08:07→17:32)
[2023-04-24] MEDS: NYSTATIN CREAM 15 GM TUBE TOP SCH ×2 (09:14→22:09)
[2023-04-24] MEDS: HEPARIN 5,000 UNIT/ML VIAL SUBQ SCH (09:14)
--- NOTE | 2023-04-24 12:15 | PROVIDER PROGRESS NOTE ---
Assessment/Plan - Problem List (1) Acute metabolic encephalopathy Assessment/Plan: Exactly etiology of encephalopathy is unknown however it has been worsening the past 3 days. UTI has been adequately treated with 5 days of IV ceftriaxone. CT head on 04/22 showed chronic changes without acute findings. We thought it was hepatic encephalopathy. Ammonia was borderline abn elevated at 71 but she was on Lactulose, had 2-3 BMs. Also on rifaximin 550 mg BID. Ammonia level down to 35 today and despite that she is more somnolent. She is more uremic daily since admission. 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 She was started on Seroquel and got 25 mg po x1, which may add to somnolence. I spoke to daughter Teri (her DPOA) and updated her today. I discussed with DPOA permission for inserting an ng tube for feeding and for meds, and Teri agreed to ng Plan: Head CT ordered Cancel PT and OT Cont D5 NS since she is not swallowing, increase to 60 cc/hr Insert ng, start ng feeds and water flushes. Drafter Electromechanical consult. Give meds per NG Stop Seroquel Cont TID Lactulose Follow ammonia level intermittently Follow BUN/creat daily and address the LOYDA and urinary retention (2) Acute urinary retention Assessment/Plan: She had >500 cc on bladder scan and a str cath was done. The next day (yesterday) she had 536 cc on scanning and a str cath was tried 3 times, the US showed a mass-like structure that was adding to obstruction. Then a repeat CT was done and suspiscion is that her fibroid is causing external obstruction. A Carter was inserted at midnight. Today the Carter was felt to be out, a cudee was inserted, but when bulb blown up, she was in pain, so felt to not be in proper place. An US-guided insertion was done by nursing Plan: Cont Carter We have no Urologist available all week to get a consult for recommendations (3) LOYDA (acute kidney injury) Assessment/Plan: Baseline creatinine is near 1. She was on an ARB at home which is currently being held in setting of LOYDA. We first thought she was pre=renal, then considered hepato-renal. She got iv fluids. She does have anasarca now. Her iv fluids were stopped temporarily due to anasarca. When she could not swallow safely starting 04/23, iv fluids restarted at 40 cc/hr The first CT abdomen/pelvis did not show any evidence of internal urinary tract obstruction. Since 04/23, concern about post-obstructive LOYDA. Yest W/U did suggest obstruction is caused by a fibroid, as in #2 I suspect uremia is causing the AMS. Her BUN/creat first improved 81/2.4>> 82/2.4>> 78/2.4>> 70/2.0>> 65/1.8 then have increased yest BUN/creat was 69/2.1>> 76/2.3 today (all labs were reviewed) Plan: Cont Carter to relieve obstruction to urine outflow Cont holding all nephrotoxic agents including home enalapril and metformin. Possibly resume when renal function returns to normal. Cont gentle iv hydration Start oral hydration with ng feeds Follow BMP daily Obtain Echo to R/O cardio-renal syndrome (4) Cirrhosis Conclusion/Plan: Unclear exact etiology. CT abdomen/pelvis does show evidence of early cirrhosis which is not present on previous abdominal imaging studies. Patient does not have a history of alcohol use. Possibly related to metabolic disease given her type 2 diabetes. Plan: Cont TID Lactulose Follow ammonia level daily (5) Type 2 diabetes mellitus Conclusion/Plan: A1c came back at 6.0, indicating excessively tight glu control Plan: Cont her on sliding scale insulin. Glipizide and metformin are on hold while inpatient. Start oral hydration plus ng feeds (6) Supratherapeutic INR Conclusion/Plan: Patient reported that she does not check her INR regularly. Pharmacy helping to help manage her warfarin. Goal INR is between 2 and 3 for chronic atrial fibrillation. New diagnosis of cirrhosis which may be elevating INR. Will likely require re- dosing of her warfarin prior to discharge. Thus far into the hospitalization she has not received any warfarin. Plan: We will hold Coumadin until INR is down to a goal of 2-3. No SQ Heparin needed while INR >2, will stop that (7) Chronic atrial fibrillation Conclusion/Plan: Plan: Continue home metoprolol for chronic atrial fibrillation. As mentioned above her INR is supratherapeutic. We will hold Coumadin until INR is down to a goal of 2-3. (8) Blister Assessment/Plan: Blistering on the bottom of her feet and toes. This was wrapped. Plan: Will arrange for an outpatient wound care referral on discharge. (9) Left hip pain Conclusion/Plan: CT abdomen/pelvis not show any evidence of fracture. Plan: PT/OT recommended SNF. [facility] to [facility]. PT and OT now on hold (10) E coli UTI (urinary tract infection) Assessment/Plan: Urine culture showed pansensitive E. coli She completed a course of Ceftriaxone on 04/21 - Current Meds Current Meds: Current Medications Generic Name Dose Route Start Last Admin Trade Name Freq PRN Reason Stop Dose Admin Acetaminophen 650 mg 04/17/23 11:31 04/22/23 21:51 Acetaminophen 325 Mg Tablet PO 650 mg Q4HR PRN Administration Pain 1 to 4, or Fever Dextrose/Sodium Chloride 1,000 mls @ 60 mls/hr 04/24/23 07:48 04/24/23 08:06 D5ns IV 60 mls/hr .[id number] IWONA Administration Insulin Human Lispro 1 - 5 unit 04/17/23 17:00 04/24/23 08:06 Insulin Lispro 300 Unit/3 Ml Pen SUBQ Not Given 0800,1200,1700,2100 [facility] Protocol Lactulose 20 gm 04/23/23 14:00 04/24/23 06:01 Lactulose 10 Gm /15 Ml Udc PO Not Given TID IWONA Metoprolol Succinate 150 mg 04/18/23 09:00 04/24/23 08:07 Metoprolol Succinate 50 Mg Tablet PO Not Given DAILY IWONA Multivitamins/Minerals 1 tab 04/18/23 15:00 04/24/23 08:06 Multivitamin W/Minerals Tablet PO Not Given DAILYWM IWONA Nystatin 1 applic 04/17/23 21:00 04/24/23 09:14 Nystatin Cream 15 Gm Tube TOP 1 applic BID IWONA Administration Quetiapine Fumarate 12.5 mg 04/23/23 21:00 04/23/23 21:50 Quetiapine 25 Mg Tablet PO Not Given QPM IWONA Rifaximin 550 mg 04/22/23 21:00 04/24/23 08:07 Rifaximin 550 Mg Tablet PO Not Given BID IWONA Sodium Chloride 10 ml 04/17/23 17:00 04/24/23 08:07 Sodium Chloride Flush 0.9% 10 Ml Syringe IVP Not Given 0100,0900,1700 IWONA - Lab Result Fish Bone Diagrams: 04/24/23 05:49 04/24/23 05:49 - Additional Planning My Orders: My Active Orders 04/23/23 11:55 Straight Catheter Insertion [RC] ONCE 04/23/23 11:56 Swallow Screen - Nursing [RC] ONCE 04/23/23 14:00 Lactulose [Enulose] 20 gm PO TID 04/23/23 Dinner Clear Liquid Diet [DIET] 04/23/23 19:32 Carter Insertion [RC] QSHIFT 04/23/23 19:33 Miscellaenous Nursing Order [RC] ONCE 04/23/23 21:00 QUEtiapine [SEROquel] 12.5 mg PO QPM 04/24/23 07:44 Echo Transthoracic Complete [ECHO] Routine 04/24/23 07:48 Dextrose 5%-0.9% NaCl [D5ns] 1,000 ml IV 60 mls/hr 04/24/23 10:13 HEAD WO [CT] Stat 04/25/23 05:00 AMMONIA [CHEM] DAILYLAB BMP - BASIC METABOLIC PANEL [CHEM] DAILYLAB CBC - COMP BLD CT W/AUTO DIFF [HEME] DAILYLAB 04/26/23 05:00 AMMONIA [CHEM] DAILYLAB BMP - BASIC METABOLIC PANEL [CHEM] DAILYLAB CBC - COMP BLD CT W/AUTO DIFF [HEME] DAILYLAB 04/27/23 05:00 BMP - BASIC METABOLIC PANEL [CHEM] DAILYLAB CBC - COMP BLD CT W/AUTO DIFF [HEME] DAILYLAB Objective Vital Signs: Vital Signs - 24 hr 04/23/23 04/23/23 04/23/23 11:52 16:00 20:58 Temperature 35.1 C L 36.3 C L Heart Rate [ 80 88 Brachial] Respiratory 18 16 Rate Blood Pressure 145/78 H [Left Brachial artery] Blood Pressure 118/62 143/59 H [Right Brachial artery] O2 Saturation 99 100 04/23/23 04/24/23 04/24/23 23:36 00:49 07:32 Temperature 36.3 C L 36.4 C L Heart Rate [ 83 88 Brachial] Respiratory 17 20 Rate Blood Pressure [Left Brachial artery] Blood Pressure 91/79 127/63 145/73 H [Right Brachial artery] O2 Saturation 100 98 Oxygen O2 Source Room air I&O (Last 24 Hrs): Intake and Output Totals x24h 04/22/23 04/23/23 04/24/23 23:59 23:59 23:59 Intake Total 2266 0 0 Output Total 0 450 200 Balance 2266 -450 -200 General: Other (Lethargic, moans and withdraws to pain) HEENT: Mucous membr. moist/pink Neck: No JVD Neuro: Other (Lethargic, withdraws to pain, moves all extrem) Cardiovascular: Regular rate, No murmurs Respiratory: No respiratory distress, Breath sounds nml Abdomen: Soft, Other (Obese) Extremities: No clubbing, Other (Venous stasis changes of shins. 1+ edema) - Results Results: Laboratory Results WBC 8.9 x10^3/uL (4.8-10.8) 04/24/23 05:49 RBC 3.88 10^6/uL (4.20-5.40) L 04/24/23 05:49 Hgb 11.6 g/dL (12.0-16.0) L 04/24/23 05:49 Hct 39.3 % (37.0-47.0) 04/24/23 05:49 MCV 101.3 fL (81.0-99.0) H 04/24/23 05:49 MCH 29.9 pg (27.0-31.0) 04/24/23 05:49 MCHC 29.5 g/dL (32.0-36.0) L 04/24/23 05:49 RDW 20.8 % (12.0-15.0) H 04/24/23 05:49 Plt Count 160 10^3/uL (130-450) 04/24/23 05:49 MPV 10.0 fL (7.9-10.8) 04/24/23 05:49 Neut # (Auto) 7.6 10^3/uL (1.5-6.6) H 04/24/23 05:49 Lymph # (Auto) 0.4 10^3/uL (1.5-3.5) L 04/24/23 05:49 Atlantic # (Auto) 0.7 10^3/uL (0.0-1.0) 04/24/23 05:49 Eos # (Auto) 0.1 10^3/uL (0.0-0.7) 04/24/23 05:49 Baso # (Auto) 0.0 10^3/uL (0.0-0.1) 04/24/23 05:49 Absolute Nucleated RBC 0.04 x10^3/uL 04/24/23 05:49 Nucleated RBC % 0.4 /100WBC 04/24/23 05:49 Manual Slide Review Indicated 04/24/23 05:49 WBC Morphology NORMAL APPEARANCE (NORMAL) 04/23/23 13:00 Platelet Estimate NORMAL (130-450,000) (NORMAL) 04/24/23 05:49 Platelet Morphology NORMAL APPEARANCE (NORMAL) 04/23/23 13:00 RBC Morph Micro Appear 1+ ANISOCYTOSIS (NORMAL) 1+ HYPOCHROMASIA (NORMAL) 1+ OVALOCYTES (NORMAL) 04/24/23 05:49 RBC Morph Micro Appear 1+ ANISOCYTOSIS (NORMAL) 1+ HYPOCHROMASIA (NORMAL) 1+ OVALOCYTES (NORMAL) 04/24/23 05:49 RBC Morph Micro Appear 1+ ANISOCYTOSIS (NORMAL) 1+ HYPOCHROMASIA (NORMAL) 1+ OVALOCYTES (NORMAL) 04/24/23 05:49 PT 32.0 secs (9.9-12.6) H 04/24/23 05:49 INR 3.2 (0.8-1.2) H 04/24/23 05:49 Sodium 141 mmol/L (135-145) 04/24/23 05:49 Potassium 4.9 mmol/L (3.5-4.5) H 04/24/23 05:49 Chloride 114 mmol/L (101-111) H 04/24/23 05:49 Carbon Dioxide 18 mmol/L (21-32) L 04/24/23 05:49 Anion Gap 9.0 (6-13) 04/24/23 05:49 BUN 76 mg/dL (6-20) H 04/24/23 05:49 Creatinine 2.3 mg/dL (0.6-1.3) H 04/24/23 05:49 Estimated GFR (MDRD) 20 (>89) L 04/24/23 05:49 Glucose 129 mg/dL (74-104) H 04/24/23 05:49 POC Whole Bld Glucose 122 mg/dL (70 - 100) H 04/24/23 07:23 Estimat Average Glucose 126 mg/dL (70-100) H 04/23/23 04:56 Hemoglobin A1c % 6.0 % (4.27-6.07) 04/23/23 04:56 Calcium 9.1 mg/dL (8.5-10.3) 04/24/23 05:49 Total Bilirubin 2.0 mg/dL (0.2-1.0) H 04/17/23 07:32 AST 21 IU/L (10-42) 04/17/23 07:32 ALT 17 IU/L (10-60) 04/17/23 07:32 Alkaline Phosphatase 105 IU/L (42-121) 04/17/23 07:32 Ammonia 35.8 umol/L (18-72) 04/24/23 05:49 Total Protein 7.2 g/dL (6.4-8.9) 04/17/23 07:32 Albumin 3.6 g/dL (3.2-5.5) 04/17/23 07:32 Globulin 3.6 g/dL (2.1-4.2) 04/17/23 07:32 Albumin/Globulin Ratio 1.0 (1.0-2.2) 04/17/23 07:32 Urine Color DK. ORANGE 04/23/23 12:48 Urine Clarity SL. CLOUDY (CLEAR) 04/23/23 12:48 Urine pH 5.5 PH (5.0-7.5) 04/23/23 12:48 Ur Specific Ponder >=1.030 (1.002-1.030) H 04/23/23 12:48 Urine Protein mg/dL (NEGATIVE) 04/23/23 12:48 Urine Glucose (UA) NEGATIVE mg/dL (NEGATIVE) 04/23/23 12:48 Urine Ketones TRACE mg/dL (NEGATIVE) 04/23/23 12:48 Urine Occult Blood TRACE-INTA (NEGATIVE) 04/23/23 12:48 Urine Nitrite (NEGATIVE) 04/23/23 12:48 Urine Bilirubin NEGATIVE (NEGATIVE) 04/23/23 12:48 Urine Urobilinogen E.U./dL (NORMAL) 04/23/23 12:48 Ur Leukocyte Esterase (NEGATIVE) 04/23/23 12:48 Urine RBC 0-5 /HPF (0-5) 04/23/23 12:48 Urine WBC 6-10 /HPF (0-5) H 04/23/23 12:48 Urine WBC Clumps PRESENT 04/17/23 09:50 Ur Squamous Epith Cells MANY Squamous (<= Few) H 04/23/23 12:48 Urine Bacteria Few /HPF (None Seen) 04/23/23 12:48 Urine Mucus Few Strands 04/23/23 12:48 Ur Microscopic Review INDICATED 04/23/23 12:48 Urine Culture Comments NOT INDICATED 04/23/23 12:48 Urine Creatinine 85.8 mg/dL 04/20/23 10:40 Ur Total Protein Timed 28 mg/dL 04/20/23 10:40 Protein/Creatinin Ratio 0.3 (<=0.2) H 04/20/23 10:40 - Procedures Procedures: Procedures REPLACEMENT OF RIGHT LENS WITH SYNTH SUB, PERC APPROACH (02/26/19) Sepsis Event Note (H) - Evaluation Current Stage of Sepsis: Ruled out
--- NOTE | 2023-04-24 17:07 | CT Report ---
PROCEDURE: HEAD WO INDICATIONS: AMS TECHNIQUE: Noncontrast 4.5 mm thick angled axial sections acquired from the foramen magnum to the vertex. For r adiation dose reduction, the following was used: automated exposure control, adjustment of mA and/or kV according to patient size. COMPARISON: CT head 04/22/2023. FINDINGS: Image quality: Excellent. CSF spaces: Basal cisterns are patent. No extra-axial fluid collections. Ventricles are normal in size and shape. Brain: No midline shift. No intracranial masses or hemorrhage. Age-related global volume loss and c hronic microvascular ischemic changes. Henderson-white matter interface is normal. Skull and face: Calvarium and visualized facial bones are intact, without suspicious lesions. Bilat eral lens replacements. Sinuses: Visualized sinuses and mastoids are clear. IMPRESSION: No acute intracranial pathology. Reviewed by: James Buenrostro MD on 04/24/2023 5:06 PM PST Approved by: James Buenrostro MD on 04/24/2023 5:06 PM PST Station ID: [id number]
--- NOTE | 2023-04-24 17:10 | CT Report ---
PROCEDURE: PELVIS WO INDICATIONS: Urinary obstruction TECHNIQUE: Noncontrast 3 mm axial sections acquired through the bony pelvis, with coronal and sagittal reformatt ing. For radiation dose reduction, the following was used: automated exposure control, adjustment of mA and/or kV according to patient size. COMPARISON: CT pelvis 04/23/2023 FINDINGS: Image quality: Excellent. Bones: Decreased osseous position. Degenerative changes of the visualized spine. Severe degenerative changes of the left hip. Soft tissues: Carter catheter in place within the urinary bladder. The bladder is decompressed which limits evaluation. Small volume ascites. Calcified uterine fibroid. Atherosclerotic vascular calcific ations. Diverticulosis without evidence of acute diverticulitis. Diffuse anasarca. IMPRESSION: 1.Carter catheter in place within the urinary bladder. The bladder is decompressed which limits evalua tion. 2.Volume overload with anasarca and small free intra-abdominal fluid. 3.Severe left hip degenerative changes. Reviewed by: James Buenrostro MD on 04/24/2023 5:09 PM PST Approved by: James Buenrostro MD on 04/24/2023 5:09 PM PST Station ID: [id number]
--- NOTE | 2023-04-24 17:26 | XRAY Report ---
PROCEDURE: Chest for Line Placement INDICATIONS: NG tube placement TECHNIQUE: One view of the chest was acquired. COMPARISON: None. FINDINGS: Surgical changes and devices: Nasogastric tube is present. This extends to the level of the diaphrag m and curls 180 degrees and the tip resides in the midesophagus. Lungs and pleura: Bibasilar opacities, left worse than right and small bilateral pleural effusions. Mediastinum: Mild cardiomegaly. Mild central venous congestion. Bones and chest wall: No suspicious bony lesions. Overlying soft tissues appear unremarkable. IMPRESSION: 1. Malpositioned nasogastric tube with the tip residing in the midesophagus. Removal and replacement is recommended. Findings conveyed to the ordering physician at 1723 hours. 2. Bibasilar opacities and effusions, likely mild edema or pneumonia. Reviewed by: Alejandra Orlando MD on 04/24/2023 5:24 PM PST Approved by: Alejandra Orlando MD on 04/24/2023 5:24 PM PST Station ID: [id number]
--- NOTE | 2023-04-24 19:55 | XRAY Report ---
PROCEDURE: Chest for Line Placement INDICATIONS: line placement TECHNIQUE: One view of the chest was acquired. COMPARISON: Chest x-ray, 04/24/2023. FINDINGS: The upper thorax is not included in the [id number]. Surgical changes and devices: There is a nasogastric tube with the tip in the stomach. The sidehole is at or just beyond the GE junction. Lungs and pleura: Left basilar consolidation or atelectasis. No pleural effusions or pneumothorax. Mediastinum: Mediastinal contours appear normal. Heart size is normal. Bones and chest wall: No suspicious bony lesions. Overlying soft tissues appear unremarkable. IMPRESSION: 1. The tip of the nasogastric tube is in the stomach. The sidehole is probably at or just beyond the GE junction. Reviewed by: Tami Moore MD on 04/24/2023 7:53 PM PST Approved by: Tami Moore MD on 04/24/2023 7:53 PM PST Station ID: [id number]
[2023-04-24] MEDS: METOPROLOL TARTRATE 25 MG TABLET PO SCH (22:08)
[2023-04-25] MEDS: SODIUM CHLORIDE FLUSH 0.9% 10 ML SYRINGE IVP SCH ×3 (00:45→18:44)
[2023-04-25 05:22] LABS: BASOPHILS % (AUTO) 0.5 %; EOSINOPHILS # (AUTO) 0.1 10^3/uL (0.0-0.7); EOSINOPHILS % (AUTO) 1.9 %; HCT - HEMATOCRIT 38.4 % (37.0-47.0); HGB - HEMOGLOBIN 11.6 g/dL (12.0-16.0); LYMPHOCYTES # (AUTO) 0.5 10^3/uL (1.5-3.5); LYMPHOCYTES % (AUTO) 7.2 %; MEAN CORPUSCULAR HEMOGLOBIN 30.4 pg (27.0-31.0); MEAN CORPUSCULAR HGB CONC 30.2 g/dL (32.0-36.0); MEAN CORPUSCULAR VOLUME 100.5 fL (81.0-99.0); MEAN PLATELET VOLUME 9.7 fL (7.9-10.8); MONOCYTES # (AUTO) 0.7 10^3/uL (0.0-1.0); MONOCYTES % (AUTO) 11.4 %; NEUTROPHILS % (AUTO) 78.5 %; NRBC ABSOLUTE COUNT (AUTO) 0.07 x10^3/uL; NUCLEATED RED BLOOD CELLS AUTO 1.1 /100WBC; PLT - PLATELET COUNT 141 10^3/uL (130-450); RED BLOOD COUNT 3.82 10^6/uL (4.20-5.40); RED CELL DISTRIBUTION WIDTH 21.6 % (12.0-15.0); WHITE BLOOD COUNT 6.4 x10^3/uL (4.8-10.8)
[2023-04-25 05:27] LABS: SLIDE REVIEW? Indicated
[2023-04-25 05:33] LABS: INR 3.2 (0.8-1.2); PT - PROTHROMBIN TIME 32.2 secs (9.9-12.6)
[2023-04-25 05:35] LABS: ALBUMIN 3.2 g/dL (3.2-5.5); BILIRUBIN,TOTAL 3.9 mg/dL (0.2-1.0); CALCIUM 9.1 mg/dL (8.5-10.3); CREATININE 2.2 mg/dL (0.6-1.3); MAGNESIUM 1.9 mg/dL (1.7-2.3); PHOSPHORUS 3.8 mg/dL (2.5-5.0); POTASSIUM 4.5 mmol/L (3.5-4.5); TOTAL PROTEIN 6.4 g/dL (6.4-8.9)
[2023-04-25] MEDS: LACTULOSE 10 GM /15 ML UDC PO SCH ×3 (05:59→21:30)
[2023-04-25 06:31] LABS: PLATELET ESTIMATE, MANUAL NORMAL (130-450,000) (NORMAL)
--- NOTE | 2023-04-25 08:01 | XRAY Report ---
PROCEDURE: Chest for Line Placement INDICATIONS: NG Tube placement TECHNIQUE: One view of the chest was acquired. COMPARISON: 04/14/2023. FINDINGS: Surgical changes and devices: NG tube tip projects at least to the body of the stomach. Lungs and pleura: No pleural effusions or pneumothorax. Question mild pulmonary edema. Mediastinum: Mediastinal contours appear normal. Cardiomegaly. Bones and chest wall: No suspicious bony lesions. Overlying soft tissues appear unremarkable. IMPRESSION: NG tube courses at least to the body of the stomach. Question congestive heart failure. Findings are concordant with preliminary interpretation provided by [facility]. Reviewed by: Damian Morelos MD on 04/25/2023 8:00 AM PST Approved by: Damian Morelos MD on 04/25/2023 8:00 AM PST Station ID: [id number]
--- NOTE | 2023-04-25 08:04 | PROVIDER PROGRESS NOTE ---
Assessment/Plan - Problem List (1) Acute metabolic encephalopathy Assessment/Plan: Exactly etiology of encephalopathy is unknown however it has been worsening the past 3 days. UTI has been adequately treated with 5 days of IV ceftriaxone. CT head on 04/22 showed chronic changes without acute findings. We thought it was hepatic encephalopathy. Ammonia was borderline abn elevated at 71 but she was on Lactulose, had 2-3 BMs. Also on rifaximin 550 mg BID. Ammonia level down to 35 and despite that she is more somnolent. She is more uremic daily since admission. I suspect this is adding to her somnolence Non pharmacologic - she is very hard of hearing and needs her hearing aid in at all times. She was started on Seroquel and got 25 mg po x1, which may add to somnolence. I spoke to daughter Teri (her DPOA) and updated her yesterday. I discussed with DPOA permission for inserting an ng tube for feeding and for meds, and Teri agreed to ng Plan: Cancel PT and OT Cont D5 NS since she is not swallowing Insert ng, start ng feeds and water flushes. Senior Budget Analyst consult. Give meds per NG Stop Seroquel Cont TID Lactulose Follow ammonia level intermittently Follow BUN/creat daily and address the LOYDA and urinary retention (2) LOYDA (acute kidney injury) Assessment/Plan: Baseline creatinine is near 1. She was on an ARB at home which is currently being held in setting of LOYDA. We first thought she was pre-renal, then considered hepato-renal. She got iv fluids. She does have anasarca now. Her iv fluids were stopped temporarily due to anasarca. When she could not swallow safely starting 04/23, iv fluids restarted at 40 cc/hr The first CT abdomen/pelvis did not show any evidence of internal urinary tract obstruction. Since 04/23, concern about post-obstructive LOYDA. Yest W/U did suggest obstruction is caused by a fibroid, as in #2 I suspect uremia is causing the AMS. Her BUN/creat first improved 81/2.4>> 82/2.4>> 78/2.4>> 70/2.0>> 65/1.8 then have increased BUN/creat was 69/2.1>> 76/2.3>> 77/2.2 today (all labs were reviewed) Plan: Cont Carter to relieve obstruction to urine outflow Cont holding all nephrotoxic agents including home enalapril and metformin. Possibly resume when renal function returns to normal. Cont gentle iv hydration Start oral hydration with ng feeds Follow BMP daily Obtain Echo to R/O cardio-renal syndrome (3) Acute urinary retention Assessment/Plan: She had >500 cc on bladder scan and a str cath was done. The next day (yesterday) she had 536 cc on scanning and a str cath was tried 3 times, the US showed a mass-like structure that was adding to obstruction. Then a repeat CT was done and suspiscion is that her fibroid is causing external obstruction. A Carter was inserted at midnight. Today the Carter was felt to be out, a cudee was inserted, but when bulb blown up, she was in pain, so felt to not be in proper place. An US-guided insertion was done by nursing Plan: Cont Carter We have no Urologist available all this week to get a consult for recommendations (4) Anasarca Assessment/Plan: She has edema throughout. She has been on iv fluids since she was not eating for the past 3 days Albumen is low Plan: Will stop iv fluids Give iv Albumen daily for 3 days Will start iv Lasix as well (5) Cirrhosis Conclusion/Plan: Unclear exact etiology. CT abdomen/pelvis does show evidence of early cirrhosis which is not present on previous abdominal imaging studies. Patient does not have a history of alcohol use. Possibly related to metabolic disease given her type 2 diabetes. Plan: Cont TID Lactulose Follow ammonia level intermittently (6) Type 2 diabetes mellitus Conclusion/Plan: A1c came back at 6.0, indicating excessively tight glu control Plan: Cont her on sliding scale insulin. Glipizide and metformin are on hold while inpatient and while not eating Start ng feeds (7) Supratherapeutic INR Conclusion/Plan: Patient reported that she does not check her INR regularly. Pharmacy helping to help manage her warfarin. Goal INR is between 2 and 3 for chronic atrial fibrillation. New diagnosis of cirrhosis which may be elevating INR. Will likely require re- dosing of her warfarin prior to discharge. Thus far into the hospitalization she has not received any warfarin. Plan: We will hold Coumadin until INR is down to a goal of 2-3. No SQ Heparin needed while INR >2, will stop that (8) Chronic atrial fibrillation Conclusion/Plan: Plan: Continue home metoprolol for chronic atrial fibrillation. As mentioned above her INR is supratherapeutic. We will hold Coumadin until INR is down to a goal of 2-3. (9) Blister Assessment/Plan: Blistering on the bottom of her feet and toes. This was wrapped. Plan: Will arrange for an outpatient wound care referral on discharge. (10) Left hip pain Conclusion/Plan: CT abdomen/pelvis not show any evidence of fracture. Plan: PT/OT recommended SNF. She wanted to go to [facility]. PT and OT now on hold (11) E coli UTI (urinary tract infection) Assessment/Plan: Urine culture showed pansensitive E. coli She completed a course of Ceftriaxone on 04/21 - Current Meds Current Meds: Current Medications Generic Name Dose Route Start Last Admin Trade Name Freq PRN Reason Stop Dose Admin Acetaminophen 650 mg 04/17/23 11:31 04/22/23 21:51 Acetaminophen 325 Mg Tablet PO 650 mg Q4HR PRN Administration Pain 1 to 4, or Fever Insulin Human Lispro 1 - 5 unit 04/17/23 17:00 04/24/23 22:13 Insulin Lispro 300 Unit/3 Ml Pen SUBQ 1 unit 0800,1200,1700,2100 IWONA Administration Protocol Lactulose 20 gm 04/23/23 14:00 04/25/23 05:59 Lactulose 10 Gm /15 Ml Udc PO 20 gm TID IWONA Administration Metoprolol Tartrate 25 mg 04/24/23 21:00 04/24/23 22:08 Metoprolol Tartrate 25 Mg Tablet PO Not Given BID IWONA Multivitamins/Minerals 1 tab 04/18/23 15:00 04/24/23 08:06 Multivitamin W/Minerals Tablet PO Not Given DAILYWM IWONA Nystatin 1 applic 04/17/23 21:00 04/24/23 22:09 Nystatin Cream 15 Gm Tube TOP 1 applic BID IWONA Administration Rifaximin 550 mg 04/22/23 21:00 04/24/23 22:09 Rifaximin 550 Mg Tablet PO 550 mg BID IWONA Administration Sodium Chloride 10 ml 04/17/23 17:00 04/25/23 00:45 Sodium Chloride Flush 0.9% 10 Ml Syringe IVP Not Given 0100,0900,1700 IWONA - Lab Result Fish Bone Diagrams: 04/29/23 08:06 04/29/23 08:06 - Additional Planning My Orders: My Active Orders 04/24/23 12:20 Nutrition Consult [CONS] Routine 04/24/23 14:16 Daily Weight [RC] DAILY IO [RC] QSHIFT Tube Feeding [RC] QSHIFT 04/24/23 21:00 Metoprolol Tartrate [Lopressor] 25 mg PO BID 04/25/23 09:00 Albumin 25% [Albuminar-25] 12.5 gm in 50 ml IV DAILY 04/26/23 05:00 AMMONIA [CHEM] DAILYLAB BMP - BASIC METABOLIC PANEL [CHEM] DAILYLAB CBC - COMP BLD CT W/AUTO DIFF [HEME] DAILYLAB 04/27/23 05:00 BMP - BASIC METABOLIC PANEL [CHEM] DAILYLAB CBC - COMP BLD CT W/AUTO DIFF [HEME] DAILYLAB COMPREHENSIVE METABOLIC PANEL [CHEM] Timed MAGNESIUM [CHEM] Timed PHOSPHORUS [CHEM] Timed PREALBUMIN [CHEM] Timed 04/30/23 05:00 COMPREHENSIVE METABOLIC PANEL [CHEM] Timed MAGNESIUM [CHEM] Timed PHOSPHORUS [CHEM] Timed PREALBUMIN [CHEM] Timed Subjective - Subjective Nursing Reports: Other (Somnolent, not speaking, withdraws to pain (when Carter being inserted)) Objective Vital Signs: Vital Signs - 24 hr 04/24/23 04/24/23 04/25/23 16:00 22:08 00:00 Temperature 36.3 C L 36.5 C Heart Rate [ 52 L 86 Brachial] Respiratory 20 20 Rate Blood Pressure 143/82 H Blood Pressure 137/85 H 129/75 [Right Brachial artery] O2 Saturation 99 99 04/25/23 07:28 Temperature 36.3 C L Heart Rate [ 96 Brachial] Respiratory 20 Rate Blood Pressure Blood Pressure 143/64 H [Right Brachial artery] O2 Saturation 98 Oxygen O2 Source Room air I&O (Last 24 Hrs): Intake and Output Totals x24h 04/23/23 04/24/23 04/25/23 23:59 23:59 23:59 Intake Total 0 1414 Output Total 450 390 200 Balance -450 1024 -200 General: Other (lethargic) HEENT: Mucous membr. moist/pink Neuro: Other (Lethargic, withdraws to pain) Cardiovascular: Regular rate Respiratory: No respiratory distress Abdomen: Soft, Other (Obese) Extremities: Other (1+ edema of legs. Has several blisters on toes and shins) - Results Results: Laboratory Results WBC 6.4 x10^3/uL (4.8-10.8) 04/25/23 05:04 RBC 3.82 10^6/uL (4.20-5.40) L 04/25/23 05:04 Hgb 11.6 g/dL (12.0-16.0) L 04/25/23 05:04 Hct 38.4 % (37.0-47.0) 04/25/23 05:04 MCV 100.5 fL (81.0-99.0) H 04/25/23 05:04 MCH 30.4 pg (27.0-31.0) 04/25/23 05:04 MCHC 30.2 g/dL (32.0-36.0) L 04/25/23 05:04 RDW 21.6 % (12.0-15.0) H 04/25/23 05:04 Plt Count 141 10^3/uL (130-450) 04/25/23 05:04 MPV 9.7 fL (7.9-10.8) 04/25/23 05:04 Neut # (Auto) 5.0 10^3/uL (1.5-6.6) 04/25/23 05:04 Lymph # (Auto) 0.5 10^3/uL (1.5-3.5) L 04/25/23 05:04 [place] # (Auto) 0.7 10^3/uL (0.0-1.0) 04/25/23 05:04 Eos # (Auto) 0.1 10^3/uL (0.0-0.7) 04/25/23 05:04 Baso # (Auto) 0.0 10^3/uL (0.0-0.1) 04/25/23 05:04 Absolute Nucleated RBC 0.07 x10^3/uL 04/25/23 05:04 Nucleated RBC % 1.1 /100WBC 04/25/23 05:04 Manual Slide Review Indicated 04/25/23 05:04 WBC Morphology NORMAL APPEARANCE (NORMAL) 04/23/23 13:00 Platelet Estimate NORMAL (130-450,000) (NORMAL) 04/25/23 05:04 Platelet Morphology NORMAL APPEARANCE (NORMAL) 04/23/23 13:00 RBC Morph Micro Appear 1+ ANISOCYTOSIS (NORMAL) 1+ OVALOCYTES (NORMAL) 1+ POLYCHROMASIA (NORMAL) 04/25/23 05:04 RBC Morph Micro Appear 1+ ANISOCYTOSIS (NORMAL) 1+ OVALOCYTES (NORMAL) 1+ POLYCHROMASIA (NORMAL) 04/25/23 05:04 RBC Morph Micro Appear 1+ ANISOCYTOSIS (NORMAL) 1+ OVALOCYTES (NORMAL) 1+ POLYCHROMASIA (NORMAL) 04/25/23 05:04 PT 32.2 secs (9.9-12.6) H 04/25/23 05:04 INR 3.2 (0.8-1.2) H 04/25/23 05:04 Sodium 142 mmol/L (135-145) 04/25/23 05:04 Potassium 4.5 mmol/L (3.5-4.5) 04/25/23 05:04 Chloride 115 mmol/L (101-111) H 04/25/23 05:04 Carbon Dioxide 17 mmol/L (21-32) L 04/25/23 05:04 Anion Gap 10.0 (6-13) 04/25/23 05:04 BUN 77 mg/dL (6-20) H 04/25/23 05:04 Creatinine 2.2 mg/dL (0.6-1.3) H 04/25/23 05:04 Estimated GFR (MDRD) 21 (>89) L 04/25/23 05:04 Glucose 186 mg/dL (74-104) H 04/25/23 05:04 POC Whole Bld Glucose 174 mg/dL (70 - 100) H 04/25/23 07:21 Estimat Average Glucose 126 mg/dL (70-100) H 04/23/23 04:56 Hemoglobin A1c % 6.0 % (4.27-6.07) 04/23/23 04:56 Calcium 9.1 mg/dL (8.5-10.3) 04/25/23 05:04 Phosphorus 3.8 mg/dL (2.5-5.0) 04/25/23 05:04 Magnesium 1.9 mg/dL (1.7-2.3) 04/25/23 05:04 Total Bilirubin 3.9 mg/dL (0.2-1.0) H 04/25/23 05:04 AST 41 IU/L (10-42) 04/25/23 05:04 ALT 39 IU/L (10-60) 04/25/23 05:04 Alkaline Phosphatase 93 IU/L (42-121) 04/25/23 05:04 Ammonia 41.8 umol/L (18-72) 04/25/23 05:04 Total Protein 6.4 g/dL (6.4-8.9) 04/25/23 05:04 Albumin 3.2 g/dL (3.2-5.5) 04/25/23 05:04 Globulin 3.2 g/dL (2.1-4.2) 04/25/23 05:04 Albumin/Globulin Ratio 1.0 (1.0-2.2) 04/25/23 05:04 Prealbumin 4 mg/dL (17-34) L 04/25/23 05:04 Urine Color DK. ORANGE 04/23/23 12:48 Urine Clarity SL. CLOUDY (CLEAR) 04/23/23 12:48 Urine pH 5.5 PH (5.0-7.5) 04/23/23 12:48 Ur Specific [place] >=1.030 (1.002-1.030) H 04/23/23 12:48 Urine Protein mg/dL (NEGATIVE) 04/23/23 12:48 Urine Glucose (UA) NEGATIVE mg/dL (NEGATIVE) 04/23/23 12:48 Urine Ketones TRACE mg/dL (NEGATIVE) 04/23/23 12:48 Urine Occult Blood TRACE-INTA (NEGATIVE) 04/23/23 12:48 Urine Nitrite (NEGATIVE) 04/23/23 12:48 Urine Bilirubin NEGATIVE (NEGATIVE) 04/23/23 12:48 Urine Urobilinogen E.U./dL (NORMAL) 04/23/23 12:48 Ur Leukocyte Esterase (NEGATIVE) 04/23/23 12:48 Urine RBC 0-5 /HPF (0-5) 04/23/23 12:48 Urine WBC 6-10 /HPF (0-5) H 04/23/23 12:48 Urine WBC Clumps PRESENT 04/17/23 09:50 Ur Squamous Epith Cells MANY Squamous (<= Few) H 04/23/23 12:48 Urine Bacteria Few /HPF (None Seen) 04/23/23 12:48 Urine Mucus Few Strands 04/23/23 12:48 Ur Microscopic Review INDICATED 04/23/23 12:48 Urine Culture Comments NOT INDICATED 04/23/23 12:48 Urine Creatinine 85.8 mg/dL 04/20/23 10:40 Ur Total Protein Timed 28 mg/dL 04/20/23 10:40 Protein/Creatinin Ratio 0.3 (<=0.2) H 04/20/23 10:40 - Procedures Procedures: Procedures REPLACEMENT OF RIGHT LENS WITH SYNTH SUB, PERC APPROACH (02/26/19) Sepsis Event Note (H) - Evaluation Current Stage of Sepsis: Ruled out
[2023-04-25] MEDS: ALBUMIN 25% 12.5 GM/50 ML VIAL IV SCH (10:34)
[2023-04-25] MEDS: METOPROLOL TARTRATE 25 MG TABLET PO SCH ×2 (10:39→21:30)
[2023-04-25] MEDS: MULTIVITAMIN W/MINERALS TABLET PO SCH (10:39)
[2023-04-25] MEDS: rifAXIMin 550 MG TABLET PO SCH ×2 (10:39→21:29)
[2023-04-25] MEDS: NYSTATIN CREAM 15 GM TUBE TOP SCH ×2 (10:42→21:29)
[2023-04-25] MEDS: INSULIN LISPRO 300 UNIT/3 ML PEN SUBQ SCH ×4 (10:42→21:44)
[2023-04-25] MEDS: ACETAMINOPHEN 325 MG TABLET PO PRN (21:29)
[2023-04-26] MEDS: SODIUM CHLORIDE FLUSH 0.9% 10 ML SYRINGE IVP SCH ×4 (00:33→23:45)
[2023-04-26 05:50] LABS: BASOPHILS % (AUTO) 0.4 %; EOSINOPHILS # (AUTO) 0.1 10^3/uL (0.0-0.7); EOSINOPHILS % (AUTO) 2.1 %; HGB - HEMOGLOBIN 11.2 g/dL (12.0-16.0); LYMPHOCYTES # (AUTO) 0.4 10^3/uL (1.5-3.5); LYMPHOCYTES % (AUTO) 6.4 %; MEAN CORPUSCULAR HEMOGLOBIN 29.7 pg (27.0-31.0); MEAN CORPUSCULAR HGB CONC 30.3 g/dL (32.0-36.0); MEAN CORPUSCULAR VOLUME 98.1 fL (81.0-99.0); MONOCYTES # (AUTO) 0.7 10^3/uL (0.0-1.0); MONOCYTES % (AUTO) 9.8 %; NEUTROPHILS # (AUTO) 5.5 10^3/uL (1.5-6.6); NEUTROPHILS % (AUTO) 81.2 %; NRBC ABSOLUTE COUNT (AUTO) 0.05 x10^3/uL; NUCLEATED RED BLOOD CELLS AUTO 0.7 /100WBC; PLT - PLATELET COUNT 126 10^3/uL (130-450); RED BLOOD COUNT 3.77 10^6/uL (4.20-5.40); WHITE BLOOD COUNT 6.8 x10^3/uL (4.8-10.8)
[2023-04-26 05:55] LABS: SLIDE REVIEW? Indicated
[2023-04-26 06:05] LABS: CALCIUM 9.2 mg/dL (8.5-10.3); CREATININE 1.9 mg/dL (0.6-1.3); POTASSIUM 4.1 mmol/L (3.5-4.5)
[2023-04-26 06:32] LABS: PLATELET ESTIMATE, MANUAL NORMAL (130-450,000) (NORMAL)
[2023-04-26] MEDS: LACTULOSE 10 GM /15 ML UDC PO SCH ×3 (06:34→20:30)
[2023-04-26] MEDS: INSULIN LISPRO 300 UNIT/3 ML PEN SUBQ SCH ×4 (09:38→20:27)
[2023-04-26] MEDS: rifAXIMin 550 MG TABLET PO SCH ×2 (09:39→20:29)
[2023-04-26] MEDS: MULTIVITAMIN W/MINERALS TABLET PO SCH (09:39)
[2023-04-26] MEDS: METOPROLOL TARTRATE 25 MG TABLET PO SCH ×2 (09:39→20:27)
[2023-04-26] MEDS: ALBUMIN 25% 12.5 GM/50 ML VIAL IV SCH (10:03)
[2023-04-26] MEDS: NYSTATIN CREAM 15 GM TUBE TOP SCH ×2 (10:04→20:29)
[2023-04-26 11:39] LABS: PT - PROTHROMBIN TIME 30.8 secs (9.9-12.6)
--- NOTE | 2023-04-26 19:03 | PROVIDER PROGRESS NOTE ---
Assessment/Plan - Problem List (1) Acute metabolic encephalopathy Assessment/Plan: Exactly etiology of encephalopathy is unknown however it has been worsening the past 3 days. UTI has been adequately treated with 5 days of IV ceftriaxone. CT head on 04/22 showed chronic changes without acute findings. We thought it was hepatic encephalopathy. Ammonia was borderline abn elevated at 71 but she was on Lactulose, had 2-3 BMs. Also on rifaximin 550 mg BID. Ammonia level down to 35 and despite that she is more somnolent. She is more uremic daily since admission. I suspect this is adding to her somnolence She was started on Seroquel and got 25 mg po x1, which may add to somnolence. I spoke to daughter Teri (her DPOA) and updated her today. I discussed with DPOA permission for inserting an ng tube for feeding and for meds, and Teri agreed to ng Plan: Head CT ordered Cancel PT and OT Cont D5 NS since she is not swallowing, increase to 60 cc/hr Insert ng, start ng feeds and water flushes. Senior Network Administrator consult. Give meds per NG Stop Seroquel Cont TID Lactulose Follow ammonia level intermittently Follow BUN/creat daily and address the LOYDA and urinary retention (2) LOYDA (acute kidney injury) Assessment/Plan: Baseline creatinine is near 1. She was on an ARB at home which is currently being held in setting of LOYDA. We first thought she was pre=renal, then considered hepato-renal. She got iv fluids. She does have anasarca now. Her iv fluids were stopped temporarily due to anasarca. When she could not swallow safely starting 04/23, iv fluids restarted at 40 cc/hr The first CT abdomen/pelvis did not show any evidence of internal urinary tract obstruction. Since 04/23, concern about post-obstructive LOYDA. Yest W/U did suggest obstruction is caused by a fibroid, as in #2 I suspect uremia is causing the AMS. Her BUN/creat first improved 81/2.4>> 82/2.4>> 78/2.4>> 70/2.0>> 65/1.8 then have increased BUN/creat was 69/2.1>> 76/2.3>> 77/2.0>> 70/1.9 today (all labs were reviewed) Plan: Cont Carter to relieve obstruction to urine outflow Cont holding all nephrotoxic agents including home enalapril and metformin. Possibly resume when renal function returns to normal. Cont gentle iv hydration Start oral hydration since she she awakening Follow BMP daily Obtain Echo to R/O cardio-renal syndrome (3) Acute urinary retention Assessment/Plan: She had >500 cc on bladder scan and a str cath was done. The next day (yesterda y) she had 536 cc on scanning and a str cath was tried 3 times, the US showed a mass-like structure that was adding to obstruction. Then a repeat CT was done and suspiscion is that her fibroid is causing external obstruction. A Carter was inserted at midnight. When the Carter was felt to be out, a cudee was inserted, but when bulb blown up, she was in pain, so felt to not be in proper place. An US-guided insertion was done by nursing Plan: Cont Carter We have no Urologist available all week to get a consult for recommendations (4) Anasarca Assessment/Plan: She has edema throughout. She has been on iv fluids since she was not eating for the past 3 days Albumen is low Plan: Will decrease then stop iv fluids Giving iv Albumen daily for 3 days Will start iv Lasix as well (5) Cirrhosis Conclusion/Plan: Unclear exact etiology. CT abdomen/pelvis does show evidence of early cirrhosis which is not present on previous abdominal imaging studies. Patient does not have a history of alcohol use. Possibly related to metabolic disease given her type 2 diabetes. Plan: Cont TID Lactulose Follow ammonia level intermittently (6) Type 2 diabetes mellitus Conclusion/Plan: A1c came back at 6.0, indicating excessively tight glu control Plan: Cont her on sliding scale insulin. Glipizide and metformin are on hold while inpatient and while not eating Start oral feeds (7) Supratherapeutic INR Conclusion/Plan: Patient reported that she does not check her INR regularly. Pharmacy helping to help manage her warfarin. Goal INR is between 2 and 3 for chronic atrial fibrillation. New diagnosis of cirrhosis which may be elevating INR. Will likely require re- dosing of her warfarin prior to discharge. Thus far into the hospitalization she has not received any warfarin. Plan: We will hold Coumadin until INR is down to a goal of 2-3. No SQ Heparin needed while INR >2, will stop that (8) Chronic atrial fibrillation Conclusion/Plan: Plan: Continue home metoprolol for chronic atrial fibrillation. As mentioned above her INR is supratherapeutic. We will hold Coumadin until INR is down to a goal of 2-3. (9) Blister Assessment/Plan: Blistering on the bottom of her feet and toes. This was wrapped. Plan: She willl need outpatient wound care referral on discharge. (10) Left hip pain Conclusion/Plan: CT abdomen/pelvis not show any evidence of fracture. Plan: PT/OT recommended SNF. She wanted to go to [facility]. PT and OT now on hold (11) E coli UTI (urinary tract infection) Assessment/Plan: Urine culture showed pansensitive E. coli She completed a course of Ceftriaxone on 04/21 - Current Meds Current Meds: Current Medications Generic Name Dose Route Start Last Admin Trade Name Freq PRN Reason Stop Dose Admin Acetaminophen 650 mg 04/17/23 11:31 04/25/23 21:29 Acetaminophen 325 Mg Tablet PO 650 mg Q4HR PRN Administration Pain 1 to 4, or Fever Albumin Human 12.5 gm in 50 mls @ 50 mls/hr 04/25/23 09:00 04/26/23 10:49 Albuminar-25 IV 04/28/23 00:01 Infused DAILY I[facility] Infusion Insulin Human Lispro 1 - 5 unit 04/17/23 17:00 04/26/23 17:17 Insulin Lispro 300 Unit/3 Ml Pen SUBQ Not Given 0800,1200,1700,2100 [facility] Protocol Lactulose 20 gm 04/23/23 14:00 04/26/23 13:57 Lactulose 10 Gm /15 Ml Udc PO Not Given TID IWONA Metoprolol Tartrate 25 mg 04/24/23 21:00 04/26/23 09:39 Metoprolol Tartrate 25 Mg Tablet PO 25 mg BID IWONA Administration Multivitamins/Minerals 1 tab 04/18/23 15:00 04/26/23 09:39 Multivitamin W/Minerals Tablet PO 1 tab DAILYWM IWONA Administration Nystatin 1 applic 04/17/23 21:00 04/26/23 10:04 Nystatin Cream 15 Gm Tube TOP 1 applic BID IWONA Administration Rifaximin 550 mg 04/22/23 21:00 11/17/23 09:39 Rifaximin 550 Mg Tablet PO 550 mg BID IWONA Administration Sodium Chloride 10 ml 04/17/23 11:31 04/26/23 10:49 Sodium Chloride Flush 0.9% 10 Ml Syringe IVP 10 ml PRN PRN Administration NEEDED PER PROVIDER ORDERS Sodium Chloride 10 ml 04/17/23 17:00 04/26/23 17:19 Sodium Chloride Flush 0.9% 10 Ml Syringe IVP 10 ml 0100,0900,1700 I[facility] Administration - Lab Result Fish Bone Diagrams: 04/29/23 08:06 04/29/23 08:06 - Additional Planning My Orders: My Active Orders 04/26/23 Lunch DIET [Dysphagia - Puree] [DIET] 04/27/23 05:00 BMP - BASIC METABOLIC PANEL [CHEM] DAILYLAB CBC - COMP BLD CT W/AUTO DIFF [HEME] DAILYLAB MAGNESIUM [CHEM] Timed PHOSPHORUS [CHEM] Timed PT WITH INR [COAG] DAILYLAB 04/28/23 05:00 PT WITH INR [COAG] DAILYLAB 04/29/23 05:00 PT WITH INR [COAG] DAILYLAB 04/30/23 05:00 PT WITH INR [COAG] DAILYLAB Subjective - Subjective Nursing Reports: Sedated (Minimally arousable, responds to pain (when Carter inserted)) Objective Vital Signs: Vital Signs - 24 hr 04/25/23 04/26/23 04/26/23 21:41 00:17 08:00 Temperature 36.2 C L 36.3 C L Heart Rate [ 94 100 101 H Brachial] Respiratory 16 20 Rate Blood Pressure Blood Pressure 157/74 H 139/93 H 148/76 H [Left Brachial artery] Blood Pressure [Left Radial artery] O2 Saturation 99 93 04/26/23 04/26/23 09:39 16:00 Temperature 35.0 C L Heart Rate [ 89 Brachial] Respiratory 9 L Rate Blood Pressure 148/76 H Blood Pressure [Left Brachial artery] Blood Pressure 134/59 H [Left Radial artery] O2 Saturation 100 Oxygen O2 Source Room air I&O (Last 24 Hrs): Intake and Output Totals x24h 04/24/23 04/25/23 04/26/23 23:59 23:59 23:59 Intake Total 1414 724 50 Output Total 390 780 440 Balance 1024 -56 -390 General: Other (Lethargic, withdraws and moans to pain) HEENT: Mucous membr. moist/pink Neuro: Other (Lethargic, withdraws and moans to pain) Cardiovascular: Regular rate Respiratory: No respiratory distress Abdomen: Soft, Other (obese) Extremities: Other (1+ edema legs and hands, has bandages on shins and some toes) - Results Results: Laboratory Results WBC 6.8 x10^3/uL (4.8-10.8) 04/26/23 05:42 RBC 3.77 10^6/uL (4.20-5.40) L 04/26/23 05:42 Hgb 11.2 g/dL (12.0-16.0) L 04/26/23 05:42 Hct 37.0 % (37.0-47.0) 04/26/23 05:42 MCV 98.1 fL (81.0-99.0) 04/26/23 05:42 MCH 29.7 pg (27.0-31.0) 04/26/23 05:42 MCHC 30.3 g/dL (32.0-36.0) L 04/26/23 05:42 RDW 21.0 % (12.0-15.0) H 04/26/23 05:42 Plt Count 126 10^3/uL (130-450) L 04/26/23 05:42 MPV 10.0 fL (7.9-10.8) 04/26/23 05:42 Neut # (Auto) 5.5 10^3/uL (1.5-6.6) 04/26/23 05:42 Lymph # (Auto) 0.4 10^3/uL (1.5-3.5) L 04/26/23 05:42 [place] # (Auto) 0.7 10^3/uL (0.0-1.0) 04/26/23 05:42 Eos # (Auto) 0.1 10^3/uL (0.0-0.7) 04/26/23 05:42 Baso # (Auto) 0.0 10^3/uL (0.0-0.1) 04/26/23 05:42 Absolute Nucleated RBC 0.05 x10^3/uL 04/26/23 05:42 Nucleated RBC % 0.7 /100WBC 04/26/23 05:42 Manual Slide Review Indicated 04/26/23 05:42 WBC Morphology NORMAL APPEARANCE (NORMAL) 04/23/23 13:00 Platelet Estimate NORMAL (130-450,000) (NORMAL) 04/26/23 05:42 Platelet Morphology NORMAL APPEARANCE (NORMAL) 04/23/23 13:00 RBC Morph Micro Appear 1+ ANISOCYTOSIS (NORMAL) 1+ HYPOCHROMASIA (NORMAL) 1+ POLYCHROMASIA (NORMAL) 1+ OVALOCYTES (NORMAL) 04/26/23 05:42 RBC Morph Micro Appear 1+ ANISOCYTOSIS (NORMAL) 1+ HYPOCHROMASIA (NORMAL) 1+ POLYCHROMASIA (NORMAL) 1+ OVALOCYTES (NORMAL) 04/26/23 05:42 RBC Morph Micro Appear 1+ ANISOCYTOSIS (NORMAL) 1+ HYPOCHROMASIA (NORMAL) 1+ POLYCHROMASIA (NORMAL) 1+ OVALOCYTES (NORMAL) 04/26/23 05:42 RBC Morph Micro Appear 1+ ANISOCYTOSIS (NORMAL) 1+ HYPOCHROMASIA (NORMAL) 1+ POLYCHROMASIA (NORMAL) 1+ OVALOCYTES (NORMAL) 04/26/23 05:42 PT 30.8 secs (9.9-12.6) H 04/26/23 11:22 INR 3.0 (0.8-1.2) H 04/26/23 11:22 Sodium 142 mmol/L (135-145) 04/26/23 05:42 Potassium 4.1 mmol/L (3.5-4.5) 04/26/23 05:42 Chloride 115 mmol/L (101-111) H 04/26/23 05:42 Carbon Dioxide 21 mmol/L (21-32) 04/26/23 05:42 Anion Gap 6.0 (6-13) 04/26/23 05:42 BUN 70 mg/dL (6-20) H 04/26/23 05:42 Creatinine 1.9 mg/dL (0.6-1.3) H 04/26/23 05:42 Estimated GFR (MDRD) 25 (>89) L 04/26/23 05:42 Glucose 148 mg/dL (74-104) H 04/26/23 05:42 POC Whole Bld Glucose 116 mg/dL (70 - 100) H 04/26/23 17:12 Estimat Average Glucose 126 mg/dL (70-100) H 04/23/23 04:56 Hemoglobin A1c % 6.0 % (4.27-6.07) 04/23/23 04:56 Calcium 9.2 mg/dL (8.5-10.3) 04/26/23 05:42 Phosphorus 3.8 mg/dL (2.5-5.0) 04/25/23 05:04 Magnesium 1.9 mg/dL (1.7-2.3) 04/25/23 05:04 Total Bilirubin 3.9 mg/dL (0.2-1.0) H 04/25/23 05:04 AST 41 IU/L (10-42) 04/25/23 05:04 ALT 39 IU/L (10-60) 04/25/23 05:04 Alkaline Phosphatase 93 IU/L (42-121) 04/25/23 05:04 Ammonia 48.3 umol/L (18-72) 04/26/23 05:42 Total Protein 6.4 g/dL (6.4-8.9) 04/25/23 05:04 Albumin 3.2 g/dL (3.2-5.5) 04/25/23 05:04 Globulin 3.2 g/dL (2.1-4.2) 04/25/23 05:04 Albumin/Globulin Ratio 1.0 (1.0-2.2) 04/25/23 05:04 Prealbumin 4 mg/dL (17-34) L 04/25/23 05:04 Urine Color DK. ORANGE 04/23/23 12:48 Urine Clarity SL. CLOUDY (CLEAR) 04/23/23 12:48 Urine pH 5.5 PH (5.0-7.5) 04/23/23 12:48 Ur Specific [place] >=1.030 (1.002-1.030) H 04/23/23 12:48 Urine Protein mg/dL (NEGATIVE) 04/23/23 12:48 Urine Glucose (UA) NEGATIVE mg/dL (NEGATIVE) 04/23/23 12:48 Urine Ketones TRACE mg/dL (NEGATIVE) 04/23/23 12:48 Urine Occult Blood TRACE-INTA (NEGATIVE) 04/23/23 12:48 Urine Nitrite (NEGATIVE) 04/23/23 12:48 Urine Bilirubin NEGATIVE (NEGATIVE) 04/23/23 12:48 Urine Urobilinogen E.U./dL (NORMAL) 04/23/23 12:48 Ur Leukocyte Esterase (NEGATIVE) 04/23/23 12:48 Urine RBC 0-5 /HPF (0-5) 04/23/23 12:48 Urine WBC 6-10 /HPF (0-5) H 04/23/23 12:48 Urine WBC Clumps PRESENT 04/17/23 09:50 Ur Squamous Epith Cells MANY Squamous (<= Few) H 04/23/23 12:48 Urine Bacteria Few /HPF (None Seen) 04/23/23 12:48 Urine Mucus Few Strands 04/23/23 12:48 Ur Microscopic Review INDICATED 04/23/23 12:48 Urine Culture Comments NOT INDICATED 04/23/23 12:48 Urine Creatinine 85.8 mg/dL 04/20/23 10:40 Ur Total Protein Timed 28 mg/dL 04/20/23 10:40 Protein/Creatinin Ratio 0.3 (<=0.2) H 04/20/23 10:40 - Procedures Procedures: Procedures REPLACEMENT OF RIGHT LENS WITH SYNTH SUB, PERC APPROACH (02/26/19) Sepsis Event Note (H) - Evaluation Current Stage of Sepsis: Ruled out
[2023-04-27] MEDS: LACTULOSE 10 GM /15 ML UDC PO SCH ×3 (06:05→21:19)
[2023-04-27 06:13] LABS: BASOPHILS % (AUTO) 0.6 %; EOSINOPHILS # (AUTO) 0.1 10^3/uL (0.0-0.7); EOSINOPHILS % (AUTO) 2.3 %; HCT - HEMATOCRIT 37.1 % (37.0-47.0); HGB - HEMOGLOBIN 11.3 g/dL (12.0-16.0); LYMPHOCYTES # (AUTO) 0.4 10^3/uL (1.5-3.5); LYMPHOCYTES % (AUTO) 7.9 %; MEAN CORPUSCULAR HEMOGLOBIN 30.1 pg (27.0-31.0); MEAN CORPUSCULAR HGB CONC 30.5 g/dL (32.0-36.0); MEAN CORPUSCULAR VOLUME 98.9 fL (81.0-99.0); MEAN PLATELET VOLUME 10.3 fL (7.9-10.8); MONOCYTES # (AUTO) 0.5 10^3/uL (0.0-1.0); MONOCYTES % (AUTO) 8.7 %; NEUTROPHILS # (AUTO) 4.1 10^3/uL (1.5-6.6); NEUTROPHILS % (AUTO) 80.3 %; PLT - PLATELET COUNT 111 10^3/uL (130-450); RED BLOOD COUNT 3.75 10^6/uL (4.20-5.40); RED CELL DISTRIBUTION WIDTH 21.3 % (12.0-15.0); WHITE BLOOD COUNT 5.2 x10^3/uL (4.8-10.8)
[2023-04-27 06:18] LABS: INR 2.7 (0.8-1.2); PT - PROTHROMBIN TIME 28.1 secs (9.9-12.6)
[2023-04-27 06:24] LABS: CALCIUM 9.3 mg/dL (8.5-10.3); CREATININE 1.7 mg/dL (0.6-1.3); MAGNESIUM 1.9 mg/dL (1.7-2.3); PHOSPHORUS 3.4 mg/dL (2.5-5.0); POTASSIUM 4.3 mmol/L (3.5-4.5)
[2023-04-27 08:18] LABS: SLIDE REVIEW? Indicated
[2023-04-27 08:19] LABS: PLATELET ESTIMATE, MANUAL DECREASED (<130,000) (NORMAL); PLATELET MORPHOLOGY NORMAL APPEARANCE (NORMAL); RBC MORPHOLOGY (MULTIPLE) 2+ ANISOCYTOSIS (NORMAL)
[2023-04-27] MEDS: ALBUMIN 25% 12.5 GM/50 ML VIAL IV SCH (10:08)
[2023-04-27] MEDS: INSULIN LISPRO 300 UNIT/3 ML PEN SUBQ SCH ×4 (10:15→21:09)
[2023-04-27] MEDS: NYSTATIN CREAM 15 GM TUBE TOP SCH ×2 (10:16→21:09)
[2023-04-27] MEDS: rifAXIMin 550 MG TABLET PO SCH ×2 (10:16→21:19)
[2023-04-27] MEDS: MULTIVITAMIN W/MINERALS TABLET PO SCH (10:16)
[2023-04-27] MEDS: METOPROLOL TARTRATE 25 MG TABLET PO SCH ×2 (10:16→21:18)
[2023-04-27] MEDS: SODIUM CHLORIDE FLUSH 0.9% 10 ML SYRINGE IVP SCH ×2 (10:17→16:15)
[2023-04-27] MEDS ORDERED: FUROSEMIDE 40 MG/4 ML VIAL IVP STA (14:18)
--- NOTE | 2023-04-27 14:19 | PROVIDER PROGRESS NOTE ---
Assessment/Plan - Problem List (1) Acute metabolic encephalopathy Assessment/Plan: Initial etiology of encephalopathy was felt to be from UTI and elevated Ammonia. Her somnolence and weakness got better for 2 days on tx, then got much worse. CT head on 04/22 showed chronic changes without acute findings. The AMS was from new Uremia. The uremia has improved once a Carter catheter was inserted to relieve obstruction of urine outflow (see #3), and she has started to wake up Plan: Cont TID Lactulose Her Carter will now be needed chronically Will re-order PT and OT to resume (2) LOYDA (acute kidney injury) Assessment/Plan: Baseline creatinine is near 1. She was on an ARB at home which has been held in setting of LOYDA. We first thought she was pre-renal, then considered hepato-renal. She got iv fluids. She does have anasarca now. 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 Then there was difficulty inserting a Carter that would advance. Finally a Carter was inserted, it is in the correct place and she has good urine output and the BUN and creatinine are improving Plan: Cont Carter chronically, to allow urine outflow. Follow BMP daily (3) Acute urinary retention Assessment/Plan: She kept having >500cc retention found by bladder scanning. 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 Then there was difficulty inserting a Carter that would advance. Finally a Carter was inserted, it is in the correct place and she has good urine output Plan: Planning for a chronic indwelling Carter We had no Urologist available this last week to get a consult for any other recommendations (4) Anasarca Assessment/Plan: She has edema throughout. She has been on iv fluids since admission and when she was not eating, was somnolent from uremia. Albumen was low. She got iv Albumen daily for 3 days Last CXR 04/25 showed volume overload. No loop diuretic has been used up until now because of her LOYDA Plan: We will start Lasix 40 mg iv now and 40 mg IV daily (5) Cirrhosis Conclusion/Plan: Unclear exact etiology. CT abdomen/pelvis does show evidence of early cirrhosis which is not present on previous abdominal imaging studies. Patient does not have a history of alcohol use. Possibly related to metabolic disease given her type 2 diabetes. Plan: Cont TID Lactulose, titrate to have up to 3 BMs daily Follow ammonia intermittently (6) Type 2 diabetes mellitus Conclusion/Plan: A1c came back at 6.0, indicating excessively tight glu control Plan: Cont her on sliding scale insulin and restarting a diet since she awoke and able to swallow Glipizide and metformin are on hold while inpatient. (7) Supratherapeutic INR Conclusion/Plan: Her Coumadin has been on hold since admission, and was likely prolonged elevated due to LOYDA plus new diagnosis of cirrhosis . Goal INR is between 2 and 3 for chronic atrial fibrillation. Plan: We will hold Coumadin until INR is down to < 2 then resume and goal INR is 2-3. No SQ Heparin needed while INR >2 (8) Chronic atrial fibrillation Conclusion/Plan: She is on metoprolol tartrate 25mg twice daily, resting heart rate is in the 80s to 90s Plan: Cont B-willard As mentioned above her INR is supratherapeutic. We will hold Coumadin until INR is down (9) Blister Assessment/Plan: Blistering on the several areas of her feet and toes. These are wrapped. Some blisters have burst Plan: Will arrange for an outpatient wound care referral on discharge. (10) Left hip pain Conclusion/Plan: CT abdomen/pelvis not show any evidence of fracture. Plan: PT/OT recommended SNF. (11) E coli UTI (urinary tract infection) Assessment/Plan: Urine culture showed pansensitive E. coli She completed a course of Ceftriaxone on 04/21 - Current Meds Current Meds: Current Medications Generic Name Dose Route Start Last Admin Trade Name Freq PRN Reason Stop Dose Admin Acetaminophen 650 mg 04/17/23 11:31 04/25/23 21:29 Acetaminophen 325 Mg Tablet PO 650 mg Q4HR PRN Administration Pain 1 to 4, or Fever Albumin Human 12.5 gm in 50 mls @ 50 mls/hr 04/25/23 09:00 04/27/23 11:20 Albuminar-25 IV 04/28/23 00:01 Infused DAILY I[facility] Infusion Insulin Human Lispro 1 - 5 unit 04/17/23 17:00 04/27/23 11:49 Insulin Lispro 300 Unit/3 Ml Pen SUBQ Not Given 0800,1200,1700,2100 [facility] Protocol Lactulose 20 gm 04/23/23 14:00 04/27/23 13:58 Lactulose 10 Gm /15 Ml Udc PO 20 gm TID IWONA Administration Metoprolol Tartrate 25 mg 04/24/23 21:00 04/27/23 10:16 Metoprolol Tartrate 25 Mg Tablet PO 25 mg BID IWONA Administration Multivitamins/Minerals 1 tab 04/18/23 15:00 04/27/23 10:16 Multivitamin W/Minerals Tablet PO 1 tab DAILYWM I[facility] Administration Nystatin 1 applic 04/17/23 21:00 04/27/23 10:16 Nystatin Cream 15 Gm Tube TOP 1 applic BID I[facility]ONA Administration Rifaximin 550 mg 04/22/23 21:00 04/27/23 10:16 Rifaximin 550 Mg Tablet PO 550 mg BID IWONA Administration Sodium Chloride 10 ml 04/17/23 11:31 04/26/23 10:49 Sodium Chloride Flush 0.9% 10 Ml Syringe IVP 10 ml PRN PRN Administration NEEDED PER PROVIDER ORDERS Sodium Chloride 10 ml 04/17/23 17:00 04/27/23 10:17 Sodium Chloride Flush 0.9% 10 Ml Syringe IVP 10 ml 0100,0900,1700 IWONA Administration - Lab Result Fish Bone Diagrams: 04/29/23 08:06 04/29/23 08:06 - Additional Planning My Orders: My Active Orders 04/27/23 07:36 Telemetry- [RC] Q4HR 04/27/23 14:18 FUROSEMIDE INJ 40mg VIAL [LASIX INJ 40 mg VIAL] 40 mg IVP ONCE STA 04/28/23 05:00 CMP [COMPREHENSIVE METABOLIC PANEL] [CHEM] DAILYLAB PT WITH INR [COAG] DAILYLAB 04/28/23 09:00 FUROSEMIDE INJ 40mg VIAL [LASIX INJ 40 mg VIAL] 40 mg IVP DAILY 04/29/23 05:00 PT WITH INR [COAG] DAILYLAB 04/30/23 05:00 PT WITH INR [COAG] DAILYLAB Subjective - Subjective Nursing Reports: Other (Minimally awake, swallowing some off her food, needs to be fed) Objective Vital Signs: Vital Signs - 24 hr 04/26/23 04/26/23 04/26/23 16:00 20:27 23:45 Temperature 35.0 C L 36.4 C L Heart Rate [ 89 108 H Brachial] Respiratory 9 L 20 Rate Blood Pressure 132/74 H Blood Pressure 150/77 H [Left Brachial artery] Blood Pressure 134/59 H [Left Radial artery] O2 Saturation 100 99 04/27/23 04/27/23 08:00 10:16 Temperature 36.3 C L Heart Rate [ 104 H Brachial] Respiratory 20 Rate Blood Pressure 154/74 H Blood Pressure 154/74 H [Left Brachial artery] Blood Pressure [Left Radial artery] O2 Saturation 99 Oxygen O2 Source Room air I&O (Last 24 Hrs): Intake and Output Totals x24h 04/25/23 04/26/23 04/27/23 23:59 23:59 23:59 Intake Total 724 400 290 Output Total 780 715 200 Balance -56 -315 90 General: Other (Somnolent, awakens and is bradykinetic, soft speech) HEENT: Mucous membr. moist/pink Neck: Supple Neuro: Other (Lethargic with sever gen weakness) Cardiovascular: Regular rate Respiratory: Wheezes Abdomen: Soft, No tenderness, Other (Obese with [pannus) Extremities: Other (2+ edema legs, 1+ edema hands. Bandages on shins and toes) - Results Results: Laboratory Results WBC 5.2 x10^3/uL (4.8-10.8) 04/27/23 05:33 RBC 3.75 10^6/uL (4.20-5.40) L 04/27/23 05:33 Hgb 11.3 g/dL (12.0-16.0) L 04/27/23 05:33 Hct 37.1 % (37.0-47.0) 04/27/23 05:33 MCV 98.9 fL (81.0-99.0) 04/27/23 05:33 MCH 30.1 pg (27.0-31.0) 04/27/23 05:33 MCHC 30.5 g/dL (32.0-36.0) L 04/27/23 05:33 RDW 21.3 % (12.0-15.0) H 04/27/23 05:33 Plt Count 111 10^3/uL (130-450) L 04/27/23 05:33 MPV 10.3 fL (7.9-10.8) 04/27/23 05:33 Neut # (Auto) 4.1 10^3/uL (1.5-6.6) 04/27/23 05:33 Lymph # (Auto) 0.4 10^3/uL (1.5-3.5) L 04/27/23 05:33 [place] # (Auto) 0.5 10^3/uL (0.0-1.0) 04/27/23 05:33 Eos # (Auto) 0.1 10^3/uL (0.0-0.7) 04/27/23 05:33 Baso # (Auto) 0.0 10^3/uL (0.0-0.1) 04/27/23 05:33 Absolute Nucleated RBC 0.00 x10^3/uL 04/27/23 05:33 Nucleated RBC % 0.0 /100WBC 04/27/23 05:33 Manual Slide Review Indicated 04/27/23 05:33 WBC Morphology NORMAL APPEARANCE (NORMAL) 04/23/23 13:00 Platelet Estimate DECREASED (<130,000) (NORMAL) 04/27/23 05:33 Platelet Morphology NORMAL APPEARANCE (NORMAL) 04/27/23 05:33 RBC Morph Micro Appear 2+ ANISOCYTOSIS (NORMAL) 04/27/23 05:33 PT 28.1 secs (9.9-12.6) H 04/27/23 05:33 INR 2.7 (0.8-1.2) H 04/27/23 05:33 Sodium 143 mmol/L (135-145) 04/27/23 05:33 Potassium 4.3 mmol/L (3.5-4.5) 04/27/23 05:33 Chloride 114 mmol/L (101-111) H 04/27/23 05:33 Carbon Dioxide 22 mmol/L (21-32) 04/27/23 05:33 Anion Gap 7.0 (6-13) 04/27/23 05:33 BUN 66 mg/dL (6-20) H 04/27/23 05:33 Creatinine 1.7 mg/dL (0.6-1.3) H 04/27/23 05:33 Estimated GFR (MDRD) 29 (>89) L 04/27/23 05:33 Glucose 116 mg/dL (74-104) H 04/27/23 05:33 POC Whole Bld Glucose 121 mg/dL (70 - 100) H 04/27/23 11:47 Estimat Average Glucose 126 mg/dL (70-100) H 04/23/23 04:56 Hemoglobin A1c % 6.0 % (4.27-6.07) 04/23/23 04:56 Calcium 9.3 mg/dL (8.5-10.3) 04/27/23 05:33 Phosphorus 3.4 mg/dL (2.5-5.0) 04/27/23 05:33 Magnesium 1.9 mg/dL (1.7-2.3) 04/27/23 05:33 Total Bilirubin 3.9 mg/dL (0.2-1.0) H 04/25/23 05:04 AST 41 IU/L (10-42) 04/25/23 05:04 ALT 39 IU/L (10-60) 04/25/23 05:04 Alkaline Phosphatase 93 IU/L (42-121) 04/25/23 05:04 Ammonia 48.3 umol/L (18-72) 04/26/23 05:42 Total Protein 6.4 g/dL (6.4-8.9) 04/25/23 05:04 Albumin 3.2 g/dL (3.2-5.5) 04/25/23 05:04 Globulin 3.2 g/dL (2.1-4.2) 04/25/23 05:04 Albumin/Globulin Ratio 1.0 (1.0-2.2) 04/25/23 05:04 Prealbumin 4 mg/dL (17-34) L 04/25/23 05:04 Urine Color DK. ORANGE 04/23/23 12:48 Urine Clarity SL. CLOUDY (CLEAR) 04/23/23 12:48 Urine pH 5.5 PH (5.0-7.5) 04/23/23 12:48 Ur Specific [place] >=1.030 (1.002-1.030) H 04/23/23 12:48 Urine Protein mg/dL (NEGATIVE) 04/23/23 12:48 Urine Glucose (UA) NEGATIVE mg/dL (NEGATIVE) 04/23/23 12:48 Urine Ketones TRACE mg/dL (NEGATIVE) 04/23/23 12:48 Urine Occult Blood TRACE-INTA (NEGATIVE) 04/23/23 12:48 Urine Nitrite (NEGATIVE) 04/23/23 12:48 Urine Bilirubin NEGATIVE (NEGATIVE) 04/23/23 12:48 Urine Urobilinogen E.U./dL (NORMAL) 04/23/23 12:48 Ur Leukocyte Esterase (NEGATIVE) 04/23/23 12:48 Urine RBC 0-5 /HPF (0-5) 04/23/23 12:48 Urine WBC 6-10 /HPF (0-5) H 04/23/23 12:48 Urine WBC Clumps PRESENT 04/17/23 09:50 Ur Squamous Epith Cells MANY Squamous (<= Few) H 04/23/23 12:48 Urine Bacteria Few /HPF (None Seen) 04/23/23 12:48 Urine Mucus Few Strands 04/23/23 12:48 Ur Microscopic Review INDICATED 04/23/23 12:48 Urine Culture Comments NOT INDICATED 04/23/23 12:48 Urine Creatinine 85.8 mg/dL 04/20/23 10:40 Ur Total Protein Timed 28 mg/dL 04/20/23 10:40 Protein/Creatinin Ratio 0.3 (<=0.2) H 04/20/23 10:40 - Procedures Procedures: Procedures REPLACEMENT OF RIGHT LENS WITH SYNTH SUB, PERC APPROACH (02/26/19) Sepsis Event Note (H) - Evaluation Current Stage of Sepsis: Ruled out
[2023-04-28] MEDS: SODIUM CHLORIDE FLUSH 0.9% 10 ML SYRINGE IVP SCH ×3 (00:32→18:26)
[2023-04-28] MEDS: LACTULOSE 10 GM /15 ML UDC PO SCH ×3 (05:42→21:53)
[2023-04-28 06:20] LABS: INR 3.3 (0.8-1.2); PT - PROTHROMBIN TIME 33.5 secs (9.9-12.6)
[2023-04-28 06:35] LABS: ALBUMIN 3.5 g/dL (3.2-5.5); ALBUMIN/GLOBULIN RATIO 1.2 (1.0-2.2); BILIRUBIN,TOTAL 7.4 mg/dL (0.2-1.0); CALCIUM 9.2 mg/dL (8.5-10.3); CREATININE 1.7 mg/dL (0.6-1.3); POTASSIUM 4.3 mmol/L (3.5-4.5); TOTAL PROTEIN 6.5 g/dL (6.4-8.9)
[2023-04-28] MEDS: INSULIN LISPRO 300 UNIT/3 ML PEN SUBQ SCH ×4 (07:44→21:52)
--- NOTE | 2023-04-28 08:01 | PROVIDER PROGRESS NOTE ---
Assessment/Plan - Problem List (1) Acute metabolic encephalopathy Assessment/Plan: Initial etiology of encephalopathy was felt to be from UTI and elevated Ammonia. Her somnolence and weakness got better for 2 days on tx, then got much worse and was from new Uremia. The uremia has improved once a Carter catheter was inserted to relieve obstruction of urine outflow (see #3) CT head on 04/22 showed chronic changes without acute findings. PT and OT have been ordered to resume working with her Plan: Cont TID Lactulose Her Carter will now be needed chronically Her 2 daughters want her to rehab at a SNF, then realize she will need caregiving and not live alone, and they are exploring where she will go (2) LOYDA (acute kidney injury) Assessment/Plan: Baseline creatinine is near 1. She was on an ARB at home which has been held in setting of LOYDA. We first thought she was pre-renal, then considered hepato-renal. She got iv fluids. She does have anasarca now. 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 Then there was difficulty inserting a Carter that would advance. Finally a Carter was inserted, it is in the correct place and she has good urine output and the BUN and creatinine are improving (all labs were reviewed) Plan: Cont Carter chronically, to allow urine outflow. She is not a candidate to have a hysterectomy Follow BMP daily (3) Acute urinary retention Assessment/Plan: She kept having >500cc retention found by bladder scanning. 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 Then there was difficulty inserting a Carter that would advance. Finally a Carter was inserted, it is in the correct place and she has good urine output Plan: Planning for a chronic indwelling Carter, I told the 2 daughters that today We had no Urologist available all last week to get a consult for any other recommendations (4) Anasarca Assessment/Plan: She has edema throughout. She has been on iv fluids since admission and when she was not eating, was somnolent from uremia. I will start Lasix IV daily, not twice daily due to LOYDA (5) Cirrhosis Conclusion/Plan: Unclear exact etiology. CT abdomen/pelvis does show evidence of early cirrhosis which is not present on previous abdominal imaging studies. Patient does not have a history of alcohol use. Possibly related to metabolic disease given her type 2 diabetes. Plan: Cont TID Lactulose, titrate to have up to 3 BMs daily Follow ammonia intermittently (6) Type 2 diabetes mellitus Conclusion/Plan: A1c came back at 6.0, indicating excessively tight glu control Plan: Cont her on sliding scale insulin and restarting a diet just the past 2-3 days, after she awoke Glipizide and metformin are on hold while inpatient. (7) Supratherapeutic INR Conclusion/Plan: Her Coumadin has been on hold since admission, and was likely prolonged elevated due to LOYDA plus new diagnosis of cirrhosis . Goal INR is between 2 and 3 for chronic atrial fibrillation. INR today 3.3 (all labs were reviewed) Plan: We will hold Coumadin until INR is down to < 2, then resume, and goal INR is 2- 3. No SQ Heparin needed while INR >2 (8) Chronic atrial fibrillation Conclusion/Plan: She is on metoprolol tartrate 25mg twice daily, and INR is still elevated Plan: Cont Metoprolol for rate control As mentioned above her INR is supratherapeutic. We will hold Coumadin until INR is down to <2, then resume (9) Blister Assessment/Plan: Blistering on the several areas of her feet and toes. These are wrapped. Some blisters have burst but look clean Plan: Will arrange for an outpatient wound care referral on discharge. (10) Left hip pain Conclusion/Plan: CT abdomen/pelvis not show any evidence of fracture. Plan: PT/OT recommended SNF. [facility] to [facility] (11) E coli UTI (urinary tract infection) Assessment/Plan: Urine culture showed pansensitive E. coli She completed a course of Ceftriaxone on 04/21 (12) Hyperbilirubinemia Her bili was not checked for sev days. Bili came back very high at 7.9 today, the last bili was 3.9 on 04/25 AST, ALT, alk phos are normal however Likely from her liver disease. Plan: Monitor LFTs She may need abd/pelvis imaging vs US GB - Current Meds Current Meds: Current Medications Generic Name Dose Route Start Last Admin Trade Name Anh PRN Reason Stop Dose Admin Acetaminophen 650 mg 04/17/23 11:31 04/25/23 21:29 Acetaminophen 325 Mg Tablet PO 650 mg Q4HR PRN Administration Pain 1 to 4, or Fever Insulin Human Lispro 1 - 5 unit 04/17/23 17:00 04/28/23 07:44 Insulin Lispro 300 Unit/3 Ml Pen SUBQ Not Given 0800,1200,1700,2100 [facility] Protocol Lactulose 20 gm 04/23/23 14:00 04/28/23 05:42 Lactulose 10 Gm /15 Ml Udc PO 20 gm TID IWONA Administration Metoprolol Tartrate 25 mg 04/24/23 21:00 04/27/23 21:18 Metoprolol Tartrate 25 Mg Tablet PO 25 mg BID IWONA Administration Multivitamins/Minerals 1 tab 04/18/23 15:00 04/27/23 10:16 Multivitamin W/Minerals Tablet PO 1 tab DAILYWM IWONA Administration Nystatin 1 applic 04/17/23 21:00 04/27/23 21:09 Nystatin Cream 15 Gm Tube TOP 1 applic BID IWONA Administration Rifaximin 550 mg 04/22/23 21:00 04/27/23 21:19 Rifaximin 550 Mg Tablet PO 550 mg BID IWONA Administration Sodium Chloride 10 ml 04/17/23 11:31 04/26/23 10:49 Sodium Chloride Flush 0.9% 10 Ml Syringe IVP 10 ml PRN PRN Administration NEEDED PER PROVIDER ORDERS Sodium Chloride 10 ml 04/17/23 17:00 04/28/23 00:32 Sodium Chloride Flush 0.9% 10 Ml Syringe IVP 10 ml 0100,0900,1700 IWONA Administration - Lab Result Fish Bone Diagrams: 04/29/23 08:06 04/29/23 08:06 - Additional Planning My Orders: My Active Orders 04/27/23 07:36 Telemetry- [RC] Q4HR 04/28/23 09:00 FUROSEMIDE INJ 40mg VIAL [LASIX INJ 40 mg VIAL] 40 mg IVP DAILY 04/29/23 05:00 PT WITH INR [COAG] DAILYLAB 04/30/23 05:00 PT WITH INR [COAG] DAILYLAB Subjective - Subjective Nursing Reports: Other (Slightly more awake and communicative) Objective Vital Signs: Vital Signs - 24 hr 04/27/23 04/27/23 04/27/23 08:00 10:16 16:00 Temperature 36.3 C L 36.3 C L Heart Rate [ 104 H 97 Brachial] Respiratory 20 16 Rate Blood Pressure 154/74 H Blood Pressure 154/74 H 134/83 H [Left Brachial artery] Blood Pressure [Left Radial artery] O2 Saturation 99 100 04/27/23 04/27/23 04/27/23 20:10 21:10 21:18 Temperature 36.3 C L Heart Rate [ 96 89 Brachial] Respiratory 20 Rate Blood Pressure 149/111 H Blood Pressure 130/95 H [Left Brachial artery] Blood Pressure 147/111 H [Left Radial artery] O2 Saturation 100 04/28/23 04/28/23 04/28/23 00:31 05:06 07:25 Temperature 36.2 C L 36.3 C L 36.2 C L Heart Rate [ 92 85 87 Brachial] Respiratory 20 18 18 Rate Blood Pressure Blood Pressure 131/78 H 127/81 H 144/99 H [Left Brachial artery] Blood Pressure [Left Radial artery] O2 Saturation 97 98 97 Oxygen O2 Source Room air I&O (Last 24 Hrs): Intake and Output Totals x24h 04/26/23 04/27/23 04/28/23 23:59 23:59 23:59 Intake Total 400 890 Output Total 715 1550 900 Balance -315 -496 -900 General: Other (Lethargic, but moving all extrem, swallowing) HEENT: Mucous membr. moist/pink Neck: Supple Neuro: Other (Lethargic and generalized weak) Cardiovascular: Regular rate Respiratory: No respiratory distress Abdomen: Soft, Other (Obese with pannus) Extremities: No clubbing, Other (2+ leg edema, 1+ hand edema. Bandages on several areas on feet and toes. Blisters look clean, some have popped but skin ;looks clean around those) - Results Results: Laboratory Results WBC 5.2 x10^3/uL (4.8-10.8) 04/27/23 05:33 RBC 3.75 10^6/uL (4.20-5.40) L 04/27/23 05:33 Hgb 11.3 g/dL (12.0-16.0) L 04/27/23 05:33 Hct 37.1 % (37.0-47.0) 04/27/23 05:33 MCV 98.9 fL (81.0-99.0) 04/27/23 05:33 MCH 30.1 pg (27.0-31.0) 04/27/23 05:33 MCHC 30.5 g/dL (32.0-36.0) L 04/27/23 05:33 RDW 21.3 % (12.0-15.0) H 04/27/23 05:33 Plt Count 111 10^3/uL (130-450) L 04/27/23 05:33 MPV 10.3 fL (7.9-10.8) 04/27/23 05:33 Neut # (Auto) 4.1 10^3/uL (1.5-6.6) 04/27/23 05:33 Lymph # (Auto) 0.4 10^3/uL (1.5-3.5) L 04/27/23 05:33 Whitley # (Auto) 0.5 10^3/uL (0.0-1.0) 04/27/23 05:33 Eos # (Auto) 0.1 10^3/uL (0.0-0.7) 04/27/23 05:33 Baso # (Auto) 0.0 10^3/uL (0.0-0.1) 04/27/23 05:33 Absolute Nucleated RBC 0.00 x10^3/uL 04/27/23 05:33 Nucleated RBC % 0.0 /100WBC 04/27/23 05:33 Manual Slide Review Indicated 04/27/23 05:33 WBC Morphology NORMAL APPEARANCE (NORMAL) 04/23/23 13:00 Platelet Estimate DECREASED (<130,000) (NORMAL) 04/27/23 05:33 Platelet Morphology NORMAL APPEARANCE (NORMAL) 04/27/23 05:33 RBC Morph Micro Appear 2+ ANISOCYTOSIS (NORMAL) 04/27/23 05:33 PT 33.5 secs (9.9-12.6) H 04/28/23 06:08 INR 3.3 (0.8-1.2) H 04/28/23 06:08 Sodium 142 mmol/L (135-145) 04/28/23 06:08 Potassium 4.3 mmol/L (3.5-4.5) 04/28/23 06:08 Chloride 113 mmol/L (101-111) H 04/28/23 06:08 Carbon Dioxide 24 mmol/L (21-32) 04/28/23 06:08 Anion Gap 5.0 (6-13) L 04/28/23 06:08 BUN 64 mg/dL (6-20) H 04/28/23 06:08 Creatinine 1.7 mg/dL (0.6-1.3) H 04/28/23 06:08 Estimated GFR (MDRD) 29 (>89) L 04/28/23 06:08 Glucose 119 mg/dL (74-104) H 04/28/23 06:08 POC Whole Bld Glucose 109 mg/dL (70 - 100) H 04/28/23 07:23 Estimat Average Glucose 126 mg/dL (70-100) H 04/23/23 04:56 Hemoglobin A1c % 6.0 % (4.27-6.07) 04/23/23 04:56 Calcium 9.2 mg/dL (8.5-10.3) 04/28/23 06:08 Phosphorus 3.4 mg/dL (2.5-5.0) 04/27/23 05:33 Magnesium 1.9 mg/dL (1.7-2.3) 04/27/23 05:33 Total Bilirubin 7.4 mg/dL (0.2-1.0) H 04/28/23 06:08 AST 33 IU/L (10-42) 04/28/23 06:08 ALT 30 IU/L (10-60) 04/28/23 06:08 Alkaline Phosphatase 88 IU/L (42-121) 04/28/23 06:08 Ammonia 48.3 umol/L (18-72) 04/26/23 05:42 Total Protein 6.5 g/dL (6.4-8.9) 04/28/23 06:08 Albumin 3.5 g/dL (3.2-5.5) 04/28/23 06:08 Globulin 3.0 g/dL (2.1-4.2) 04/28/23 06:08 Albumin/Globulin Ratio 1.2 (1.0-2.2) 04/28/23 06:08 Prealbumin 4 mg/dL (17-34) L 04/25/23 05:04 Urine Color DK. ORANGE 04/23/23 12:48 Urine Clarity SL. CLOUDY (CLEAR) 04/23/23 12:48 Urine pH 5.5 PH (5.0-7.5) 04/23/23 12:48 Ur Specific Dairy >=1.030 (1.002-1.030) H 04/23/23 12:48 Urine Protein mg/dL (NEGATIVE) 04/23/23 12:48 Urine Glucose (UA) NEGATIVE mg/dL (NEGATIVE) 04/23/23 12:48 Urine Ketones TRACE mg/dL (NEGATIVE) 04/23/23 12:48 Urine Occult Blood TRACE-INTA (NEGATIVE) 04/23/23 12:48 Urine Nitrite (NEGATIVE) 04/23/23 12:48 Urine Bilirubin NEGATIVE (NEGATIVE) 04/23/23 12:48 Urine Urobilinogen E.U./dL (NORMAL) 04/23/23 12:48 Ur Leukocyte Esterase (NEGATIVE) 04/23/23 12:48 Urine RBC 0-5 /HPF (0-5) 04/23/23 12:48 Urine WBC 6-10 /HPF (0-5) H 04/23/23 12:48 Urine WBC Clumps PRESENT 04/17/23 09:50 Ur Squamous Epith Cells MANY Squamous (<= Few) H 04/23/23 12:48 Urine Bacteria Few /HPF (None Seen) 04/23/23 12:48 Urine Mucus Few Strands 04/23/23 12:48 Ur Microscopic Review INDICATED 04/23/23 12:48 Urine Culture Comments NOT INDICATED 04/23/23 12:48 Urine Creatinine 85.8 mg/dL 04/20/23 10:40 Ur Total Protein Timed 28 mg/dL 04/20/23 10:40 Protein/Creatinin Ratio 0.3 (<=0.2) H 04/20/23 10:40 - Procedures Procedures: Procedures REPLACEMENT OF RIGHT LENS WITH SYNTH SUB, PERC APPROACH (02/26/19) Sepsis Event Note (H) - Evaluation Current Stage of Sepsis: Ruled out
[2023-04-28] MEDS: FUROSEMIDE 40 MG/4 ML VIAL IVP SCH (09:05)
[2023-04-28] MEDS: MULTIVITAMIN W/MINERALS TABLET PO SCH (09:06)
[2023-04-28] MEDS: rifAXIMin 550 MG TABLET PO SCH ×2 (09:06→21:53)
[2023-04-28] MEDS: METOPROLOL TARTRATE 25 MG TABLET PO SCH ×2 (09:07→21:53)
[2023-04-28] MEDS: NYSTATIN CREAM 15 GM TUBE TOP SCH ×2 (09:30→21:53)
--- NOTE | 2023-04-28 15:30 | ADVANCE CARE PLANNING NOTE ---
Advance Care Planning - Planning Encounter Date: 04/28/23 Time: 13:00 Purpose: To update both daughters regarding her clinical status, and her prognosis, so they can make decisions about further care and where she will live going forward. Parties in Attendance: I spoke to the DPOA, patient's daughter Teri, the other daughter Venus, and also present in the room was Cady, our It Desktop Support Specialist. Decisional Capacity of the Patient: Pt does not have decisional capacity because she is mostly somnolent from uremia and liver disease, and when awake is oriented only to self. - Diagnosis for Encounter (1) Acute metabolic encephalopathy Summary: Patient presented with confusion from a UTI but we also found her to have cirrhosis with elevated ammonia and then developed worsening uremia from LOYDA from urinary outflow obstruction. She has been somnolent for the past 4 days, is awakening slightly more for the past day and a half but is still disoriented. - Encounter Subjective/Patient's Story: The patient lived alone, independently, before this hospitalization, but attended meals at [facility]. There have been 4 falls over the last 1 year. Despite having her cell phone in her hand, the patient laid on the floor for 5 hours, the last time she fell, being too confused to place a call for help. Her daughter lives several miles away from her and tries to check on her most days. The patient has been "too shy" to tell the PCP about her worsening status in terms of urinary incontinence, worsening confusion, increasing falls. Because of the pt's overall worsening condition, the daughter that lives close, has realized that her mother will need more caregiving and a different place to live, going forward. Objective/Medical Story: Patient presented with confusion from a UTI but we also found her to have cirrhosis with elevated ammonia and then developed worsening uremia from LOYDA from urinary outflow obstruction. She has been somnolent for the past 4 days, is awakening slightly more for the past day and a half but is still disoriented. After placing a Carter catheter (with difficulty, due to obstruction caused by a fibroid that was obstructing urine outflow from the bladder), her uremia has improved. Her ammonia has been stable on 3 times daily lactulose. She has become very deconditioned and weak. Goals of Care: Since the patient's mentation has improved after receiving antibiotics for the UTI, after stabilizing on lactulose for treating the high ammonia, and after BUN has decreased once a Carter catheter relieved urinary outflow obstruction, the patient has a reasonable chance to recover from this hospitalization. She is however extremely debilitated and weak, she has not even gotten out of bed yet, and is barely eating and taking in any nutrition. The 2 daughters were told that her prognosis to recover is fair, but that she has a long course ahead of her, to regain muscle strength. I also suspect she will need caregiving for ADLs, going forward, even if she is able to do some PT and OT rehab. Given the renal failure and hepatic dysfunction, her overall prognosis is possibly 1 year. Plan: Continue with medical management as we are doing. DNR was ordered several days ago and the POLST has already been signed and scanned into the chart. Continue with the DNR/DNI order I left the rn social work in the room to speak to the 2 daughters, regarding options for placement after doing PT and OT rehab at a SNF. Code Status: Do Not Attempt Resuscitation Time spent on advance care plannin min
[2023-04-29] MEDS: SODIUM CHLORIDE FLUSH 0.9% 10 ML SYRINGE IVP SCH ×3 (00:20→16:03)
[2023-04-29] MEDS: LACTULOSE 10 GM /15 ML UDC PO SCH ×3 (05:43→20:58)
[2023-04-29 07:09] LABS: PT - PROTHROMBIN TIME 30.4 secs (9.9-12.6)
--- NOTE | 2023-04-29 07:59 | PROVIDER PROGRESS NOTE ---
Assessment/Plan - Problem List (1) Acute metabolic encephalopathy Assessment/Plan: Initial etiology of encephalopathy was felt to be from UTI and elevated Ammonia. Her somnolence and weakness got better for 2 days on tx, then got much worse and was from new Uremia. The uremia has improved once a Carter catheter was inserted to relieve obstruction of urine outflow (see #3) CT head on 04/22 showed chronic changes without acute findings. PT and OT have resumed working with her that past 3 days Plan: Cont TID Lactulose Her Carter will now be needed chronically Her 2 daughters want her to rehab at a SNF, then realize she will need caregiving and not live alone, and they are exploring where she will go (2) LOYDA (acute kidney injury) Assessment/Plan: Baseline creatinine is near 1. She was on an ARB at home which has been held in setting of LOYDA. We first thought she was pre-renal, then considered hepato-renal. She got iv fluids. She does have anasarca now. 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 Then there was difficulty inserting a Carter that would advance. Finally a Carter was inserted, it is in the correct place and she has good urine output and the BUN and creatinine are improving Plan: Cont Carter chronically, to allow urine outflow. She is not a candidate to have a hysterectomy Follow BMP daily (3) Acute urinary retention Assessment/Plan: She kept having >500cc retention found by bladder scanning. 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 Then there was difficulty inserting a Carter that would advance. Finally a Carter was inserted, it is in the correct place and she has good urine output Plan: Planning for a chronic indwelling Carter, I told the 2 daughters that We had no Urologist available all lat week to get a consult for any other recommendations (4) Anasarca Assessment/Plan: She has edema throughout. She has been on iv fluids since admission and when she was not eating, was somnolent from uremia. Albumen was low. She got iv Albumen daily for 3 days Plan: Yesterday I started Lasix IV daily, not twice daily due to LOYDA (5) Cirrhosis Conclusion/Plan: Unclear exact etiology. CT abdomen/pelvis does show evidence of early cirrhosis which is not present on previous abdominal imaging studies. Patient does not have a history of alcohol use. Possibly related to metabolic disease given her type 2 diabetes. Plan: Cont TID Lactulose, titrate to have up to 3 BMs daily Follow ammonia intermittently (6) Type 2 diabetes mellitus Conclusion/Plan: A1c came back at 6.0, indicating excessively tight glu control Plan: Cont her on sliding scale insulin and restarting a diet just the past 2-3 days, after she awoke Glipizide and metformin are on hold while inpatient. (7) Supratherapeutic INR Conclusion/Plan: Her Coumadin has been on hold since admission, and was likely prolonged elevated due to LOYDA plus new diagnosis of cirrhosis . Goal INR is between 2 and 3 for chronic atrial fibrillation. Plan: We will hold Coumadin until INR is down to < 2 then resume and goal INR is 2-3. No SQ Heparin needed while INR >2 (8) Chronic atrial fibrillation Conclusion/Plan: She is on metoprolol tartrate 25mg twice daily, resting heart rate is in the 80s to 90s Plan: I will change the metoprolol to tartrate to metoprolol succinate 37.5 mg twice daily When her creatinine is near 1.5, I will start her on TAMIKA or ARB and Spironolactone As mentioned above her INR is supratherapeutic. We will hold Coumadin until INR is down (9) Blister Assessment/Plan: Blistering on the several areas of her feet and toes. These are wrapped. Some blisters have burst Plan: Will arrange for an outpatient wound care referral on discharge. (10) Left hip pain Conclusion/Plan: CT abdomen/pelvis not show any evidence of fracture. Plan: PT/OT recommended SNF. She wanted to go to [facility] (11) E coli UTI (urinary tract infection) Assessment/Plan: Urine culture showed pansensitive E. coli She completed a course of Ceftriaxone on 04/21 - Current Meds Current Meds: Current Medications Generic Name Dose Route Start Last Admin Trade Name Freq PRN Reason Stop Dose Admin Acetaminophen 650 mg 04/17/23 11:31 04/25/23 21:29 Acetaminophen 325 Mg Tablet PO 650 mg Q4HR PRN Administration Pain 1 to 4, or Fever Furosemide 40 mg 04/28/23 09:00 04/28/23 09:05 Furosemide 40 Mg/4 Ml Vial IVP 40 mg DAILY IWONA Administration Insulin Human Lispro 1 - 5 unit 04/17/23 17:00 04/28/23 21:52 Insulin Lispro 300 Unit/3 Ml Pen SUBQ Not Given 0800,1200,1700,2100 [facility] Protocol Lactulose 20 gm 04/23/23 14:00 04/29/23 05:43 Lactulose 10 Gm /15 Ml Udc PO 20 gm TID IWONA Administration Multivitamins/Minerals 1 tab 04/18/23 15:00 04/28/23 09:06 Multivitamin W/Minerals Tablet PO 1 tab DAILYWM IWONA Administration Nystatin 1 applic 04/17/23 21:00 04/28/23 21:53 Nystatin Cream 15 Gm Tube TOP 1 applic BID IWONA Administration Rifaximin 550 mg 04/22/23 21:00 04/28/23 21:53 Rifaximin 550 Mg Tablet PO 550 mg BID IWONA Administration Sodium Chloride 10 ml 04/17/23 11:31 04/26/23 10:49 Sodium Chloride Flush 0.9% 10 Ml Syringe IVP 10 ml PRN PRN Administration NEEDED PER PROVIDER ORDERS Sodium Chloride 10 ml 04/17/23 17:00 04/29/23 00:20 Sodium Chloride Flush 0.9% 10 Ml Syringe IVP 10 ml 0100,0900,1700 IWONA Administration - Lab Result Fish Bone Diagrams: 04/29/23 08:06 04/29/23 08:06 - Additional Planning My Orders: My Active Orders 04/28/23 09:00 FUROSEMIDE INJ 40mg VIAL [LASIX INJ 40 mg VIAL] 40 mg IVP DAILY 04/29/23 CBC - COMP BLD CT W/AUTO DIFF [HEME] Urgent CMP [COMPREHENSIVE METABOLIC PANEL] [CHEM] Urgent 04/29/23 09:00 Metoprolol Succinate [Toprol Xl] 25 mg PO BID 04/30/23 05:00 CBC - COMP BLD CT W/AUTO DIFF [HEME] DAILYLAB CMP [COMPREHENSIVE METABOLIC PANEL] [CHEM] DAILYLAB PT WITH INR [COAG] DAILYLAB Subjective - Subjective Patient Reports: Resting Comfortably, No Complaints Objective Vital Signs: Vital Signs - 24 hr 04/28/23 04/28/23 04/28/23 09:07 11:05 16:08 Temperature 36.2 C L 36.3 C L Heart Rate [ 94 80 Brachial] Respiratory 18 18 Rate Blood Pressure 150/100 H Blood Pressure 151/93 H [Left Brachial artery] Blood Pressure 154/89 H [Right Brachial artery] O2 Saturation 99 100 04/28/23 04/28/23 04/28/23 21:00 21:53 23:46 Temperature 36.2 C L 36.2 C L Heart Rate [ 95 87 Brachial] Respiratory 16 18 Rate Blood Pressure 142/77 H Blood Pressure 142/77 H [Left Brachial artery] Blood Pressure 109/70 [Right Brachial artery] O2 Saturation 98 98 04/29/23 04/29/23 05:16 07:41 Temperature 36.3 C L 36.3 C L Heart Rate [ 91 89 Brachial] Respiratory 18 16 Rate Blood Pressure Blood Pressure [Left Brachial artery] Blood Pressure 132/63 H 130/70 [Right Brachial artery] O2 Saturation 98 100 Oxygen O2 Source Room air I&O (Last 24 Hrs): Intake and Output Totals x24h 04/27/23 04/28/23 04/29/23 23:59 23:59 23:59 Intake Total 890 340 100 Output Total 1550 4300 400 Balance -660 -3960 -300 General: Alert, Oriented x3, Other (Appears tired) HEENT: Mucous membr. moist/pink Neck: Supple Neuro: Alert, Non Focal, Other (Generalized weakness) Cardiovascular: No murmurs Respiratory: No respiratory distress Abdomen: Soft, Other (Obese with pannus) Extremities: Other (2+ edema of legs, 1+ edema of hands. Several area of shins and toes are bandaged) - Results Results: Laboratory Results WBC 5.2 x10^3/uL (4.8-10.8) 04/27/23 05:33 RBC 3.75 10^6/uL (4.20-5.40) L 04/27/23 05:33 Hgb 11.3 g/dL (12.0-16.0) L 04/27/23 05:33 Hct 37.1 % (37.0-47.0) 04/27/23 05:33 MCV 98.9 fL (81.0-99.0) 04/27/23 05:33 MCH 30.1 pg (27.0-31.0) 04/27/23 05:33 MCHC 30.5 g/dL (32.0-36.0) L 04/27/23 05:33 RDW 21.3 % (12.0-15.0) H 04/27/23 05:33 Plt Count 111 10^3/uL (130-450) L 04/27/23 05:33 MPV 10.3 fL (7.9-10.8) 04/27/23 05:33 Neut # (Auto) 4.1 10^3/uL (1.5-6.6) 04/27/23 05:33 Lymph # (Auto) 0.4 10^3/uL (1.5-3.5) L 04/27/23 05:33 [place] # (Auto) 0.5 10^3/uL (0.0-1.0) 04/27/23 05:33 Eos # (Auto) 0.1 10^3/uL (0.0-0.7) 04/27/23 05:33 Baso # (Auto) 0.0 10^3/uL (0.0-0.1) 04/27/23 05:33 Absolute Nucleated RBC 0.00 x10^3/uL 04/27/23 05:33 Nucleated RBC % 0.0 /100WBC 04/27/23 05:33 Manual Slide Review Indicated 04/27/23 05:33 WBC Morphology NORMAL APPEARANCE (NORMAL) 04/23/23 13:00 Platelet Estimate DECREASED (<130,000) (NORMAL) 04/27/23 05:33 Platelet Morphology NORMAL APPEARANCE (NORMAL) 04/27/23 05:33 RBC Morph Micro Appear 2+ ANISOCYTOSIS (NORMAL) 04/27/23 05:33 PT 30.4 secs (9.9-12.6) H 04/29/23 05:39 INR 3.0 (0.8-1.2) H 04/29/23 05:39 Sodium 142 mmol/L (135-145) 04/28/23 06:08 Potassium 4.3 mmol/L (3.5-4.5) 04/28/23 06:08 Chloride 113 mmol/L (101-111) H 04/28/23 06:08 Carbon Dioxide 24 mmol/L (21-32) 04/28/23 06:08 Anion Gap 5.0 (6-13) L 04/28/23 06:08 BUN 64 mg/dL (6-20) H 04/28/23 06:08 Creatinine 1.7 mg/dL (0.6-1.3) H 04/28/23 06:08 Estimated GFR (MDRD) 29 (>89) L 04/28/23 06:08 Glucose 119 mg/dL (74-104) H 04/28/23 06:08 POC Whole Bld Glucose 122 mg/dL (70 - 100) H 04/29/23 07:38 Estimat Average Glucose 126 mg/dL (70-100) H 04/23/23 04:56 Hemoglobin A1c % 6.0 % (4.27-6.07) 04/23/23 04:56 Calcium 9.2 mg/dL (8.5-10.3) 04/28/23 06:08 Phosphorus 3.4 mg/dL (2.5-5.0) 04/27/23 05:33 Magnesium 1.9 mg/dL (1.7-2.3) 04/27/23 05:33 Total Bilirubin 7.4 mg/dL (0.2-1.0) H 04/28/23 06:08 AST 33 IU/L (10-42) 04/28/23 06:08 ALT 30 IU/L (10-60) 04/28/23 06:08 Alkaline Phosphatase 88 IU/L (42-121) 04/28/23 06:08 Ammonia 48.3 umol/L (18-72) 04/26/23 05:42 Total Protein 6.5 g/dL (6.4-8.9) 04/28/23 06:08 Albumin 3.5 g/dL (3.2-5.5) 04/28/23 06:08 Globulin 3.0 g/dL (2.1-4.2) 04/28/23 06:08 Albumin/Globulin Ratio 1.2 (1.0-2.2) 04/28/23 06:08 Prealbumin 4 mg/dL (17-34) L 04/25/23 05:04 Urine Color DK. ORANGE 04/23/23 12:48 Urine Clarity SL. CLOUDY (CLEAR) 04/23/23 12:48 Urine pH 5.5 PH (5.0-7.5) 04/23/23 12:48 Ur Specific [place] >=1.030 (1.002-1.030) H 04/23/23 12:48 Urine Protein mg/dL (NEGATIVE) 04/23/23 12:48 Urine Glucose (UA) NEGATIVE mg/dL (NEGATIVE) 04/23/23 12:48 Urine Ketones TRACE mg/dL (NEGATIVE) 04/23/23 12:48 Urine Occult Blood TRACE-INTA (NEGATIVE) 04/23/23 12:48 Urine Nitrite (NEGATIVE) 04/23/23 12:48 Urine Bilirubin NEGATIVE (NEGATIVE) 04/23/23 12:48 Urine Urobilinogen E.U./dL (NORMAL) 04/23/23 12:48 Ur Leukocyte Esterase (NEGATIVE) 04/23/23 12:48 Urine RBC 0-5 /HPF (0-5) 04/23/23 12:48 Urine WBC 6-10 /HPF (0-5) H 04/23/23 12:48 Urine WBC Clumps PRESENT 04/17/23 09:50 Ur Squamous Epith Cells MANY Squamous (<= Few) H 04/23/23 12:48 Urine Bacteria Few /HPF (None Seen) 04/23/23 12:48 Urine Mucus Few Strands 04/23/23 12:48 Ur Microscopic Review INDICATED 04/23/23 12:48 Urine Culture Comments NOT INDICATED 04/23/23 12:48 Urine Creatinine 85.8 mg/dL 04/20/23 10:40 Ur Total Protein Timed 28 mg/dL 04/20/23 10:40 Protein/Creatinin Ratio 0.3 (<=0.2) H 04/20/23 10:40 - Procedures Procedures: Procedures REPLACEMENT OF RIGHT LENS WITH SYNTH SUB, PERC APPROACH (02/26/19) Sepsis Event Note (H) - Evaluation Current Stage of Sepsis: Ruled out
[2023-04-29 08:18] LABS: BASOPHILS % (AUTO) 0.5 %; EOSINOPHILS # (AUTO) 0.2 10^3/uL (0.0-0.7); EOSINOPHILS % (AUTO) 3.1 %; HCT - HEMATOCRIT 38.8 % (37.0-47.0); HGB - HEMOGLOBIN 11.9 g/dL (12.0-16.0); LYMPHOCYTES # (AUTO) 0.4 10^3/uL (1.5-3.5); LYMPHOCYTES % (AUTO) 6.8 %; MEAN CORPUSCULAR HGB CONC 30.7 g/dL (32.0-36.0); MEAN CORPUSCULAR VOLUME 97.7 fL (81.0-99.0); MEAN PLATELET VOLUME 10.7 fL (7.9-10.8); MONOCYTES # (AUTO) 0.6 10^3/uL (0.0-1.0); MONOCYTES % (AUTO) 9.4 %; NEUTROPHILS # (AUTO) 4.9 10^3/uL (1.5-6.6); NRBC ABSOLUTE COUNT (AUTO) 0.02 x10^3/uL; NUCLEATED RED BLOOD CELLS AUTO 0.3 /100WBC; PLT - PLATELET COUNT 106 10^3/uL (130-450); RED BLOOD COUNT 3.97 10^6/uL (4.20-5.40); RED CELL DISTRIBUTION WIDTH 21.7 % (12.0-15.0); WHITE BLOOD COUNT 6.1 x10^3/uL (4.8-10.8)
[2023-04-29 08:28] LABS: ALBUMIN 3.5 g/dL (3.2-5.5); ALBUMIN/GLOBULIN RATIO 1.2 (1.0-2.2); BILIRUBIN,TOTAL 8.1 mg/dL (0.2-1.0); CREATININE 1.8 mg/dL (0.6-1.3); POTASSIUM 3.6 mmol/L (3.5-4.5); TOTAL PROTEIN 6.4 g/dL (6.4-8.9)
[2023-04-29 08:31] LABS: SLIDE REVIEW? Indicated
[2023-04-29 08:45] LABS: PLATELET ESTIMATE, MANUAL DECREASED (<130,000) (NORMAL); PLATELET MORPHOLOGY NORMAL APPEARANCE (NORMAL); RBC MORPHOLOGY (MULTIPLE) 2+ ANISOCYTOSIS (NORMAL); WBC MORPHOLOGY (MULTIPLE) NORMAL APPEARANCE (NORMAL)
[2023-04-29] MEDS: FUROSEMIDE 40 MG/4 ML VIAL IVP SCH (08:52)
[2023-04-29] MEDS: rifAXIMin 550 MG TABLET PO SCH ×2 (08:52→20:58)
[2023-04-29] MEDS: INSULIN LISPRO 300 UNIT/3 ML PEN SUBQ SCH ×4 (08:52→20:25)
[2023-04-29] MEDS: MULTIVITAMIN W/MINERALS TABLET PO SCH (08:52)
[2023-04-29] MEDS: METOPROLOL SUCCINATE 25 MG TABLET PO SCH ×3 (08:52→20:25)
[2023-04-29] MEDS ORDERED: METOPROLOL SUCCINATE 25 MG TABLET PO SCH (09:00)
[2023-04-29] MEDS: NYSTATIN CREAM 15 GM TUBE TOP SCH ×2 (10:34→20:27)
[2023-04-29] MEDS ORDERED: ZINC OXIDE 20% OINT 30 GM TUBE TOP PRN (18:17)
[2023-04-30] MEDS: SODIUM CHLORIDE FLUSH 0.9% 10 ML SYRINGE IVP SCH ×2 (00:11→08:04)
[2023-04-30 05:50] LABS: BASOPHILS % (AUTO) 0.6 %; EOSINOPHILS # (AUTO) 0.1 10^3/uL (0.0-0.7); EOSINOPHILS % (AUTO) 2.6 %; HCT - HEMATOCRIT 36.7 % (37.0-47.0); HGB - HEMOGLOBIN 11.2 g/dL (12.0-16.0); LYMPHOCYTES # (AUTO) 0.3 10^3/uL (1.5-3.5); LYMPHOCYTES % (AUTO) 6.3 %; MEAN CORPUSCULAR HGB CONC 30.5 g/dL (32.0-36.0); MEAN CORPUSCULAR VOLUME 98.4 fL (81.0-99.0); MONOCYTES # (AUTO) 0.6 10^3/uL (0.0-1.0); MONOCYTES % (AUTO) 10.4 %; NEUTROPHILS # (AUTO) 4.3 10^3/uL (1.5-6.6); NEUTROPHILS % (AUTO) 79.7 %; PLT - PLATELET COUNT 93 10^3/uL (130-450); RED BLOOD COUNT 3.73 10^6/uL (4.20-5.40); RED CELL DISTRIBUTION WIDTH 21.6 % (12.0-15.0); WHITE BLOOD COUNT 5.4 x10^3/uL (4.8-10.8)
[2023-04-30 06:00] LABS: SLIDE REVIEW? Indicated
[2023-04-30 06:05] LABS: ALBUMIN 3.3 g/dL (3.2-5.5); ALBUMIN/GLOBULIN RATIO 1.2 (1.0-2.2); BILIRUBIN,TOTAL 7.9 mg/dL (0.2-1.0); CALCIUM 8.6 mg/dL (8.5-10.3); CREATININE 1.6 mg/dL (0.6-1.3); POTASSIUM 3.2 mmol/L (3.5-4.5)
[2023-04-30] MEDS: LACTULOSE 10 GM /15 ML UDC PO SCH (06:06)
[2023-04-30 07:01] LABS: INR 2.9 (0.8-1.2); PT - PROTHROMBIN TIME 29.7 secs (9.9-12.6)
[2023-04-30 07:03] LABS: PLATELET ESTIMATE, MANUAL DECREASED (<130,000) (NORMAL)
[2023-04-30] MEDS: INSULIN LISPRO 300 UNIT/3 ML PEN SUBQ SCH ×2 (08:01→11:49)
[2023-04-30] MEDS: METOPROLOL SUCCINATE 25 MG TABLET PO SCH (08:02)
[2023-04-30] MEDS: MULTIVITAMIN W/MINERALS TABLET PO SCH (08:03)
[2023-04-30] MEDS: rifAXIMin 550 MG TABLET PO SCH (08:03)
[2023-04-30] MEDS: NYSTATIN CREAM 15 GM TUBE TOP SCH (08:03)
[2023-04-30] MEDS: FUROSEMIDE 40 MG/4 ML VIAL IVP SCH (08:03)
[2023-04-30] MEDS ORDERED: LACTULOSE 10 GM /15 ML UDC PO SCH (09:53)
[2023-04-30] MEDS ORDERED: COD LIVER OIL/ZINC OXIDE 113 GM TUBE TOP PRN ×3 (10:23→10:27)
[2023-04-30 12:38] VITALS: BP 138/92; O2SAT 100
--- NOTE | 2023-04-30 12:40 | Discharge Plan ---
"Discharge Plan for SNF / [facility] - Discharge Plan And Transition Orders Problem Reviewed?: Yes Disposition: 03 SNF DC/Xfer Condition: Stable Allergies and Adverse Reactions: Allergies Allergy/AdvReac Type Severity Reaction Status Date / Time calcium carbonate AdvReac Unknown Verified 12/01/22 23:39 [From Bufferin] lidocaine AdvReac Rash Verified 12/01/22 23:39 magnesium [From Bufferin] AdvReac Unknown Verified 12/01/22 23:39 Health Concerns: 87-year-old female with PMH of type 2 diabetes, chronic atrial fibrillation on Coumadin, hypertension, arthritis that was brought to the emergency room after sustaining a fall at home. She was found to be encephalopathic. Toes were severely blistering on exam in the ER. Encephalopathy was felt to be from UTI, acute kidney injury and elevated ammonia. She completed antibiotics for the UTI. Urine culture grew out E. coli. Blood cultures negative. She seems to have a diagnosis of cirrhosis by radiology exam showing scalloped appearance of liver margins. Splenic calcifications. Scattered ascites within the abdomen and pelvis. She developed urinary retention and uremia from a fibroid uterus obstructing urine outflow and now with a chronic Carter catheter. Once uremia and elevated ammonia came down, she started waking up and returning to baseline. Echocardiogram shows ejection fraction of 60 to 65% with moderate right ventricular enlargement. Right ventricular systolic function mildly impaired. Mild to moderate mitral regurg. Moderate to severe tricuspid regurgitation with severely abnormal right heart pressures and an RVSP of 77 mmHg. Lactulose was started for elevated ammonia. But due to diarrhea it was decreased from 3 times a day to once a day. Her glipizide and metformin were held while she was in inpatient and her diabetes was controlled with sliding scale insulin. Coumadin was held because of elevated INR and was then reinstituted. INR on the day of discharge is 2.9. Plan of Treatment: Has been seen by PT and OT and they feel that she could benefit from rehab benefit to improve mobility and improve ADLs Blistering toes should have dressing changes on a daily basis Previous hospitalist feels that the patient has a fibroid uterus causing compression of bladder neck with resulting obstruction. Would leave to the discretion of the physician at the facility where to move forward with this. Currently patient has chronic Cartre that was placed here Care Goals: She is to remain is a permanent resident at a custodial facility when she completes rehab. - SNF / [facility] Transition Orders Admit to (Facility): [facility] Under the care of (Name): [facility] Discharge Diagnosis: 1. Acute metabolic encephalopathy 2. Fall at custodial facility 3. E. coli UTI 4. Elevated ammonia 5. Acute kidney injury 6. Acute urinary retention due to bladder outlet obstruction 7. Hyperbilirubinemia 8. Anasarca 9. Cirrhosis 10. Type 2 diabetes mellitus, controlled, without complications, without long- term use of insulin 11. Supratherapeutic INR 12. Chronic atrial fibrillation 13. Bullae of feet and toes 14. Left hip pain 15. Hyperbilirubinemia Medicare Certification Statement: I certify that Post Hospital custodial care is medically necessary on a continuing basis for any of the conditions for which she/he is receiving care during hospitalization. Notify PCP of admission and forward orders to primary provider for signature. Weight on admission and: Weekly Other Notification Orders: Call PCP immediately if patient develops dyspnea, chest pain/tightness or edema. House Bowel Program: Yes Additional Bowel Program Orders: If no BM after 2 days, nurse may give M.O.M. 30ml PO PRN and/or ducolax Supp 1 NE and/or TAN 250mg P.O., and/or senna 1-2 tabs PO. On day 3 nurse may give repeat above order until residents constipation is resolved. Annual Influenza Vaccine (between Feb 08 and September 07): Yes Two-step PPD per [facility] [phone] or approved exception documents: Yes Treatments & Other Orders: [place] blisters being covered with Mepilex, then wrapped with Kerlix on a daily basis. Toe blister also being treated with cream and then wrapped with Kerlix. Lab Tests or X-ray Orders: [facility] May 06 Medication Orders: PLEASE REFER TO THE DISCHARGE MEDICATION LIST. Insulin Orders?: No - Medications New Prescriptions: Lactulose 15 ml PO DAILY #240 ml Furosemide [Lasix] 40 mg PO DAILY #7 tablet - Diet Type: Geriatric Texture: Regular May have monthly special meal: Yes - Therapies | Activity Therapy: Evaluation | Treat if indicated: PT, OT Rehabilitation Potential: Maximize functional status Activity: Activity as Tolerated Weight Bearing: Full Weight Assistance Devices: Wheelchair"
--- NOTE | 2023-04-30 14:07 | DISCHARGE SUMMARY ---
"Discharge Summary Admit Date: 04/17/23 Discharge Date: 04/30/23 Discharging Provider: Laureen Butler MD Primary Care Provider: [facility] @ [facility] Code Status: Do Not Attempt Resuscitation Condition at Discharge: Stable Discharge Disposition: SNF DC/Xfer - DIAGNOSES Discharge Diagnoses with Status of Each Condition: 1. Acute metabolic encephalopathy 2. Fall at long-term facility 3. E. coli UTI 4. Elevated ammonia 5. Acute kidney injury 6. 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 Hyperbilirubinemia 8. Anasarca 9. Cirrhosis 10. Type 2 diabetes mellitus, controlled, without complications, without long- term use of insulin 11. Supratherapeutic INR 12. Chronic atrial fibrillation 13. Bullae of feet and toes 14. Left hip pain - HPI History of Present Illness: Patient is an 87-year-old female with a past medical history of chronic atrial fibrillation on warfarin, type 2 diabetes, hypertension, and arthritis who presented to the ED after sustaining a fall at home early this morning. Patient reports that her fall was mechanical in nature and that she was getting up to go get a drink of water and her left knee gave out resulting in a fall with head strike and no loss of consciousness. Upon presentation to the ED, she was noted to have a supratherapeutic INR of 3.5. CT head was performed showing no evidence of an intracranial bleed. There was evidence of chronic microvascular ischemic changes. X-rays were also performed of her knee and pelvis which did not show any obvious fractures. CT abdomen/pelvis did show evidence of potential early cirrhosis without any hip fractures. Lab work also showed an LOYDA with a creatinine of 2.4 with her baseline being near 1 as well as a UA suggestive of UTI. She was given a dose of IV ceftriaxone and IV fluids. During my evaluation, patient was nontoxic-appearing. Her daughter was at bedside. We did discuss CODE STATUS and she was listed as DNR. She denied any fever or chills. She states she has been having a lower appetite. No chest pain or shortness of breath. - Past Medical History Cardiovascular: reports: Hypertension, High cholesterol, Atrial fibrillation Respiratory: reports: None Neuro: reports: Tremors Endocrine/Autoimmune: reports: Type 2 diabetes GI: reports: None : reports: Incontinence HEENT: reports: Chronic hearing loss Psych: reports: None Musculoskeletal: reports: Osteoarthritis Derm: reports: None MRSA Hx?: No - Past Surgical History HEENT: reports: Cataracts, Detached retina repair, Tonsil/Adenoidectomy Derm: reports: Debridement - CONSULTS | PROCEDURES Procedures: 1. Echocardiogram. 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 Mild to moderate of mitral. She has moderate right ventri cular enlargement. RVSP is 77 mmHg. 2. Urine culture with E. coli 3. Blood cultures negative at 5 days 4. Multiple chest x-rays. Intermittent changes of congestive heart failure. No focal infiltrates. 5. Hip pelvis CT without any acute bony abnormality. 6. Head CT without acute intracranial process. Moderate atrophy and chronic microvascular changes. She had 2 more CTs because of her altered mental status and no acute findings. 7. Cervical spine CT with multilevel degenerative changes and no visualized fracture 8. Bladder ultrasound was with marked bladder distention. No identified source of obstruction. 9. Pelvis CT with mildly distended bladder, no bladder mass visualized. Markedly enlarged body habitus with anasarca. Pedunculated calcified fibroid at the fundus of the uterus measuring 3.[address] was done because radiology was feeling that there was a mass in the bladder, obstructing urinary outflow. No change from the first CT. It is postulated that her pedunculated fibroid is occasionally blocking her urinary tract. - HOSPITAL COURSE Hospital Course: 87-year-old female with PMH of type 2 diabetes, chronic atrial fibrillation on Coumadin, hypertension, arthritis that was brought to the emergency room after sustaining a fall at home. She was found to be encephalopathic. Toes were severely blistering on exam in the ER. Encephalopathy was felt to be from UTI, acute kidney injury and elevated ammonia. She completed antibiotics for the UTI. Urine culture grew out E. coli. Blood cultures negative. She seems to have a diagnosis of cirrhosis by radiology exam showing scalloped appearance of liver margins. Splenic calcifications. Scattered ascites within the abdomen and pelvis. She developed urinary retention and uremia from a fibroid uterus obstructing urine outflow and now with a chronic Carter catheter. Once uremia and elevated ammonia came down, she started waking up and returning to baseline. Echocardiogram shows ejection fraction of 60 to 65% with moderate right ventricular enlargement. Right ventricular systolic function mildly impaired. Mild to moderate mitral regurg. Moderate to severe tricuspid regurgitation with severely abnormal right heart pressures and an RVSP of 77 mmHg. Lactulose was started for elevated ammonia. But due to diarrhea it was decreased from 3 times a day to once a day. Her glipizide and metformin were held while she was in inpatient and her diabetes was controlled with sliding scale insulin. Coumadin was held because of elevated INR and was then reinstituted. INR on the day of discharge is 2.9.Advance care planning was done during her stay. Both daughters were present with that conversation. She is a DO NOT RESUSCITATE and POLST was signed and scanned into the chart. Has been seen by PT and OT and they feel that she could benefit from rehab benefit to improve mobility and improve ADLs Blistering toes should have dressing changes on a daily basis Previous hospitalist feels that the patient has a fibroid uterus causing compression of bladder neck with resulting obstruction. Would leave to the discretion of the physician at the facility where to move forward with this. Currently patient has chronic Carter that was placed here At discharge temperature was 36.2. Heart rate 84. Blood pressure 138/92. Respirations 18. 100% on room air. This lady is very frail. Spends most of her time sleeping. But when you walk into her room she will wake up and be able to name the day and where she is. Has fears about falling and will retropulse against therapy because she is afraid of falling. She demonstrated impaired activity tolerance but did improve after sitting in the bed for 4 minutes and then finally got up to min a mod assist. She really could not tolerate out of bed activity due to fatigue. She is felt to need long-term facility intervention for rehab because of altered mentation and poor trunk control. She then may be able to transition back to her previous residential facility. Neck is supple. Lungs have diminished breath sounds at the bases with slow, shallow, unlabored respiration. I have encouraged her to do deep breathing exercises and she says she will try if she can remember. She is in a regular rate and rhythm. The abdomen is soft and nontender. She is incontinent of urine and was using a Carter catheter in the hospital. Extremities have 2+ edema. Last bowel movement was April 30. Neurologically she is forgetful, very hard of hearing. No focal deficits but very weakened and deconditioned. Skin has a rash in the right arm, and a tear from tape so some of her skin is weeping but not infected. Greater than 30 minutes was spent correlating discharge. This document was made in part using voice recognition software. While efforts are made to proofread this document, sound alike and grammatical errors may occur. - ALLERGIES Allergies/Adverse Reactions: Allergies Allergy/AdvReac Type Severity Reaction Status Date / Time calcium carbonate AdvReac Unknown Verified 05/02/23 18:57 [From Bufferin] lidocaine AdvReac Rash Verified 05/02/23 18:57 magnesium [From Bufferin] AdvReac Unknown Verified 05/02/23 18:57 - MEDICATIONS Home Medications: Ambulatory Orders Medication Instructions Recorded Confirmed Enalapril Maleate [Vasotec] 20 mg PO DAILY 02/25/19 05/02/23 Warfarin [Coumadin] 2 mg PO UD 02/25/19 05/02/23 Warfarin Sodium [Coumadin] 0.5 mg PO UD 12/02/22 05/02/23 metFORMIN [Glucophage] 500 mg PO BID #60 tab 12/09/22 05/02/23 Acetaminophen with Codeine 1 tab PO DAILY PRN 04/17/23 05/02/23 [Acetaminophen-Cod #3 Tablet] glipiZIDE [Glucotrol] 5 mg PO BID 04/17/23 05/02/23 Cod Liver Oil/Zinc Oxide [Desitin] 113 gm TOP PRN PRN each 04/30/23 05/02/23 Furosemide [Lasix] 40 mg PO DAILY #7 tablet 04/30/23 05/02/23 Lactulose 15 ml PO DAILY #240 ml 04/30/23 05/02/23 Metoprolol Succinate [Toprol Xl] 37.5 mg PO BID tab 04/30/23 05/02/23 Nystatin Cream [Mycostatin Cream] 1 applic TOP BID each 04/30/23 05/02/23 Zinc Oxide 20% Oint [Zinc Oxide] 1 applic TOP PRN PRN each 04/30/23 05/02/23 Bisacodyl Supp [Dulcolax Supp] 10 mg GA DAILY PRN #3 supp 05/02/23 LORazepam [Ativan] 0.5 mg PO Q6H PRN #10 tablet 05/02/23 LORazepam [Ativan] 0.5 mg PO Q6H PRN #10 tablet 05/02/23 Morphine Sulfate 5 mg PO Q4H PRN #30 ml 05/02/23 Morphine Sulfate 5 mg PO Q4H PRN #30 ml 05/02/23 OLANZapine ODT [Zyprexa Odt] 5 mg TL BID PRN #10 tablet 05/02/23 Scopolamine Patch [Transderm-Scop] 1 each TOP Q3D #10 patch 05/02/23 Senna [Senokot] 8.6 mg PO BID PRN #10 tablet 05/02/23 - LABS Result Diagrams: 04/30/23 05:30 04/30/23 05:30 - SEPSIS Current Stage of Sepsis: Ruled out"
== END 2023-04-30 14:47 | DRG 682 ==
LOC: EDUNIT# → ED 07:11 → MS3 11:31 → MS2 04-22 13:50
PROVIDERS: ADMIT Family Medicine; ATTEND Specialist
DX: N17.9 Acute kidney failure, unspecified (principal); G93.41 Metabolic encephalopathy; N39.0 Urinary tract infection, site not specified; I48.20 Chronic atrial fibrillation, unspecified; Z68.41 Body mass index [BMI] 40.0-44.9, adult; K52.1 Toxic gastroenteritis and colitis; I67.82 Cerebral ischemia; D64.9 Anemia, unspecified; B96.20 Unspecified Escherichia coli [E. coli] as the cause of diseases classified elsewhere; N32.0 Bladder-neck obstruction; I45.10 Unspecified right bundle-branch block; R33.8 Other retention of urine; E80.6 Other disorders of bilirubin metabolism; R60.1 Generalized edema; E11.9 Type 2 diabetes mellitus without complications; M25.552 Pain in left hip; Z79.01 Long term (current) use of anticoagulants; I10 Essential (primary) hypertension; M16.12 Unilateral primary osteoarthritis, left hip; S09.90XA Unspecified injury of head, initial encounter; W18.30XA Fall on same level, unspecified, initial encounter; E78.00 Pure hypercholesterolemia, unspecified; Z66 Do not resuscitate; R41.82 Altered mental status, unspecified; D25.9 Leiomyoma of uterus, unspecified; S41.111A Laceration without foreign body of right upper arm, initial encounter; S90.423A Blister (nonthermal), unspecified great toe, initial encounter; X58.XXXA Exposure to other specified factors, initial encounter; K74.60 Unspecified cirrhosis of liver; R53.1 Weakness; R32 Unspecified urinary incontinence; R21 Rash and other nonspecific skin eruption; Z79.84 Long term (current) use of oral hypoglycemic drugs; R79.1 Abnormal coagulation profile; H91.93 Unspecified hearing loss, bilateral; K76.82 Hepatic encephalopathy; E66.9 Obesity, unspecified; Z91.81 History of falling; T47.3X5A Adverse effect of saline and osmotic laxatives, initial encounter; Y92.230 Patient room in hospital as the place of occurrence of the external cause
CPT/HCPCS: 36415; 51701; 70450; 71045; 72125; 72192; 73502; 73562; 74176; 76775; 80048; 80053; 81001; 82140; 82570; 83036; 83735; 84100; 84134; 84156; 85025; 85610; 87040; 87086; 87181; 92610; 93005; 93306; 96374; 96375; 97162; 97164; 97166; 97168; 97530; 97535; 99285; A9270; J7120; J8499; P9047; 81003

== ENCOUNTER 2023-04-30 14:48 | Outpatient (CLI) | payer MEDICARE, OTHER | END 2023-04-30 14:49 | LOC: EMS 14:48 | PROVIDERS: ATTEND Specialist | DX: G93.41 Metabolic encephalopathy (principal); Z74.01 Bed confinement status; R41.0 Disorientation, unspecified | CPT/HCPCS: A0425; A0428 ==

== ENCOUNTER 2023-05-02 18:32 | Outpatient (CLI) | payer MEDICARE, OTHER | END 2023-05-02 18:33 | disposition critical access hospital (66) | LOC: EMS 18:32 | DX: R40.20 Unspecified coma (principal); R09.89 Other specified symptoms and signs involving the circulatory and respiratory systems; N18.6 End stage renal disease | CPT/HCPCS: A0425; A0429 ==

== ENCOUNTER 2023-05-02 18:42 | Emergency (ER) | payer MEDICARE, OTHER ==
[2023-05-02] MEDS ORDERED: MORPHINE 2 MG/ML CARPUJECT IVP STA (18:49)
[2023-05-02] MEDS ORDERED: LORazepam 2 MG/ML VIAL IVP STA (18:50)
[2023-05-02] MEDS ORDERED: SCOPOLAMINE PATCH TOP SCH (19:00)
--- NOTE | 2023-05-02 19:03 | ED Physician Documentation ---
History of Present Illness - Stated complaint Stated Complaint: FTT - Chief complaint Chief Complaint: General - History obtained from History obtained from: Family - Additonal information Additional information: 87-year-old woman presents from SNF accompanied by family. They feel she is at end-of-life and need a new POLST filled out as her current one is full code and would like her enrolled in hospice and comfort care. She is accompanied by her 2 daughters who have joint POA. PD PAST MEDICAL HISTORY - Past Medical History Past Medical History: Yes Cardiovascular: Hypertension, High cholesterol, Atrial fibrillation Respiratory: None Neuro: Tremors Endocrine/Autoimmune: Type 2 diabetes GI: None : Incontinence HEENT: Chronic hearing loss Psych: None Musculoskeletal: Osteoarthritis Derm: None - Past Surgical History Past Surgical History: Yes HEENT: Cataracts, Detached retina repair, Tonsil/Adenoidectomy Derm: Debridement - Present Medications Home Medications: Ambulatory Orders Medication Instructions Recorded Confirmed Enalapril Maleate [Vasotec] 20 mg PO DAILY 02/25/19 05/02/23 Warfarin [Coumadin] 2 mg PO UD 02/25/19 05/02/23 Warfarin Sodium [Coumadin] 0.5 mg PO UD 12/02/22 05/02/23 metFORMIN [Glucophage] 500 mg PO BID #60 tab 12/09/22 05/02/23 Acetaminophen with Codeine 1 tab PO DAILY PRN 04/17/23 05/02/23 [Acetaminophen-Cod #3 Tablet] glipiZIDE [Glucotrol] 5 mg PO BID 04/17/23 05/02/23 Cod Liver Oil/Zinc Oxide [Desitin] 113 gm TOP PRN PRN each 04/30/23 05/02/23 Furosemide [Lasix] 40 mg PO DAILY #7 tablet 04/30/23 05/02/23 Lactulose 15 ml PO DAILY #240 ml 04/30/23 05/02/23 Metoprolol Succinate [Toprol Xl] 37.5 mg PO BID tab 04/30/23 05/02/23 Nystatin Cream [Mycostatin Cream] 1 applic TOP BID each 04/30/23 05/02/23 Zinc Oxide 20% Oint [Zinc Oxide] 1 applic TOP PRN PRN each 04/30/23 05/02/23 Bisacodyl Supp [Dulcolax Supp] 10 mg ND DAILY PRN #3 supp 05/02/23 LORazepam [Ativan] 0.5 mg PO Q6H PRN #10 tablet 05/02/23 LORazepam [Ativan] 0.5 mg PO Q6H PRN #10 tablet 05/02/23 Morphine Sulfate 5 mg PO Q4H PRN #30 ml 05/02/23 Morphine Sulfate 5 mg PO Q4H PRN #30 ml 05/02/23 OLANZapine ODT [Zyprexa Odt] 5 mg TL BID PRN #10 tablet 05/02/23 Scopolamine Patch [Transderm-Scop] 1 each TOP Q3D #10 patch 05/02/23 Senna [Senokot] 8.6 mg PO BID PRN #10 tablet 05/02/23 - Allergies Allergies/Adverse Reactions: Allergies Allergy/AdvReac Type Severity Reaction Status Date / Time calcium carbonate AdvReac Unknown Verified 05/02/23 18:57 [From Bufferin] lidocaine AdvReac Rash Verified 05/02/23 18:57 magnesium [From Bufferin] AdvReac Unknown Verified 05/02/23 18:57 - Social History Does the pt smoke?: No Smoking Status: Never smoker Does the pt drink ETOH?: No Does the pt have substance abuse?: No - Immunizations Immunizations are current?: Yes - POLST Patient has POLST: No PD ED PE NORMAL - General General: Other (Sonorous gurgling respirations and unresponsive) - HEENT HEENT: Other (Jaundiced) - Respiratory Respiratory: Other (Gurgling respirations and tachypneic) - Abdomen Abdomen: Non tender - Neuro Eye Opening: None Motor: Abnormal Extension Verbal: None GCS Score: 4 Results - Vitals Vitals: Vital Signs - 24 hr 05/02/23 18:51 Temperature 36.5 C Heart Rate 95 Respiratory 34 H Rate Blood Pressure 170/88 H O2 Saturation 93 Oxygen O2 Source Non-rebreather mask PD Medical Decision Making - ED course ED course: New POLST with DNR/DNI and comfort care was completed and hospice referral and email written. Family preferring for her to go back to her room at [facility] where her things are and understand she is at end-of-life. Departure - Departure Disposition: 01 Home, Self Care Clinical Impression: End of life care Condition: Stable Instructions: Hospice Nears Prescriptions: LORazepam [Ativan] 0.5 mg PO Q6H PRN #10 tablet PRN Reason: Anxiety LORazepam [Ativan] 0.5 mg PO Q6H PRN #10 tablet PRN Reason: Anxiety Bisacodyl Supp [Dulcolax Supp] 10 mg ND DAILY PRN #3 supp PRN Reason: Constipation Morphine Sulfate 5 mg PO Q4H PRN #30 ml PRN Reason: Moderate to Severe pain. Morphine Sulfate 5 mg PO Q4H PRN #30 ml PRN Reason: Moderate to Severe pain. Senna [Senokot] 8.6 mg PO BID PRN #10 tablet PRN Reason: Constipation Scopolamine Patch [Transderm-Scop] 1 each TOP Q3D #10 patch OLANZapine ODT [Zyprexa Odt] 5 mg TL BID PRN #10 tablet PRN Reason: Nausea / Vomiting Comments: All medications except for current medications for comfort can be discontinued. I have notified her hospice medical director/head team physician to enroll her but expect she may pass before she is enrolled in hospice. She is now DNR/DNI/comfort care. I sent the prescription electronically to [facility] in [place], but also printed it out to go back with you to [facility] since its Thanksgiving evening I wanted to make sure they were aware of what we were doing. Forms: PCP List Discharge Date/Time: 05/02/23 20:33
[2023-05-02] MEDS ORDERED: LORazepam 2 MG/ML VIAL ONE (19:10)
[2023-05-02] MEDS ORDERED: MORPHINE 2 MG/ML CARPUJECT ONE (19:10)
[2023-05-02 19:16] VITALS: BP 170/88; O2SAT 93
== END 2023-05-02 20:33 | disposition home or self-care (01) ==
LOC: EDUNIT# → ED 18:42
DX: R40.20 Unspecified coma (principal); Z51.5 Encounter for palliative care; Z66 Do not resuscitate
CPT/HCPCS: 96374; 99282; 99285; J2060; J3490

== ENCOUNTER 2023-05-02 20:23 | Outpatient (CLI) | payer MEDICARE, OTHER | END 2023-05-02 20:24 | LOC: EMS 20:23 | PROVIDERS: ATTEND Emergency Medicine | DX: Z51.5 Encounter for palliative care (principal); N18.6 End stage renal disease; R40.20 Unspecified coma; Z99.81 Dependence on supplemental oxygen | CPT/HCPCS: A0425; A0428 ==